=== PATIENT | male | born 1960 | race Caucasian/White ===

== ENCOUNTER 2016-07-25 20:56 | Observation (INO) | payer OTHER ==
[~2016-07-25] VITALS: Ht 177.8 cm; Wt 93.6 kg
[~2016-07-25 20:56] MED LIST: ASP81TEC PO; ATEN50TA PO; CLON0.1T PO; HYDR-34 PO; HYDR-3583 PO; HYDR1TAB PO; IBP600T1 PO; KETO-22 PO; MTP25TSR PO; ONDAN4ODT PO; PRV20T PO; TMSL.4C PO
[2016-07-25] MEDS ORDERED: RX-NITROGLYCERIN 0.4 MG TAB BTL 25'S SL PRN (21:00)
[2016-07-25] MEDS ORDERED: ASPIRIN 81 MG CHEW (CHILDREN'S ASA) PO ONE (21:00)
[2016-07-25 21:20] LABS: BASOPHILS % (AUTO) 0 % (0-10); EOSINOPHILS # (AUTO) 0.2 10^3/uL (0.0-0.3); EOSINOPHILS % (AUTO) 2 % (0-10); LYMPHOCYTES # (AUTO) 1.7 X 10^3 (1.0-4.0); LYMPHOCYTES % (AUTO) 20 % (12-44); MEAN CORPUSCULAR HEMOGLOBIN 32 PG (25-34); MEAN CORPUSCULAR HGB CONC 35 G/DL (32-36); MEAN CORPUSCULAR VOLUME 92 FL (80-99); MEAN PLATELET VOLUME 9.5 FL (7.4-10.4); MONOCYTES # (AUTO) 0.9 X 10^3 (0.0-1.0); MONOCYTES % (AUTO) 11 % (0-12); NEUTROPHILS # (AUTO) 5.7 X 10^3 (1.8-7.8); NEUTROPHILS % (AUTO) 67 % (42-75); PLATELET COUNT 223 10^3/uL (130-400); RED BLOOD COUNT 4.81 10^6/uL (4.35-5.85); RED CELL DISTRIBUTION WIDTH 13.7 % (10.0-14.5); WHITE BLOOD COUNT 8.5 10^3/uL (4.3-11.0)
[2016-07-25 21:28] LABS: INR 1.1 (0.8-1.4); PROTHROMBIN TIME PATIENT 13.4 SEC (12.2-14.7)
--- NOTE | 2016-07-25 21:39 | Diagnostic Imaging Report ---
INDICATION: Hypertension, chest pain Portable chest 9:19 PM Heart size and pulmonary vascularity are normal. Lungs are clear. There are no effusions or pneumothoraces. IMPRESSION: Negative chest Dictated by: Dictated on workstation # [id number]
[2016-07-25 21:40] LABS: ALANINE AMINOTRANSFERASE 22 U/L (0-55); ALBUMIN 3.8 G/DL (3.2-4.5); AMYLASE 43 U/L (25-125); ANION GAP 9 MMOL/L (5-14); ASPARTATE AMINO TRANSFERASE 22 U/L (5-34); BILIRUBIN,TOTAL 0.6 MG/DL (0.1-1.0); BLOOD UREA NITROGEN 11 MG/DL (7-18); BUN/CREATININE RATIO 11; CALCIUM 8.5 MG/DL (8.5-10.1); CARBON DIOXIDE 22 MMOL/L (21-32); CHLORIDE 111 MMOL/L (98-107); CREATINE KINASE 126 U/L (30-200); CREATININE SERUM 1.03 MG/DL (0.60-1.30); GFR ESTIMATED > 60; GLUCOSE 103 MG/DL (70-105); LIPASE 27 U/L (8-78); POTASSIUM 3.6 MMOL/L (3.6-5.0); SODIUM 142 MMOL/L (135-145); TOTAL PROTEIN 6.6 G/DL (6.4-8.2)
[2016-07-25 21:47] LABS: TROPONIN I < 0.30 NG/ML (<0.30)
--- NOTE | 2016-07-25 22:08 | ED Chest Pain ---
General Chief Complaint: Chest Pain Stated Complaint: CHEST TIGHTNESS, RISING BLOOD PRESSURE Nursing Triage Note: Pt presents to ED with c/o chest pain and HTN. Nursing Sepsis Screen: No Definite Risk Source: patient History of Present Illness Time seen by provider: 21:00 Initial Comments PT ARRIVES VIA POV FROM HOME C/O MID CHEST PAIN/TIGHTNESS FOR THE LAST 2 HOURS STATES BP HAS BEEN ELEVATED THIS EVENING WELL--160'S/100'S--STATES HIS BP "SPIKES" FOR NO REASON EVERY FEW MONTHS TOOK AN EXTRA ATENOLOL 30-45 MINUTES PRIOR TO ARRIVAL + SHORTNESS OF BREATH NO SWEATS + NAUSEA, NO VOMITING. ONGOING PROBLEM, BUT NOT NOW NO SWELLING IN LEGS/FEET OR PAIN IN [place] HAS HAD SIMILAR--HAD A CARDIAC CATH IN 2013--NO INTERVENTION. HAS NOT FOLLOWED UP WITH CARDIOLOGY SINCE THEN PCP:CARLOS Allergies and Home Medications Allergies Coded Allergies: NKANo Known Allergies (Unverified Allergy, Mild, 06/15/09) Home Medications Aspirin 81 Mg Tabec, 81 MG PO DAILY, #30 Prescribed by: KB ORO on 08/26/13 1224 Atenolol 50 Mg Tablet, 50 MG PO DAILY, (Reported) Clonidine HCl 0.1 Mg Tablet, 0.1 MG PO BID PRN for BLOOD PRESSURE, #10 Ref 0 Prescribed by: MARISSA CHENG on 03/22/169 Pravastatin Sodium 20 Mg Tablet, 20 MG PO DAILY, #30 Prescribed by: KB ORO on 08/26/13 1224 Review of Systems Constitutional: No chills, No diaphoresis, No dizziness, No fever, other ( FATIGUES EASY/LOW EXERCISE TOLERANCE) Respiratory: See HPI, Denies Cough, Shortness of Air Cardiovascular: See HPI, Chest Pain, Denies Edema, Denies Lightheadedness, Denies Palpitations, Denies Syncope Gastrointestinal: See HPI, Denies Abdominal Pain, Nausea, Denies Poor Appetite , Denies Poor Fluid Intake, Denies Vomiting Genitourinary: No Symptoms Reported Musculoskeletal: no symptoms reported Skin: no symptoms reported Psychiatric/Neurological: No Symptoms Reported Endocrine: No Symptoms Reported Hematologic/Lymphatic: No Symptoms Reported Past Sgxskca-Yzqcgr-Hpacqf Hx Patient Social History Alcohol Use: Occasionally Uses Recreational Drug Use: No Smoking Status: Current Everyday Smoker (1 PPD) Type Used: Cigarettes 2nd Hand Smoke Exposure: No Recent Foreign Travel: No Contact w/Someone Who Travel: No Recent Infectious Disease Expo: No Recent Hopitalizations: No Surgeries HX Surgeries: Yes (CARDIAC CATH 2013--NO INTERVENTION) Surgeries: Cardiac, Gallbladder, Vasectomy Respiratory Hx Respiratory Disorders: No Cardiovascular Hx Cardiac Disorders: Yes (HX OF MITRAL VALVE PROLAPSE) Cardiac Disorders: Hypertension Neurological Hx Neurological Disorders: No Reproductive System Hx Reproductive Disorders: No Genitourinary Hx Genitourinary Disorders: Yes Genitourinary Disorders: Benign Prostatic Hyperpl Gastrointestinal Hx Gastrointestinal Disorders: Yes Gastrointestinal Disorders: Gastroesophageal Reflux (POSSIBLE), Gall Bladder Disease, Irritable Bowel (POSSIBLE) Musculoskeletal Hx Musculoskeletal Disorders: Yes (CHRONIC FOOT PAIN) Musculoskeletal Disorders: Degenerate Disk Disease, Chronic Back Pain Endocrine Hx Endocrine Disorders: No HEENT HX ENT Disorders: No Cancer Hx Cancer: No Psychosocial Hx Psychiatric Problems: No Integumentary HX Skin/Integumentary Disorder: No Blood Transfusions Hx Blood Disorders: No Family Medical History Family Medial History: Family history: Hypertension Hearing loss G8 BROTHER, Onset:Unknown (HEARING AIDE X1) No Family History of: Abdominal aortic aneurysm Abdelrahman's disease Alcoholism Aphasia Cancer Cancer of colon Cataract Chest pain Congenital heart disease Congestive heart failure Cystic fibrosis Dementia Dysphagia Family history: Allergy Family history: Alzheimer's disease Family history: Arthritis Family history: Asthma Family history: Breast disease Family history: Cardiovascular disease Family history: Coronary thrombosis Family history: Diabetes mellitus Family history: Gastrointestinal disease Family history: Glaucoma Family history: Osteoporosis Family history: Thyroid disorder Headache Heart disease Hereditary disease History of - anemia History of - disorder History of - respiratory disease History of drug abuse Human immunodeficiency virus (HIV) seropositivity Hypercholesterolemia Infertile Kidney disease Malignant neoplasm of lung Myocardial infarction Parkinson's disease Prostate cancer Psychotic disorder Seizure disorder Stroke Tuberculosis Visual impairment Physical Exam Vital Signs Vital Sign - Last 12Hours 07/25/16 20:57 Temp 98.3 Pulse 67 Resp 18 B/P (MAP) 173/102 Pulse Ox 98 O2 Delivery Room Air Capillary Refill : Less Than 3 Seconds General Appearance: No Apparent Distress, WD/WN, Other (REEKS OF CIGARETTES) HEENT: PERRL/EOMI Neck: Full Range of Motion, Normal Inspection, Non Tender, Supple, No Carotid Bruit, No JVD Respiratory: Chest Non Tender, Normal Breath Sounds, No Accessory Muscle Use, No Respiratory Distress Cardiovascular: Regular Rate, Rhythm, No Edema, No JVD, No Murmur, Normal Peripheral Pulses Gastrointestinal: Normal Bowel Sounds, No Organomegaly, No Pulsatile Mass, Soft , Tenderness (MILD EPIGASTRIC TENDERNESS) Extremity: Normal Capillary Refill, Normal Inspection, Normal Range of Motion, Non Tender, No Calf Tenderness, No Pedal Edema Neurologic/Psychiatric: Alert, Oriented x3, No Motor/Sensory Deficits, Normal Mood/Affect, nursing scheduler II-XII Norm as Tested Skin: Normal Color, Warm/Dry, Tattoos/Piercings (MULTIPLE TATTOOS/VULGAR; MULTIPLE PIERCINGS) Progress/Results/Core Measures Results/Orders Lab Results Laboratory Tests Test 07/25/16 21:05 07/25/16 21:14 Range/Units Prothrombin Time 13.4 12.2-14.7 SEC INR Comment 1.1 0.8-1.4 Activated Partial Thromboplast Time 31 24-35 SEC Sodium Level 142 135-145 MMOL/L Potassium Level 3.6 3.6-5.0 MMOL/L Chloride Level 111 H 98-107 MMOL/L Carbon Dioxide Level 22 21-32 MMOL/L Anion Gap 9 5-14 MMOL/L Blood Urea Nitrogen 11 7-18 MG/DL Creatinine 1.03 0.60-1.30 MG/DL Estimat Glomerular Filtration Rate > 60 BUN/Creatinine Ratio 11 Glucose Level 103 70-105 MG/DL Calcium Level 8.5 8.5-10.1 MG/DL Total Bilirubin 0.6 0.1-1.0 MG/DL Aspartate Amino Transf (AST/SGOT) 22 5-34 U/L Alanine Aminotransferase (ALT/SGPT) 22 0-55 U/L Alkaline Phosphatase 58 40-136 U/L Total Creatine Kinase 126 30-200 U/L Creatine Kinase MB 0.8 <6.6 NG/ML Troponin I < 0.30 <0.30 NG/ML B-Type Natriuretic Peptide 46.2 <100.0 PG/ML Total Protein 6.6 6.4-8.2 G/DL Albumin 3.8 3.2-4.5 G/DL Amylase Level 43 25-125 U/L Lipase 27 8-78 U/L White Blood Count 8.5 4.3-11.0 10^3/uL Red Blood Count 4.81 4.35-5.85 10^6/uL Hemoglobin 15.4 13.3-17.7 G/DL Hematocrit 44 40-54 % Mean Corpuscular Volume 92 80-99 FL Mean Corpuscular Hemoglobin 32 25-34 PG Mean Corpuscular Hemoglobin Concent 35 32-36 G/DL Red Cell Distribution Width 13.7 10.0-14.5 % Platelet Count 223 130-400 10^3/uL Mean Platelet Volume 9.5 7.4-10.4 FL Neutrophils (%) (Auto) 67 42-75 % Lymphocytes (%) (Auto) 20 12-44 % Monocytes (%) (Auto) 11 0-12 % Eosinophils (%) (Auto) 2 0-10 % Basophils (%) (Auto) 0 0-10 % Neutrophils # (Auto) 5.7 1.8-7.8 X 10^3 Lymphocytes # (Auto) 1.7 1.0-4.0 X 10^3 Monocytes # (Auto) 0.9 0.0-1.0 X 10^3 Eosinophils # (Auto) 0.2 0.0-0.3 10^3/uL Basophils # (Auto) 0.0 0.0-0.1 10^3/uL My Orders Orders - KATIA SALDANA K DO Amylase (07/25/16 20:59) Cbc With Automated Diff (07/25/16 20:59) Comprehensive Metabolic Panel (07/25/16 20:59) Creatine Kinase (07/25/16 20:59) Creatine Kinase Mb (07/25/16 20:59) Lipase (07/25/16 20:59) Partial Thromboplastin Time (07/25/16 20:59) Protime With Inr (07/25/16 20:59) Troponin I (07/25/16 20:59) Chest 1 View, Ap/Pa Only (07/25/16 20:59) O2 (07/25/16 20:59) Ekg Tracing (07/25/16 20:59) Aspirin Chewable Tablet (Baby Aspirin Ch (07/25/16 21:00) Rx-Nitroglycerin Sl Tabs (Rx-Nitrostat S (07/25/16 21:00) BNP (07/25/16 20:59) Monitor-Rhythm Ecg Trace Only (07/25/16 20:59) Medications Given in ED Current Medications Medications Dose Ordered Sig/[place] Route Start Time Stop Time Status Last Admin Dose Admin Aspirin 324 mg ONCE ONCE PO 07/25/16 21:00 07/25/16 21:01 DC 07/25/16 21:12 324 MG Nitroglycerin 0.4 mg UD PRN SL 07/25/16 21:00 07/25/16 21:12 0.4 MG Vital Signs/I&O Vital Sign - Last 12Hours 07/25/16 07/25/16 07/25/16 20:57 20:57 21:05 Temp 98.3 Pulse 67 Resp 18 B/P (MAP) 173/102 Pulse Ox 98 97 O2 Delivery Room Air Room Air Room Air Blood Pressure Mean: 125 Progress Note : Progress Note PAIN-FREE AND BP DOWN TO 130'S/80'S WITH NTG X 1 UNEVENTFUL ER STAY ECG Initial ECG Impression Time: 21:01 Initial ECG Rate: 69 Initial ECG Rhythm: Normal Sinus Initial ECG Comparisson: Unchanged Diagnostic Imaging Comments CXR--NO ACUTE PROCESS, PER RADIOLOGIST REPORT @ 2145 Departure Communication Progress Notes 2156--SPOKE WITH DR. FLYNN, ACCEPTS PT FOR ADMIT 2158--SPOKE WITH DR. PANDEY FOR CARDIOLOGY CONSULT. ORDERS NOTED Impression Impression: Primary Impression: Chest pain Additional Impressions: HYPERTENSION Tobacco dependence Disposition: ADMITTED INPATIENT Condition: Improved Decision to Admit Reason: Admit from ER (General) Decision to Admit/Date: Jul 25, 2016 Time/Decision to Admit Time: 21:00 Departure-Patient Inst. Referrals: [facility] (PCP/Family) Primary Care Physician KATIA SALDANA DO Jul 25, 2016 22:08
[2016-07-25] MEDS ORDERED: ENOXAPARIN 100 MG/1 ML (LOVENOX) SYR SC ONE (22:15)
[2016-07-25] MEDS ORDERED: HYDR-3730 PO (22:31)
[2016-07-25] MEDS ORDERED: TAMS0.4C98 PO (22:31)
[2016-07-25] MEDS ORDERED: OMEP20TA33 PO (22:31)
[2016-07-25 22:59] VITALS: BP 155/98
[2016-07-25] MEDS ORDERED: PANTOPRAZOLE 40 MG/10 ML (PROTONIX) VIAL IV SCH (23:30)
[2016-07-26] MEDS ORDERED: PANTOPRAZOLE 40 MG/10 ML (PROTONIX) VIAL IV SCH (00:41)
[2016-07-26] MEDS ORDERED: morphine INJ 4 MG/ML 1 ML (VIAL/SYRINGE) IV PRN (00:45)
[2016-07-26] MEDS ORDERED: NITROGLYCERIN SUBLINGUAL 0.4 MG TAB (NITROSTAT) SL PRN (00:45)
[2016-07-26 03:23] LABS: BASOPHILS % (AUTO) 0 % (0-10); EOSINOPHILS # (AUTO) 0.2 10^3/uL (0.0-0.3); EOSINOPHILS % (AUTO) 3 % (0-10); LYMPHOCYTES # (AUTO) 1.9 X 10^3 (1.0-4.0); LYMPHOCYTES % (AUTO) 25 % (12-44); MEAN CORPUSCULAR HEMOGLOBIN 32 PG (25-34); MEAN CORPUSCULAR HGB CONC 35 G/DL (32-36); MEAN CORPUSCULAR VOLUME 92 FL (80-99); MEAN PLATELET VOLUME 9.8 FL (7.4-10.4); MONOCYTES # (AUTO) 0.9 X 10^3 (0.0-1.0); MONOCYTES % (AUTO) 12 % (0-12); NEUTROPHILS # (AUTO) 4.5 X 10^3 (1.8-7.8); NEUTROPHILS % (AUTO) 60 % (42-75); PLATELET COUNT 211 10^3/uL (130-400); RED CELL DISTRIBUTION WIDTH 13.6 % (10.0-14.5); WHITE BLOOD COUNT 7.6 10^3/uL (4.3-11.0)
[2016-07-26 03:52] LABS: ALANINE AMINOTRANSFERASE 19 U/L (0-55); ALBUMIN 3.4 G/DL (3.2-4.5); ANION GAP 9 MMOL/L (5-14); ASPARTATE AMINO TRANSFERASE 17 U/L (5-34); BILIRUBIN,TOTAL 0.4 MG/DL (0.1-1.0); BLOOD UREA NITROGEN 14 MG/DL (7-18); BUN/CREATININE RATIO 16; CALCIUM 8.1 MG/DL (8.5-10.1); CARBON DIOXIDE 20 MMOL/L (21-32); CHLORIDE 111 MMOL/L (98-107); CHOLESTEROL 156 MG/DL (< 200); CREATININE SERUM 0.86 MG/DL (0.60-1.30); DIRECT LDL 104 MG/DL (1-129); GFR ESTIMATED > 60; GLUCOSE 87 MG/DL (70-105); POTASSIUM 3.4 MMOL/L (3.6-5.0); SODIUM 140 MMOL/L (135-145); TRIGLYCERIDES 275 MG/DL (<150); VLDL CHOLESTEROL 55 MG/DL (5-40)
[2016-07-26 03:59] LABS: MYOGLOBIN SERUM 29.2 NG/ML (10.0-92.0)
[2016-07-26] MEDS ORDERED: ASPIRIN E.C. 325 MG (ECOTRIN) TABLET PO SCH (09:00)
[2016-07-26] MEDS ORDERED: NICOTINE 21 MG (NICODERM) PATCH TD SCH (09:00)
[2016-07-26] MEDS ORDERED: ENOXAPARIN 100 MG/1 ML (LOVENOX) SYR SC SCH (10:00)
--- NOTE | 2016-07-26 11:23 | Consultation-Cardiology ---
HPI-Cardiology Cardiology Consultation Date of Consultation 07/26/16 Date of Admission Indication: chest pain HPI 55 years old gentleman with history of hypertension, mild coronary artery disease per cardiac catheterization in 2013. Was in his usual state of health until yesterday when he started having chest pain, described it as pain in the retrosternal area, dull in nature, not radiating, had barbecue prior to that. Noted that his blood pressure was elevated, took additional dose of atenolol, reported that by the time he arrived to the emergency room he was feeling somewhat better. No further episodes of chest pain or shortness of breath, requesting to go home. I discussed with him the management plan recommended stress test, patient expressed that due to his back pain and leg pain, prefer to have Apical Stress Test, Agreed on Doing That Next Week, Requested Follow-Up with His Professor Of [employer], Patient Reported That He Did Not Follow-Up with Any Professor Of [employer], Had a Cardiac Catheterization Done by Dr. Douglass in 2013, Requested to Transfer His Service to My Practice. Home Medications & Allergies Allergies: Coded Allergies: KYMANo Known Allergies (Unverified Allergy, Mild, 06/15/09) Home Medication List Reviewed: Yes LNT-Bfuecw-Nsitls Hx Patient Social History Marital Status: Alcohol Use: Occasionally Uses Recreational Drug Use: No Smoking Status: Current Everyday Smoker Type Used: Cigarettes 2nd Hand Smoke Exposure: No Recent Foreign Travel: No Recent Infectious Disease Expo: No Recent Hopitalizations: No Physical Abuse Screen: No Sexual Abuse: No Past Medical History past medical history as discussed below Family Medical History Family History: G8 BROTHER Hearing loss, Onset:Unknown (HEARING AIDE X1) Relation not specified for: Family history: Hypertension Constitutional: no symptoms reported, see HPI EENTM: no symptoms reported, see HPI Respiratory: no symptoms reported, see HPI Cardiovascular: see HPI, chest pain, No edema, No Hx of Intervention, No palpitations, No syncope, No vascular heart diseas, No other Gastrointestinal: no symptoms reported, see HPI Genitourinary: no symptoms reported, see HPI Musculoskeletal: see HPI, back pain, No gout, joint pain, No joint swelling, No muscle pain, No muscle stiffness, No muscle cramps, No muscle twitching, No muscle weakness, No neck pain, other (foot pain) Skin: no symptoms reported, see HPI Psychiatric/Neurological: No Symptoms Reported, See HPI Reviewed Test Results Reviewed Test Results Lab Laboratory Tests Test 07/25/16 21:05 07/25/16 21:14 07/26/16 03:10 Range/Units Prothrombin Time 13.4 12.2-14.7 SEC INR Comment 1.1 0.8-1.4 Activated Partial Thromboplast Time 31 24-35 SEC Sodium Level 142 140 135-145 MMOL/L Potassium Level 3.6 3.4 L 3.6-5.0 MMOL/L Chloride Level 111 H 111 H 98-107 MMOL/L Carbon Dioxide Level 22 20 L 21-32 MMOL/L Anion Gap 9 9 5-14 MMOL/L Blood Urea Nitrogen 11 14 7-18 MG/DL Creatinine 1.03 0.86 0.60-1.30 MG/DL Estimat Glomerular Filtration Rate > 60 > 60 BUN/Creatinine Ratio 11 16 Glucose Level 103 87 70-105 MG/DL Calcium Level 8.5 8.1 L 8.5-10.1 MG/DL Total Bilirubin 0.6 0.4 0.1-1.0 MG/DL Aspartate Amino Transf (AST/SGOT) 22 17 5-34 U/L Alanine Aminotransferase (ALT/SGPT) 22 19 0-55 U/L Alkaline Phosphatase 58 55 40-136 U/L Total Creatine Kinase 126 30-200 U/L Creatine Kinase MB 0.8 <6.6 NG/ML Troponin I < 0.30 < 0.30 <0.30 NG/ML B-Type Natriuretic Peptide 46.2 <100.0 PG/ML Total Protein 6.6 6.0 L 6.4-8.2 G/DL Albumin 3.8 3.4 3.2-4.5 G/DL Amylase Level 43 25-125 U/L Lipase 27 8-78 U/L White Blood Count 8.5 7.6 4.3-11.0 10^3/uL Red Blood Count 4.81 4.60 4.35-5.85 10^6/uL Hemoglobin 15.4 14.9 13.3-17.7 G/DL Hematocrit 44 43 40-54 % Mean Corpuscular Volume 92 92 80-99 FL Mean Corpuscular Hemoglobin 32 32 25-34 PG Mean Corpuscular Hemoglobin Concent 35 35 32-36 G/DL Red Cell Distribution Width 13.7 13.6 10.0-14.5 % Platelet Count 223 211 130-400 10^3/uL Mean Platelet Volume 9.5 9.8 7.4-10.4 FL Neutrophils (%) (Auto) 67 60 42-75 % Lymphocytes (%) (Auto) 20 25 12-44 % Monocytes (%) (Auto) 11 12 0-12 % Eosinophils (%) (Auto) 2 3 0-10 % Basophils (%) (Auto) 0 0 0-10 % Neutrophils # (Auto) 5.7 4.5 1.8-7.8 X 10^3 Lymphocytes # (Auto) 1.7 1.9 1.0-4.0 X 10^3 Monocytes # (Auto) 0.9 0.9 0.0-1.0 X 10^3 Eosinophils # (Auto) 0.2 0.2 0.0-0.3 10^3/uL Basophils # (Auto) 0.0 0.0 0.0-0.1 10^3/uL Myoglobin 29.2 10.0-92.0 NG/ML Triglycerides Level 275 H <150 MG/DL Cholesterol Level 156 < 200 MG/DL LDL Cholesterol Direct 104 1-129 MG/DL VLDL Cholesterol 55 H 5-40 MG/DL HDL Cholesterol 21 L 40-60 MG/DL Physical Exam Vital Signs Vital Sign - Last 12Hours 07/25/16 20:57 Temp 98.3 Pulse 67 Resp 18 B/P (MAP) 173/102 Pulse Ox 98 O2 Delivery Room Air Capillary Refill : Less Than 3 SecondsLess Than 3 Seconds General Appearance: No Apparent Distress, WD/WN Eyes: Bilateral Eye EOMI, Bilateral Eye Normal Inspection, Bilateral Eye PERRL HEENT: PERRL/EOMI, TMs Normal, Normal ENT Inspection, Pharynx Normal Neck: Full Range of Motion, Normal Inspection, Non Tender, Supple, Carotid Bruit Respiratory: Chest Non Tender, Lungs Clear, Normal Breath Sounds, No Accessory Muscle Use, No Respiratory Distress Cardiovascular: Regular Rate, Rhythm, No Edema, No Gallop, No JVD, No Murmur, Normal Peripheral Pulses Gastrointestinal: Normal Bowel Sounds, No Organomegaly, No Pulsatile Mass, Non Tender, Soft Back: Normal Inspection, No CVA Tenderness, No Vertebral Tenderness Extremity: Normal Capillary Refill, Normal Inspection, Normal Range of Motion, Non Tender, No Calf Tenderness, No Pedal Edema Neurologic/Psychiatric: Alert, Oriented x3, No Motor/Sensory Deficits, Normal Mood/Affect Skin: Normal Color, Warm/Dry Lymphatic: No Adenopathy A/P-Cardiology Admission Diagnosis chest pain nonspecific etiology Coronary artery disease PVCs Hypertension Assessment/Plan chest pain nonspecific etiology, atypical in presentation, we discussed the management plan, recommended continuing with PPI, changing atenolol to Toprol and monitoring his blood pressure Coronary artery disease, mild nonobstructive disease per cardiac catheterization 2013 Occasional PVCs noted on telemetry, starting back on beta blockers. Monitor as an outpatient. Hypertension, better controlled, restart beta blockers with using Toprol instead of atenolol and monitor as an outpatient Tobaccoism, educated on smoking cessation Gastroesophageal reflux disease, maintained on Nexium. Back pain, foot pain, unable to walk on the treadmill, requesting to have a stress test as a chemical. History of cholecystectomy Clinical Quality Measures AMI/AHF: ASA po Prior to arrival: No DVT/VTE Risk/Contraindication: Risk Factor Score Per Nursin RFS Level Per Nursing on Admit: 2=Moderate SADA PANDEY MD Jul 26, 2016 11:23
[2016-07-26] MEDS ORDERED: METO-272 PO (11:27)
[2016-07-26] MEDS ORDERED: meTOproloL SUCCINATE 50 MG (TOPROL XL) TAB PO NR (11:30)
[2016-07-26 11:52] VITALS: BP 155/98
[2016-07-26] MEDS ORDERED: ALFUZOSIN HCL 10 MG TAB (UROXATRAL) PO SCH (18:00)
[2016-07-27] MEDS ORDERED: PANTOPRAZOLE 40 MG (PROTONIX) TAB PO SCH (07:00)
[2016-07-27] MEDS ORDERED: OMEPRAZOLE MAGNESIUM 40 MG PO SCH (09:00)
[2016-07-27] MEDS ORDERED: TAMSULOSIN 0.4 MG (FLOMAX) CAP PO SCH (09:00)
--- OUTSIDE RECORDS SUMMARY | 2016-08-31 04:22 | XMS REPORT | Continuity of Care Document ---
Author Author [facility] Organization [facility] Address Unknown Phone Unavailable Allergies Active Description Code Type Severity Reaction Onset Reported/Identified Relationship to Patient Clinical Status Yes NKANo Known Allergies NKA Miscellaneous Allergy Mild N/A 06/15/2009 Medications Problems Date Dx Coded Attending Type Code Diagnosis Diagnosed By 08/29/2010 Ot 922.1 08/29/2010 Ot 959.11 08/29/2010 Ot E000.8 08/29/2010 Ot E849.8 08/29/2010 Ot E888.1 08/31/2010 Ot 786.50 08/31/2010 Ot 786.52 01/24/2011 Ot 574.20 CHOLELITHIASIS NOS 01/24/2011 Ot 789.01 ABDOMINAL PAIN, RIGHT UPPER QUADRANT 01/30/2011 Ot 574.10 CHOLELITH W CHOLECYS NEC 06/11/2011 Ot 401.9 HYPERTENSION NOS 02/22/2013 KATIA SALDANA DO K Ot 401.9 HYPERTENSION NOS 02/22/2013 KATIA SALDANA DO Ot 784.0 HEADACHE 02/23/2013 HÉCTOR FLORES SENIOR COMMUNICATIONS SPECIALIST Ot 592.1 CALCULUS OF URETER 02/23/2013 HÉCTOR FLORES SENIOR COMMUNICATIONS SPECIALIST Ot 608.9 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 08/26/2013 YONY LAM FACC, JUDITH FACP CCDS Ot 276.8 HYPOPOTASSEMIA 08/26/2013 YONY LAM FACC, JUDITH FACP CCDS Ot 305.1 TOBACCO USE DISORDER 08/26/2013 YONY LAM FACC, JUDITH FACP CCDS Ot 401.9 HYPERTENSION NOS 08/26/2013 YONY LAM FACC, JUDITH FACP CCDS Ot 414.01 CORONARY ATHEROSCLEROSIS OF [place] CORON 08/26/2013 YONY LAM FACC, JUDITH FACP CCDS Ot 786.59 CHEST PAIN NEC 08/26/2013 YONY LAM FACC, JUDITH FACP CCDS Ot V45.89 POSTSURGICAL STATES NEC 08/26/2013 JUDITH BHAKTA MD, FACC FACP CCDS Ot V58.69 [facility],CURRENT USE 06/01/2014 YUSUFLUNA LI DO Ot 721.3 06/01/2014 Ot 574.20 06/01/2014 Ot V72.83 06/01/2014 Ot V74.8 06/01/2014 YUSUFLUNA HAJI DO Ot 592.1 06/01/2014 YUSUF , LUNA Mathews Ot 719.45 06/01/2014 YUSUF LUNA MCKEON Ot 724.2 06/01/2014 YUSUF LUNA MCKEON Ot 721.3 06/13/2014 YUSUF LUNA MCKEON Ot 721.3 12/15/2014 Ot 574.20 12/15/2014 Ot V72.83 12/15/2014 Ot V74.8 12/15/2014 YUSUF LUNA MCKEON Ot 592.1 12/15/2014 YUSUF LUNA MCKEON Ot 719.45 12/15/2014 YUSUF LUNA MCKEON Ot 724.2 12/15/2014 YUSUF LUNA Mathews Ot 721.3 12/15/2014 HÉCTOR FLORES SENIOR COMMUNICATIONS SPECIALIST Ot 603.9 HYDROCELE NOS 12/15/2014 HÉCTOR FLORES SENIOR COMMUNICATIONS SPECIALIST Ot 608.9 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 12/15/2014 Ot 574.20 12/15/2014 Ot V72.83 12/15/2014 Ot V74.8 12/15/2014 YUSUF LUNA MCKEON Ot 592.1 12/15/2014 PARAMJIT LUNA Mathews Ot 719.45 12/15/2014 PARAMJIT MCKEON LUNA Mathews Ot 724.2 12/15/2014 YUSUFJEN MCKEON LUNA Mathews Ot 721.3 08/16/2015 CORA GONZALES FLIGHT SURVEYOR Ot R10.2 PELVIC AND PERINEAL PAIN 08/30/2015 CORA GONZALES FLIGHT SURVEYOR Ot R10.2 PELVIC AND PERINEAL PAIN 09/27/2015 MARI LAM, EDWIGE Gallegos Ot R10.31 RIGHT LOWER QUADRANT PAIN 09/27/2015 MARI LAM, EDWIGE Gallegos Ot Z53.21 PROC/TRTMT NOT CRD OUT D/T PT LV BEF SEE 10/01/2015 MARI LAM, EDWIGE Gallegos Ot R10.31 RIGHT LOWER QUADRANT PAIN 10/01/2015 MARI LAM, EDWIGE Gallegos Ot Z53.21 PROC/TRTMT NOT CRD OUT D/T PT LV BEF SEE 03/22/2016 Ot 574.20 CHOLELITHIASIS NOS 03/22/2016 Ot V72.83 EXAM PRE-OPERATIVE NEC 03/22/2016 Ot V74.8 SCREEN-BACTERIAL DIS NEC 03/22/2016 LUNA YUSUF DO Ot 592.1 CALCULUS OF URETER 03/22/2016 LUNA YUSUF DO Ot 719.45 JOINT PAIN-PELVIS 03/22/2016 LUNA YUSUF DO Ot 724.2 LUMBAGO 03/22/2016 LUNA YUSUF DO Ot 721.3 LUMBOSACRAL SPONDYLOSIS 03/22/2016 LON SMITH MD (DDU) Ot V68.01 DISABILITY EXAMINATION 03/22/2016 LON SMITH MD (DDU) Ot V82.89 SCREEN FOR OTH SPECIF CONDITIONS 03/22/2016 CORA GONZALES FLIGHT SURVEYOR Ot R10.2 PELVIC AND PERINEAL PAIN 03/22/2016 MARISSA CHENG MD Ot F17.210 NICOTINE DEPENDENCE, CIGARETTES, UNCOMPL 03/22/2016 MARISSA CHENG MD Ot G89.29 OTHER CHRONIC PAIN 03/22/2016 MARISSA CHENG MD Ot M54.5 LOW BACK PAIN 03/22/2016 MARISSA CHENG MD Ot R07.9 CHEST PAIN, UNSPECIFIED 03/22/2016 MARISSA CHENG MD Ot 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 03/22/2016 MARISSA CHENG MD Ot Z79.899 OTHER FPC (CURRENT) DRUG THERAPY 03/22/2016 Ot 574.20 CHOLELITHIASIS NOS 03/22/2016 Ot V72.83 EXAM PRE-OPERATIVE NEC 03/22/2016 Ot V74.8 SCREEN-BACTERIAL DIS NEC 03/22/2016 LUNA YUSUF DO Ot 592.1 CALCULUS OF URETER 03/22/2016 LUNA YUSUF DO Ot 719.45 JOINT PAIN-PELVIS 03/22/2016 LUNA YUSUF DO Ot 724.2 LUMBAGO 03/22/2016 PARAMJIT MCKEON LUNA Reid Ot 721.3 LUMBOSACRAL SPONDYLOSIS 03/22/2016 LON SMITH MD ([facility]) Ot V68.01 DISABILITY EXAMINATION 03/22/2016 LON SMITH MD ([facility]) Ot V82.89 SCREEN FOR OTH SPECIF CONDITIONS 03/22/2016 CORA GONZALES FLIGHT SURVEYOR Ot R10.2 PELVIC AND PERINEAL PAIN 03/25/2016 MARISSA CHENG MD Ot F17.210 NICOTINE DEPENDENCE, CIGARETTES, UNCOMPL 03/25/2016 MARISSA CHENG MD Ot G89.29 OTHER CHRONIC PAIN 03/25/2016 MARISSA CHENG MD Ot M54.5 LOW BACK PAIN 03/25/2016 MARISSA CHENG MD Ot R07.9 CHEST PAIN, UNSPECIFIED 03/25/2016 MARISSA CHENG MD Ot 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 03/25/2016 MARISSA CHENG MD, Ot Z79.899 OTHER SOFTWARE DEVELOPER CONSULTANT (CURRENT) DRUG THERAPY 07/26/2016 JULIANNA FLYNN MD Ot F17.210 NICOTINE DEPENDENCE, CIGARETTES, UNCOMPL 07/26/2016 JULIANNA FLYNN MD Ot I10 ESSENTIAL (PRIMARY) HYPERTENSION 07/26/2016 JULIANNA FLYNN MD Ot I25.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[place] CORONARY 07/26/2016 JULIANNA FLYNN MD Ot I49.3 VENTRICULAR PREMATURE DEPOLARIZATION 07/26/2016 JULIANNA FLYNN MD Ot K21.9 GASTRO-ESOPHAGEAL REFLUX DISEASE WITHOUT 07/26/2016 JULIANNA FLYNN MD Ot M54.9 DORSALGIA, UNSPECIFIED 07/26/2016 JULIANNA FLYNN MD Ot M79.673 PAIN IN UNSPECIFIED FOOT 07/26/2016 JULIANNA FLYNN MD Ot N40.0 BENIGN PROSTATIC HYPERPLASIA WITHOUT LOW 07/26/2016 JULIANNA FLYNN MD Ot R07.89 OTHER CHEST PAIN 07/26/2016 JULIANNA FLYNN MD Ot F17.210 NICOTINE DEPENDENCE, CIGARETTES, UNCOMPL 07/26/2016 JULIANNA FLYNN MD Ot I10 ESSENTIAL (PRIMARY) HYPERTENSION 07/26/2016 JULIANNA FLYNN MD Ot I25.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[place] CORONARY 07/26/2016 JULIANNA FLYNN MD Ot I49.3 VENTRICULAR PREMATURE DEPOLARIZATION 07/26/2016 JULIANNA FLYNN MD Ot K21.9 GASTRO-ESOPHAGEAL REFLUX DISEASE WITHOUT 07/26/2016 JULIANNA FLYNN MD Ot M54.9 DORSALGIA, UNSPECIFIED 07/26/2016 JULIANNA FLYNN MD Ot M79.673 PAIN IN UNSPECIFIED FOOT 07/26/2016 JULIANNA FLYNN MD Ot N40.0 BENIGN PROSTATIC HYPERPLASIA WITHOUT LOW 07/26/2016 JULIANNA FLYNN MD Ot R07.89 OTHER CHEST PAIN 07/28/2016 LUNA YUSUF DO Ot 592.1 CALCULUS OF URETER 07/28/2016 LUNA YUSUF DO Ot 719.45 JOINT PAIN-PELVIS 07/28/2016 LUNA YUSUF DO Ot 724.2 LUMBAGO 07/28/2016 LUNA YUSUF DO Ot 721.3 LUMBOSACRAL SPONDYLOSIS 07/28/2016 LON SMITH MD (U) Ot V68.01 DISABILITY EXAMINATION 07/28/2016 LON SMITH MD (U) Ot V82.89 SCREEN FOR OTH SPECIF CONDITIONS 07/28/2016 CORA GONZALES FLIGHT SURVEYOR Ot R10.2 PELVIC AND PERINEAL PAIN 08/01/2016 SADA PANDEY MD Ot I10 ESSENTIAL (PRIMARY) HYPERTENSION 08/01/2016 SADA PANDEY MD, Ot I49.3 VENTRICULAR PREMATURE DEPOLARIZATION 08/01/2016 SADA PANDEY MD Ot R07.9 CHEST PAIN, UNSPECIFIED 08/01/2016 SADA PANDEY MD Ot Z72.0 TOBACCO USE 08/14/2016 SADA PANDEY MD Ot I10 ESSENTIAL (PRIMARY) HYPERTENSION 08/14/2016 SADA PANDEY MD Ot I49.3 VENTRICULAR PREMATURE DEPOLARIZATION 08/14/2016 SADA PANDEY MD Ot R07.9 CHEST PAIN, UNSPECIFIED 08/14/2016 SADA PANDEY MD Ot Z72.0 TOBACCO USE Procedures Results Test Result Range Complete blood count (CBC) with automated white blood cell (WBC) differential - 03/22/16 18:47 Blood leukocytes automated count (number/volume) 9.6 10*3/ uL 4.3-11.0 Blood erythrocytes automated count (number/volume) 5.06 10*6 /uL 4.35-5.85 Venous blood hemoglobin measurement (mass/volume) 16.5 g/dL 13.3-17.7 Blood hematocrit (volume fraction) 47 % 40-54 Automated erythrocyte mean corpuscular volume 93 [foz_us] 80-99 Automated erythrocyte mean corpuscular hemoglobin (mass per erythrocyte) 33 pg 25-34 Automated erythrocyte mean corpuscular hemoglobin concentration measurement ( mass/volume) 35 g/dL 32-36 Automated erythrocyte distribution width ratio 13.0 % 10.0-14.5 Automated blood platelet count (count/volume) 175 10*3/uL 130-400 Automated blood platelet mean volume measurement 10.3 [foz_ us] 7.4-10.4 Automated blood neutrophils/100 leukocytes 55 % 42-75 Automated blood lymphocytes/100 leukocytes 27 % 12-44 Blood monocytes/100 leukocytes 13 % 0-12 Automated blood eosinophils/100 leukocytes 6 % 0-10 Automated blood basophils/100 leukocytes 0 % 0-10 Blood neutrophils automated count (number/volume) 5.2 10*3 1.8-7.8 Blood lymphocytes automated count (number/volume) 2.5 10*3 1.0-4.0 Blood monocytes automated count (number/volume) 1.2 10*3 0.0-1.0 Automated eosinophil count 0.6 10*3/uL 0.0-0.3 Automated blood basophil count (count/volume) 0.0 10*3/uL 0.0-0.1 PT panel in platelet poor plasma by coagulation assay - 03/22/16 18:47 Prothrombin time (PT) in platelet poor plasma by coagulation assay 12.7 s 12.2-14.7 INR in platelet poor plasma or blood by coagulation assay 1.0 0.8-1.4 Activated partial thromboplastin time (aPTT) in platelet poor plasma bycoagulation assay - 03/22/16 18:47 Activated partial thromboplastin time (aPTT) in platelet poor plasma bycoagulation assay 31 s 24-35 Fibrin D-dimer FEU measurement in platelet poor plasma (mass/volume) - 18:47 Fibrin D-dimer FEU measurement in platelet poor plasma (mass/volume) < ug/mL 0.00-0.49 Comprehensive metabolic panel - 03/22/16 18:47 Serum or plasma sodium measurement (moles/volume) 141 mmol/ L 135-145 Serum or plasma potassium measurement (moles/volume) 3.9 mmol/L 3.6-5.0 Serum or plasma chloride measurement (moles/volume) 110 mmol /L 98-107 Carbon dioxide 23 mmol/L 21-32 Serum or plasma anion gap determination (moles/volume) 8 mmol/L 5-14 Serum or plasma urea nitrogen measurement (mass/volume) 14 mg/dL 7-18 Serum or plasma creatinine measurement (mass/volume) 1.04 mg /dL 0.60-1.30 Serum or plasma urea nitrogen/creatinine mass ratio 13 NRG Serum or plasma creatinine measurement with calculation of estimated glomerular filtration rate > NRG Serum or plasma glucose measurement (mass/volume) 93 mg/dL 70-105 Serum or plasma calcium measurement (mass/volume) 9.0 mg/dL 8.5-10.1 Serum or plasma total bilirubin measurement (mass/volume) 0.3 mg/dL 0.1-1.0 Serum or plasma alkaline phosphatase measurement (enzymatic activity/volume) 65 U/L 40-136 Serum or plasma aspartate aminotransferase measurement (enzymatic activity/ volume) 23 U/L 5-34 Serum or plasma alanine aminotransferase measurement (enzymatic activity/volume ) 33 U/L 0-55 Serum or plasma protein measurement (mass/volume) 6.9 g/dL 6.4-8.2 Serum or plasma albumin measurement (mass/volume) 3.9 g/dL 3.2-4.5 Magnesium - 03/22/16 18:47 Magnesium 2.3 mg/dL 1.8-2.4 Serum or plasma troponin i.cardiac measurement (mass/volume) - 03/22/16 18:47 Serum or plasma troponin i.cardiac measurement (mass/volume) < ng/mL <0.30 Myoglobin, serum - 03/22/16 18:47 Myoglobin, serum 29.3 ng/mL 10.0-92.0 Serum or plasma troponin i.cardiac measurement (mass/volume) - 03/22/16 20:28 Serum or plasma troponin i.cardiac measurement (mass/volume) < ng/mL <0.30 PT panel in platelet poor plasma by coagulation assay - 07/25/16 21:05 Prothrombin time (PT) in platelet poor plasma by coagulation assay 13.4 s 12.2-14.7 INR in platelet poor plasma or blood by coagulation assay 1.1 0.8-1.4 Activated partial thromboplastin time (aPTT) in platelet poor plasma bycoagulation assay - 07/25/16 21:05 Activated partial thromboplastin time (aPTT) in platelet poor plasma bycoagulation assay 31 s 24-35 Comprehensive metabolic panel - 07/25/16 21:05 Serum or plasma sodium measurement (moles/volume) 142 mmol/ L 135-145 Serum or plasma potassium measurement (moles/volume) 3.6 mmol/L 3.6-5.0 Serum or plasma chloride measurement (moles/volume) 111 mmol /L 98-107 Carbon dioxide 22 mmol/L 21-32 Serum or plasma anion gap determination (moles/volume) 9 mmol/L 5-14 Serum or plasma urea nitrogen measurement (mass/volume) 11 mg/dL 7-18 Serum or plasma creatinine measurement (mass/volume) 1.03 mg /dL 0.60-1.30 Serum or plasma urea nitrogen/creatinine mass ratio 11 NRG Serum or plasma creatinine measurement with calculation of estimated glomerular filtration rate > NRG Serum or plasma glucose measurement (mass/volume) 103 mg/dL 70-105 Serum or plasma calcium measurement (mass/volume) 8.5 mg/dL 8.5-10.1 Serum or plasma total bilirubin measurement (mass/volume) 0.6 mg/dL 0.1-1.0 Serum or plasma alkaline phosphatase measurement (enzymatic activity/volume) 58 U/L 40-136 Serum or plasma aspartate aminotransferase measurement (enzymatic activity/ volume) 22 U/L 5-34 Serum or plasma alanine aminotransferase measurement (enzymatic activity/volume ) 22 U/L 0-55 Serum or plasma protein measurement (mass/volume) 6.6 g/dL 6.4-8.2 Serum or plasma albumin measurement (mass/volume) 3.8 g/dL 3.2-4.5 Serum or plasma creatine kinase measurement (enzymatic activity/volume) - 07/25 21:05 Serum or plasma creatine kinase measurement (enzymatic activity/volume) 126 U/L 30-200 Serum or plasma creatine kinase MB measurement (enzymatic activity/volume) - 21:05 Serum or plasma creatine kinase MB measurement (enzymatic activity/volume) 0.8 ng/mL <6.6 Serum or plasma troponin i.cardiac measurement (mass/volume) - 07/25/16 21:05 Serum or plasma troponin i.cardiac measurement (mass/volume) < ng/mL <0.30 Serum or plasma amylase measurement (enzymatic activity/volume) - 07/25/16 21: 05 Serum or plasma amylase measurement (enzymatic activity/volume) 43 U/L 25-125 Lipase - 07/25/16 21:05 Lipase 27 U/L 8-78 Serum or plasma lithium measurement (moles/volume) - 07/25/16 21:05 BNP level 46.2 pg/mL <100.0 Complete blood count (CBC) with automated white blood cell (WBC) differential - 07/25/16 21:14 Blood leukocytes automated count (number/volume) 8.5 10*3/ uL 4.3-11.0 Blood erythrocytes automated count (number/volume) 4.81 10*6 /uL 4.35-5.85 Venous blood hemoglobin measurement (mass/volume) 15.4 g/dL 13.3-17.7 Blood hematocrit (volume fraction) 44 % 40-54 Automated erythrocyte mean corpuscular volume 92 [foz_us] 80-99 Automated erythrocyte mean corpuscular hemoglobin (mass per erythrocyte) 32 pg 25-34 Automated erythrocyte mean corpuscular hemoglobin concentration measurement ( mass/volume) 35 g/dL 32-36 Automated erythrocyte distribution width ratio 13.7 % 10.0-14.5 Automated blood platelet count (count/volume) 223 10*3/uL 130-400 Automated blood platelet mean volume measurement 9.5 [foz_us ] 7.4-10.4 Automated blood neutrophils/100 leukocytes 67 % 42-75 Automated blood lymphocytes/100 leukocytes 20 % 12-44 Blood monocytes/100 leukocytes 11 % 0-12 Automated blood eosinophils/100 leukocytes 2 % 0-10 Automated blood basophils/100 leukocytes 0 % 0-10 Blood neutrophils automated count (number/volume) 5.7 10*3 1.8-7.8 Blood lymphocytes automated count (number/volume) 1.7 10*3 1.0-4.0 Blood monocytes automated count (number/volume) 0.9 10*3 0.0-1.0 Automated eosinophil count 0.2 10*3/uL 0.0-0.3 Automated blood basophil count (count/volume) 0.0 10*3/uL 0.0-0.1 Complete blood count (CBC) with automated white blood cell (WBC) differential - 07/26/16 03:10 Blood leukocytes automated count (number/volume) 7.6 10*3/ uL 4.3-11.0 Blood erythrocytes automated count (number/volume) 4.60 10*6 /uL 4.35-5.85 Venous blood hemoglobin measurement (mass/volume) 14.9 g/dL 13.3-17.7 Blood hematocrit (volume fraction) 43 % 40-54 Automated erythrocyte mean corpuscular volume 92 [foz_us] 80-99 Automated erythrocyte mean corpuscular hemoglobin (mass per erythrocyte) 32 pg 25-34 Automated erythrocyte mean corpuscular hemoglobin concentration measurement ( mass/volume) 35 g/dL 32-36 Automated erythrocyte distribution width ratio 13.6 % 10.0-14.5 Automated blood platelet count (count/volume) 211 10*3/uL 130-400 Automated blood platelet mean volume measurement 9.8 [foz_us ] 7.4-10.4 Automated blood neutrophils/100 leukocytes 60 % 42-75 Automated blood lymphocytes/100 leukocytes 25 % 12-44 Blood monocytes/100 leukocytes 12 % 0-12 Automated blood eosinophils/100 leukocytes 3 % 0-10 Automated blood basophils/100 leukocytes 0 % 0-10 Blood neutrophils automated count (number/volume) 4.5 10*3 1.8-7.8 Blood lymphocytes automated count (number/volume) 1.9 10*3 1.0-4.0 Blood monocytes automated count (number/volume) 0.9 10*3 0.0-1.0 Automated eosinophil count 0.2 10*3/uL 0.0-0.3 Automated blood basophil count (count/volume) 0.0 10*3/uL 0.0-0.1 Comprehensive metabolic panel - 07/26/16 03:10 Serum or plasma sodium measurement (moles/volume) 140 mmol/ L 135-145 Serum or plasma potassium measurement (moles/volume) 3.4 mmol/L 3.6-5.0 Serum or plasma chloride measurement (moles/volume) 111 mmol /L 98-107 Carbon dioxide 20 mmol/L 21-32 Serum or plasma anion gap determination (moles/volume) 9 mmol/L 5-14 Serum or plasma urea nitrogen measurement (mass/volume) 14 mg/dL 7-18 Serum or plasma creatinine measurement (mass/volume) 0.86 mg /dL 0.60-1.30 Serum or plasma urea nitrogen/creatinine mass ratio 16 NRG Serum or plasma creatinine measurement with calculation of estimated glomerular filtration rate > NRG Serum or plasma glucose measurement (mass/volume) 87 mg/dL 70-105 Serum or plasma calcium measurement (mass/volume) 8.1 mg/dL 8.5-10.1 Serum or plasma total bilirubin measurement (mass/volume) 0.4 mg/dL 0.1-1.0 Serum or plasma alkaline phosphatase measurement (enzymatic activity/volume) 55 U/L 40-136 Serum or plasma aspartate aminotransferase measurement (enzymatic activity/ volume) 17 U/L 5-34 Serum or plasma alanine aminotransferase measurement (enzymatic activity/volume ) 19 U/L 0-55 Serum or plasma protein measurement (mass/volume) 6.0 g/dL 6.4-8.2 Serum or plasma albumin measurement (mass/volume) 3.4 g/dL 3.2-4.5 Myoglobin, serum - 07/26/16 03:10 Myoglobin, serum 29.2 ng/mL 10.0-92.0 Serum or plasma troponin i.cardiac measurement (mass/volume) - 07/26/16 03:10 Serum or plasma troponin i.cardiac measurement (mass/volume) < ng/mL <0.30 Lipid 1996 panel - 07/26/16 03:10 Serum or plasma triglyceride measurement (mass/volume) 275 mg/dL <150 Serum or plasma cholesterol measurement (mass/volume) 156 mg /dL < 200 Serum or plasma cholesterol in HDL measurement (mass/volume) 21 mg/dL 40-60 Cholesterol in LDL [mass/volume] in serum or plasma by direct assay 104 mg/dL 1-129 Serum or plasma cholesterol in VLDL measurement (mass/volume) 55 mg/dL 5-40 Complete urinalysis with reflex to culture - 08/13/16 07:11 Urine color determination YELLOW NRG Urine clarity determination CLEAR NRG Urine pH measurement by test strip 5 5- 9 Specific gravity of urine by test strip 1.025 1.016-1.022 Urine protein assay by test strip, semi-quantitative NEGATIVE NEGATIVE Urine glucose detection by automated test strip NEGATIVE NEGATIVE Erythrocytes detection in urine sediment by light microscopy 4+ NEGATIVE Urine ketones detection by automated test strip NEGATIVE NEGATIVE Urine nitrite detection by test strip NEGATIVE NEGATIVE Urine total bilirubin detection by test strip NEGATIVE NEGATIVE Urine urobilinogen measurement by automated test strip (mass/volume) NORMAL NORMAL Urine leukocyte esterase detection by dipstick 1+ NEGATIVE Automated urine sediment erythrocyte count by microscopy (number/high power field) [HPF] NRG Automated urine sediment leukocyte count by microscopy (number/high power field ) RARE NRG Bacteria detection in urine sediment by light microscopy NEGATIVE NRG Squamous epithelial cells detection in urine sediment by light microscopy 0-2 NRG Crystals detection in urine sediment by light microscopy NONE NRG Casts detection in urine sediment by light microscopy NONE NRG Mucus detection in urine sediment by light microscopy LARGE NRG Complete urinalysis with reflex to culture NO NRG Automated blood complete blood count (hemogram) panel - 08/13/16 07:18 Blood leukocytes automated count (number/volume) 7.9 10*3/ uL 4.3-11.0 Blood erythrocytes automated count (number/volume) 5.44 10*6 /uL 4.35-5.85 Venous blood hemoglobin measurement (mass/volume) 17.3 g/dL 13.3-17.7 Blood hematocrit (volume fraction) 50 % 40-54 Automated erythrocyte mean corpuscular volume 92 [foz_us] 80-99 Automated erythrocyte mean corpuscular hemoglobin (mass per erythrocyte) 32 pg 25-34 Automated erythrocyte mean corpuscular hemoglobin concentration measurement ( mass/volume) 35 g/dL 32-36 Automated erythrocyte distribution width ratio 14.0 % 10.0-14.5 Automated blood platelet count (count/volume) 209 10*3/uL 130-400 Automated blood platelet mean volume measurement 9.7 [foz_us ] 7.4-10.4 PT panel in platelet poor plasma by coagulation assay - 08/13/16 07:18 Prothrombin time (PT) in platelet poor plasma by coagulation assay 12.8 s 12.2-14.7 INR in platelet poor plasma or blood by coagulation assay 1.0 0.8-1.4 Activated partial thromboplastin time (aPTT) in platelet poor plasma bycoagulation assay - 08/13/16 07:18 Activated partial thromboplastin time (aPTT) in platelet poor plasma bycoagulation assay 33 s 24-35 Comprehensive metabolic panel - 08/13/16 07:18 Serum or plasma sodium measurement (moles/volume) 140 mmol/ L 135-145 Serum or plasma potassium measurement (moles/volume) 3.8 mmol/L 3.6-5.0 Serum or plasma chloride measurement (moles/volume) 109 mmol /L 98-107 Carbon dioxide 20 mmol/L 21-32 Serum or plasma anion gap determination (moles/volume) 11 mmol/L 5-14 Serum or plasma urea nitrogen measurement (mass/volume) 13 mg/dL 7-18 Serum or plasma creatinine measurement (mass/volume) 0.94 mg /dL 0.60-1.30 Serum or plasma urea nitrogen/creatinine mass ratio 14 NRG Serum or plasma creatinine measurement with calculation of estimated glomerular filtration rate > NRG Serum or plasma glucose measurement (mass/volume) 99 mg/dL 70-105 Serum or plasma calcium measurement (mass/volume) 9.2 mg/dL 8.5-10.1 Serum or plasma total bilirubin measurement (mass/volume) 0.7 mg/dL 0.1-1.0 Serum or plasma alkaline phosphatase measurement (enzymatic activity/volume) 63 U/L 40-136 Serum or plasma aspartate aminotransferase measurement (enzymatic activity/ volume) 19 U/L 5-34 Serum or plasma alanine aminotransferase measurement (enzymatic activity/volume ) 20 U/L 0-55 Serum or plasma protein measurement (mass/volume) 7.2 g/dL 6.4-8.2 Serum or plasma albumin measurement (mass/volume) 4.2 g/dL 3.2-4.5 Methicillin resistant Staphylococcus aureus (MRSA) screening culture - 07:18 Methicillin resistant Staphylococcus aureus (MRSA) screening culture NEG NRG Encounters ACCT No. Visit Date/Time Discharge Status Pt. Type Provider Facility Loc./Unit Complaint [id number] 08/13/2016 06:40:00 2016 12:55:00 DIS Outpatient DANNIE LAM, SADA Mathews [facility] CATH ABN STRESS TEST,CP [id number] 07/25/2016 22:31:00 2016 12:01:00 DIS Outpatient RINA LAM, JULIANNA Wang [facility] ICU CP,HTN [id number] 03/22/2016 18:45:00 2015 21:32:00 DIS Emergency PROSPER LAM, MARISSA Kelly [facility] ER CP/ELEV BP [id number] 09/27/2015 08:58:00 2015 09:15:00 DIS Emergency MARI LAM, EDWIGE Gallegos [facility] ER RIGHT FLANK/BACK PAIN [id number] 12/15/2014 12:06:00 2014 23:59:59 CLS Outpatient LUIS LAM, LON Martinez (DDU) [facility] RAD DDU [id number] 12/15/2014 12:59:00 2014 15:04:00 DIS Emergency HÉCTOR FLORES APRN [facility] ER TESTICLE PAIN [id number] 03/03/2014 10:01:00 2013 23:59:59 CLS Outpatient LUNA YUSUF DO [facility] RAD DJD OF L-5-S-1, RADICULOPATHY [id number] 08/26/2013 03:35:00 2013 13:15:00 DIS Outpatient YONY LAM FACC, JUDITH ALAMO CCDS [facility] CATH CHEST PAIN [id number] 08/24/2013 14:57:00 2013 23:59:59 CLS Outpatient LUNA YUSUF DO [facility] RAD LOW BACK PAIN, R HIP PAIN [id number] 02/24/2013 15:11:00 2012 23:59:59 CLS Outpatient LUNA YUSUF DO [facility] RAD L URETEROLITHIASIS [id number] 02/23/2013 18:55:00 2012 20:54:00 DIS Emergency HÉCTOR FLORES APRN [facility] ER SCROTUM PAINFUL [id number] 02/22/2013 00:17:00 2012 01:23:00 DIS Emergency KATIA SALDANA DO [facility] ER HG BLOOD PRESSURE,BURNS [id number] 07/30/2016 08:12:00 ACT Outpatient DANNIE MD, SADA Mathews [facility] CARD CHEST PAIN SYNDROME,HTN,PVC [id number] 04/16/2015 12:12:00 ACT Outpatient CORA GONZALES [facility] RAD PELVIC PAIN [id number] 06/11/2011 21:10:00 Document Registration [id number] 01/30/2011 05:42:00 Document Registration [id number] 01/28/2011 10:17:00 Document Registration [id number] 01/24/2011 07:24:00 Document Registration [id number] 08/31/2010 00:10:00 Document Registration [id number] 08/29/2010 09:56:00 Document Registration
--- OUTSIDE RECORDS SUMMARY | 2016-08-31 04:24 | XMS REPORT | Continuity of Care Document ---
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] LUNA Mathews Ot 721.3 12/15/2014 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 Ot 603.9 HYDROCELE NOS 12/15/2014 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 Ot 608.9 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 12/15/2014 Ot 574.20 12/15/2014 Ot V72.83 12/15/2014 Ot V74.8 12/15/2014 YUSUF LUNA MCKEON Ot 592.1 12/15/2014 PARAMJIT LUNA Mathews Ot 719.45 12/15/2014 PARAMJIT MCKEON LUNA Mathews Ot 724.2 12/15/2014 YUSUFJEN MCKEON LUNA Mathews Ot 721.3 08/16/2015 CORA GONZALES TAX MANAGER PUBLIC Ot R10.2 PELVIC AND PERINEAL PAIN 08/30/2015 CORA GONZALES TAX MANAGER PUBLIC Ot R10.2 PELVIC AND PERINEAL PAIN 09/27/2015 [...] FOR OTH SPECIF CONDITIONS 03/22/2016 CORA GONZALES TAX MANAGER PUBLIC Ot R10.2 PELVIC AND PERINEAL PAIN 03/22/2016 MARISSA CHENG MD Ot F17.210 NICOTINE DEPENDENCE, CIGARETTES, UNCOMPL 03/22/2016 MARISSA CHENG MD Ot G89.29 OTHER CHRONIC PAIN 03/22/2016 MARISSA CHENG MD Ot M54.5 LOW BACK PAIN 03/22/2016 MARISSA CHENG MD Ot R07.9 CHEST PAIN, UNSPECIFIED 03/22/2016 MARISSA CHENG MD Ot Z79.82 BUSINESS INFORMATION ANALYST (CURRENT) USE OF ASPIRIN 03/22/2016 MARISSA CHENG MD Ot Z79.899 OTHER GROUP HOME (CURRENT) DRUG THERAPY 03/22/2016 Ot 574.20 CHOLELITHIASIS NOS 03/22/2016 Ot V72.83 EXAM PRE-OPERATIVE NEC 03/22/2016 Ot V74.8 SCREEN-BACTERIAL DIS NEC 03/22/2016 LUNA YUSUF DO Ot 592.1 CALCULUS OF URETER 03/22/2016 LUNA YUSUF DO Ot 719.45 JOINT PAIN-PELVIS 03/22/2016 LUNA YUSUF DO Ot 724.2 LUMBAGO 03/22/2016 PARAMJIT MCKEON LUNA Reid Ot 721.3 LUMBOSACRAL SPONDYLOSIS 03/22/2016 LON SMITH MD ([facility]) Ot V68.01 DISABILITY EXAMINATION 03/22/2016 LON SMITH MD ([facility]) Ot V82.89 SCREEN FOR OTH SPECIF CONDITIONS 03/22/2016 CORA GONZALES TAX MANAGER PUBLIC Ot R10.2 PELVIC AND PERINEAL PAIN 03/25/2016 MARISSA CHENG MD Ot F17.210 NICOTINE DEPENDENCE, CIGARETTES, UNCOMPL 03/25/2016 MARISSA CHENG MD Ot G89.29 OTHER CHRONIC PAIN 03/25/2016 MARISSA CHENG MD Ot M54.5 LOW BACK PAIN 03/25/2016 MARISSA CHENG MD Ot R07.9 CHEST PAIN, UNSPECIFIED 03/25/2016 MARISSA CHENG MD Ot Z79.82 BUSINESS INFORMATION ANALYST (CURRENT) USE OF ASPIRIN 03/25/2016 MARISSA CHEGN MD, Ot Z79.899 OTHER BUSINESS INFORMATION ANALYST (CURRENT) DRUG THERAPY 07/26/2016 JULIANNA FLYNN MD Ot F17.210 NICOTINE DEPENDENCE, CIGARETTES, UNCOMPL 07/26/2016 JULIANNA FLYNN MD Ot I10 ESSENTIAL (PRIMARY) HYPERTENSION 07/26/2016 JULIANNA FLYNN MD Ot I25.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[place] CORONARY 07/26/2016 JULIANNA FLYNN MD Ot I49.3 [...] MD Ot I25.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[place] CORONARY 07/26/2016 JULIANNA FLYNN MD Ot I49.3 [...] FOR OTH SPECIF CONDITIONS 07/28/2016 CORA GONZALES TAX MANAGER PUBLIC Ot R10.2 PELVIC AND PERINEAL PAIN 08/01/2016 [...] Status Pt. Type Provider Facility Loc./Unit Complaint [id number] 08/13/2016 06:40:00 2016 12:55:00 DIS Outpatient DANNIE LAM, SADA Mathews [facility] CATH ABN STRESS TEST,CP [id number] 07/25/2016 22:31:00 2016 12:01:00 DIS Outpatient RINA LAM, JULIANNA Wang [facility] ICU CP,HTN [id number] 03/22/2016 18:45:00 2015 21:32:00 DIS Emergency PROSPER LAM, MARISSA Kelly [facility] ER CP/ELEV BP [id number] 09/27/2015 08:58:00 2015 09:15:00 DIS Emergency MARI LAM, EDWIGE Gallegos [facility] ER RIGHT FLANK/BACK PAIN [id number] 12/15/2014 12:06:00 2014 23:59:59 CLS Outpatient LUIS LAM, LON Martinez (DDU) [facility] RAD DDU [id number] 12/15/2014 12:59:00 2014 15:04:00 DIS Emergency HÉCTOR FLORES APRN [facility] ER TESTICLE PAIN [id number] 03/03/2014 10:01:00 2013 23:59:59 CLS Outpatient LUNA YUSUF DO [facility] RAD DJD OF L-5-S-1, RADICULOPATHY [id number] 08/26/2013 03:35:00 2013 13:15:00 DIS Outpatient YONY LAM FACC, JUDITH ALAMO CCDS [facility] CATH CHEST PAIN [id number] 08/24/2013 14:57:00 2013 23:59:59 CLS Outpatient LUNA YUSUF DO [facility] RAD LOW BACK PAIN, R HIP PAIN [id number] 02/24/2013 15:11:00 2012 23:59:59 CLS Outpatient LUNA YUSUF DO [facility] RAD L URETEROLITHIASIS [id number] 02/23/2013 18:55:00 2012 20:54:00 DIS Emergency HÉCTOR FLORES APRN [facility] ER SCROTUM PAINFUL [id number] 02/22/2013 00:17:00 2012 01:23:00 DIS Emergency KATIA SALDANA DO [facility] ER HG BLOOD PRESSURE,BURNS [id number] 07/30/2016 08:12:00 ACT Outpatient DANNIE MD, SADA Mathews [facility] CARD CHEST PAIN SYNDROME,HTN,PVC [id number] 04/16/2015 12:12:00 ACT Outpatient CORA GONZALES [facility] RAD PELVIC PAIN [id number] 06/11/2011 21:10:00 Document Registration [id number] 01/30/2011 05:42:00 Document Registration [id number] 01/28/2011 10:17:00 Document Registration [id number] 01/24/2011 07:24:00 Document Registration [id number] 08/31/2010 00:10:00 Document Registration [id number] 08/29/2010 09:56:00 Document Registration
== END 2016-07-26 11:27 | disposition home or self-care (01) ==
LOC: EDUNIT# 20:56 → ER 20:58 → ICU 22:31 → UNDOADMOB 22:31 → ICU 22:45 → UNDODISOB 07-26 12:01
PROVIDERS: ADMIT Family Medicine; ATTEND Family Medicine
DX: R07.89 Other chest pain (principal); I10 Essential (primary) hypertension; F17.210 Nicotine dependence, cigarettes, uncomplicated; N40.0 Benign prostatic hyperplasia without lower urinary tract symptoms; K21.9 Gastro-esophageal reflux disease without esophagitis; I49.3 Ventricular premature depolarization; I25.10 Atherosclerotic heart disease of native coronary artery without angina pectoris; M54.9 Dorsalgia, unspecified; M79.673 Pain in unspecified foot
CPT/HCPCS: 36415; 71010; 80053; 80061; 82150; 82550; 82553; 83690; 83874; 83880; 84484; 85025; 85610; 85730; 93005; 93041; 96372; G0378

== ENCOUNTER → 2016-07-30 | Outpatient (CLI) | payer OTHER ==
[~2016-07-30] VITALS: Ht 177.8 cm; Wt 93.0 kg
[~2016-07-30] MED LIST changes: +CATHETER FLUSH 10 ML SYR IV PRN; +HYDR-3730 PO; +METO-272 PO; +NF-ROP5T PO; +OMEP20TA33 PO; +REGADENOSON 0.4 MG/5 ML SYR (LEXISCAN) IV ONE; +TAMS0.4C98 PO
--- NOTE | 2016-07-31 09:07 | STRESS TEST ---
PROCEDURE PHYSICIAN: SADA PANDEY DATE OF PROCEDURE: 07/30/2016 LEXISCAN MYOVIEW STRESS TEST REPORT: REFERRING PHYSICIAN: Dr. Pari Arriaga, [facility]. INDICATION FOR THE PROCEDURE: Chest pain. BASELINE HEART RATE: 69 BASELINE BLOOD PRESSURE: 138/88 BASELINE EKG: Sinus rhythm with no ischemic changes. IN SUMMARY: The patient was injected with 10.33 mCi of technetium 99 Myoview and the resting images were obtained. Then the patient received 0.4 mg of Lexiscan followed by 32.6 mCi of technetium 99 Myoview. Throughout the test, there were no EKG changes. The resting and stress images were reviewed and compared in the short axis, horizontal long axis, and vertical long axis views. Review of the images showed diaphragmatic attenuation affecting the quality of the images. There is decreased uptake involving the mid to apical inferior wall and inferolateral wall that has improved after applying the attenuation correction protocol. Overall, the stress score is 8, SDS is 3, TID value 1.04. On the gated images, the left ventricle appeared to be normal size with normal contractility. Calculated ejection fraction 68%. IN CONCLUSION: 1. The patient tolerated Lexiscan well. 2. Diaphragmatic attenuation affecting the quality of the images with questionable ischemia at the inferoapical segment and mid to apical anterolateral wall. 3. Normal left ventricular size with normal contractility. Calculated ejection fraction 68%. Job ID: [id number] Dictated Date: 07/30/2016 17:22:37 Histopathologist Date: 07/31/2016 09:03:30 / ruth
== END ==
LOC: CARD 08:12
PROVIDERS: ATTEND Internal Medicine Cardiovascular Disease
DX: R07.9 Chest pain, unspecified (principal); I10 Essential (primary) hypertension; I49.3 Ventricular premature depolarization; Z72.0 Tobacco use
CPT/HCPCS: 78452; 93017

== ENCOUNTER 2016-08-13 06:40 | Day surgery (SDC) | payer OTHER ==
[~2016-08-13] VITALS: Ht 177.8 cm; Wt 99.8 kg
[2016-08-13] VITALS (13 sets, daily range): BP systolic 129–154; BP diastolic 89–105
[~2016-08-13 06:40] MED LIST changes: -CATHETER FLUSH 10 ML SYR IV PRN; -NF-ROP5T PO; -REGADENOSON 0.4 MG/5 ML SYR (LEXISCAN) IV ONE
[2016-08-13] MEDS ORDERED: NS IV 1000 ML 1,000 ML ONE (07:01)
[2016-08-13] MEDS ORDERED: HEParin (CATH LAB) 2,000 ML IV ONE (07:01)
[2016-08-13] MEDS ORDERED: LIDOCAINE 1% INJ 20 ML (XYLOCAINE) VIAL ONE (07:01)
[2016-08-13 07:27] LABS: BILIRUBIN,URINE NEGATIVE (NEGATIVE); KETONES,URINE NEGATIVE (NEGATIVE); LEUKOCYTE ESTERASE ,URINE 1+ (NEGATIVE); NITRITE,URINE NEGATIVE (NEGATIVE); PH,URINE 5 (5-9); PROTEIN,URINE NEGATIVE (NEGATIVE); UROBILINOGEN,URINE NORMAL (NORMAL)
[2016-08-13] MEDS ORDERED: NF-ROP5T PO (07:28)
[2016-08-13] MEDS ORDERED: METO-272 PO (07:28)
[2016-08-13 07:30] LABS: MEAN PLATELET VOLUME 9.7 FL (7.4-10.4); RED BLOOD COUNT 5.44 10^6/uL (4.35-5.85); WHITE BLOOD COUNT 7.9 10^3/uL (4.3-11.0)
[2016-08-13] MEDS ORDERED: fentaNYL INJECTION 100 MCG/2 ML AMP ONE (07:30)
[2016-08-13] MEDS ORDERED: MIDAZOLAM 5 MG/5 ML (VERSED) VIAL ONE (07:30)
[2016-08-13] MEDS ORDERED: NS IV 1000 ML 1,000 ML IV SCH ×2 (07:30→08:26)
[2016-08-13 07:38] LABS: PROTHROMBIN TIME PATIENT 12.8 SEC (12.2-14.7)
[2016-08-13 07:39] LABS: SQUAMOUS EPITHELIAL CELL,UR 0-2 /HPF; WBC,URINE RARE /HPF
[2016-08-13 07:48] LABS: ALANINE AMINOTRANSFERASE 20 U/L (0-55); ALBUMIN 4.2 G/DL (3.2-4.5); ANION GAP 11 MMOL/L (5-14); ASPARTATE AMINO TRANSFERASE 19 U/L (5-34); BILIRUBIN,TOTAL 0.7 MG/DL (0.1-1.0); BLOOD UREA NITROGEN 13 MG/DL (7-18); BUN/CREATININE RATIO 14; CALCIUM 9.2 MG/DL (8.5-10.1); CARBON DIOXIDE 20 MMOL/L (21-32); CHLORIDE 109 MMOL/L (98-107); CREATININE SERUM 0.94 MG/DL (0.60-1.30); GFR ESTIMATED > 60; GLUCOSE 99 MG/DL (70-105); POTASSIUM 3.8 MMOL/L (3.6-5.0); SODIUM 140 MMOL/L (135-145); TOTAL PROTEIN 7.2 G/DL (6.4-8.2)
--- NOTE | 2016-08-13 08:12 | Diagnostic Imaging Report ---
Portable upright radiograph of the chest. INDICATION: Chest pain. FINDINGS: There is minimal left basilar atelectasis. The heart size is enlarged. No effusion or pneumothorax. The mediastinum and juan m appear unremarkable. IMPRESSION: Cardiomegaly. Minimal left basilar atelectasis. Dictated by: Dictated on workstation # [id number]
--- NOTE | 2016-08-13 08:26 | Cardiac Procedure Note-CS/ASA ---
Pre-Procedure Note Pre-Op Procedure Note H&P Reviewed The H&P was reviewed, patient examined and no changes noted. Date H&P Reviewed: Aug 13, 2016 Time H&P Reviewed: : Conscious Sedation Pre-Proced Time Reviewed: ASA Class: 3 Airway Mallampati Classification: (bois forte appropriate class) I. II. III, IV Lungs Heart ASA score ASA 1: a normal healthy patient ASA 2: a patient with a mild systemic disease (mid diabetes, controlled hypertension, obesity x ASA 3: a patient with a severe systemic disease that limits activity (angina , COPD, prior Myocardial infarction) ASA 4: a patient with an incapacitating disease that is a constant threat to life (CHF, renal failure) ASA 5: a moribund patient not expected to survive 24 hrs. (ruptured aneurysm) ASA 6: a declared brain patient whose organs are being harvested. For emergent operations, add the letter E after the classification Grade 3 Sedation Plan: Analgesia, Amnesia, Plan communicated to team members, Discussed options with patient/fam, Discussed risks with patient/fam Note The patient is an appropriate candidate to undergo the planned procedure, sedation, and anesthesia. The patient immediately re-assessed prior to indication. SADA PANDEY MD Aug 13, 2016 08:26
--- NOTE | 2016-08-13 08:28 | Discharge Inst-Post CATH ---
Discharge Inst-CATH Post Cardiac Cath D/C Inst Follow Up/Plan Appointment with Dr Torres's office in 2-4 weeks CARDIAC CATH DISCHARGE INSTRUCTIONS *Hold Metformin for 48 hours post heart cath. ACTIVITY * Go Home directly and rest. * Limit activity of the leg (or wrist if it was used) for 7 days including aerobics, swimming, jogging, bicycling, etc. * Restrict stair-climbing for 7 days if possible, if not, climb up with your non -cath leg, then bring together on the same step. * Avoid lifting, pushing, pulling or excessive movement of the affected extremity for 7 days. * Customary sexual activity may be resumed after 2 days-use caution not to use a position that strains or causes pain to the affected extremity. * No driving for 24 hours. * NO SMOKING. * Avoid straining for bowel movements for 7 days. * Gentle walking on level ground is allowed. * Returning to work will depend on the type of procedure and the results. Your doctor will discuss this with you. CALL YOUR DOCTOR FOR ANY OF THE FOLLOWING: *If bleeding from the puncture site occurs- Apply gentle pressure to site with clean cloth and call your doctor or EMS. * If a knot or lump forms under the skin, increases in size, or causes pain. * If bruising appears to be worsening or moving further down your leg instead of disappearing. * Temperature above 101 F. CARE OF YOUR GROIN INCISION; * Bruising or purple discoloration of the skin near the puncture site is common. * You may shower only, no bathtub bathing for 5 days. Be careful to avoid slipping as your leg may feel stiff. * If a closure device was used on your femoral artery, please see the attached guide regarding care of the device and your leg. * REMOVE the dressing from your groin the next day after your procedure in the shower. CARE OF YOUR WRIST INCISION; * Bruising or purple discoloration of the skin near the puncture site is common. * You may shower. * DO NOT submerge wrist. * Remove dressing in 24 hours. SADA TORRES MD Aug 13, 2016 08:28
[2016-08-13] MEDS ORDERED: PATIENT MAY USE OWN MEDS, ALL PO SCH (08:30)
--- NOTE | 2016-08-14 13:15 | CARDIAC CATHETERIZATION ---
DATE OF SERVICE: 08/13/2016 REFERRING PHYSICIAN: [facility], Pari Allan DO BRIEF HISTORY: The patient is a 56-year-old gentleman with a history of hypertension, hyperlipidemia, has been having recurrent chest pain and an abnormal stress test, scheduled for left heart catheterization. PROCEDURE NOTE: After explaining the procedure to the patient, all the pros and cons were explained, all questions were answered, the patient signed the consent and then he was placed on the cardiac catheterization laboratory. Right groin was prepped in a sterile fashion, local anesthesia applied to the right groin. A 6-Armenian sheath was placed in the right femoral artery. Combination of right and left Dom catheter were used to access the right and left coronary system. Multiple views were obtained. Dom right was prolapsed into the left ventricular cavity. Pressure was measured. Pull back LV to aorta was done. At the end of the procedure, sheath was removed, Mynx device deployed, hemostasis achieved. TOTAL CONTRAST USED: 28 mL. TOTAL RADIATION TIME: 57 mGy. FINDINGS: Hemodynamics: LV pressure 130/11, end diastolic pressure 11, aortic pressure 126/77, mean of 99, no significant gradient across the aortic valve. ANATOMY: 1. The left main coronary artery is bifurcating into the left anterior descending and left circumflex artery with no obstructive disease. 2. Left anterior descending artery is moderate in size with mild disease distally, no significant obstructive disease. 3. Left circumflex artery is a dominant artery with no significant obstructive disease. 4. Right coronary artery is a small nondominant artery with no significant obstructive disease. 5. No left ventriculogram was done. Known to have normal LV function, normal left ventricular end diastolic pressure. IN CONCLUSION: 1. Mild coronary artery disease, nonobstructive disease. 2. Normal left ventricular end diastolic pressure. DISCUSSION AND RECOMMENDATION: The patient's abnormal stress test is probably due to extracardiac attenuation. No significant obstructive disease is suggestive of ischemia was noted on the cardiac catheterization. FINAL DIAGNOSES: 1. Chest pain with nonspecific etiology. 2. Coronary artery disease. 3. Hypertension. 4. Hyperlipidemia. Job ID: [id number] DocumentID: [id number] Dictated Date: 08/13/2016 08:30:20 Music Minister Date: 08/13/2016 15:50:19 Dictated By: SADA PANDEY MD
== END 2016-08-13 12:55 | disposition home or self-care (01) ==
LOC: CATH 06:40 → SURG 08:39 → CATH 12:55
PROVIDERS: ATTEND Internal Medicine Cardiovascular Disease
DX: R07.89 Other chest pain (principal); I25.10 Atherosclerotic heart disease of native coronary artery without angina pectoris; R94.39 Abnormal result of other cardiovascular function study; E78.5 Hyperlipidemia, unspecified; I10 Essential (primary) hypertension; K21.9 Gastro-esophageal reflux disease without esophagitis; Z79.899 Other long term (current) drug therapy; Z72.0 Tobacco use
CPT/HCPCS: 36415; 71010; 80053; 81000; 85027; 85610; 85730; 87081; 93458

== ENCOUNTER → 2016-09-01 | Outpatient (CLI) | payer MEDICARE, OTHER ==
[~2016-09-01] MED LIST changes: +NF-ROP5T PO
--- NOTE | 2016-09-01 11:45 | Diagnostic Imaging Report ---
INDICATION: Bilateral testicular pain. COMPARISON: 12/15/2014 and 02/23/2013. DISCUSSION: Sonographic evaluation of the scrotum was performed. Images were assessed for grayscale appearance, color and spectral Doppler blood flow. The testicles appear normal and symmetric in echotexture and size bilaterally with normal color Doppler blood flow. The right testicle measures 4.7 x 2.4 x 3.3 cm. The left testicle measures 4.7 x 2.3 x 3.0 cm. The left epididymis remains mildly hypoechoic, possibly due to an old infection. Given long-term stability, this is considered a benign finding. The right epididymis is unremarkable. No hydrocele or varicocele. The scrotal wall is unremarkable. IMPRESSION: 1. Unremarkable scrotal ultrasound. No acute abnormality identified. Dictated by: Dictated on workstation # [id number]
== END ==
LOC: RAD 10:50
PROVIDERS: ATTEND Urology
DX: N50.811 Right testicular pain (principal); N50.812 Left testicular pain
CPT/HCPCS: 76870

== ENCOUNTER → 2016-09-16 | Outpatient (CLI) | payer MEDICARE, OTHER ==
--- NOTE | 2016-09-16 14:57 | Diagnostic Imaging Report ---
PROCEDURE: CT abdomen and pelvis without contrast. TECHNIQUE: Multiple contiguous axial images were obtained through the abdomen and pelvis without the use of intravenous contrast. INDICATION: Hematuria. History of kidney stones. COMPARISON: 04/16/2015 FINDINGS: Included views of the lung bases are partially obscured secondary to motion artifact, but otherwise unremarkable. CT abdomen: Kidneys have an unremarkable noncontrast CT appearance. No renal mass-type lesions are identified. No renal calculi seen on either side. Additionally, there is no hydroureteronephrosis or other evidence of obstruction. Gallbladder is surgically absent. The liver, spleen, pancreas, and adrenal glands have an unremarkable noncontrast CT appearance as well. Small bowel loops are nondistended. Normal appendix is identified. There is no loculated fluid collection, free fluid, nor free air within the abdomen. No abnormal mesenteric or retroperitoneal adenopathy is seen. Bony structures show no acute abnormalities. CT pelvis: Urinary bladder is unopacified. No calculi are seen within the urinary bladder. There is no loculated fluid collection, free fluid, nor free air within the pelvis. No abnormal lymph nodes are seen. Bony structures show no acute abnormalities. IMPRESSION: 1. Unremarkable noncontrast CT exam of the bilateral kidneys and renal collecting systems. 2. No acute abnormalities are seen within the abdomen or pelvis. Dictated by: Dictated on workstation # [id number]
== END ==
LOC: RAD 13:47
PROVIDERS: ATTEND Urology
DX: R31.9 Hematuria, unspecified (principal)
CPT/HCPCS: 74176

== ENCOUNTER 2016-09-22 17:48 | Emergency (ER) | payer MEDICARE, OTHER ==
[~2016-09-22] VITALS: Ht 177.8 cm; Wt 98.9 kg
[2016-09-22 18:25] VITALS: BP 173/98
== END 2016-09-22 19:00 | disposition left against medical advice (07) ==
LOC: EDUNIT# 17:48 → ER 17:49
DX: I10 Essential (primary) hypertension (principal); Z53.21 Procedure and treatment not carried out due to patient leaving prior to being seen by health care provider
CPT/HCPCS: 99283

== ENCOUNTER 2017-01-23 05:24 | Outpatient (CLI) | payer MEDICARE, OTHER ==
[~2017-01-23] VITALS: Ht 177.8 cm; Wt 98.9 kg
[2017-01-23] MEDS ORDERED: LOSA50TA36 PO (11:31)
[2017-01-23] MEDS ORDERED: HYDR-3816 PO (11:31)
[2017-01-23] MEDS ORDERED: DEXL30CA2 PO (11:31)
== END 2017-01-23 11:38 ==
LOC: PREOP 05:24
PROVIDERS: ATTEND Surgery
DX: Z01.818 Encounter for other preprocedural examination (principal); K92.1 Melena

== ENCOUNTER 2017-01-27 07:03 | Day surgery (SDC) | payer MEDICARE, OTHER ==
[~2017-01-27] VITALS: Ht 177.8 cm; Wt 98.9 kg
[~2017-01-27 07:03] MED LIST changes: +DEXL30CA2 PO; +HYDR-3816 PO; +LOSA50TA36 PO
[2017-01-27] MEDS ORDERED: LACTATED RINGERS 1,000 ML IV STA (07:14)
[2017-01-27] MEDS ORDERED: PROPOFOL INJECTION 50 ML IV ONE (07:22)
[2017-01-27] MEDS ORDERED: MIDAZOLAM 2 MG/2 ML (VERSED) VIAL ONE ×2 (07:22→08:14)
[2017-01-27 07:27] VITALS: BP 138/100
[2017-01-27] MEDS ORDERED: LACTATED RINGERS 1,000 ML IV SCH (08:00)
--- NOTE | 2017-01-27 08:24 | Progress Note-Pre Operative ---
Pre-Operative Progress Note H&P Reviewed The H&P was reviewed, patient examined and no changes noted. Time Seen by Provider: 08:10 Date H&P Reviewed: Jan 27, 2017 Time H&P Reviewed: 08:11 Pre-Operative Diagnosis: rectal bleed MARCY ERNST DO Jan 27, 2017 08:24
--- NOTE | 2017-01-27 08:58 | Progress Note-Post Operative ---
Post-Operative Progess Note Surgeon (s)/Weed Cooking Operator (s) Surgeon MARCY ERNST DO Weed Cooking Operator: none Pre-Operative Diagnosis rectal bleed Post-Operative Diagnosis Rectal bleed TI polyp internal hemorrhoids anal fissure Procedure & Operative Findings Date of Procedure 01/27/17 Procedure Performed/Findings colonoscopy with cold bx Anesthesia Type IV sedation by ARCHITECTURE ANALYST Estimated Blood Loss Estimated blood loss (mL): scant Specimens/Packing Specimens Removed TI polyp MARCY ERNST DO Jan 27, 2017 08:58
--- NOTE | 2017-01-27 08:59 | Endoscopy Discharge Instruct ---
Endo Procedure/Findings Findings 1.: Polyp ( in terminal ileum) 2.: Internal Hemorrhoids 3.: Other Findings (anal fissure) Discharge Instructions - Activity: You might feel a little sleepy until tomorrow. This is due to the medicine you received to relax you. Until tomorrow, you should: NOT drive a car, operate machinery or power tools. NOT drink any alcoholic beverages. NOT make any important decisions or sign importortant papers. Do not return to work until tomorrow, unless otherwise instructed. Resume previous activities tomorrow. Diet: Start by taking liquids. If you tolerate liquids, advance to solid food. make appointment for one week. Notify Physician - If you experience excessive bleeding, unusual abdominal pain, fever, or chest pain, contact your doctor immediately. [phone] Follow-Up: - I have received and understand the above instructions and will call my doctor if I have any further questions. Patient Signature Date Nurse Signature Other (Relationship) MARCY ERNST DO Jan 27, 2017 08:59
[2017-01-27 09:05] VITALS: BP 154/92
[2017-01-27 09:35] VITALS: BP 119/78
--- NOTE | 2017-01-27 09:46 | OPERATIVE REPORT ---
DATE OF SERVICE: 01/27/2017 PREOPERATIVE DIAGNOSIS: 1. Rectal bleed. 2. Anal pain. POSTOPERATIVE DIAGNOSES: 1. Rectal bleed. 2. Terminal ileal polyp. 3. Internal hemorrhoids. 4. Anal fissure. PROCEDURE: Colonoscopy with cold biopsy. SURGEON: Dr. Dasilva. TEACHER DRAMATICS: None. ANESTHESIA: IV sedation by LABORER CONSTRUCTION OR LEAK GANG. SPECIMEN: Biopsy of terminal ileal polyp. BLOOD LOSS: Scant. FLUIDS: Per anesthesia. POSTOPERATIVE CONDITION: Stable. INDICATION FOR PROCEDURE: The patient is a 56-year-old male who has never had a colonoscopy, needed one for screening and to find out why he had a little bit of rectal bleeding and anal pain. FINDINGS: The patient had a small polyp in the terminal ileum. Pictures were taken. He also had some internal hemorrhoids and what looked like an anal fissure, but did not look like a chronic anal fissure. PROCEDURE NOTE: After informed consent was obtained, the patient was brought to the endoscopy suite, placed in the bed in the left lateral decubitus position. He was administered IV sedation by the LABORER CONSTRUCTION OR LEAK GANG who then monitored his vital signs the entire time. I inserted the scope pushed all the way to about 140 cm, able to get to the cecum. Took a picture of the appendiceal orifice, then able to get into the terminal ileum. In the terminal ileum saw a couple of polyps and I elected to do a biopsy of this and got a good specimen and then slowly withdrew the scope insufflating to look circumferentially at the turner, looking at the cecum, then up the ascending colon to the hepatic flexure and then down the transverse colon to the splenic flexure then into the descending colon and then down into the sigmoid and finally into the rectal vault. Retroflexed in the rectal vault, saw some internal hemorrhoids mainly grade I. I did not see any other pathology, no other polyps seen. No diverticula. I then removed the scope, then everted the anus saw a small anal fissure, but did not look chronic. I took a picture of this and then the patient was recovered in the endoscopy suite. He tolerated this procedure well. Job ID: [id number] DocumentID: [id number] Dictated Date: 01/27/2017 09:02:29 Grades 1 Thru 6 Home Teacher Date: 01/27/2017 09:45:43 Dictated By: MARCY DASILVA DO
[2017-01-27 10:00] VITALS: BP 119/78
== END 2017-01-27 10:00 | disposition home or self-care (01) ==
LOC: ENDO 07:03
PROVIDERS: ATTEND Surgery
DX: K63.5 Polyp of colon (principal); K64.8 Other hemorrhoids; K60.2 Anal fissure, unspecified; F17.200 Nicotine dependence, unspecified, uncomplicated; I10 Essential (primary) hypertension; I25.10 Atherosclerotic heart disease of native coronary artery without angina pectoris; I34.1 Nonrheumatic mitral (valve) prolapse; E66.9 Obesity, unspecified; Z68.31 Body mass index [BMI] 31.0-31.9, adult

== ENCOUNTER 2017-02-11 05:29 | Outpatient (CLI) | payer MEDICARE, OTHER ==
[~2017-02-11] VITALS: Ht 177.8 cm; Wt 98.9 kg
== END 2017-02-11 11:11 ==
LOC: PREOP 05:29
PROVIDERS: ATTEND Surgery
DX: Z01.818 Encounter for other preprocedural examination (principal); K60.2 Anal fissure, unspecified

== ENCOUNTER 2017-02-16 07:13 | Day surgery (SDC) | payer MEDICARE, OTHER ==
[~2017-02-16] VITALS: Ht 177.8 cm; Wt 98.9 kg
--- OUTSIDE RECORDS SUMMARY | 2017-02-16 07:17 | XMS REPORT ---
Author Author CORA GONZALES Organization [facility] Address [address] [place] [address] Care Team Providers Care Manufacturing Executive Name Role Phone CORA GONZALES Unavailable PROBLEMS Type Condition ICD9-CM Code [id number] Code Onset Dates Condition Status SNOMED Code Problem Restless legs syndrome G25.81 Active 623628366 Problem Varicocele I86.1 Active 14035207 Problem Depressive disorder, not elsewhere classified F32.9 Active 56657748 Problem Primary insomnia F51.01 Active 4274898 Problem Peptic ulcer disease K27.9 Active 44522419 Problem Chronic tension-type headache, intractable G44.221 Active 738667125 Problem Gastroesophageal reflux disease without esophagitis K21.9 Active 294029019 Problem Diarrhea, unspecified type R19.7 Active 17087066 Problem Other chronic pain G89.29 Active 81578742 Problem BPH (benign prostatic hyperplasia) N40.0 Active 563274656 Problem Mitral valve prolapse I34.1 Active 267851028 Problem 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 Active 179668433 Problem Cavus deformity of right foot M21.6X1 Active 656264252 Problem Neuropathy G62.9 Active 846863708 Problem Cavus deformity M21.6X9 Active 485200892 Problem HTN (hypertension) I10 Active 87808607 Problem Pelvic pain R10.2 Active 49066124 ALLERGIES Unknown Allergies SOCIAL HISTORY No smoking Hx information available PLAN OF CARE VITAL SIGNS MEDICATIONS Medication Instructions Dosage Frequency Start Date End Date Duration Status Hydrocodone-Acetaminophen 7.5-325 MG Orally 3 times a day 1 tablet as needed 8h Apr, Active RESULTS No Results PROCEDURES No Known procedures IMMUNIZATIONS No Known Immunizations
--- OUTSIDE RECORDS SUMMARY | 2017-02-16 07:18 | XMS REPORT ---
Author Author JANET CORA Organization [facility] Address [address] [place] [address] Care Team Providers Care Reporting Consultant Name Role Phone CORA GONZALES Unavailable PROBLEMS Type Condition ICD9-CM Code OQZ46-TF Code Onset Dates Condition Status SNOMED Code Problem Restless legs syndrome G25.81 Active 500776347 Problem Varicocele I86.1 Active 22350272 Problem Depressive disorder, not elsewhere classified F32.9 Active 43594068 Problem Primary insomnia F51.01 Active 3406145 Problem Peptic ulcer disease K27.9 Active 58037492 Problem Chronic tension-type headache, intractable G44.221 Active 918696572 Problem Gastroesophageal reflux disease without esophagitis K21.9 Active 352651041 Problem Diarrhea, unspecified type R19.7 Active 46172728 Problem Other chronic pain G89.29 Active 47029671 Problem BPH (benign prostatic hyperplasia) N40.0 Active 036185908 Problem Mitral valve prolapse I34.1 Active 041576181 Problem 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 Active 153965353 Problem Cavus deformity of right foot M21.6X1 Active 846844513 Problem Neuropathy G62.9 Active 083552937 Problem Cavus deformity M21.6X9 Active 557972070 Problem HTN (hypertension) I10 Active 67664580 Problem Pelvic pain R10.2 Active 68544032 ALLERGIES No Information SOCIAL HISTORY Never Assessed PLAN OF CARE VITAL SIGNS MEDICATIONS Medication Instructions Dosage Frequency Start Date End Date Duration Status Hydrocodone-Acetaminophen 7.5-325 MG Orally 3 times a day 1 tablet as needed 8h Jun, Jul, 28 days Active RESULTS No Results PROCEDURES No Known procedures IMMUNIZATIONS No Known Immunizations MEDICAL (GENERAL) HISTORY Type Description Date Medical History hypertension Medical History RLS Medical History Cavus Foot Medical History DDD; dx Feb [address] Waldron Medical History 08/13/16 heart cath- everything was clear Surgical History cholecystectomy 2011 Surgical History vasectomy Surgical History heart cath x 2 2013 and 2017 Surgical History cystostopy 09/18/2016 Hospitalization History possible [place] and heart cath 2016 Hospitalization History ER visit for chest pain 2016 Hospitalization History heart problems July 2016
--- OUTSIDE RECORDS SUMMARY | 2017-02-16 07:21 | XMS REPORT ---
Author Author CORA GONZALES Organization [facility] Address [address] [place] [address] Care Team Providers Care Seed Laboratory Assistant Name Role Phone CORA GONZALES Unavailable PROBLEMS Type Condition ICD9-CM Code CVH64-BC Code Onset Dates Condition Status SNOMED Code Problem Restless legs syndrome G25.81 Active 920745448 Problem Varicocele I86.1 Active 38387067 Problem Depressive disorder, not elsewhere classified F32.9 Active 42675071 Problem Primary insomnia F51.01 Active 5057155 Problem Peptic ulcer disease K27.9 Active 85865717 Problem Chronic tension-type headache, intractable G44.221 Active 257672753 Problem Gastroesophageal reflux disease without esophagitis K21.9 Active 768348350 Problem Diarrhea, unspecified type R19.7 Active 81376400 Problem Other chronic pain G89.29 Active 67291847 Problem BPH (benign prostatic hyperplasia) N40.0 Active 120737969 Problem Mitral valve prolapse I34.1 Active 554080577 Problem 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 Active 096184692 Problem Cavus deformity of right foot M21.6X1 Active 672850131 Problem Neuropathy G62.9 Active 643467360 Problem Cavus deformity M21.6X9 Active 857736455 Problem HTN (hypertension) I10 Active 90117538 Problem Pelvic pain R10.2 Active 34577769 ALLERGIES Unknown Allergies SOCIAL HISTORY No smoking Hx information available PLAN OF CARE VITAL SIGNS MEDICATIONS Medication Instructions Dosage Frequency Start Date End Date Duration Status Atenolol 50 mg Orally 2 times a day 1 tablet 12h 05 Apr, 2015 30 days Active RESULTS No Results PROCEDURES No Known procedures IMMUNIZATIONS No Known Immunizations
--- OUTSIDE RECORDS SUMMARY | 2017-02-16 07:25 | XMS REPORT ---
Author Author CORA GONZALES [facility] Address [address] [place] [address] Care Team Providers Care Terminal Manager Name Role Phone LUDY GONZALESNETTE Unavailable PROBLEMS Type Condition ICD9-CM Code TQE49-GY Code Onset Dates Condition Status SNOMED Code Problem Restless legs syndrome G25.81 Active 214923332 Problem Varicocele I86.1 Active 18561787 Problem Depressive disorder, not elsewhere classified F32.9 Active 99278731 Problem Primary insomnia F51.01 Active 7258298 Problem Peptic ulcer disease K27.9 Active 38032315 Problem Chronic tension-type headache, intractable G44.221 Active 745769518 Problem Gastroesophageal reflux disease without esophagitis K21.9 Active 469246958 Problem Diarrhea, unspecified type R19.7 Active 52877920 Problem Other chronic pain G89.29 Active 29105309 Problem BPH (benign prostatic hyperplasia) N40.0 Active 975162413 Problem Mitral valve prolapse I34.1 Active 298161011 Problem 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 Active 773125024 Problem Cavus deformity of right foot M21.6X1 Active 649831506 Problem Neuropathy G62.9 Active 971535636 Problem Cavus deformity M21.6X9 Active 445469606 Problem HTN (hypertension) I10 Active 95609047 Problem Pelvic pain R10.2 Active 75279058 ALLERGIES No Known Allergies SOCIAL HISTORY Never Assessed PLAN OF CARE Activity Details Follow Up 3 Months Reason:3 month VITAL SIGNS Height 69 in 2016-05-29 Weight 218 lbs 2016-05-29 Temperature 97.9 degrees Fahrenheit 2016-05-29 Heart Rate 64 bpm 2016-05-29 Respiratory Rate 18 2016-05-29 BMI 32.19 kg/m2 2016-05-29 Blood pressure systolic 120 mmHg 2016-05-29 Blood pressure diastolic 84 mmHg 2016-05-29 MEDICATIONS Medication Instructions Dosage Frequency Start Date End Date Duration Status Atenolol 50 MG Orally 2 times a day 1 tablet 12h Apr, 90 days Active Dexilant 60 mg Orally Once a day 1 capsule 24h May, 90 days Active Tamsulosin HCl 0.4 MG Orally Once a day 1 capsule 24h 90 days Active Nexium 40 MG Orally Once a day 1 capsule 24h Apr, 30 days Active Requip 1 MG Orally Once a day 1 tablet 1 to 3 hours before bedtime 24h Oct, 90 days Active Hydrocodone-Acetaminophen 7.5-325 MG Orally 3 times a day 1 tablet as needed 8h May, Active RESULTS Name Result Date Reference Range A1C (IN HOUSE) 2016-05-29 A1C IN HOUSE 5.1 4.3 - 5.6 % Previous A1c N/A Lot [id number] Exp date 02/2018 [employer] 2016-05-29 PROCEDURES Procedure Date Ordered Result Body Site GLYCATED HEMOGLOBIN TEST May 29, 2016 No Charge May 29, 2016 IMMUNIZATIONS No Known Immunizations MEDICAL (GENERAL) HISTORY Type Description Date Medical History hypertension Medical History RLS Medical History Cavus Foot Medical History DDD; dx Feb [address] Waldron Medical History 08/13/16 heart cath- everything was clear Surgical History cholecystectomy 2011 Surgical History vasectomy Surgical History heart cath x 2 2013 and 2016 Surgical History cystostopy 09/18/2016 Hospitalization History possible [place] and heart cath 2016 Hospitalization History ER visit for chest pain 2016 Hospitalization History heart problems July 2016
[2017-02-16 07:30] VITALS: BP 137/94
[2017-02-16] MEDS ORDERED: MIDAZOLAM 2 MG/2 ML (VERSED) VIAL IV ONE (07:30)
[2017-02-16] MEDS ORDERED: LACTATED RINGERS 1,000 ML IV PRN (07:30)
[2017-02-16] MEDS ORDERED: ceFAZolin 2 GM/NS 50 ML IV ONE (08:00)
[2017-02-16] MEDS ORDERED: LIDOCAINE/EPI 1%-1:200,000 (XYLOCAINE) 10 ML VIAL ONE (08:13)
[2017-02-16] MEDS ORDERED: LIDOCAINE PF 2% 5 ML (XYLOCAINE) VIAL ONE (08:46)
[2017-02-16] MEDS ORDERED: DEXAMETHASONE 10 MG/ML (DECADRON) 1 ML VIAL ONE (08:46)
[2017-02-16] MEDS ORDERED: ONDANSETRON 4 MG/2 ML (SDV) Z0FRAN ONE (08:46)
[2017-02-16] MEDS ORDERED: SEVOFLURANE (ULTANE) 15 ML INHAL SOLN ONE (08:46)
[2017-02-16] MEDS ORDERED: proPOfol 200 MG/20 ML (DIPRIVAN) VIAL IV ONE (08:46)
[2017-02-16] MEDS ORDERED: fentaNYL INJECTION 100 MCG/2 ML AMP ONE (08:46)
[2017-02-16] MEDS ORDERED: MIDAZOLAM 2 MG/2 ML (VERSED) VIAL ONE (08:46)
--- NOTE | 2017-02-16 09:06 | Progress Note-Pre Operative ---
Pre-Operative Progress Note H&P Reviewed The H&P was reviewed, patient examined and no changes noted. Previous H&P stated pt wanted to try medications prior to surgery, but that has changed and he requested the surgery be done. He did not want to pay for the medications; especially if they are not as good as surgical intervention. Date Seen by Provider: Feb 16, 2017 Time Seen by Provider: 08:58 Date H&P Reviewed: Feb 16, 2017 Time H&P Reviewed: 09:04 Pre-Operative Diagnosis: Anal Fissure MARCY ERNST DO Feb 16, 2017 09:06
--- NOTE | 2017-02-16 09:35 | Progress Note-Post Operative ---
Post-Operative Progess Note Surgeon (s)/Shaper Operator (s) Surgeon MARCY ERNST DO Shaper Operator: none Pre-Operative Diagnosis Anal Fissure Post-Operative Diagnosis Anal Fissure Tight anal Sphincter Procedure & Operative Findings Date of Procedure 02/16/17 Procedure Performed/Findings PLIS Anesthesia Type LMA Estimated Blood Loss Estimated blood loss (mL): scant Specimens/Packing Specimens Removed none AMRCY ERNST DO Feb 16, 2017 09:35
--- NOTE | 2017-02-16 09:38 | Discharge Inst-Surgical ---
Discharge Inst-Surgical Depart Medication/Instructions New, Converted or Re-Newed RX: Other (no prescription needed, take OTC pain meds) Patient Instructions Follow up Appt: Make appointment for 1 week. [phone] -Instructions: No strenuous activity. May shower in 24 hours, ok to do sitz bath or soaking. No Smoking Skin/Wound Care: Expect a little bit of bleeding, can use pad to protect clothes. Symptoms to Report: Appetite Changes, Extremity Discoloration, Numbness/Tingling, Swelling Increased , Bleeding Excessive, Eyesight Changes, Pain Increased, Urine Color Change, Constipation(Persistent), Fever over 101 degree F, Pain/Pressure in chest, Urinating Difficulty, Cough Up/Vomit Blood, Heart Beat -Irreg/Pounding, Pain/ Pressure in jaw, Vaginal Bleeding Increase, Cramps in feet or legs, Lightheadedness, Pain/Pressure in shoulder, Diarrhea(Persistent), Memory Changes Suddenly, Questions/Concerns, Weight gain consecutive days, Dizziness/ Fainting, Nausea/Vomiting, Shortness of Breath, Weight gain over 2 pounds If questions or concerns contact your physician Or seek help at emergency department. Activity Driving Instructions: No Driving for 24 Hours Diet Discharge Diet: No Restrictions Diet After 24 Hours: Clear Liquid if Nauseous If Any Problems/Questions/Issu: Contact Your Physician, Go to Emergency Room Skin/Wound Care Infection Signs and Symptoms: Increased Redness, Foul Odor of Wound, Increased Drainage, Skin Itchy or Has a Rash, Increased Swelling, Temperature Above 101 F MARCY ERNST DO Feb 16, 2017 09:38
[2017-02-16 10:15] VITALS: BP 133/97
[2017-02-16 10:45] VITALS: BP 136/93
[2017-02-16 11:10] VITALS: BP 136/93
--- NOTE | 2017-02-16 22:05 | OPERATIVE REPORT ---
DATE OF SERVICE: PREOPERATIVE DIAGNOSIS: Anal fissure. POSTOPERATIVE DIAGNOSES: 1. Anal fissure: 2. Tight anal sphincter. PROCEDURE: Partial lateral internal sphincterotomy. SURGEON: Francisco Dasilva D.O. COMPUTER ARTIST: None. ANESTHESIA: LMA with local lidocaine. BLOOD LOSS: Scant. FLUIDS: Per anesthesia. SPECIMEN: No specimen. POSTOPERATIVE CONDITION: Stable. INDICATION FOR PROCEDURE: The patient is a 56-year-old male who had pain in the rectal area, also complained of some itching, we had a discussion prior to the surgery about pruritus ani and this is usually due to excessive wiping or soap use. He does have fissures scissors and did not want to try the creams because they only work 50% at a time, wanted to try the surgery. FINDINGS: The patient had a tight anal sphincter, some external hemorrhoidal skin, did a partial lateral sphincterotomy. PROCEDURE NOTE: After informed consent was obtained, the patient was brought to the operating room, placed on table in the lithotomy position. He was sterilely prepped and draped in normal fashion. Local lidocaine was used to infiltrate the skin on the anal canal at about the 5 o'clock position, then used little more of the lidocaine to do ischial tuberosity blocks on both sides or about 2 mL of local on each side. I then made an incision with #15 blade, small less than centimeter incision was made and then using a hemostat able to dissect down and palpate and then get under the internal sphincter muscle. Then using the Bovie cautery, cut and coagulated half of the muscle fibers and then dropped the rest of the internal sphincter muscle back in. Area was then cleaned and dried and dressing placed and patient then transferred to recovery room in stable condition. Sponge and needle count correct at the end of the case. Job ID: [id number] DocumentID: [id number] Dictated Date: 02/16/2017 13:31:41 Wire Frame Dipper Date: 02/16/2017 22:04:36 Dictated By: FRANCISCO DASILVA DO
== END 2017-02-16 11:10 | disposition home or self-care (01) ==
LOC: SDC 07:13
PROVIDERS: ATTEND Surgery
DX: K60.2 Anal fissure, unspecified (principal); K62.89 Other specified diseases of anus and rectum; Z11.2 Encounter for screening for other bacterial diseases; I10 Essential (primary) hypertension; I25.10 Atherosclerotic heart disease of native coronary artery without angina pectoris; E78.1 Pure hyperglyceridemia; F17.200 Nicotine dependence, unspecified, uncomplicated; Z79.899 Other long term (current) drug therapy
CPT/HCPCS: 87081

== ENCOUNTER 2018-01-27 14:49 | Emergency (ER) | payer MEDICARE, OTHER ==
[~2018-01-27] VITALS: Ht 177.8 cm; Wt 97.5 kg
[~2018-01-27 14:49] MED LIST changes: -HYDR-3816 PO; +LIDOCAINE 1% INJ 20 ML 20 ML VIAL ONE; -LOSA50TA36 PO; +LOSA50TA7 PO; -METO-272 PO; +METO-370 PO
[2018-01-27] MEDS ORDERED: fentaNYL INJECTION 100 MCG/2 ML AMP ONE (14:51)
--- OUTSIDE RECORDS SUMMARY | 2018-01-27 14:55 | XMS REPORT ---
Author Author LUNA CORRAL Organization [facility] Address [address] [place] [address] Care Team Providers Care Tile Trimmer Name Role Phone LUNA CORRAL Unavailable PROBLEMS Type Condition ICD9-CM Code WSC91-CQ Code Onset Dates Condition Status SNOMED Code Problem Varicocele I86.1 Active 39225399 Problem Chronic tension-type headache, intractable G44.221 Active 040753885 Problem Gastroesophageal reflux disease without esophagitis K21.9 Active 102569244 Problem Chronic major depressive disorder, recurrent episode F33.9 Active 50645054 Problem Irritable bowel syndrome with constipation K58.1 Active 623568102 Problem Peptic ulcer disease K27.9 Active 71290863 Problem Other chronic pain G89.29 Active 40568036 Problem Primary insomnia F51.01 Active 9212714 Problem Diarrhea, unspecified type R19.7 Active 04140892 Problem Neuropathy G62.9 Active 843754491 Problem HTN (hypertension) I10 Active 48810007 Problem BPH (benign prostatic hyperplasia) N40.0 Active 313208661 Problem Mitral valve prolapse I34.1 Active 648835126 Problem Cavus deformity M21.6X9 Active 001107449 Problem Pelvic pain R10.2 Active 51757872 Problem 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 Active 723027809 Problem Restless legs syndrome G25.81 Active 270521450 Problem Cavus deformity of right foot M21.6X1 Active 072681371 Problem Depressive disorder, not elsewhere classified F32.9 Active 20690956 ALLERGIES No Information ENCOUNTERS Encounter Location Date Diagnosis [facility] [id number], [place] [address] Jan, Other chronic pain G89.29 [facility] [id number], [place] [address] Dec, Chronic major depressive disorder, recurrent episode F33.9 and Neuropathy G62.9 [facility] [id number] [place] [address] 24748- 7028 Nov, Other chronic pain G89.29 [facility] [id number] [place] [address] 96327- 8536 Nov, Medicare welcome exam Z00.00 [facility] [id number] [place] [address] 76490- 9093 Nov, Other chronic pain G89.29 [facility] [id number] [place] [address] 44726- 2504 Oct, Other chronic pain G89.29 [facility] [id number] [place] [address] 11903- 9550 Sep, Other chronic pain G89.29 [facility] [id number] [place] [address] 29327- 8673 August, [place] [address] August, HTN (hypertension) I10 ; BPH (benign prostatic hyperplasia) N40.0 and Gastroesophageal reflux disease without esophagitis K21.9 [facility] [id number] [place] [address] 26683- 7448 August, Other chronic pain G89.29 [place] [id number] [place] [address] 39737- 5347 Jul, Medicare welcome exam Z00.00 ; Depressive disorder, not elsewhere classified F32.9 ; Neuropathy G62.9 ; HTN (hypertension) I10 ; BPH ( benign prostatic hyperplasia) N40.0 ; Mitral valve prolapse I34.1 ; Gastroesophageal reflux disease without esophagitis K21.9 and Primary insomnia F51.01 [facility] [facility] [id number] [place] [address] 29720- 9710 Jul, Other chronic pain G89.29 [facility] [id number] [place] [address] 83083- 3491 Jun, Other chronic pain G89.29 ; HTN (hypertension) I10 ; Neuropathy G62.9 and Irritable bowel syndrome with constipation K58.1 [facility] [address] [address] Jun, [facility] [address] [address]- [address] May, Neuropathy G62.9 [facility] [address] 40[address]- 3138 May, Anal pain K62.89 [facility] [address] [address]- 2006 Apr, [facility] [address] [address]- [address] Apr, Neuropathy G62.9 [place] [address] 9[address]- 7609 Mar, Neuropathy G62.9 [facility] [address] 16[address]- 0204 Mar, HTN (hypertension) I10 ; Neuropathy G62.9 and Anal itch L29.0 [facility] [address] [address]- [address]387 Feb, Restless legs syndrome G25.81 [place] [address] 31807- 3276 Feb, Neuropathy G62.9 [facility] [address] 82[address]- 6[address] Jan, Neuropathy G62.9 [facility] [address] 15663- 4783 28 Dec, 2016 Grade I hemorrhoids K64.0 and Rectal bleeding K62.5 [facility] [address] 16591- 0589 Dec, Neuropathy G62.9 [place] [id number] [place] [address] 20916- 7028 Nov, Neuropathy G62.9 [facility] [id number] [place] [address] 09282- 8643 Nov, Neuropathy G62.9 [facility] [id number] [place] [address] 94092- 2363 Nov, HTN (hypertension) I10 ; Neuropathy G62.9 ; Cavus deformity M21.6X9 ; Mitral valve prolapse I34.1 ; Restless legs syndrome G25.81 ; Gastroesophageal reflux disease without esophagitis K21.9 ; Primary insomnia F51.01 ; BPH (benign prostatic hyperplasia) N40.0 and Actinic keratosis L57.0 [facility] [id number] [place] [address] 36058- 2578 Oct, Other chronic pain G89.29 [facility] [id number] [place] [address] 83367- 5649 Oct, HTN (hypertension) I10 ; Neuropathy G62.9 ; BPH (benign prostatic hyperplasia) N40.0 ; Cavus deformity of right foot M21.6X1 ; Mitral valve prolapse I34.1 ; Gastroesophageal reflux disease without esophagitis K21.9 ; Other chronic pain G89.29 ; Primary insomnia F51.01 and Restless legs syndrome G25.81 [place] [address] [place] [address] 87839- 2873 Sep, Neuropathy G62.9 [facility] [id number] [place] [address] 70349- 7057 Sep, HTN (hypertension) I10 ; BPH (benign prostatic hyperplasia) N40.0 ; Neuropathy G62.9 ; Mitral valve prolapse I34.1 ; Restless legs syndrome G25.81 and Gastroesophageal reflux disease without esophagitis K21.9 [place] [id number] [place] [address] 20625- 4762 Sep, Cavus deformity of right foot M21.6X1 [place] [address] [place] [address] 80569- 0512 August, Orthostatic hypotension I95.1 [place] [address] 03476- 8858 August, HTN (hypertension) I10 ; BPH (benign prostatic hyperplasia) N40.0 ; Hydrocele in adult N43.3 ; Peptic ulcer disease K27.9 ; Restless legs syndrome G25.81 and Cavus deformity of right foot M21.6X1 [facility] [id number] [place] [address] 56800- 2359 Jul, Peptic ulcer disease K27.9 ; Diarrhea, unspecified type R19.7 ; BPH (benign prostatic hyperplasia) N40.0 ; HTN (hypertension) I10 ; Neuropathy G62.9 ; Mitral valve prolapse I34.1 ; Gastroesophageal reflux disease without esophagitis K21.9 and Restless legs syndrome G25.81 [place] [address] 94593- 7345 Jul, [place] [address] 94993- 1893 Jul, Cavus deformity M21.6X9 [place] [address] 81947- 0590 Jun, Cavus deformity M21.6X9 [facility] [id number] [place] [address] 31446- 5421 May, Family history of diabetes mellitus Z83.3 ; BPH (benign prostatic hyperplasia) N40.0 ; Cavus deformity M21.6X9 ; Restless legs syndrome G25.81 ; Gastroesophageal reflux disease without esophagitis K21.9 ; HTN ( hypertension) I10 ; Neuropathy G62.9 and Other chronic pain G89.29 [facility] [id number] [place] [address] 84845- 3044 Apr, Mitral valve prolapse I34.1 [place] [address] 97818- 8243 Apr, [facility] [id number] [place] [address] 64329- 6122 Mar, Other chest pain R07.89 [facility] [id number] [place] [address] 46297- 8468 Mar, [facility] [id number] [place] [address] 89864- 6601 Feb, [place] [id number] [place] [address] 66899- 1436 Jan, [place] [id number] [place] [address] 38942- 6312 Dec, [place] [id number] [place] [address] 72131- 2396 07 Dec, 2015 BPH (benign prostatic hyperplasia) N40.0 and Wellness examination Z00.00 [place] [id number] [place] [address] 61473- 2376 Nov, BPH (benign prostatic hyperplasia) N40.0 ; Neuropathy G62.9 ; Cavus deformity M21.6X9 ; 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 ; Mitral valve prolapse I34.1 ; Restless legs syndrome G25.81 ; Depressive disorder, not elsewhere classified F32.9 ; Gastroesophageal reflux disease without esophagitis K21.9 and Wellness examination Z00.00 [place] [id number] [place] [address] 08466- 3012 Nov, [place] [id number] [place] [address] 39396- 3308 Oct, [place] [id number] [place] [address] 69921- 5163 Oct, Other chronic pain G89.29 [facility] [id number] [place] [address] 80035- 9678 Sep, Pelvic pain R10.2 [place] [id number] [place] [address] 23316- 1522 August, Other chronic pain G89.29 [facility] [id number] [place] [address] 28816- 5938 August, BPH (benign prostatic hyperplasia) N40.0 ; HTN (hypertension ) I10 ; Neuropathy G62.9 ; Gastroesophageal reflux disease without esophagitis K21.9 ; Restless legs syndrome G25.81 and Chronic tension-type headache, intractable G44.221 [place] [address] 06237- 2573 Jul, Pelvic pain R10.2 [place] [address] 96903- 9846 Jun, [place] [address] 24690- 9035 May, [place] [address] 02218- 1885 May, Conjunctival hemorrhage of right eye H11.31 [place] [id number] [place] [address] 10799- 9724 May, [place] [address] 89374- 3570 May, BPH (benign prostatic hyperplasia) N40.0 ; Cavus deformity M21.6X9 ; HTN (hypertension) I10 ; Mitral valve prolapse I34.1 ; Pelvic pain R10.2 ; Restless legs syndrome G25.81 ; Varicocele I86.1 and GERD ( gastroesophageal reflux disease) K21.9 [place] [id number] [place] [address] 81456- 7408 Apr, [address] [address]- 1613 Apr, Varicocele I86.1 [place] [address] 07307- 2238 Apr, Depressive disorder, not elsewhere classified F32.9 [place] [id number] [place] [address] 45151- 1122 Apr, HTN (hypertension) I10 ; BPH (benign prostatic hyperplasia) N40.0 ; Restless legs syndrome G25.81 ; Neuropathy G62.9 ; Pelvic pain R10.2 and GERD (gastroesophageal reflux disease) K21.9 [facility] [id number] [place] [address] 69604- 8455 Mar, [facility] [address] 31771- 2692 Mar, [facility] [address] 72851- 2859 Mar, [facility] [address] 87256- 1306 Mar, HTN (hypertension) I10 ; Restless legs syndrome G25.81 ; BPH (benign prostatic hyperplasia) N40.0 ; Neuropathy G62.9 ; Cavus deformity of right foot M21.6X1 ; 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 ; Mitral valve prolapse I34.1 and Pelvic pain R10.2 [place] [address] 29181- 7057 Mar, [facility] [id number] [place] [address] 89293- 3951 Mar, [facility] [id number] [place] [address] 41925- 3061 Mar, [facility] [id number] [place] [address] 81072- 6109 Feb, [facility] [address] 45604- 5821 Feb, [facility] [id number] [place] [address] 18648- 9374 Feb, [facility] [id number] [place] [address] 50857- 1392 Jan, BPH (benign prostatic hyperplasia) N40.0 ; HTN (hypertension ) I10 ; Neuropathy G62.9 ; Cavus deformity of right foot M21.6X1 ; 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 and Mitral valve prolapse I34.1 [facility] [id number] [place] [address] 58685- 2768 Jan, BPH (benign prostatic hyperplasia) N40.0 ; Cavus deformity of left foot 736.73 ; Cavus deformity of right foot 736.73 ; Essential hypertension 401.9 ; Restless leg syndrome 333.94 and Chronic pain 338.29 [place] [id number] [place] [address] 90857- 2198 Jan, [place] [address] 55520- 6674 Jan, [place] [address] 38134- 9804 Dec, Essential hypertension 401.9 ; Mitral valve prolapse 424.0 ; Restless leg syndrome 333.94 and Chronic pain 338.29 [place] [id number] [place] [address] 03197- 9713 Dec, [place] [id number] [place] [address] 70278- 0383 Dec, Essential hypertension 401.9 ; Restless leg syndrome 333.94 ; Cavus deformity of left foot 736.73 ; Cavus deformity of right foot 736.73 ; Mitral valve prolapse 424.0 ; Chronic hydrocele 603.9 ; BPH (benign prostatic hyperplasia) 600.00 and Routine medical exam V70.0 [place] [id number] [place] [address] 90843- 5195 Nov, [place] [address] 52534- 9933 Oct, Essential hypertension 401.9 ; Restless leg syndrome 333.94 ; Cavus deformity of left foot 736.73 ; Cavus deformity of right foot 736.73 and Mitral valve prolapse 424.0 IMMUNIZATIONS No Known Immunizations SOCIAL HISTORY Never Assessed REASON FOR VISIT Controlled Med Refill PLAN OF CARE VITAL SIGNS MEDICATIONS Medication Instructions Dosage Frequency Start Date End Date Duration Status Hydrocodone-Acetaminophen 7.5-325 MG Orally 3 times a day 1 tablet as needed 8h Jan, 28 days Active RESULTS No Results PROCEDURES No Known procedures INSTRUCTIONS MEDICATIONS ADMINISTERED No Known Medications MEDICAL (GENERAL) HISTORY Type Description Date Medical History hypertension Medical History RLS Medical History Cavus Foot Medical History DDD; dx Feb [address] Waldron Medical History 08/13/16 heart cath- everything was clear Surgical History cholecystectomy 2011 Surgical History vasectomy Surgical History heart cath x 2 2013 and 2016 Surgical History cystostopy 09/18/2016 Surgical History colonoscopy 01/2017 Surgical History Fissuer repair 01/2017 Surgical History Infra Red Internal Coagulation for hemrrhoids 07/2017 Hospitalization History possible [place] and heart cath 2016 Hospitalization History ER visit for chest pain 2016 Hospitalization History heart problems July 2016
--- OUTSIDE RECORDS SUMMARY | 2018-01-27 14:55 | XMS REPORT ---
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 Name Role Phone LUNA CORRAL Unavailable PROBLEMS Type Condition ICD9-CM Code [id number] Code Onset Dates Condition Status SNOMED Code Problem Varicocele I86.1 Active 20533472 Problem Chronic tension-type headache, intractable G44.221 Active 974233695 Problem Gastroesophageal reflux disease without esophagitis K21.9 Active 339929387 Problem Chronic major depressive disorder, recurrent episode F33.9 Active 86627845 Problem Irritable bowel syndrome with constipation K58.1 Active 555539763 Problem Peptic ulcer disease K27.9 Active 46014397 Problem Other chronic pain G89.29 Active 56483656 Problem Primary insomnia F51.01 Active 9349257 Problem Diarrhea, unspecified type R19.7 Active 25892253 Problem Neuropathy G62.9 Active 312128695 Problem HTN (hypertension) I10 Active 62744769 Problem BPH (benign prostatic hyperplasia) N40.0 Active 392296868 Problem Mitral valve prolapse I34.1 Active 210928157 Problem Cavus deformity M21.6X9 Active 292544969 Problem Pelvic pain R10.2 Active 30209284 Problem 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 Active 025948946 Problem Restless legs syndrome G25.81 Active 766782142 Problem Cavus deformity of right foot M21.6X1 Active 745070880 Problem Depressive disorder, not elsewhere classified F32.9 Active 09035086 ALLERGIES No Information ENCOUNTERS Encounter Location Date Diagnosis [facility] [address] [facility] [id number] [address] Dec, Chronic major depressive disorder, recurrent episode F33.9 and Neuropathy G62.9 [facility] [address] [facility] [id number] [address] Nov, Other chronic pain G89.29 [facility] [address] [address] 27 Nov, 2017 Medicare welcome exam Z00.00 [facility] [id number] [place] [address]8705- 2649 Nov, Other chronic pain G89.29 [facility] [id number] [place] [address] 08276- 6269 Oct, Other chronic pain G89.29 [facility] [id number] [place] [address] 88960- 8274 Sep, Other chronic pain G89.29 [facility] [id number] [place] [address] 66331- 1082 August, [facility] [id number] [place] [address] 04839- 6356 August, HTN (hypertension) I10 ; BPH (benign prostatic hyperplasia) N40.0 and Gastroesophageal reflux disease without esophagitis K21.9 [facility] [id number] [place] [address] 73004- 7190 August, Other chronic pain G89.29 [facility] [id number] [place] [address] 53107- 4666 Jul, Medicare welcome exam Z00.00 ; Depressive disorder, not elsewhere classified F32.9 ; Neuropathy G62.9 ; HTN (hypertension) I10 ; BPH ( benign prostatic hyperplasia) N40.0 ; Mitral valve prolapse I34.1 ; Gastroesophageal reflux disease without esophagitis K21.9 and Primary insomnia F51.01 [facility] [address] [address] Jul, Other chronic pain G89.29 [facility] [address] [place] [address] 26944- 9947 Jun, Other chronic pain G89.29 ; HTN (hypertension) I10 ; Neuropathy G62.9 and Irritable bowel syndrome with constipation K58.1 [facility] [id number] [place] [address] 91719- 6705 Jun, [facility] [address] [address]- [address]66 May, Neuropathy G62.9 [facility] [id number] [place] [address] 49746- 0897 08 May, 2017 Anal pain K62.89 [facility] [address] 8[address]44- 2822 Apr, [facility] [address] 30797- 1387 Apr, Neuropathy G62.9 [facility] [address] 67656- 0778 Mar, Neuropathy G62.9 [facility] [address] 06895- 3930 Mar, HTN (hypertension) I10 ; Neuropathy G62.9 and Anal itch L29.0 [facility] [id number] [place] [address] 65883- 0464 Feb, Restless legs syndrome G25.81 [facility] [id number] [place] [address] 79312- 3511 Feb, Neuropathy G62.9 [facility] [id number] [place] [address] 26457- 3315 Jan, Neuropathy G62.9 [facility] [id number] [place] [address] 41808- 7563 28 Dec, 2016 Grade I hemorrhoids K64.0 and Rectal bleeding K62.5 [facility] [id number] [place] [address] 58211- 9607 Dec, Neuropathy G62.9 [facility] [id number] [place] [address] 83490- 7322 Nov, Neuropathy G62.9 [facility] [address] [address] Nov, Neuropathy G62.9 [facility] [id number] [place] [address] 39877- 7765 Nov, HTN (hypertension) I10 ; Neuropathy G62.9 ; Cavus deformity M21.6X9 ; Mitral valve prolapse I34.1 ; Restless legs syndrome G25.81 ; Gastroesophageal reflux disease without esophagitis K21.9 ; Primary insomnia F51.01 ; BPH (benign prostatic hyperplasia) N40.0 and Actinic keratosis L57.0 [facility] [id number] [place] [address] 20326- 1157 Oct, Other chronic pain G89.29 [facility] [id number] [place] [address] 62185- 5136 Oct, HTN (hypertension) I10 ; Neuropathy G62.9 ; BPH (benign prostatic hyperplasia) N40.0 ; Cavus deformity of right foot M21.6X1 ; Mitral valve prolapse I34.1 ; Gastroesophageal reflux disease without esophagitis K21.9 ; Other chronic pain G89.29 ; Primary insomnia F51.01 and Restless legs syndrome G25.81 [facility] [id number] [place] [address] 46189- 3231 Sep, Neuropathy G62.9 [facility] [address] [address] Sep, HTN (hypertension) I10 ; BPH (benign prostatic hyperplasia) N40.0 ; Neuropathy G62.9 ; Mitral valve prolapse I34.1 ; Restless legs syndrome G25.81 and Gastroesophageal reflux disease without esophagitis K21.9 [facility] [id number] [place] [address] 17830- 3442 Sep, Cavus deformity of right foot M21.6X1 [facility] [id number] [place] [address] 78038- 3567 August, Orthostatic hypotension I95.1 [facility] [address] [place] [id number] [place] [address] 45716- 7835 August, HTN (hypertension) I10 ; BPH (benign prostatic hyperplasia) N40.0 ; Hydrocele in adult N43.3 ; Peptic ulcer disease K27.9 ; Restless legs syndrome G25.81 and Cavus deformity of right foot M21.6X1 [facility] [id number] [place] [address] 92687- 3594 Jul, Peptic ulcer disease K27.9 ; Diarrhea, unspecified type R19.7 ; BPH (benign prostatic hyperplasia) N40.0 ; HTN (hypertension) I10 ; Neuropathy G62.9 ; Mitral valve prolapse I34.1 ; Gastroesophageal reflux disease without esophagitis K21.9 and Restless legs syndrome G25.81 [facility] [address] 82285- 7334 Jul, [address] 53680- 0076 Jul, Cavus deformity M21.6X9 [facility] [address] 52089- 6711 Jun, Cavus deformity M21.6X9 [facility] [address] 60817- 2175 May, Family history of diabetes mellitus Z83.3 ; BPH (benign prostatic hyperplasia) N40.0 ; Cavus deformity M21.6X9 ; Restless legs syndrome G25.81 ; Gastroesophageal reflux disease without esophagitis K21.9 ; HTN ( hypertension) I10 ; Neuropathy G62.9 and Other chronic pain G89.29 [facility] [address] 38240- 8709 Apr, Mitral valve prolapse I34.1 [facility] [address] 93818- 0568 Apr, [facility] [address] 64699- 7893 Mar, Other chest pain R07.89 [facility] [address] [address] 07 Mar, 2016 [facility] [id number] [place] [address] 63087- 0076 Feb, [facility] [id number] [place] [address] 16484- 1461 Jan, [facility] [id number] [place] [address] 53637- 6939 07 Dec, 2015 [facility] [id number] [place] [address] 61820- 4867 07 Dec, 2015 BPH (benign prostatic hyperplasia) N40.0 and Wellness examination Z00.00 [facility] [id number] [place] [address] 79872- 5277 10 Nov, 2015 BPH (benign prostatic hyperplasia) N40.0 ; Neuropathy G62.9 ; Cavus deformity M21.6X9 ; 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 ; Mitral valve prolapse I34.1 ; Restless legs syndrome G25.81 ; Depressive disorder, not elsewhere classified F32.9 ; Gastroesophageal reflux disease without esophagitis K21.9 and Wellness examination Z00.00 [facility] [address] [address] 4035 Nov, [facility] [id number] [place] [address] 65353- 3314 Oct, [facility] [id number] [place] [address] 14675- 4376 Oct, Other chronic pain G89.29 [facility] [id number] [place] [address] 10727- 5566 Sep, Pelvic pain R10.2 [facility] [address] [place] [address] 13220- 0821 August, Other chronic pain G89.29 [facility] [id number] [place] [address] 29253- 9671 August, BPH (benign prostatic hyperplasia) N40.0 ; HTN (hypertension ) I10 ; Neuropathy G62.9 ; Gastroesophageal reflux disease without esophagitis K21.9 ; Restless legs syndrome G25.81 and Chronic tension-type headache, intractable G44.221 [facility] [place] [id number] [place] [address] 89648- 0720 Jul, Pelvic pain R10.2 [facility] [address] 33223- 6563 Jun, [facility] [address] 75493- 6383 May, [address] 87857- 5540 May, Conjunctival hemorrhage of right eye H11.[address] 95133- 5438 May, [facility] [address] 07780- 2316 May, BPH (benign prostatic hyperplasia) N40.0 ; Cavus deformity M21.6X9 ; HTN (hypertension) I10 ; Mitral valve prolapse I34.1 ; Pelvic pain R10.2 ; Restless legs syndrome G25.81 ; Varicocele I86.1 and GERD ( gastroesophageal reflux disease) K21.9 [facility] [id number] [place] [address] 20565- 5988 Apr, [facility] [place] [id number] [place] [address] 29755- 4508 Apr, Varicocele I86.[address] 67740- 6315 Apr, Depressive disorder, not elsewhere classified F32.9 [place] [id number] [place] [address] 14223- 6339 Apr, HTN (hypertension) I10 ; BPH (benign prostatic hyperplasia) N40.0 ; Restless legs syndrome G25.81 ; Neuropathy G62.9 ; Pelvic pain R10.2 and GERD (gastroesophageal reflux disease) K21.9 [facility] [id number] [place] [address] 85119- 5251 Mar, [place] [address] 92659- 4628 Mar, [place] [address] 21233- 8328 Mar, [facility] [id number] [place] [address] 62986- 8640 Mar, HTN (hypertension) I10 ; Restless legs syndrome G25.81 ; BPH (benign prostatic hyperplasia) N40.0 ; Neuropathy G62.9 ; Cavus deformity of right foot M21.6X1 ; 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 ; Mitral valve prolapse I34.1 and Pelvic pain R10.2 [facility] [id number] [place] [address] 30912- 9659 Mar, [place] [address] 02445- 6185 Mar, [facility] [place] [id number] [place] [address] 90152- 0450 Mar, [facility] [place] [id number] [place] [address] 17070- 8810 Feb, [facility] [id number] [place] [address] 40037- 1351 Feb, [facility] [place] [id number] [place] [address] 94595- 3144 Feb, [facility] [place] [id number] [place] [address] 93866- 2707 Jan, BPH (benign prostatic hyperplasia) N40.0 ; HTN (hypertension ) I10 ; Neuropathy G62.9 ; Cavus deformity of right foot M21.6X1 ; 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 and Mitral valve prolapse I34.1 [facility] [id number] [place] [address] 93244- 5005 Jan, BPH (benign prostatic hyperplasia) N40.0 ; Cavus deformity of left foot 736.73 ; Cavus deformity of right foot 736.73 ; Essential hypertension 401.9 ; Restless leg syndrome 333.94 and Chronic pain 338.29 [place] [address] 23858- 2385 Jan, [place] [address] 54974- 4133 Jan, [facility] [address] 28406- 9262 Dec, Essential hypertension 401.9 ; Mitral valve prolapse 424.0 ; Restless leg syndrome 333.94 and Chronic pain 338.29 [facility] [address] 66067- 7732 Dec, [facility] [address] 98210- 2632 Dec, Essential hypertension 401.9 ; Restless leg syndrome 333.94 ; Cavus deformity of left foot 736.73 ; Cavus deformity of right foot 736.73 ; Mitral valve prolapse 424.0 ; Chronic hydrocele 603.9 ; BPH (benign prostatic hyperplasia) 600.00 and Routine medical exam V70.0 [facility] [place] [id number] [place] [address] 19579- 9610 Nov, [facility] [address] 61018- 8759 Oct, Essential hypertension 401.9 ; Restless leg syndrome 333.94 ; Cavus deformity of left foot 736.73 ; Cavus deformity of right foot 736.73 and Mitral valve prolapse 424.0 IMMUNIZATIONS No Known Immunizations SOCIAL HISTORY Never Assessed REASON FOR VISIT Controlled Med Refill 12/21/17 PLAN OF CARE VITAL SIGNS MEDICATIONS Medication Instructions Dosage Frequency Start Date End Date Duration Status Hydrocodone-Acetaminophen 7.5-325 MG Orally 3 times a day 1 tablet as needed 8h Dec, 28 days Active RESULTS No Results PROCEDURES [...] Coagulation for hemrrhoids 07/2017 Hospitalization History possible [place] and heart cath 2015 Hospitalization History ER visit for chest pain 2016 Hospitalization History heart problems July 2016
--- OUTSIDE RECORDS SUMMARY | 2018-01-27 14:56 | XMS REPORT ---
Author Author LUNA CORRAL Organization [facility] Address [address] [place] [address] Care Team Providers Care Environmental Health Officer Name Role Phone LUNA CORRAL Unavailable PROBLEMS Type Condition ICD9-CM Code EOL35-OZ Code Onset Dates Condition Status SNOMED Code Problem Depressive disorder, not elsewhere classified F32.9 Active 99308344 Problem Gastroesophageal reflux disease without esophagitis K21.9 Active 787554477 Problem Varicocele I86.1 Active 98115092 Problem Irritable bowel syndrome with constipation K58.1 Active 492392351 Problem Primary insomnia F51.01 Active 9604808 Problem Other chronic pain G89.29 Active 44929686 Problem Chronic tension-type headache, intractable G44.221 Active 480426054 Problem Diarrhea, unspecified type R19.7 Active 09994590 Problem Peptic ulcer disease K27.9 Active 35500410 Problem Mitral valve prolapse I34.1 Active 093158650 Problem Neuropathy G62.9 Active 752146203 Problem BPH (benign prostatic hyperplasia) N40.0 Active 374581641 Problem Cavus deformity of right foot M21.6X1 Active 363089840 Problem Cavus deformity M21.6X9 Active 156658884 Problem HTN (hypertension) I10 Active 97780905 Problem Pelvic pain R10.2 Active 91856986 Problem 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 Active 535326668 Problem Restless legs syndrome G25.81 Active 418126093 ALLERGIES No Information ENCOUNTERS Encounter Location Date Diagnosis [facility] [address] [facility] [id number] [address] Dec, [facility] [address] [address] Nov, Other chronic pain G89.29 [facility] [address] [facility] [id number], [place] [address] Nov, Medicare welcome exam Z00.00 [facility] [address], [place] [address] Nov, Other chronic pain G89.29 [facility] [id number] [place] [address] 55090- 4539 Oct, Other chronic pain G89.29 [facility] [address] [place] [address] 75534- 0030 Sep, Other chronic pain G89.29 [facility] [address] [place] [address] 31169- 1109 August, [facility] [address] [place] [id number] [place] [address] 29423- 1028 August, HTN (hypertension) I10 ; BPH (benign prostatic hyperplasia) N40.0 and Gastroesophageal reflux disease without esophagitis K21.9 [facility] [address] [place] [address] 64694- 5405 August, Other chronic pain G89.29 [facility] [id number] [place] [address] 90081- 8024 Jul, Medicare welcome exam Z00.00 ; Depressive disorder, not elsewhere classified F32.9 ; Neuropathy G62.9 ; HTN (hypertension) I10 ; BPH ( benign prostatic hyperplasia) N40.0 ; Mitral valve prolapse I34.1 ; Gastroesophageal reflux disease without esophagitis K21.9 and Primary insomnia F51.01 [facility] [address], [place] [address] Jul, Other chronic pain G89.29 [facility] [address] [address] Jun, Other chronic pain G89.29 ; HTN (hypertension) I10 ; Neuropathy G62.9 and Irritable bowel syndrome with constipation K58.1 [facility] [address] [address] Jun, [facility] [address] [place] [id number] [place] [address] 54384- 1239 11 May, 2017 Neuropathy G62.9 [facility] [address] [address]- [address] 08 May, 2017 Anal pain K62.89 [facility] [id number] [place] [address] 75548- 7114 Apr, [facility] [address] [address]- 7049 Apr, Neuropathy G62.9 [facility] [address] [address]- [address]32 Mar, Neuropathy G62.9 [facility] [address] [address]- 4730 Mar, HTN (hypertension) I10 ; Neuropathy G62.9 and Anal itch L29.0 [facility] [id number] [place] [address] 08382- 9572 Feb, Restless legs syndrome G25.81 [facility] [id number] [place] [address] 04085- 6136 Feb, Neuropathy G62.9 [facility] [id number] [place] [address] 67700- 6158 Jan, Neuropathy G62.9 [facility] [id number] [place] [address] 74655- 2363 Dec, Grade I hemorrhoids K64.0 and Rectal bleeding K62.5 [facility] [id number] [place] [address] 96150- 9310 Dec, Neuropathy G62.9 [facility] [address] 26464- 7225 Nov, Neuropathy G62.9 [facility] [id number] [place] [address] 16339- 9234 Nov, Neuropathy G62.9 [facility] [address], [place] [address] Nov, HTN (hypertension) I10 ; Neuropathy G62.9 ; Cavus deformity M21.6X9 ; Mitral valve prolapse I34.1 ; Restless legs syndrome G25.81 ; Gastroesophageal reflux disease without esophagitis K21.9 ; Primary insomnia F51.01 ; BPH (benign prostatic hyperplasia) N40.0 and Actinic keratosis L57.0 [facility] [address] [id number] [place] [address] 86522- 3222 Oct, Other chronic pain G89.29 [facility] [address] [place] [id number] [place] [address] 89250- 0490 Oct, HTN (hypertension) I10 ; Neuropathy G62.9 ; BPH (benign prostatic hyperplasia) N40.0 ; Cavus deformity of right foot M21.6X1 ; Mitral valve prolapse I34.1 ; Gastroesophageal reflux disease without esophagitis K21.9 ; Other chronic pain G89.29 ; Primary insomnia F51.01 and Restless legs syndrome G25.81 [facility] [address] [place] [id number] [place] [address] 97181- 8679 Sep, Neuropathy G62.9 [facility] [address] [id number] [place] [address] 21935- 4639 Sep, HTN (hypertension) I10 ; BPH (benign prostatic hyperplasia) N40.0 ; Neuropathy G62.9 ; Mitral valve prolapse I34.1 ; Restless legs syndrome G25.81 and Gastroesophageal reflux disease without esophagitis K21.9 [facility] [address] [place] [address] 53681- 8264 Sep, Cavus deformity of right foot M21.6X1 [facility] [address] [id number] [place] [address] 56331- 1011 August, Orthostatic hypotension I95.1 [facility] [address] [id number] [place] [address] 90481- 0228 August, HTN (hypertension) I10 ; BPH (benign prostatic hyperplasia) N40.0 ; Hydrocele in adult N43.3 ; Peptic ulcer disease K27.9 ; Restless legs syndrome G25.81 and Cavus deformity of right foot M21.6X1 [facility] [address] [address]- [address] Jul, Peptic ulcer disease K27.9 ; Diarrhea, unspecified type R19.7 ; BPH (benign prostatic hyperplasia) N40.0 ; HTN (hypertension) I10 ; Neuropathy G62.9 ; Mitral valve prolapse I34.1 ; Gastroesophageal reflux disease without esophagitis K21.9 and Restless legs syndrome G25.81 [facility] [address] 80382- 0474 Jul, [facility] [address] 89078- 6001 Jul, Cavus deformity M21.6X9 [address] 85180- 9278 Jun, Cavus deformity M21.6X9 [facility] [address] 74495- 6628 May, Family history of diabetes mellitus Z83.3 ; BPH (benign prostatic hyperplasia) N40.0 ; Cavus deformity M21.6X9 ; Restless legs syndrome G25.81 ; Gastroesophageal reflux disease without esophagitis K21.9 ; HTN ( hypertension) I10 ; Neuropathy G62.9 and Other chronic pain G89.29 [facility] [address] 71410- 6072 Apr, Mitral valve prolapse I34.[address] 96024- 1073 Apr, [address] 12410- 7295 Mar, Other chest pain R07.[address] 72545- 0580 Mar, [facility] [address] [address] 379[address] Feb, [facility] [id number] [place] [address] 196961- 7661 Jan, [facility] [id number] [place] [address] 66888- 6847 07 Dec, 2015 [facility] [id number] [place] [address] 14547- 4780 07 Dec, 2015 BPH (benign prostatic hyperplasia) N40.0 and Wellness examination Z00.00 [facility] [address] [id number] [place] [address] 34766- 3879 10 Nov, 2015 BPH (benign prostatic hyperplasia) N40.0 ; Neuropathy G62.9 ; Cavus deformity M21.6X9 ; 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 ; Mitral valve prolapse I34.1 ; Restless legs syndrome G25.81 ; Depressive disorder, not elsewhere classified F32.9 ; Gastroesophageal reflux disease without esophagitis K21.9 and Wellness examination Z00.00 [facility] [address] [place] [address] 54969- 2191 Nov, [facility] [address] [id number] [place] [address] 06184- 8729 Oct, [facility] [address] [place] [address] 43128- 5630 Oct, Other chronic pain G89.29 [facility] [address] [place] [address] 50845- 8471 Sep, Pelvic pain R10.2 [facility] [address] [id number] [place] [address] 54932- 8947 August, Other chronic pain G89.29 [facility] [address] [place] [address] 63721- 0247 August, BPH (benign prostatic hyperplasia) N40.0 ; HTN (hypertension ) I10 ; Neuropathy G62.9 ; Gastroesophageal reflux disease without esophagitis K21.9 ; Restless legs syndrome G25.81 and Chronic tension-type headache, intractable G44.221 [facility] [address] 76099- 7653 Jul, Pelvic pain R10.2 [facility] [address] 81614- 3095 Jun, [facility] [address] 69529- 1295 May, [facility] [place] [address] 06266- 3027 May, Conjunctival hemorrhage of right eye H11.31 [facility] [address] 23784- 4275 May, [facility] [address] 90880- 3068 May, BPH (benign prostatic hyperplasia) N40.0 ; Cavus deformity M21.6X9 ; HTN (hypertension) I10 ; Mitral valve prolapse I34.1 ; Pelvic pain R10.2 ; Restless legs syndrome G25.81 ; Varicocele I86.1 and GERD ( gastroesophageal reflux disease) K21.9 [facility] [address] 19288- 5291 Apr, [facility] [address] 03407- 5887 Apr, Varicocele I86.1 [facility] [address] 31933- 0189 Apr, Depressive disorder, not elsewhere classified F32.9 [facility] [address] 38095- 8351 Apr, HTN (hypertension) I10 ; BPH (benign prostatic hyperplasia) N40.0 ; Restless legs syndrome G25.81 ; Neuropathy G62.9 ; Pelvic pain R10.2 and GERD (gastroesophageal reflux disease) K21.9 [facility] [id number] [place] [address] 64230- 7270 Mar, [facility] [id number] [place] [address] 50913- 0479 Mar, [facility] [id number] [place] [address] 91495- 9838 Mar, [facility] [address] 72215- 4490 Mar, HTN (hypertension) I10 ; Restless legs syndrome G25.81 ; BPH (benign prostatic hyperplasia) N40.0 ; Neuropathy G62.9 ; Cavus deformity of right foot M21.6X1 ; 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 ; Mitral valve prolapse I34.1 and Pelvic pain R10.2 [facility] [id number] [place] [address] 09787- 7537 Mar, [facility] [id number] [place] [address] 43181- 0229 Mar, [facility] [address] 09702- 6121 Mar, [facility] [address] [id number] [place] [address] 49629- 9245 Feb, [facility] [id number] [place] [address] 63798- 1950 Feb, [facility] [address] [id number] [place] [address] 21918- 0789 Feb, [facility] [id number] [place] [address] 32736- 5808 Jan, BPH (benign prostatic hyperplasia) N40.0 ; HTN (hypertension ) I10 ; Neuropathy G62.9 ; Cavus deformity of right foot M21.6X1 ; 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 and Mitral valve prolapse I34.1 [facility] [id number] [place] [address] 23065- 1227 Jan, BPH (benign prostatic hyperplasia) N40.0 ; Cavus deformity of left foot 736.73 ; Cavus deformity of right foot 736.73 ; Essential hypertension 401.9 ; Restless leg syndrome 333.94 and Chronic pain 338.29 [facility] [place] [address] [place] [address] 45797- 6069 Jan, [facility] [address] 26394- 4785 Jan, [facility] [place] [address] [id number] [place] [address] 23114- 8008 Dec, Essential hypertension 401.9 ; Mitral valve prolapse 424.0 ; Restless leg syndrome 333.94 and Chronic pain 338.29 [facility] [id number] [place] [address] 14985- 9224 Dec, [facility] [place] [id number] [place] [address] 28292- 7421 Dec, Essential hypertension 401.9 ; Restless leg syndrome 333.94 ; Cavus deformity of left foot 736.73 ; Cavus deformity of right foot 736.73 ; Mitral valve prolapse 424.0 ; Chronic hydrocele 603.9 ; BPH (benign prostatic hyperplasia) 600.00 and Routine medical exam V70.0 [facility] [address] [address] [id number] [place] [address] 14228- 8409 Nov, [facility] [place] [address] [id number] [place] [address] 44423- 8270 Oct, Essential hypertension 401.9 ; Restless leg syndrome 333.94 ; Cavus deformity of left foot 736.73 ; Cavus deformity of right foot 736.73 and Mitral valve prolapse 424.0 IMMUNIZATIONS No Known Immunizations SOCIAL HISTORY Never Assessed REASON FOR VISIT controlled med refill PLAN OF CARE VITAL SIGNS MEDICATIONS Medication Instructions Dosage Frequency Start Date End Date Duration Status Hydrocodone-Acetaminophen 7.5-325 MG Orally 3 times a day 1 tablet as needed 8h Oct, 28 days Active RESULTS No Results PROCEDURES [...] Coagulation for hemrrhoids 07/2017 Hospitalization History possible [place] and heart cath 2016 Hospitalization History ER visit for chest pain 2016 Hospitalization History heart problems July 2016
--- OUTSIDE RECORDS SUMMARY | 2018-01-27 14:56 | XMS REPORT ---
Author Author LUNA CORRAL Organization [facility] Address [address] [place] [address] Care Team Providers Care Performance Instructor Name Role Phone LUNA CORRAL Unavailable PROBLEMS Type Condition ICD9-CM Code [id number] Code Onset Dates Condition Status SNOMED Code Problem Depressive disorder, not elsewhere classified F32.9 Active 63299334 Problem Gastroesophageal reflux disease without esophagitis K21.9 Active 107363498 Problem Varicocele I86.1 Active 16489169 Problem Irritable bowel syndrome with constipation K58.1 Active 904478345 Problem Primary insomnia F51.01 Active 6423236 Problem Other chronic pain G89.29 Active 70522958 Problem Chronic tension-type headache, intractable G44.221 Active 544322379 Problem Diarrhea, unspecified type R19.7 Active 23878134 Problem Peptic ulcer disease K27.9 Active 15436853 Problem Mitral valve prolapse I34.1 Active 296572791 Problem Neuropathy G62.9 Active 269985043 Problem BPH (benign prostatic hyperplasia) N40.0 Active 522263987 Problem Cavus deformity of right foot M21.6X1 Active 300905423 Problem Cavus deformity M21.6X9 Active 577344344 Problem HTN (hypertension) I10 Active 20466920 Problem Pelvic pain R10.2 Active 72969165 Problem 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 Active 091365068 Problem Restless legs syndrome G25.81 Active 021244074 ALLERGIES No Information ENCOUNTERS Encounter Location Date Diagnosis [facility] [address] [facility] [id number] [address] Dec, [facility] [address] [address] Nov, Other chronic pain G89.29 [facility] [address] [facility] [id number] [address] Nov, Medicare welcome exam Z00.00 [facility] [address] [address] Nov, Other chronic pain G89.29 [facility] [id number] [place] [address]- 1420 Oct, Other chronic pain G89.29 [facility] [id number] [place] [address] Sep, Other chronic pain G89.29 [facility] [id number] [place] [address]75- 14[address] August, [facility] [id number] [place] [address] 09041- 2062 August, HTN (hypertension) I10 ; BPH (benign prostatic hyperplasia) N40.0 and Gastroesophageal reflux disease without esophagitis K21.9 [facility] [id number] [place] [address]- 9680 August, Other chronic pain G89.29 [facility] [id number] [place] [address] 22563- 2710 Jul, Medicare welcome exam Z00.00 ; Depressive disorder, not elsewhere classified F32.9 ; Neuropathy G62.9 ; HTN (hypertension) I10 ; BPH ( benign prostatic hyperplasia) N40.0 ; Mitral valve prolapse I34.1 ; Gastroesophageal reflux disease without esophagitis K21.9 and Primary insomnia F51.01 [facility] [address] [address] Jul, Other chronic pain G89.29 [facility] [address] [address] Jun, Other chronic pain G89.29 ; HTN (hypertension) I10 ; Neuropathy G62.9 and Irritable bowel syndrome with constipation K58.1 [facility] [address] [address] Jun, [facility] [id number] [place] [address] 99985- 9476 11 May, 2017 Neuropathy G62.9 [facility] [address] [address] 08 May, 2017 Anal pain K62.89 [facility] [id number] [place] [address] 10535- 5556 Apr, [facility] [address] [address] Apr, Neuropathy G62.9 [facility] [address] [address]- [address] Mar, Neuropathy G62.9 [facility] [address] [address]- [address] Mar, HTN (hypertension) I10 ; Neuropathy G62.9 and Anal itch L29.0 [facility] [id number] [place] [address] 26615- 8801 Feb, Restless legs syndrome G25.81 [facility] [id number] [place] [address] 61507- 7936 Feb, Neuropathy G62.9 [facility] [id number] [place] [address] 97187- 2901 Jan, Neuropathy G62.9 [facility] [id number] [place] [address] 38569- 8511 Dec, Grade I hemorrhoids K64.0 and Rectal bleeding K62.5 [facility] [id number] [place] [address] 12623- 2066 Dec, Neuropathy G62.9 [facility] [address] [address]- [address] Nov, Neuropathy G62.9 [facility] [id number] [place] [address] 37[address]- 1919 Nov, Neuropathy G62.9 [facility] [address] [address] Nov, HTN (hypertension) I10 ; Neuropathy G62.9 ; Cavus deformity M21.6X9 ; Mitral valve prolapse I34.1 ; Restless legs syndrome G25.81 ; Gastroesophageal reflux disease without esophagitis K21.9 ; Primary insomnia F51.01 ; BPH (benign prostatic hyperplasia) N40.0 and Actinic keratosis L57.0 [facility] [id number] [place] [address] 71081- 3282 Oct, Other chronic pain G89.29 [facility] [id number] [place] [address] 03725- 1739 Oct, HTN (hypertension) I10 ; Neuropathy G62.9 ; BPH (benign prostatic hyperplasia) N40.0 ; Cavus deformity of right foot M21.6X1 ; Mitral valve prolapse I34.1 ; Gastroesophageal reflux disease without esophagitis K21.9 ; Other chronic pain G89.29 ; Primary insomnia F51.01 and Restless legs syndrome G25.81 [facility] [id number] [place] [address] 12382- 2427 Sep, Neuropathy G62.9 [facility] [id number] [place] [address] 84740- 6460 Sep, HTN (hypertension) I10 ; BPH (benign prostatic hyperplasia) N40.0 ; Neuropathy G62.9 ; Mitral valve prolapse I34.1 ; Restless legs syndrome G25.81 and Gastroesophageal reflux disease without esophagitis K21.9 [facility] [address] [place] [address] 32378- 4802 Sep, Cavus deformity of right foot M21.6X1 [facility] [id number] [place] [address] 65948- 4168 August, Orthostatic hypotension I95.1 [facility] [id number] [place] [address] 73951- 2469 August, HTN (hypertension) I10 ; BPH (benign prostatic hyperplasia) N40.0 ; Hydrocele in adult N43.3 ; Peptic ulcer disease K27.9 ; Restless legs syndrome G25.81 and Cavus deformity of right foot M21.6X1 [facility] [address] [address]- [address] Jul, Peptic ulcer disease K27.9 ; Diarrhea, unspecified type R19.7 ; BPH (benign prostatic hyperplasia) N40.0 ; HTN (hypertension) I10 ; Neuropathy G62.9 ; Mitral valve prolapse I34.1 ; Gastroesophageal reflux disease without esophagitis K21.9 and Restless legs syndrome G25.81 [facility] [address] [address]- 2946 Jul, [facility] [address] 618[address]- 7742 Jul, Cavus deformity M21.6X9 [address] [address]- 9581 Jun, Cavus deformity M21.6X9 [facility] [address] [address]- 85[address] May, Family history of diabetes mellitus Z83.3 ; BPH (benign prostatic hyperplasia) N40.0 ; Cavus deformity M21.6X9 ; Restless legs syndrome G25.81 ; Gastroesophageal reflux disease without esophagitis K21.9 ; HTN ( hypertension) I10 ; Neuropathy G62.9 and Other chronic pain G89.29 [facility] [address] [address]- 5871 Apr, Mitral valve prolapse I34.[address] [address]- 9787 Apr, [address] 3[address]- 2291 Mar, Other chest pain R07.[address] 9[address]- 7601 Mar, [facility] [address] [address] 8[address] Feb, [facility] [id number] [place] [address] 596740- 0737 Jan, [facility] [id number] [place] [address] 35617- 1139 07 Dec, 2015 [facility] [id number] [place] [address] 96780- 1462 07 Dec, 2015 BPH (benign prostatic hyperplasia) N40.0 and Wellness examination Z00.00 [facility] [id number] [place] [address] 75374- 9681 10 Nov, 2015 BPH (benign prostatic hyperplasia) N40.0 ; Neuropathy G62.9 ; Cavus deformity M21.6X9 ; 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 ; Mitral valve prolapse I34.1 ; Restless legs syndrome G25.81 ; Depressive disorder, not elsewhere classified F32.9 ; Gastroesophageal reflux disease without esophagitis K21.9 and Wellness examination Z00.00 [facility] [id number] [place] [address] 51057- 7063 Nov, [facility] [id number] [place] [address] 05219- 9930 Oct, [facility] [id number] [place] [address] 12615- 8853 Oct, Other chronic pain G89.29 [facility] [id number] [place] [address] 06534- 0556 Sep, Pelvic pain R10.2 [facility] [id number] [place] [address] 55878- 4710 August, Other chronic pain G89.29 [facility] [id number] [place] [address] 43840- 8267 August, BPH (benign prostatic hyperplasia) N40.0 ; HTN (hypertension ) I10 ; Neuropathy G62.9 ; Gastroesophageal reflux disease without esophagitis K21.9 ; Restless legs syndrome G25.81 and Chronic tension-type headache, intractable G44.221 [facility] [address] 201[address]- 0582 Jul, Pelvic pain R10.2 [facility] [address] 01993- 3496 Jun, [facility] [address] 60835- 1721 May, [facility] [address] 30434- 2135 May, Conjunctival hemorrhage of right eye H11.31 [facility] [address] 11306- 1862 May, [facility] [address] 6[address]98- 3585 May, BPH (benign prostatic hyperplasia) N40.0 ; Cavus deformity M21.6X9 ; HTN (hypertension) I10 ; Mitral valve prolapse I34.1 ; Pelvic pain R10.2 ; Restless legs syndrome G25.81 ; Varicocele I86.1 and GERD ( gastroesophageal reflux disease) K21.9 [facility] [address] 21530- 8443 Apr, [facility] [address] 59676- 9455 Apr, Varicocele I86.1 [facility] [address] 86829- 5093 Apr, Depressive disorder, not elsewhere classified F32.9 [facility] [address] 06330- 3268 Apr, HTN (hypertension) I10 ; BPH (benign prostatic hyperplasia) N40.0 ; Restless legs syndrome G25.81 ; Neuropathy G62.9 ; Pelvic pain R10.2 and GERD (gastroesophageal reflux disease) K21.9 [facility] [id number] [place] [address] 23104- 3810 Mar, [facility] [id number] [place] [address] 18950- 0467 Mar, [facility] [id number] [place] [address] 98448- 5717 Mar, [facility] [address] 7[address]75- 8315 Mar, HTN (hypertension) I10 ; Restless legs syndrome G25.81 ; BPH (benign prostatic hyperplasia) N40.0 ; Neuropathy G62.9 ; Cavus deformity of right foot M21.6X1 ; 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 ; Mitral valve prolapse I34.1 and Pelvic pain R10.2 [facility] [id number] [place] [address] 58682- 4339 Mar, [facility] [id number] [place] [address] 66937- 4912 Mar, [facility] [address] 32296- 6878 Mar, [facility] [id number] [place] [address] 28856- 2378 Feb, [facility] [id number] [place] [address] 16805- 2371 Feb, [facility] [id number] [place] [address] 57315- 7971 Feb, [facility] [id number] [place] [address] 88901- 6261 Jan, BPH (benign prostatic hyperplasia) N40.0 ; HTN (hypertension ) I10 ; Neuropathy G62.9 ; Cavus deformity of right foot M21.6X1 ; 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 and Mitral valve prolapse I34.1 [facility] [id number] [place] [address] 75130- 7788 Jan, BPH (benign prostatic hyperplasia) N40.0 ; Cavus deformity of left foot 736.73 ; Cavus deformity of right foot 736.73 ; Essential hypertension 401.9 ; Restless leg syndrome 333.94 and Chronic pain 338.29 [facility] [address] [place] [address] 46661- 0768 Jan, [facility] [address] 16136- 8658 Jan, [facility] [id number] [place] [address] 43195- 4108 Dec, Essential hypertension 401.9 ; Mitral valve prolapse 424.0 ; Restless leg syndrome 333.94 and Chronic pain 338.29 [facility] [id number] [place] [address] 67076- 5606 Dec, [facility] [id number] [place] [address] 97572- 6223 Dec, Essential hypertension 401.9 ; Restless leg syndrome 333.94 ; Cavus deformity of left foot 736.73 ; Cavus deformity of right foot 736.73 ; Mitral valve prolapse 424.0 ; Chronic hydrocele 603.9 ; BPH (benign prostatic hyperplasia) 600.00 and Routine medical exam V70.0 [facility] [id number] [place] [address] 98042- 6830 Nov, [facility] [id number] [place] [address] 56508- 4691 Oct, Essential hypertension 401.9 ; Restless leg [...] a day 1 tablet as needed 8h Nov, 28 days Active RESULTS No Results PROCEDURES [...] Coagulation for hemrrhoids 07/2017 Hospitalization History possible [place] and heart cath 2016 Hospitalization History ER visit for chest pain 2016 Hospitalization History heart problems July 2016
--- OUTSIDE RECORDS SUMMARY | 2018-01-27 14:56 | XMS REPORT ---
Author Author LUNA CORRAL Organization [facility] [place] Address [address] [place] [address] Care Team Providers Care Juice Weigher Name Role Phone LUNA CORRAL Unavailable PROBLEMS Type Condition ICD9-CM Code HQS68-FF Code Onset Dates Condition Status SNOMED Code Problem Varicocele I86.1 Active 16496966 Problem Chronic tension-type headache, intractable G44.221 Active 327349792 Problem Gastroesophageal reflux disease without esophagitis K21.9 Active 062556862 Problem Chronic major depressive disorder, recurrent episode F33.9 Active 09519164 Problem Irritable bowel syndrome with constipation K58.1 Active 864689873 Problem Peptic ulcer disease K27.9 Active 50593412 Problem Other chronic pain G89.29 Active 59561193 Problem Primary insomnia F51.01 Active 1951553 Problem Diarrhea, unspecified type R19.7 Active 83199516 Problem Neuropathy G62.9 Active 667538128 Problem HTN (hypertension) I10 Active 25903722 Problem BPH (benign prostatic hyperplasia) N40.0 Active 385002894 Problem Mitral valve prolapse I34.1 Active 443958754 Problem Cavus deformity M21.6X9 Active 212890309 Problem Pelvic pain R10.2 Active 88945968 Problem 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 Active 893118997 Problem Restless legs syndrome G25.81 Active 557883878 Problem Cavus deformity of right foot M21.6X1 Active 310453879 Problem Depressive disorder, not elsewhere classified F32.9 Active 41800256 ALLERGIES No Information ENCOUNTERS Encounter Location Date Diagnosis [facility] [place] [address] [facility] [id number] [address] Dec, Chronic major depressive disorder, recurrent episode F33.9 and Neuropathy G62.9 [facility] [place] [address] [facility] [id number] [address] Nov, Other chronic pain G89.29 [facility] [place] [address] [address] 27 Nov, 2017 Medicare welcome exam Z00.00 [facility] [place] [id number] [place] [address] 73827- 2216 Nov, Other chronic pain G89.29 [facility] [place] [id number] [place] [address] 55592- 9494 Oct, Other chronic pain G89.29 [facility] [place] [id number] [place] [address] 27385- 1030 Sep, Other chronic pain G89.29 [place] [id number] [place] [address] 22266- 7909 August, [place] [id number] [place] [address] 36248- 6811 August, HTN (hypertension) I10 ; BPH (benign prostatic hyperplasia) N40.0 and Gastroesophageal reflux disease without esophagitis K21.9 [place] [id number] [place] [address] 62157- 6868 August, Other chronic pain G89.29 [place] [id number] [place] [address] 42375- 8654 Jul, Medicare welcome exam Z00.00 ; Depressive disorder, not elsewhere classified F32.9 ; Neuropathy G62.9 ; HTN (hypertension) I10 ; BPH ( benign prostatic hyperplasia) N40.0 ; Mitral valve prolapse I34.1 ; Gastroesophageal reflux disease without esophagitis K21.9 and Primary insomnia F51.01 [facility] [place] [address] [address] Jul, Other chronic pain G89.29 [facility] [place] [address] [place] [address] 54255- 3578 Jun, Other chronic pain G89.29 ; HTN (hypertension) I10 ; Neuropathy G62.9 and Irritable bowel syndrome with constipation K58.1 [place] [id number] [place] [address] 98500- 9042 Jun, [facility] [place] [address] [address]- 8[address] May, Neuropathy G62.9 [facility] [place] [id number] [place] [address] 08734- 0421 08 May, 2017 Anal pain K62.89 [facility] [place] [address] [address]- [address]7 Apr, [facility] [place] [address] [address]- 5089 Apr, Neuropathy G62.9 [facility] [place] [address] 6[address]33- 7849 Mar, Neuropathy G62.9 [facility] [place] [address] 78789- 9177 Mar, HTN (hypertension) I10 ; Neuropathy G62.9 and Anal itch L29.0 [facility] [place] [id number] [place] [address] 28004- 9436 Feb, Restless legs syndrome G25.81 [facility] [place] [id number] [place] [address] 20708- 9071 Feb, Neuropathy G62.9 [facility] [place] [id number] [place] [address] 87474- 4137 Jan, Neuropathy G62.9 [facility] [place] [id number] [place] [address] 96079- 3927 28 Dec, 2016 Grade I hemorrhoids K64.0 and Rectal bleeding K62.5 [facility] [place] [id number] [place] [address] 60302- 2698 Dec, Neuropathy G62.9 [facility] [place] [id number] [place] [address] 92178- 0146 Nov, Neuropathy G62.9 [facility] [place] [address] [address] Nov, Neuropathy G62.9 [place] [id number] [place] [address] 98993- 7652 Nov, HTN (hypertension) I10 ; Neuropathy G62.9 ; Cavus deformity M21.6X9 ; Mitral valve prolapse I34.1 ; Restless legs syndrome G25.81 ; Gastroesophageal reflux disease without esophagitis K21.9 ; Primary insomnia F51.01 ; BPH (benign prostatic hyperplasia) N40.0 and Actinic keratosis L57.0 [place] [id number] [place] [address] 62713- 5224 Oct, Other chronic pain G89.29 [place] [id number] [place] [address] 83163- 7490 Oct, HTN (hypertension) I10 ; Neuropathy G62.9 ; BPH (benign prostatic hyperplasia) N40.0 ; Cavus deformity of right foot M21.6X1 ; Mitral valve prolapse I34.1 ; Gastroesophageal reflux disease without esophagitis K21.9 ; Other chronic pain G89.29 ; Primary insomnia F51.01 and Restless legs syndrome G25.81 [place] [id number] [place] [address] 45649- 0167 Sep, Neuropathy G62.9 [place] [address] [address] 5004 Sep, HTN (hypertension) I10 ; BPH (benign prostatic hyperplasia) N40.0 ; Neuropathy G62.9 ; Mitral valve prolapse I34.1 ; Restless legs syndrome G25.81 and Gastroesophageal reflux disease without esophagitis K21.9 [place] [id number] [place] [address] 89679- 9369 Sep, Cavus deformity of right foot M21.6X1 [place] [id number] [place] [address] 18526- 1736 August, Orthostatic hypotension I95.1 [place] [address] [place] [id number] [place] [address] 85223- 6557 August, HTN (hypertension) I10 ; BPH (benign prostatic hyperplasia) N40.0 ; Hydrocele in adult N43.3 ; Peptic ulcer disease K27.9 ; Restless legs syndrome G25.81 and Cavus deformity of right foot M21.6X1 [place] [id number] [place] [address] 29436- 5374 Jul, Peptic ulcer disease K27.9 ; Diarrhea, unspecified type R19.7 ; BPH (benign prostatic hyperplasia) N40.0 ; HTN (hypertension) I10 ; Neuropathy G62.9 ; Mitral valve prolapse I34.1 ; Gastroesophageal reflux disease without esophagitis K21.9 and Restless legs syndrome G25.81 [place] [address] 01692- 6344 Jul, [address] 25709- 8777 Jul, Cavus deformity M21.6X9 [place] [address] 03242- 8546 Jun, Cavus deformity M21.6X9 [place] [address] 19850- 0160 May, Family history of diabetes mellitus Z83.3 ; BPH (benign prostatic hyperplasia) N40.0 ; Cavus deformity M21.6X9 ; Restless legs syndrome G25.81 ; Gastroesophageal reflux disease without esophagitis K21.9 ; HTN ( hypertension) I10 ; Neuropathy G62.9 and Other chronic pain G89.29 [place] [address] 19963- 1421 Apr, Mitral valve prolapse I34.1 [place] [address] 84222- 4729 Apr, [place] [address] 89772- 6029 Mar, Other chest pain R07.89 [facility] [place] [address] [address] 07 Mar, 2016 [facility] [place] [id number] [place] [address] 06998- 8513 Feb, [facility] [place] [id number] [place] [address] 52230- 2517 Jan, [facility] [place] [id number] [place] [address] 51922- 5157 07 Dec, 2015 [facility] [place] [id number] [place] [address] 71283- 1780 07 Dec, 2015 BPH (benign prostatic hyperplasia) N40.0 and Wellness examination Z00.00 [place] [id number] [place] [address] 45027- 0522 10 Nov, 2015 BPH (benign prostatic hyperplasia) N40.0 ; Neuropathy G62.9 ; Cavus deformity M21.6X9 ; 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 ; Mitral valve prolapse I34.1 ; Restless legs syndrome G25.81 ; Depressive disorder, not elsewhere classified F32.9 ; Gastroesophageal reflux disease without esophagitis K21.9 and Wellness examination Z00.00 [facility] [place] [address] [address]- 3426 Nov, [facility] [place] [id number] [place] [address] 06340- 3082 Oct, [facility] [place] [id number] [place] [address] 50329- 0739 Oct, Other chronic pain G89.29 [facility] [place] [id number] [place] [address] 68698- 3736 Sep, Pelvic pain R10.2 [facility] [place] [id number] [place] [address] 72206- 8547 August, Other chronic pain G89.29 [facility] [place] [id number] [place] [address] 75318- 4691 August, BPH (benign prostatic hyperplasia) N40.0 ; HTN (hypertension ) I10 ; Neuropathy G62.9 ; Gastroesophageal reflux disease without esophagitis K21.9 ; Restless legs syndrome G25.81 and Chronic tension-type headache, intractable G44.221 [place] [id number] [place] [address] 95334- 8811 Jul, Pelvic pain R10.2 [place] [address] 84422- 7671 Jun, [place] [address] 38146- 2264 May, [address] 29157- 6710 May, Conjunctival hemorrhage of right eye H11.[address] 03692- 9895 May, [place] [address] 03380- 7570 May, BPH (benign prostatic hyperplasia) N40.0 ; Cavus deformity M21.6X9 ; HTN (hypertension) I10 ; Mitral valve prolapse I34.1 ; Pelvic pain R10.2 ; Restless legs syndrome G25.81 ; Varicocele I86.1 and GERD ( gastroesophageal reflux disease) K21.9 [place] [id number] [place] [address] 44513- 7348 Apr, [place] [id number] [place] [address] 87366- 8431 Apr, Varicocele I86.[address] 62984- 4194 Apr, Depressive disorder, not elsewhere classified F32.9 [place] [id number] [place] [address] 23984- 5239 Apr, HTN (hypertension) I10 ; BPH (benign prostatic hyperplasia) N40.0 ; Restless legs syndrome G25.81 ; Neuropathy G62.9 ; Pelvic pain R10.2 and GERD (gastroesophageal reflux disease) K21.9 [facility] [place] [id number] [place] [address] 95668- 7050 Mar, [place] [address] 27821- 4956 Mar, [place] [address] 39675- 3133 Mar, [place] [id number] [place] [address] 84693- 9741 Mar, HTN (hypertension) I10 ; Restless legs syndrome G25.81 ; BPH (benign prostatic hyperplasia) N40.0 ; Neuropathy G62.9 ; Cavus deformity of right foot M21.6X1 ; 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 ; Mitral valve prolapse I34.1 and Pelvic pain R10.2 [place] [id number] [place] [address] 24598- 5516 Mar, [place] [address] 42585- 6098 Mar, [place] [id number] [place] [address] 97141- 5682 Mar, [place] [id number] [place] [address] 19853- 4470 Feb, [facility] [place] [id number] [place] [address] 91424- 7372 Feb, [place] [id number] [place] [address] 87606- 2846 Feb, [place] [id number] [place] [address] 43921- 7256 Jan, BPH (benign prostatic hyperplasia) N40.0 ; HTN (hypertension ) I10 ; Neuropathy G62.9 ; Cavus deformity of right foot M21.6X1 ; 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 and Mitral valve prolapse I34.1 [place] [id number] [place] [address] 48286- 9676 Jan, BPH (benign prostatic hyperplasia) N40.0 ; Cavus deformity of left foot 736.73 ; Cavus deformity of right foot 736.73 ; Essential hypertension 401.9 ; Restless leg syndrome 333.94 and Chronic pain 338.29 [place] [address] 09898- 5187 Jan, [place] [address] 41386- 8591 Jan, [place] [address] 58307- 6861 Dec, Essential hypertension 401.9 ; Mitral valve prolapse 424.0 ; Restless leg syndrome 333.94 and Chronic pain 338.29 [place] [address] 61002- 9713 Dec, [place] [address] 90796- 5086 Dec, Essential hypertension 401.9 ; Restless leg syndrome 333.94 ; Cavus deformity of left foot 736.73 ; Cavus deformity of right foot 736.73 ; Mitral valve prolapse 424.0 ; Chronic hydrocele 603.9 ; BPH (benign prostatic hyperplasia) 600.00 and Routine medical exam V70.0 [place] [id number] [place] [address] 31742- 0159 Nov, [place] [address] 85847- 0039 Oct, Essential hypertension 401.9 ; Restless leg syndrome 333.94 ; Cavus deformity of left foot 736.73 ; Cavus deformity of right foot 736.73 and Mitral valve prolapse 424.0 IMMUNIZATIONS No Known Immunizations SOCIAL HISTORY Never Assessed REASON FOR VISIT medication refill PLAN OF CARE VITAL SIGNS MEDICATIONS Medication Instructions Dosage Frequency Start Date End Date Duration Status Requip 2 MG Orally Once a day 1 tablet 1 to 3 hours before bedtime 24h Oct, Active Dexilant 60 MG TAKE ONE CAPSULE BY MOUTH ONCE DAILY 90 days Active RESULTS No Results PROCEDURES No [...] Coagulation for hemrrhoids 07/2017 Hospitalization History possible PA and heart cath 2015 Hospitalization History ER visit for chest pain 2016 Hospitalization History heart problems July 2016
--- OUTSIDE RECORDS SUMMARY | 2018-01-27 14:57 | XMS REPORT ---
Author Author LUNA CORRAL Organization [facility] Address [address] [place] [address] Care Team Providers Care Engineering Illustrator Name Role Phone LUNA CORRAL Unavailable PROBLEMS Type Condition ICD9-CM Code ARX68-CT Code Onset Dates Condition Status SNOMED Code Problem Depressive disorder, not elsewhere classified F32.9 Active 97625763 Problem Gastroesophageal reflux disease without esophagitis K21.9 Active 337249749 Problem Varicocele I86.1 Active 40537630 Problem Irritable bowel syndrome with constipation K58.1 Active 120040503 Problem Primary insomnia F51.01 Active 8793578 Problem Other chronic pain G89.29 Active 75448037 Problem Chronic tension-type headache, intractable G44.221 Active 101714078 Problem Diarrhea, unspecified type R19.7 Active 90135129 Problem Peptic ulcer disease K27.9 Active 17506015 Problem Mitral valve prolapse I34.1 Active 246632289 Problem Neuropathy G62.9 Active 878653555 Problem BPH (benign prostatic hyperplasia) N40.0 Active 259631985 Problem Cavus deformity of right foot M21.6X1 Active 571946068 Problem Cavus deformity M21.6X9 Active 081929419 Problem HTN (hypertension) I10 Active 00030989 Problem Pelvic pain R10.2 Active 21258226 Problem 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 Active 445843433 Problem Restless legs syndrome G25.81 Active 034680873 ALLERGIES No Information ENCOUNTERS Encounter Location Date Diagnosis [facility] [id number], [place] [address] Nov, Other chronic pain G89.29 [facility] [id number], [place] [address] Oct, Other chronic pain G89.29 [facility] [id number], [place] [address] Sep, Other chronic pain G89.29 [place] [id number] [place] [address] 13467- 2681 August, [place] [id number] [place] [address] 02800- 0652 August, HTN (hypertension) I10 ; BPH (benign prostatic hyperplasia) N40.0 and Gastroesophageal reflux disease without esophagitis K21.9 [place] [id number] [place] [address] 34287- 6758 August, Other chronic pain G89.29 [place] [id number] [place] [address] 80962- 0594 Jul, Medicare welcome exam Z00.00 ; Depressive disorder, not elsewhere classified F32.9 ; Neuropathy G62.9 ; HTN (hypertension) I10 ; BPH ( benign prostatic hyperplasia) N40.0 ; Mitral valve prolapse I34.1 ; Gastroesophageal reflux disease without esophagitis K21.9 and Primary insomnia F51.01 [place] [id number] [place] [address] 97820- 2231 Jul, Other chronic pain G89.29 [place] [id number] [place] [address] 56407- 2624 Jun, Other chronic pain G89.29 ; HTN (hypertension) I10 ; Neuropathy G62.9 and Irritable bowel syndrome with constipation K58.1 [place] [id number] [place] [address] 18140- 7879 Jun, [place] [id number] [place] [address] 00270- 2477 May, Neuropathy G62.9 [place] [id number] [place] [address] 77283- 1856 May, Anal pain K62.89 [place] [id number] [place] [address] 53100- 2385 Apr, [place] [address] [address]- 1051 Apr, Neuropathy G62.9 [place] [address] 75512- 8707 Mar, Neuropathy G62.9 [place] [address] 25314- 1393 Mar, HTN (hypertension) I10 ; Neuropathy G62.9 and Anal itch L29.0 [place] [address] 16653- 5084 Feb, Restless legs syndrome G25.81 [place] [address] 62725- 5343 Feb, Neuropathy G62.9 [place] [address] 32608- 3461 Jan, Neuropathy G62.9 [place] [address] 19616- 8480 Dec, Grade I hemorrhoids K64.0 and Rectal bleeding K62.5 [place] [address] 32352- 2686 Dec, Neuropathy G62.9 [place] [address] 94212- 5814 Nov, Neuropathy G62.9 [place] [address] 43432- 5210 Nov, Neuropathy G62.9 [place] [address] 67453- 9392 Nov, HTN (hypertension) I10 ; Neuropathy G62.9 ; Cavus deformity M21.6X9 ; Mitral valve prolapse I34.1 ; Restless legs syndrome G25.81 ; Gastroesophageal reflux disease without esophagitis K21.9 ; Primary insomnia F51.01 ; BPH (benign prostatic hyperplasia) N40.0 and Actinic keratosis L57.0 [place] [id number] [place] [address] 06324- 9562 Oct, Other chronic pain G89.29 [place] [address] 30793- 8964 Oct, HTN (hypertension) I10 ; Neuropathy G62.9 ; BPH (benign prostatic hyperplasia) N40.0 ; Cavus deformity of right foot M21.6X1 ; Mitral valve prolapse I34.1 ; Gastroesophageal reflux disease without esophagitis K21.9 ; Other chronic pain G89.29 ; Primary insomnia F51.01 and Restless legs syndrome G25.81 [place] [id number] [place] [address] 54944- 8604 Sep, Neuropathy G62.9 [place] [id number] [place] [address] 39827- 1986 Sep, HTN (hypertension) I10 ; BPH (benign prostatic hyperplasia) N40.0 ; Neuropathy G62.9 ; Mitral valve prolapse I34.1 ; Restless legs syndrome G25.81 and Gastroesophageal reflux disease without esophagitis K21.9 [place] [id number] [place] [address] 48972- 6618 Sep, Cavus deformity of right foot M21.6X1 [place] [id number] [place] [address] 65170- 5166 August, Orthostatic hypotension I95.1 [place] [address] 70408- 3848 August, HTN (hypertension) I10 ; BPH (benign prostatic hyperplasia) N40.0 ; Hydrocele in adult N43.3 ; Peptic ulcer disease K27.9 ; Restless legs syndrome G25.81 and Cavus deformity of right foot M21.6X1 [place] [id number] [place] [address] 38377- 3885 Jul, Peptic ulcer disease K27.9 ; Diarrhea, unspecified type R19.7 ; BPH (benign prostatic hyperplasia) N40.0 ; HTN (hypertension) I10 ; Neuropathy G62.9 ; Mitral valve prolapse I34.1 ; Gastroesophageal reflux disease without esophagitis K21.9 and Restless legs syndrome G25.81 [place] [address] 05848- [address]92 Jul, [facility] [id number] [place] [address] 60916- 2116 Jul, Cavus deformity M21.6X9 [place] [address] 52746- 9867 Jun, Cavus deformity M21.6X9 [place] [address] 18422- 1308 May, Family history of diabetes mellitus Z83.3 ; BPH (benign prostatic hyperplasia) N40.0 ; Cavus deformity M21.6X9 ; Restless legs syndrome G25.81 ; Gastroesophageal reflux disease without esophagitis K21.9 ; HTN ( hypertension) I10 ; Neuropathy G62.9 and Other chronic pain G89.29 [place] [id number] [place] [address] 17915- 1728 Apr, Mitral valve prolapse I34.1 [place] [id number] [place] [address] 19893- 5878 Apr, [place] [id number] [place] [address] 41577- 0460 Mar, Other chest pain R07.89 [place] [id number] [place] [address] 06406- 0172 Mar, [place] [id number] [place] [address] 51149- 3149 Feb, [place] [id number] [place] [address] 94184- 0117 Jan, [facility] [id number] [place] [address] 74794- 0790 Dec, [place] [id number] [place] [address] 75423- 5009 07 Dec, 2015 BPH (benign prostatic hyperplasia) N40.0 and Wellness examination Z00.00 [place] [id number] [place] [address] 54430- 3830 10 Nov, 2015 BPH (benign prostatic hyperplasia) N40.0 ; Neuropathy G62.9 ; Cavus deformity M21.6X9 ; 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 ; Mitral valve prolapse I34.1 ; Restless legs syndrome G25.81 ; Depressive disorder, not elsewhere classified F32.9 ; Gastroesophageal reflux disease without esophagitis K21.9 and Wellness examination Z00.00 [place] [id number] [place] [address] 59896- 6449 03 Nov, 2015 [place] [id number] [place] [address] 31984- 3897 Oct, [place] [address] 68331- 9846 Oct, Other chronic pain G89.29 [place] [id number] [place] [address] 72270- 7758 10 Sep, 2015 Pelvic pain R10.2 [place] [id number] [place] [address] 91759- 9214 August, Other chronic pain G89.29 [place] [id number] [place] [address] 41094- 2781 05 Aug, 2015 BPH (benign prostatic hyperplasia) N40.0 ; HTN (hypertension ) I10 ; Neuropathy G62.9 ; Gastroesophageal reflux disease without esophagitis K21.9 ; Restless legs syndrome G25.81 and Chronic tension-type headache, intractable G44.221 [place] [id number] [place] [address] 10565- 7115 Jul, Pelvic pain R10.2 [place] [id number] [place] [address] 29203- 5199 Jun, [place] [id number] [place] [address] 74181- 2305 May, [facility] [address] 04595- 6901 May, Conjunctival hemorrhage of right eye H11.31 [place] [id number] [place] [address] 74568- 0101 May, [facility] [id number] [place] [address] 92695- 2660 May, BPH (benign prostatic hyperplasia) N40.0 ; Cavus deformity M21.6X9 ; HTN (hypertension) I10 ; Mitral valve prolapse I34.1 ; Pelvic pain R10.2 ; Restless legs syndrome G25.81 ; Varicocele I86.1 and GERD ( gastroesophageal reflux disease) K21.9 [place] [id number] [place] [address] 14046- 1964 Apr, [place] [id number] [place] [address] 66773- 7936 Apr, Varicocele I86.1 [place] [id number] [place] [address] 95953- 4100 Apr, Depressive disorder, not elsewhere classified F32.9 [place] [id number] [place] [address] 15221- 2651 Apr, HTN (hypertension) I10 ; BPH (benign prostatic hyperplasia) N40.0 ; Restless legs syndrome G25.81 ; Neuropathy G62.9 ; Pelvic pain R10.2 and GERD (gastroesophageal reflux disease) K21.9 [place] [id number] [place] [address] 92702- 7245 Mar, [place] [id number] [place] [address] 44191- 7180 Mar, [facility] [id number] [place] [address] 11925- 2880 Mar, [place] [id number] [place] [address] 82251- 2696 Mar, HTN (hypertension) I10 ; Restless legs syndrome G25.81 ; BPH (benign prostatic hyperplasia) N40.0 ; Neuropathy G62.9 ; Cavus deformity of right foot M21.6X1 ; 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 ; Mitral valve prolapse I34.1 and Pelvic pain R10.2 [place] [id number] [place] [address] 50713- 7314 Mar, [facility] [id number] [place] [address] 45894- 0499 Mar, [place] [id number] [place] [address] 52117- 0488 Mar, [place] [id number] [place] [address] 13581- 2245 Feb, [place] [id number] [place] [address] 27484- 1385 Feb, [place] [id number] [place] [address] 98691- 2803 Feb, [place] [id number] [place] [address] 11747- 6999 Jan, BPH (benign prostatic hyperplasia) N40.0 ; HTN (hypertension ) I10 ; Neuropathy G62.9 ; Cavus deformity of right foot M21.6X1 ; 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 and Mitral valve prolapse I34.1 [place] [id number] [place] [address] 20214- 4840 Jan, BPH (benign prostatic hyperplasia) N40.0 ; Cavus deformity of left foot 736.73 ; Cavus deformity of right foot 736.73 ; Essential hypertension 401.9 ; Restless leg syndrome 333.94 and Chronic pain 338.29 [facility] [id number] [place] [address] 66020- 9336 Jan, [facility] [id number] [address]- 1036 Jan, [place] [id number] [place] [address] 98700- 1579 Dec, Essential hypertension 401.9 ; Mitral valve prolapse 424.0 ; Restless leg syndrome 333.94 and Chronic pain 338.29 [place] [id number] [place] [address] 54130- 6116 Dec, [place] [id number] [place] [address] 73712855- 8637 Dec, Essential hypertension 401.9 ; Restless leg syndrome 333.94 ; Cavus deformity of left foot 736.73 ; Cavus deformity of right foot 736.73 ; Mitral valve prolapse 424.0 ; Chronic hydrocele 603.9 ; BPH (benign prostatic hyperplasia) 600.00 and Routine medical exam V70.0 [address] [id number] [place] [address] 83663- 5196 Nov, [place] [id number] [place] [address] [phone]- 6059 Oct, Essential hypertension 401.9 ; Restless leg syndrome 333.94 ; Cavus deformity of left foot 736.73 ; Cavus deformity of right foot 736.73 and Mitral valve prolapse 424.0 IMMUNIZATIONS No Known Immunizations SOCIAL HISTORY Never Assessed REASON FOR VISIT Lab (walk-in) PLAN OF CARE Activity Details Future/Pending Procedure ROUTINE VENIPUNCTURE VITAL SIGNS MEDICATIONS Unknown Medications RESULTS No Results PROCEDURES Procedure Date Ordered Result Body Site LAB NOT BILLED BY [facility] September 15, 2017 VENIPUNCT, ROUTINE* September 15, 2017 INSTRUCTIONS MEDICATIONS ADMINISTERED No Known Medications MEDICAL [...] Coagulation for hemrrhoids 07/2017 Hospitalization History possible [place] and heart cath 2016 Hospitalization History ER visit for chest pain 2016 Hospitalization History heart problems July 2016
--- OUTSIDE RECORDS SUMMARY | 2018-01-27 14:57 | XMS REPORT ---
Author Author LUNA CORRAL Organization [facility] Address [address] [place] [address] Care Team Providers Care Sheet Sewer Name Role Phone LUNA CORRAL Unavailable PROBLEMS Type Condition ICD9-CM Code GVD84-ZC Code Onset Dates Condition Status SNOMED Code Problem Depressive disorder, not elsewhere classified F32.9 Active 69883364 Problem Gastroesophageal reflux disease without esophagitis K21.9 Active 513863416 Problem Varicocele I86.1 Active 04150412 Problem Irritable bowel syndrome with constipation K58.1 Active 955126935 Problem Primary insomnia F51.01 Active 3455244 Problem Other chronic pain G89.29 Active 14379956 Problem Chronic tension-type headache, intractable G44.221 Active 134382207 Problem Diarrhea, unspecified type R19.7 Active 09508061 Problem Peptic ulcer disease K27.9 Active 23569950 Problem Mitral valve prolapse I34.1 Active 297955434 Problem Neuropathy G62.9 Active 368452918 Problem BPH (benign prostatic hyperplasia) N40.0 Active 703313367 Problem Cavus deformity of right foot M21.6X1 Active 391406245 Problem Cavus deformity M21.6X9 Active 963874435 Problem HTN (hypertension) I10 Active 54418441 Problem Pelvic pain R10.2 Active 58825676 Problem 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 Active 325167794 Problem Restless legs syndrome G25.81 Active 617326262 ALLERGIES No Information ENCOUNTERS Encounter Location Date Diagnosis [facility] [address] [facility] [id number] [address] Nov, Other chronic pain G89.29 [facility] [id number] [address] Oct, Other chronic pain G89.29 [facility] [address] [id number] [address] Sep, Other chronic pain G89.29 [place] [id number] [place] [address] 52799- 9400 August, [place] [id number] [place] [address] 21402- 7199 August, HTN (hypertension) I10 ; BPH (benign prostatic hyperplasia) N40.0 and Gastroesophageal reflux disease without esophagitis K21.9 [place] [id number] [place] [address] 35845- 1929 August, Other chronic pain G89.29 [facility] [id number] [place] [address] 56169- 4618 Jul, Medicare welcome exam Z00.00 ; Depressive disorder, not elsewhere classified F32.9 ; Neuropathy G62.9 ; HTN (hypertension) I10 ; BPH ( benign prostatic hyperplasia) N40.0 ; Mitral valve prolapse I34.1 ; Gastroesophageal reflux disease without esophagitis K21.9 and Primary insomnia F51.01 [facility] [id number] [place] [address] 61105- 3863 Jul, Other chronic pain G89.29 [facility] [id number] [place] [address] 40543- 1946 Jun, Other chronic pain G89.29 ; HTN (hypertension) I10 ; Neuropathy G62.9 and Irritable bowel syndrome with constipation K58.1 [place] [id number] [place] [address] 56210- 5174 Jun, [place] [id number] [place] [address] 19845- 4996 May, Neuropathy G62.9 [facility] [id number] [place] [address] 76881- 9554 May, Anal pain K62.89 [facility] [id number] [place] [address] 09328- 1022 Apr, [place] [address] [address]32- 4411 Apr, Neuropathy G62.9 [place] [address] 19421- 0520 Mar, Neuropathy G62.9 [facility] [address] 17450- 8974 Mar, HTN (hypertension) I10 ; Neuropathy G62.9 and Anal itch L29.0 [facility] [address] 49907- 7509 Feb, Restless legs syndrome G25.81 [facility] [address] 76911- 8409 Feb, Neuropathy G62.9 [facility] [address] 97770- 6071 Jan, Neuropathy G62.9 [place] [address] 70898- 8621 Dec, Grade I hemorrhoids K64.0 and Rectal bleeding K62.5 [place] [address] 23499- 8810 Dec, Neuropathy G62.9 [facility] [address] 84972- 9188 Nov, Neuropathy G62.9 [facility] [address] 05563- 9675 Nov, Neuropathy G62.9 [facility] [address] 26481- 7350 Nov, HTN (hypertension) I10 ; Neuropathy G62.9 ; Cavus deformity M21.6X9 ; Mitral valve prolapse I34.1 ; Restless legs syndrome G25.81 ; Gastroesophageal reflux disease without esophagitis K21.9 ; Primary insomnia F51.01 ; BPH (benign prostatic hyperplasia) N40.0 and Actinic keratosis L57.0 [place] [id number] [place] [address] 82244- 8457 Oct, Other chronic pain G89.29 [facility] [address] 68183- 7153 Oct, HTN (hypertension) I10 ; Neuropathy G62.9 ; BPH (benign prostatic hyperplasia) N40.0 ; Cavus deformity of right foot M21.6X1 ; Mitral valve prolapse I34.1 ; Gastroesophageal reflux disease without esophagitis K21.9 ; Other chronic pain G89.29 ; Primary insomnia F51.01 and Restless legs syndrome G25.81 [facility] [id number] [place] [address] 92004- 2395 Sep, Neuropathy G62.9 [facility] [id number] [place] [address] 99416- 2518 Sep, HTN (hypertension) I10 ; BPH (benign prostatic hyperplasia) N40.0 ; Neuropathy G62.9 ; Mitral valve prolapse I34.1 ; Restless legs syndrome G25.81 and Gastroesophageal reflux disease without esophagitis K21.9 [facility] [id number] [place] [address] 02679- 0176 Sep, Cavus deformity of right foot M21.6X1 [facility] [id number] [place] [address] 53917- 9537 August, Orthostatic hypotension I95.1 [facility] [address] 15020- 0323 August, HTN (hypertension) I10 ; BPH (benign prostatic hyperplasia) N40.0 ; Hydrocele in adult N43.3 ; Peptic ulcer disease K27.9 ; Restless legs syndrome G25.81 and Cavus deformity of right foot M21.6X1 [facility] [place] [id number] [place] [address] 82750- 2027 Jul, Peptic ulcer disease K27.9 ; Diarrhea, unspecified type R19.7 ; BPH (benign prostatic hyperplasia) N40.0 ; HTN (hypertension) I10 ; Neuropathy G62.9 ; Mitral valve prolapse I34.1 ; Gastroesophageal reflux disease without esophagitis K21.9 and Restless legs syndrome G25.81 [facility] [address] 55115- 3617 Jul, [facility] [id number] [place] [address] 87220- 7350 Jul, Cavus deformity M21.6X9 [place] [address] 72849- 7626 Jun, Cavus deformity M21.6X9 [facility] [address] 21248- 4171 May, Family history of diabetes mellitus Z83.3 ; BPH (benign prostatic hyperplasia) N40.0 ; Cavus deformity M21.6X9 ; Restless legs syndrome G25.81 ; Gastroesophageal reflux disease without esophagitis K21.9 ; HTN ( hypertension) I10 ; Neuropathy G62.9 and Other chronic pain G89.29 [facility] [id number] [place] [address] 25748- 1541 Apr, Mitral valve prolapse I34.1 [facility] [id number] [place] [address] 26450- 5130 Apr, [place] [id number] [place] [address] 67718- 6429 Mar, Other chest pain R07.89 [facility] [id number] [place] [address] 89897- 6991 Mar, [facility] [id number] [place] [address] 87378- 7345 Feb, [place] [id number] [place] [address] 60226- 0831 Jan, [facility] [id number] [place] [address] 47331- 9975 Dec, [place] [id number] [place] [address] 85813- 9944 07 Dec, 2015 BPH (benign prostatic hyperplasia) N40.0 and Wellness examination Z00.00 [place] [id number] [place] [address] 85899- 6620 10 Nov, 2015 BPH (benign prostatic hyperplasia) N40.0 ; Neuropathy G62.9 ; Cavus deformity M21.6X9 ; 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 ; Mitral valve prolapse I34.1 ; Restless legs syndrome G25.81 ; Depressive disorder, not elsewhere classified F32.9 ; Gastroesophageal reflux disease without esophagitis K21.9 and Wellness examination Z00.00 [facility] [id number] [place] [address] 30414- 1975 03 Nov, 2015 [place] [id number] [place] [address] 18714- 1279 Oct, [place] [address] 41592- 7410 Oct, Other chronic pain G89.29 [facility] [id number] [place] [address] 83023- 3501 10 Sep, 2015 Pelvic pain R10.2 [facility] [place] [id number] [place] [address] 59327- 1328 August, Other chronic pain G89.29 [place] [id number] [place] [address] 92917- 9512 05 Aug, 2015 BPH (benign prostatic hyperplasia) N40.0 ; HTN (hypertension ) I10 ; Neuropathy G62.9 ; Gastroesophageal reflux disease without esophagitis K21.9 ; Restless legs syndrome G25.81 and Chronic tension-type headache, intractable G44.221 [facility] [id number] [place] [address] 43117- 3518 Jul, Pelvic pain R10.2 [facility] [id number] [place] [address] 37346- 0738 Jun, [place] [id number] [place] [address] 34966- 4482 May, [facility] [address] 39404- 7529 May, Conjunctival hemorrhage of right eye H11.31 [place] [id number] [place] [address] 12975- 2429 May, [facility] [id number] [place] [address] 84953- 5468 May, BPH (benign prostatic hyperplasia) N40.0 ; Cavus deformity M21.6X9 ; HTN (hypertension) I10 ; Mitral valve prolapse I34.1 ; Pelvic pain R10.2 ; Restless legs syndrome G25.81 ; Varicocele I86.1 and GERD ( gastroesophageal reflux disease) K21.9 [facility] [id number] [place] [address] 85678- 0468 Apr, [place] [id number] [place] [address] 05817- 6622 Apr, Varicocele I86.1 [facility] [id number] [place] [address] 18873- 2791 Apr, Depressive disorder, not elsewhere classified F32.9 [facility] [id number] [place] [address] 40047- 2565 Apr, HTN (hypertension) I10 ; BPH (benign prostatic hyperplasia) N40.0 ; Restless legs syndrome G25.81 ; Neuropathy G62.9 ; Pelvic pain R10.2 and GERD (gastroesophageal reflux disease) K21.9 [place] [id number] [place] [address] 51521- 7622 Mar, [place] [id number] [place] [address] 15615- 4466 Mar, [facility] [id number] [place] [address] 96181- 8244 Mar, [place] [id number] [place] [address] 94390- 2706 Mar, HTN (hypertension) I10 ; Restless legs syndrome G25.81 ; BPH (benign prostatic hyperplasia) N40.0 ; Neuropathy G62.9 ; Cavus deformity of right foot M21.6X1 ; 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 ; Mitral valve prolapse I34.1 and Pelvic pain R10.2 [place] [id number] [place] [address] 46686- 4279 Mar, [facility] [id number] [place] [address] 78809- 9857 Mar, [place] [id number] [place] [address] 89577- 2665 Mar, [place] [id number] [place] [address] 65444- 3698 Feb, [place] [id number] [place] [address] 65230- 5325 Feb, [place] [id number] [place] [address] 35117- 7884 Feb, [place] [id number] [place] [address] 90453- 0643 Jan, BPH (benign prostatic hyperplasia) N40.0 ; HTN (hypertension ) I10 ; Neuropathy G62.9 ; Cavus deformity of right foot M21.6X1 ; 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 and Mitral valve prolapse I34.1 [facility] [id number] [place] [address] 93526- 3771 Jan, BPH (benign prostatic hyperplasia) N40.0 ; Cavus deformity of left foot 736.73 ; Cavus deformity of right foot 736.73 ; Essential hypertension 401.9 ; Restless leg syndrome 333.94 and Chronic pain 338.29 [facility] [id number] [place] [address] 37657- 6388 Jan, [facility] [address] [id number] [address]- 2546 Jan, [place] [id number] [place] [address] 28102- 2476 Dec, Essential hypertension 401.9 ; Mitral valve prolapse 424.0 ; Restless leg syndrome 333.94 and Chronic pain 338.29 [place] [id number] [place] [address] 74305 2546 Dec, [place] [id number] [place] [address] 84746- 254 Dec, Essential hypertension 401.9 ; Restless leg syndrome 333.94 ; Cavus deformity of left foot 736.73 ; Cavus deformity of right foot 736.73 ; Mitral valve prolapse 424.0 ; Chronic hydrocele 603.9 ; BPH (benign prostatic hyperplasia) 600.00 and Routine medical exam V70.0 [facility] [id number] [place] [address] 16014- 6032 Nov, [place] [id number] [place] [address] 42629- 9215 Oct, Essential hypertension 401.9 ; Restless leg syndrome 333.94 ; Cavus deformity of left foot 736.73 ; Cavus deformity of right foot 736.73 and Mitral valve prolapse 424.0 IMMUNIZATIONS No Known Immunizations SOCIAL HISTORY Never Assessed REASON FOR VISIT medication PLAN OF CARE VITAL SIGNS MEDICATIONS Medication Instructions Dosage Frequency Start Date End Date Duration Status Atorvastatin Calcium 20 mg Orally Once a day 1 tablet 24h August, 30 day(s) Active RESULTS No Results PROCEDURES No Known [...] Coagulation for hemrrhoids 07/2017 Hospitalization History possible [place] and heart cath 2015 Hospitalization History ER visit for chest pain 2016 Hospitalization History heart problems July 2016
--- OUTSIDE RECORDS SUMMARY | 2018-01-27 14:57 | XMS REPORT ---
Author Author LUNA CORRAL Organization [facility] Address [address] [place] [address] Care Team Providers Care Data Typist Name Role Phone LUNA CORRAL Unavailable PROBLEMS Type Condition ICD9-CM Code FRF83-AQ Code Onset Dates Condition Status SNOMED Code Problem Depressive disorder, not elsewhere classified F32.9 Active 61680686 Problem Gastroesophageal reflux disease without esophagitis K21.9 Active 792783931 Problem Varicocele I86.1 Active 17905933 Problem Irritable bowel syndrome with constipation K58.1 Active 385497801 Problem Primary insomnia F51.01 Active 1588650 Problem Other chronic pain G89.29 Active 12601877 Problem Chronic tension-type headache, intractable G44.221 Active 156658296 Problem Diarrhea, unspecified type R19.7 Active 54540131 Problem Peptic ulcer disease K27.9 Active 00854804 Problem Mitral valve prolapse I34.1 Active 554031542 Problem Neuropathy G62.9 Active 472581412 Problem BPH (benign prostatic hyperplasia) N40.0 Active 849391370 Problem Cavus deformity of right foot M21.6X1 Active 401029792 Problem Cavus deformity M21.6X9 Active 122607297 Problem HTN (hypertension) I10 Active 02367893 Problem Pelvic pain R10.2 Active 76971987 Problem 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 Active 647544206 Problem Restless legs syndrome G25.81 Active 194237115 ALLERGIES No Information ENCOUNTERS Encounter Location Date Diagnosis [facility] [id number] [address] Nov, Other chronic pain G89.29 [facility] [id number] [address] Oct, Other chronic pain G89.29 [facility] [id number] [address] Sep, Other chronic pain G89.29 [facility] [id number] [place] [address] 79662- 2756 August, [facility] [id number] [place] [address] 62090- 7874 August, HTN (hypertension) I10 ; BPH (benign prostatic hyperplasia) N40.0 and Gastroesophageal reflux disease without esophagitis K21.9 [facility] [id number] [place] [address] 48923- 7202 August, Other chronic pain G89.29 [facility] [id number] [place] [address] 09796- 8314 Jul, Medicare welcome exam Z00.00 ; Depressive disorder, not elsewhere classified F32.9 ; Neuropathy G62.9 ; HTN (hypertension) I10 ; BPH ( benign prostatic hyperplasia) N40.0 ; Mitral valve prolapse I34.1 ; Gastroesophageal reflux disease without esophagitis K21.9 and Primary insomnia F51.01 [facility] [id number] [place] [address] 32304- 4039 Jul, Other chronic pain G89.29 [facility] [id number] [place] [address] 86654- 9518 Jun, Other chronic pain G89.29 ; HTN (hypertension) I10 ; Neuropathy G62.9 and Irritable bowel syndrome with constipation K58.1 [facility] [place] [id number] [place] [address] 65654- 8225 Jun, [facility] [place] [id number] [place] [address] 88631- 4345 May, Neuropathy G62.9 [facility] [id number] [place] [address] 61991- 5134 May, Anal pain K62.89 [facility] [id number] [place] [address] 40955- 6804 Apr, [facility] [address] [address]39- 6033 Apr, Neuropathy G62.9 [facility] [address] 21919- 1619 Mar, Neuropathy G62.9 [facility] [address] 97036- 2804 Mar, HTN (hypertension) I10 ; Neuropathy G62.9 and Anal itch L29.0 [facility] [address] 76581- 9337 Feb, Restless legs syndrome G25.81 [facility] [address] 39948- 0421 Feb, Neuropathy G62.9 [facility] [address] 67531- 9563 Jan, Neuropathy G62.9 [facility] [address] 01063- 1580 Dec, Grade I hemorrhoids K64.0 and Rectal bleeding K62.5 [facility] [address] 08229- 8044 Dec, Neuropathy G62.9 [facility] [address] 38614- 7240 Nov, Neuropathy G62.9 [facility] [place] [address] 95517- 3975 Nov, Neuropathy G62.9 [facility] [address] 00764- 2534 Nov, HTN (hypertension) I10 ; Neuropathy G62.9 ; Cavus deformity M21.6X9 ; Mitral valve prolapse I34.1 ; Restless legs syndrome G25.81 ; Gastroesophageal reflux disease without esophagitis K21.9 ; Primary insomnia F51.01 ; BPH (benign prostatic hyperplasia) N40.0 and Actinic keratosis L57.0 [facility] [id number] [place] [address] 69032- 1964 Oct, Other chronic pain G89.29 [facility] [address] 69705- 5739 Oct, HTN (hypertension) I10 ; Neuropathy G62.9 ; BPH (benign prostatic hyperplasia) N40.0 ; Cavus deformity of right foot M21.6X1 ; Mitral valve prolapse I34.1 ; Gastroesophageal reflux disease without esophagitis K21.9 ; Other chronic pain G89.29 ; Primary insomnia F51.01 and Restless legs syndrome G25.81 [facility] [place] [id number] [place] [address] 94438- 4457 Sep, Neuropathy G62.9 [facility] [id number] [place] [address] 90428- 3041 Sep, HTN (hypertension) I10 ; BPH (benign prostatic hyperplasia) N40.0 ; Neuropathy G62.9 ; Mitral valve prolapse I34.1 ; Restless legs syndrome G25.81 and Gastroesophageal reflux disease without esophagitis K21.9 [facility] [place] [id number] [place] [address] 68969- 0884 Sep, Cavus deformity of right foot M21.6X1 [facility] [id number] [place] [address] 36800- 3669 August, Orthostatic hypotension I95.1 [facility] [address] 61185- 4256 August, HTN (hypertension) I10 ; BPH (benign prostatic hyperplasia) N40.0 ; Hydrocele in adult N43.3 ; Peptic ulcer disease K27.9 ; Restless legs syndrome G25.81 and Cavus deformity of right foot M21.6X1 [facility] [place] [id number] [place] [address] 07348- 4856 Jul, Peptic ulcer disease K27.9 ; Diarrhea, unspecified type R19.7 ; BPH (benign prostatic hyperplasia) N40.0 ; HTN (hypertension) I10 ; Neuropathy G62.9 ; Mitral valve prolapse I34.1 ; Gastroesophageal reflux disease without esophagitis K21.9 and Restless legs syndrome G25.81 [facility] [address] 08716- [address]38 Jul, [facility] [id number] [place] [address] 74995- 6761 Jul, Cavus deformity M21.6X9 [facility] [address] 49880- 2347 Jun, Cavus deformity M21.6X9 [facility] [address] 75198- 0673 May, Family history of diabetes mellitus Z83.3 ; BPH (benign prostatic hyperplasia) N40.0 ; Cavus deformity M21.6X9 ; Restless legs syndrome G25.81 ; Gastroesophageal reflux disease without esophagitis K21.9 ; HTN ( hypertension) I10 ; Neuropathy G62.9 and Other chronic pain G89.29 [facility] [place] [id number] [place] [address] 16623- 8433 Apr, Mitral valve prolapse I34.1 [facility] [id number] [place] [address] 70067- 1682 Apr, [facility] [place] [id number] [place] [address] 27168- 6087 Mar, Other chest pain R07.89 [facility] [id number] [place] [address] 29449- 0346 Mar, [facility] [place] [id number] [place] [address] 87962- 8705 Feb, [facility] [place] [id number] [place] [address] 13191- 7109 Jan, [facility] [id number] [place] [address] 29694- 8919 Dec, [place] [id number] [place] [address] 29268- 6106 07 Dec, 2015 BPH (benign prostatic hyperplasia) N40.0 and Wellness examination Z00.00 [facility] [place] [id number] [place] [address] 84819- 8153 10 Nov, 2015 BPH (benign prostatic hyperplasia) N40.0 ; Neuropathy G62.9 ; Cavus deformity M21.6X9 ; 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 ; Mitral valve prolapse I34.1 ; Restless legs syndrome G25.81 ; Depressive disorder, not elsewhere classified F32.9 ; Gastroesophageal reflux disease without esophagitis K21.9 and Wellness examination Z00.00 [facility] [id number] [place] [address] 09886- 4807 03 Nov, 2015 [facility] [place] [id number] [place] [address] 66760- 7871 Oct, [facility] [address] 39670- 4519 Oct, Other chronic pain G89.29 [facility] [id number] [place] [address] 79644- 5123 10 Sep, 2015 Pelvic pain R10.2 [facility] [id number] [place] [address] 16293- 4211 August, Other chronic pain G89.29 [facility] [id number] [place] [address] 42107- 6875 05 Aug, 2015 BPH (benign prostatic hyperplasia) N40.0 ; HTN (hypertension ) I10 ; Neuropathy G62.9 ; Gastroesophageal reflux disease without esophagitis K21.9 ; Restless legs syndrome G25.81 and Chronic tension-type headache, intractable G44.221 [facility] [place] [id number] [place] [address] 10362- 3021 Jul, Pelvic pain R10.2 [facility] [place] [id number] [place] [address] 15118- 5127 Jun, [facility] [id number] [place] [address] 05715- 3054 May, [facility] [address] 59132- 8282 May, Conjunctival hemorrhage of right eye H11.31 [facility] [id number] [place] [address] 85281- 7821 May, [facility] [id number] [place] [address] 79286- 4529 May, BPH (benign prostatic hyperplasia) N40.0 ; Cavus deformity M21.6X9 ; HTN (hypertension) I10 ; Mitral valve prolapse I34.1 ; Pelvic pain R10.2 ; Restless legs syndrome G25.81 ; Varicocele I86.1 and GERD ( gastroesophageal reflux disease) K21.9 [facility] [id number] [place] [address] 00505- 2633 Apr, [facility] [id number] [place] [address] 94068- 7633 Apr, Varicocele I86.1 [facility] [place] [id number] [place] [address] 68794- 5926 Apr, Depressive disorder, not elsewhere classified F32.9 [facility] [id number] [place] [address] 10567- 9914 Apr, HTN (hypertension) I10 ; BPH (benign prostatic hyperplasia) N40.0 ; Restless legs syndrome G25.81 ; Neuropathy G62.9 ; Pelvic pain R10.2 and GERD (gastroesophageal reflux disease) K21.9 [facility] [id number] [place] [address] 79420- 0586 Mar, [facility] [id number] [place] [address] 33709- 7093 Mar, [facility] [id number] [place] [address] 74182- 4865 Mar, [facility] [id number] [place] [address] 90856- 2113 Mar, HTN (hypertension) I10 ; Restless legs syndrome G25.81 ; BPH (benign prostatic hyperplasia) N40.0 ; Neuropathy G62.9 ; Cavus deformity of right foot M21.6X1 ; 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 ; Mitral valve prolapse I34.1 and Pelvic pain R10.2 [facility] [place] [id number] [place] [address] 55964- 6745 Mar, [facility] [id number] [place] [address] 32107- 2894 Mar, [facility] [place] [id number] [place] [address] 42093- 1831 Mar, [facility] [place] [id number] [place] [address] 38967- 7091 Feb, [facility] [place] [id number] [place] [address] 68326- 6960 Feb, [facility] [place] [id number] [place] [address] 65168- 9675 Feb, [facility] [place] [id number] [place] [address] 38633- 7867 Jan, BPH (benign prostatic hyperplasia) N40.0 ; HTN (hypertension ) I10 ; Neuropathy G62.9 ; Cavus deformity of right foot M21.6X1 ; 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 and Mitral valve prolapse I34.1 [facility] [place] [id number] [place] [address] 73939- 6731 Jan, Cavus deformity of left foot 736.73 ; Cavus deformity of right foot 736.73 ; BPH (benign prostatic hyperplasia) N40.0 ; Essential hypertension 401.9 ; Restless leg syndrome 333.94 and Chronic pain 338.29 [facility] [id number] [place] [address] 44338- 5606 Jan, [facility] [id number] [address]- 1484 Jan, [facility] [id number] [place] [address] 37730- 0060 Dec, Essential hypertension 401.9 ; Mitral valve prolapse 424.0 ; Restless leg syndrome 333.94 and Chronic pain 338.29 [address] [id number] [place] [address] [id number]- 5740 Dec, [facility] [place] [id number] [place] [address] [id number]- 6590 Dec, Essential hypertension 401.9 ; Restless leg syndrome 333.94 ; Cavus deformity of left foot 736.73 ; Cavus deformity of right foot 736.73 ; Mitral valve prolapse 424.0 ; Chronic hydrocele 603.9 ; BPH (benign prostatic hyperplasia) 600.00 and Routine medical exam V70.0 [address] [id number] [place] [address] 72612- 8952 Nov, [facility] [place] [id number] [place] [address] 62397- 4416 Oct, Essential hypertension 401.9 ; Restless leg [...] a day 1 tablet as needed 8h Sep, 28 days Active RESULTS No Results PROCEDURES [...] Coagulation for hemrrhoids 07/2017 Hospitalization History possible [place] and heart cath 2016 Hospitalization History ER visit for chest pain 2016 Hospitalization History heart problems July 2016
--- OUTSIDE RECORDS SUMMARY | 2018-01-27 14:58 | XMS REPORT ---
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 Name Role Phone LUNA CORRAL Unavailable PROBLEMS Type Condition ICD9-CM Code HRF61-TL Code Onset Dates Condition Status SNOMED Code Problem Depressive disorder, not elsewhere classified F32.9 Active 75164298 Problem Gastroesophageal reflux disease without esophagitis K21.9 Active 142999316 Problem Varicocele I86.1 Active 52718821 Problem Irritable bowel syndrome with constipation K58.1 Active 683096242 Problem Primary insomnia F51.01 Active 1349747 Problem Other chronic pain G89.29 Active 65446998 Problem Chronic tension-type headache, intractable G44.221 Active 322139897 Problem Diarrhea, unspecified type R19.7 Active 72614779 Problem Peptic ulcer disease K27.9 Active 39701661 Problem Mitral valve prolapse I34.1 Active 551641470 Problem Neuropathy G62.9 Active 381462370 Problem BPH (benign prostatic hyperplasia) N40.0 Active 164261879 Problem Cavus deformity of right foot M21.6X1 Active 165735252 Problem Cavus deformity M21.6X9 Active 472191399 Problem HTN (hypertension) I10 Active 97299198 Problem Pelvic pain R10.2 Active 10309067 Problem 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 Active 456955301 Problem Restless legs syndrome G25.81 Active 462148491 ALLERGIES No Known Allergies ENCOUNTERS Encounter Location Date Diagnosis [facility] [id number] [address] Oct, Other chronic pain G89.29 [facility] [id number] [address] Sep, Other chronic pain G89.29 [facility] [id number] [address] August, [facility] [id number] [place] [address]20[address]- [address] August, HTN (hypertension) I10 ; BPH (benign prostatic hyperplasia) N40.0 and Gastroesophageal reflux disease without esophagitis K21.9 [facility] [id number] [place] [address] 35738- 3084 August, Other chronic pain G89.29 [facility] [id number] [place] [address] 63987- 9757 Jul, Medicare welcome exam Z00.00 ; Depressive disorder, not elsewhere classified F32.9 ; Neuropathy G62.9 ; HTN (hypertension) I10 ; BPH ( benign prostatic hyperplasia) N40.0 ; Mitral valve prolapse I34.1 ; Gastroesophageal reflux disease without esophagitis K21.9 and Primary insomnia F51.01 [facility] [facility] [id number] [place] [address] 77145- 2658 Jul, Other chronic pain G89.29 [facility] [id number] [place] [address] 78423- 3345 Jun, Other chronic pain G89.29 ; HTN (hypertension) I10 ; Neuropathy G62.9 and Irritable bowel syndrome with constipation K58.1 [facility] [facility] [id number] [place] [address] 73667- 7471 Jun, [facility] [facility] [id number] [place] [address] 83608- 9714 May, Neuropathy G62.9 [facility] [facility] [id number] [place] [address] 56747- 3536 May, Anal pain K62.89 [facility] [facility] [id number] [place] [address] 92752- 1300 Apr, [address] [facility] [id number] [place] [address] 49833- 0683 Apr, Neuropathy G62.9 [address] [address] [address]- [address] 18 Mar, 2017 Neuropathy G62.9 [address] [address] 77858- 7772 Mar, HTN (hypertension) I10 ; Neuropathy G62.9 and Anal itch L29.0 [address] [address] 50757- 6455 Feb, Restless legs syndrome G25.81 [address] [address] 17179- 7684 Feb, Neuropathy G62.9 [address] [address] 59231- 2954 Jan, Neuropathy G62.9 [address] [address] 45143- 4302 Dec, Grade I hemorrhoids K64.0 and Rectal bleeding K62.5 [address] 57595- 7638 Dec, Neuropathy G62.9 [address] [address] 38665- 8125 Nov, Neuropathy G62.9 [address] [address] 52898- 2815 Nov, Neuropathy G62.9 [address] [address] 14571- 1170 Nov, HTN (hypertension) I10 ; Neuropathy G62.9 ; Cavus deformity M21.6X9 ; Mitral valve prolapse I34.1 ; Restless legs syndrome G25.81 ; Gastroesophageal reflux disease without esophagitis K21.9 ; Primary insomnia F51.01 ; BPH (benign prostatic hyperplasia) N40.0 and Actinic keratosis L57.0 [address] [address] 23485- 5885 Oct, Other chronic pain G89.29 [facility] [facility] [id number] [place] [address] 76729- 6118 Oct, HTN (hypertension) I10 ; Neuropathy G62.9 ; BPH (benign prostatic hyperplasia) N40.0 ; Cavus deformity of right foot M21.6X1 ; Mitral valve prolapse I34.1 ; Gastroesophageal reflux disease without esophagitis K21.9 ; Other chronic pain G89.29 ; Primary insomnia F51.01 and Restless legs syndrome G25.81 [address] [id number] [place] [address] 21550- 9390 Sep, Neuropathy G62.[address] 04[address]- 9061 Sep, HTN (hypertension) I10 ; BPH (benign prostatic hyperplasia) N40.0 ; Neuropathy G62.9 ; Mitral valve prolapse I34.1 ; Restless legs syndrome G25.81 and Gastroesophageal reflux disease without esophagitis K21.9 [address] [address] 75692- 2790 Sep, Cavus deformity of right foot M21.6X1 [address] [address] 70732- 6102 August, Orthostatic hypotension I95.[address] 47121- 7602 August, HTN (hypertension) I10 ; BPH (benign prostatic hyperplasia) N40.0 ; Hydrocele in adult N43.3 ; Peptic ulcer disease K27.9 ; Restless legs syndrome G25.81 and Cavus deformity of right foot M21.6X1 [address] [id number] [place] [address] 71117- 6999 Jul, Peptic ulcer disease K27.9 ; Diarrhea, unspecified type R19.7 ; BPH (benign prostatic hyperplasia) N40.0 ; HTN (hypertension) I10 ; Neuropathy G62.9 ; Mitral valve prolapse I34.1 ; Gastroesophageal reflux disease without esophagitis K21.9 and Restless legs syndrome G25.81 [address] [id number] [place] [address] 68729- 1612 Jul, [facility] [address] 81129- [address]64 Jul, Cavus deformity M21.6X9 [facility] [id number] [place] [address] 25021- 2808 Jun, Cavus deformity M21.6X9 [facility] [address] 96994- 2136 May, Family history of diabetes mellitus Z83.3 ; BPH (benign prostatic hyperplasia) N40.0 ; Cavus deformity M21.6X9 ; Restless legs syndrome G25.81 ; Gastroesophageal reflux disease without esophagitis K21.9 ; HTN ( hypertension) I10 ; Neuropathy G62.9 and Other chronic pain G89.29 [address] [address] 53287- 6591 Apr, Mitral valve prolapse I34.1 [address] 35967- 4257 Apr, [address] [address] 52266- 2339 Mar, Other chest pain R07.89 [address] [facility] [id number] [place] [address] 18669- 8324 Mar, [address] [id number] [place] [address] 21491- 3302 Feb, [facility] [address] 61039- 3296 Jan, [facility] [address] 51684- 1208 Dec, [facility] [id number] [place] [address] 21215- 2768 Dec, BPH (benign prostatic hyperplasia) N40.0 and Wellness examination Z00.00 [facility] [id number] [place] [address] 56939- 9285 10 Nov, 2015 BPH (benign prostatic hyperplasia) N40.0 ; Neuropathy G62.9 ; Cavus deformity M21.6X9 ; 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 ; Mitral valve prolapse I34.1 ; Restless legs syndrome G25.81 ; Depressive disorder, not elsewhere classified F32.9 ; Gastroesophageal reflux disease without esophagitis K21.9 and Wellness examination Z00.00 [place] [id number] [place] [address] 25345- 5364 03 Nov, 2015 [address] [address] 89978- 8932 Oct, [place] [facility] [id number] [place] [address] 31366- 0934 Oct, Other chronic pain G89.29 [address] [address] 83862- 3015 10 Sep, 2015 Pelvic pain R10.2 [place] [id number] [place] [address] 36533- 6903 August, Other chronic pain G89.29 [facility] [facility] [id number] [place] [address] 13561- 2415 05 Aug, 2015 BPH (benign prostatic hyperplasia) N40.0 ; HTN (hypertension ) I10 ; Neuropathy G62.9 ; Gastroesophageal reflux disease without esophagitis K21.9 ; Restless legs syndrome G25.81 and Chronic tension-type headache, intractable G44.221 [address] [id number] [place] [address] 62001- 7490 Jul, Pelvic pain R10.2 [address] [address] 01260- 9250 Jun, [address] [id number] [place] [address] 66985- 4900 May, [address] [address] [place] [address]- 2[address] 12 May, 2015 Conjunctival hemorrhage of right eye H11.31 [place] [id number] [place] [address] 99575- 8975 May, [facility] [id number] [place] [address] 48819- 7380 May, BPH (benign prostatic hyperplasia) N40.0 ; Cavus deformity M21.6X9 ; HTN (hypertension) I10 ; Mitral valve prolapse I34.1 ; Pelvic pain R10.2 ; Restless legs syndrome G25.81 ; Varicocele I86.1 and GERD ( gastroesophageal reflux disease) K21.9 [address] [id number] [place] [address] 19013- 0375 Apr, [address] [address] 78469- 4782 Apr, Varicocele I86.1 [address] [id number] [place] [address] 89621- 5826 Apr, Depressive disorder, not elsewhere classified F32.9 [address] [id number] [place] [address] 10559- 1952 Apr, HTN (hypertension) I10 ; BPH (benign prostatic hyperplasia) N40.0 ; Restless legs syndrome G25.81 ; Neuropathy G62.9 ; Pelvic pain R10.2 and GERD (gastroesophageal reflux disease) K21.9 [address] [id number] [place] [address] 15157- 8022 Mar, [facility] [id number] [place] [address] 55165- 2724 Mar, [address] [id number] [place] [address] 05247- 8665 Mar, [address] [id number] [place] [address] 75380- 3053 Mar, HTN (hypertension) I10 ; Restless legs syndrome G25.81 ; BPH (benign prostatic hyperplasia) N40.0 ; Neuropathy G62.9 ; Cavus deformity of right foot M21.6X1 ; 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 ; Mitral valve prolapse I34.1 and Pelvic pain R10.2 [facility] [address] [address]- 4[address] Mar, [facility] [id number] [place] [address] 21400- 0581 Mar, [facility] [id number] [place] [address] 91481- 6201 Mar, [facility] [address] 99906- 3185 Feb, [facility] [id number] [place] [address] 30726- 4091 Feb, [facility] [id number] [place] [address] 28665- 5240 Feb, [facility] [id number] [place] [address] 09042- 5006 Jan, BPH (benign prostatic hyperplasia) N40.0 ; HTN (hypertension ) I10 ; Neuropathy G62.9 ; Cavus deformity of right foot M21.6X1 ; 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 and Mitral valve prolapse I34.1 [address] [id number] [place] [address] 61425- 8375 Jan, Cavus deformity of left foot 736.73 ; Cavus deformity of right foot 736.73 ; BPH (benign prostatic hyperplasia) N40.0 ; Essential hypertension 401.9 ; Restless leg syndrome 333.94 and Chronic pain 338.29 [address] [id number] [place] [address] 36346- 7317 Jan, [facility] [id number] [place] [address] 82162- 4276 Jan, [facility] [id number] [place] [address] [id number]- 7057 17 Dec, 2014 Essential hypertension 401.9 ; Mitral valve prolapse 424.0 ; Restless leg syndrome 333.94 and Chronic pain 338.29 [address] [facility] [id number] [address]- [address] 08 Dec, 2014 [address] [facility] [id number] [address]- 5484 02 Dec, 2014 Essential hypertension 401.9 ; Restless leg syndrome 333.94 ; Cavus deformity of left foot 736.73 ; Cavus deformity of right foot 736.73 ; Mitral valve prolapse 424.0 ; Chronic hydrocele 603.9 ; BPH (benign prostatic hyperplasia) 600.00 and Routine medical exam V70.0 [address] [facility] [id number] [address] Nov, [place] [id number] [address]- 3311 Oct, Essential hypertension 401.9 ; Restless leg syndrome 333.94 ; Cavus deformity of left foot 736.73 ; Cavus deformity of right foot 736.73 and Mitral valve prolapse 424.0 IMMUNIZATIONS No Known Immunizations SOCIAL HISTORY Never Assessed REASON FOR VISIT Medicare GISELA Day (JENNIFER) CBrumbackRFelipe PLAN OF CARE Activity Details Follow Up 1 Year Reason: VITAL SIGNS Height 69 in 2017-08-14 Weight 218.6 lbs 2017-08-14 Temperature 98.0 degrees Fahrenheit 2017-08-14 Heart Rate 88 bpm 2017-08-14 Respiratory Rate 20 2017-08-14 Oximetry 96 % 2017-08-14 BMI 32.28 kg/m2 2017-08-14 Blood pressure systolic 122 mmHg 2017-08-14 Blood pressure diastolic 84 mmHg 2017-08-14 MEDICATIONS Medication Instructions Dosage Frequency Start Date End Date Duration Status Tamsulosin HCl 0.4 mg Orally Once a day 1 capsule 24h 90 Active Colace 100 mg Orally 2 times a day 1 capsule as needed 12h 12 Jun, 2017 August, 30 day(s) Active Proctosol HC 2.5 % Rectal Twice a day 1 application to affected area 12h 11 Mar, 2017 Active Dexilant 60 MG TAKE ONE CAPSULE BY MOUTH ONCE DAILY 30 Active Hydrocodone-Acetaminophen 7.5-325 MG Orally 3 times a day 1 tablet as needed 8h Jul, 28 days Active Requip 2 MG Orally Once a day 1 tablet 1 to 3 hours before bedtime 24h Oct, Active Losartan Potassium 50 MG Orally Once a day 1 tablet 24h 90 days Active RESULTS No Results PROCEDURES Procedure Date Ordered Result Body Site [facility]ESS [facility]ITAL VISIT IPPE/AWV August 14, 2017 INIT PREV PE LTD DUR 1ST 12 MOS MCR August 14, 2017 PT TOBACCO SCREEN RCVD TLK August 14, 2017 FALL RISK ASSESSMENT DOCD August 14, 2017 CRITICAL ACCESS HOSPITAL VISIT ESTABLISHED PATIENT August 14, 2017 INSTRUCTIONS MEDICATIONS ADMINISTERED No Known Medications [...] Coagulation for hemrrhoids 07/2017 Hospitalization History possible [place] and heart cath 2016 Hospitalization History ER visit for chest pain 2016 Hospitalization History heart problems July 2016
--- OUTSIDE RECORDS SUMMARY | 2018-01-27 14:58 | XMS REPORT ---
Author Author LUNA CORRAL Organization [facility] Address [address] [place] [address] Care Team Providers Care Construction Project Administrator Name Role Phone LUNA CORRAL Unavailable PROBLEMS Type Condition ICD9-CM Code NNN65-PV Code Onset Dates Condition Status SNOMED Code Problem Depressive disorder, not elsewhere classified F32.9 Active 88814671 Problem Gastroesophageal reflux disease without esophagitis K21.9 Active 078277468 Problem Varicocele I86.1 Active 83338191 Problem Irritable bowel syndrome with constipation K58.1 Active 622179534 Problem Primary insomnia F51.01 Active 7624935 Problem Other chronic pain G89.29 Active 84980546 Problem Chronic tension-type headache, intractable G44.221 Active 676743618 Problem Diarrhea, unspecified type R19.7 Active 70539454 Problem Peptic ulcer disease K27.9 Active 56179643 Problem Mitral valve prolapse I34.1 Active 586667719 Problem Neuropathy G62.9 Active 566828867 Problem BPH (benign prostatic hyperplasia) N40.0 Active 356483273 Problem Cavus deformity of right foot M21.6X1 Active 298985051 Problem Cavus deformity M21.6X9 Active 697482384 Problem HTN (hypertension) I10 Active 80281608 Problem Pelvic pain R10.2 Active 72485452 Problem 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 Active 146101116 Problem Restless legs syndrome G25.81 Active 967941113 ALLERGIES No Information ENCOUNTERS Encounter Location Date Diagnosis [facility] [id number] [address] Oct, Other chronic pain G89.29 [facility] [id number] [address] Sep, Other chronic pain G89.29 [facility] [id number] [address] August, [facility] [id number] [place] [address]29- [address] August, HTN (hypertension) I10 ; BPH (benign prostatic hyperplasia) N40.0 and Gastroesophageal reflux disease without esophagitis K21.9 [facility] [id number] [place] [address] 71749- 6021 August, Other chronic pain G89.29 [facility] [id number] [place] [address] 10280- 6749 Jul, Medicare welcome exam Z00.00 ; Depressive disorder, not elsewhere classified F32.9 ; Neuropathy G62.9 ; HTN (hypertension) I10 ; BPH ( benign prostatic hyperplasia) N40.0 ; Mitral valve prolapse I34.1 ; Gastroesophageal reflux disease without esophagitis K21.9 and Primary insomnia F51.01 [facility] [facility] [id number] [place] [address] 17875- 2759 Jul, Other chronic pain G89.29 [facility] [id number] [place] [address] 66203- 2664 Jun, Other chronic pain G89.29 ; HTN (hypertension) I10 ; Neuropathy G62.9 and Irritable bowel syndrome with constipation K58.1 [facility] [id number] [place] [address] 38275- 0505 Jun, [facility] [id number] [place] [address] 18711- 3071 May, Neuropathy G62.9 [facility] [id number] [place] [address] 41010- 8824 May, Anal pain K62.89 [facility] [id number] [place] [address] 36997- 2163 Apr, [facility] [id number] [place] [address] 79695- 1608 Apr, Neuropathy G62.9 [place] [address] [address]- [address]199 18 Mar, 2017 Neuropathy G62.9 [place] [address] 38942- 3362 Mar, HTN (hypertension) I10 ; Neuropathy G62.9 and Anal itch L29.0 [address] [address] 54708- 0490 Feb, Restless legs syndrome G25.81 [place] [facility] [address] 52493- 7251 Feb, Neuropathy G62.9 [place] [address] 21080- 9433 Jan, Neuropathy G62.9 [place] [address] 55635- 6971 Dec, Grade I hemorrhoids K64.0 and Rectal bleeding K62.5 [place] [address] 85929- 5202 Dec, Neuropathy G62.9 [place] [address] 20968- 0238 Nov, Neuropathy G62.9 [place] [address] 47946- 6482 Nov, Neuropathy G62.9 [place] [address] 22758- 3661 Nov, HTN (hypertension) I10 ; Neuropathy G62.9 ; Cavus deformity M21.6X9 ; Mitral valve prolapse I34.1 ; Restless legs syndrome G25.81 ; Gastroesophageal reflux disease without esophagitis K21.9 ; Primary insomnia F51.01 ; BPH (benign prostatic hyperplasia) N40.0 and Actinic keratosis L57.0 [place] [address] 98117- 4170 Oct, Other chronic pain G89.29 [facility] [facility] [id number] [place] [address] 50624- 4013 Oct, HTN (hypertension) I10 ; Neuropathy G62.9 ; BPH (benign prostatic hyperplasia) N40.0 ; Cavus deformity of right foot M21.6X1 ; Mitral valve prolapse I34.1 ; Gastroesophageal reflux disease without esophagitis K21.9 ; Other chronic pain G89.29 ; Primary insomnia F51.01 and Restless legs syndrome G25.81 [place] [address] 86758- 0601 Sep, Neuropathy G62.[address] 27448- 0627 Sep, HTN (hypertension) I10 ; BPH (benign prostatic hyperplasia) N40.0 ; Neuropathy G62.9 ; Mitral valve prolapse I34.1 ; Restless legs syndrome G25.81 and Gastroesophageal reflux disease without esophagitis K21.9 [facility] [facility] [id number] [place] [address] 94261- 4148 Sep, Cavus deformity of right foot M21.6X1 [place] [facility] [address] 69857- 3466 August, Orthostatic hypotension I95.[address] 49984- 4277 August, HTN (hypertension) I10 ; BPH (benign prostatic hyperplasia) N40.0 ; Hydrocele in adult N43.3 ; Peptic ulcer disease K27.9 ; Restless legs syndrome G25.81 and Cavus deformity of right foot M21.6X1 [facility] [facility] [id number] [place] [address] 70519- 0000 Jul, Peptic ulcer disease K27.9 ; Diarrhea, unspecified type R19.7 ; BPH (benign prostatic hyperplasia) N40.0 ; HTN (hypertension) I10 ; Neuropathy G62.9 ; Mitral valve prolapse I34.1 ; Gastroesophageal reflux disease without esophagitis K21.9 and Restless legs syndrome G25.81 [place] [id number] [place] [address] 77106- 8658 Jul, [facility] [address] [address]13 Jul, Cavus deformity M21.6X9 [facility] [id number] [place] [address] 29254- 8578 Jun, Cavus deformity M21.6X9 [facility] [address] 70676- 4131 May, Family history of diabetes mellitus Z83.3 ; BPH (benign prostatic hyperplasia) N40.0 ; Cavus deformity M21.6X9 ; Restless legs syndrome G25.81 ; Gastroesophageal reflux disease without esophagitis K21.9 ; HTN ( hypertension) I10 ; Neuropathy G62.9 and Other chronic pain G89.29 [place] [address] 02028- 4537 Apr, Mitral valve prolapse I34.1 [place] [address] 21922- 4509 Apr, [facility] [address] 6[address]69- 9622 Mar, Other chest pain R07.89 [facility] [id number] [place] [address] 67009- 7399 Mar, [facility] [id number] [place] [address] 65080- 7475 Feb, [facility] [id number] [place] [address] 31312- 4434 Jan, [facility] [address] 23421- 5827 Dec, [facility] [id number] [place] [address] 10019- 8839 Dec, BPH (benign prostatic hyperplasia) N40.0 and Wellness examination Z00.00 [facility] [id number] [place] [address] 80261- 3795 10 Nov, 2015 BPH (benign prostatic hyperplasia) N40.0 ; Neuropathy G62.9 ; Cavus deformity M21.6X9 ; 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 ; Mitral valve prolapse I34.1 ; Restless legs syndrome G25.81 ; Depressive disorder, not elsewhere classified F32.9 ; Gastroesophageal reflux disease without esophagitis K21.9 and Wellness examination Z00.00 [facility] [id number] [place] [address] 02743- 2564 03 Nov, 2015 [place] [id number] [place] [address] 67937- 3833 Oct, [place] [id number] [place] [address] 46682- 0666 Oct, Other chronic pain G89.29 [place] [address] 97134- 5186 Sep, Pelvic pain R10.2 [place] [id number] [place] [address] 25949- 0254 August, Other chronic pain G89.29 [place] [id number] [place] [address] 97950- 6177 05 Aug, 2015 BPH (benign prostatic hyperplasia) N40.0 ; HTN (hypertension ) I10 ; Neuropathy G62.9 ; Gastroesophageal reflux disease without esophagitis K21.9 ; Restless legs syndrome G25.81 and Chronic tension-type headache, intractable G44.221 [place] [id number] [place] [address] 65164- 2559 Jul, Pelvic pain R10.2 [place] [id number] [place] [address] 37940- 0688 Jun, [facility] [id number] [place] [address] 40699- 5919 May, [place] [address] [place] [address]- [address]19 12 May, 2015 Conjunctival hemorrhage of right eye H11.31 [place] [id number] [place] [address] 00887- 3488 May, [facility] [id number] [place] [address] 64816- 8610 May, BPH (benign prostatic hyperplasia) N40.0 ; Cavus deformity M21.6X9 ; HTN (hypertension) I10 ; Mitral valve prolapse I34.1 ; Pelvic pain R10.2 ; Restless legs syndrome G25.81 ; Varicocele I86.1 and GERD ( gastroesophageal reflux disease) K21.9 [place] [id number] [place] [address] 88653- 2197 Apr, [place] [id number] [place] [address] 82256- 0029 Apr, Varicocele I86.1 [place] [id number] [place] [address] 07138- 2187 Apr, Depressive disorder, not elsewhere classified F32.9 [place] [id number] [place] [address] 56539- 8058 Apr, HTN (hypertension) I10 ; BPH (benign prostatic hyperplasia) N40.0 ; Restless legs syndrome G25.81 ; Neuropathy G62.9 ; Pelvic pain R10.2 and GERD (gastroesophageal reflux disease) K21.9 [place] [id number] [place] [address] 87362- 9163 Mar, [facility] [id number] [place] [address] 45293- 1336 Mar, [place] [id number] [place] [address] 66793- 5113 Mar, [facility] [id number] [place] [address] 66482- 7182 Mar, HTN (hypertension) I10 ; Restless legs syndrome G25.81 ; BPH (benign prostatic hyperplasia) N40.0 ; Neuropathy G62.9 ; Cavus deformity of right foot M21.6X1 ; 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 ; Mitral valve prolapse I34.1 and Pelvic pain R10.2 [facility] [id number] [place] [address] 50651- 4001 Mar, [facility] [id number] [place] [address] 22996- 7877 Mar, [facility] [id number] [place] [address] 44208- 8471 Mar, [facility] [address] 66644- 6377 Feb, [facility] [id number] [place] [address] 77468- 9834 Feb, [facility] [id number] [place] [address] 23784- 9734 Feb, [facility] [id number] [place] [address] 71749- 6792 Jan, BPH (benign prostatic hyperplasia) N40.0 ; HTN (hypertension ) I10 ; Neuropathy G62.9 ; Cavus deformity of right foot M21.6X1 ; 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 and Mitral valve prolapse I34.1 [place] [id number] [place] [address] 13574- 1481 Jan, BPH (benign prostatic hyperplasia) N40.0 ; Cavus deformity of left foot 736.73 ; Cavus deformity of right foot 736.73 ; Essential hypertension 401.9 ; Restless leg syndrome 333.94 and Chronic pain 338.29 [facility] [id number] [place] [address] 63909- 3748 Jan, [facility] [id number] [place] [address] 86751- 4849 Jan, [facility] [id number] [place] [address] 85001- 9526 17 Dec, 2014 Essential hypertension 401.9 ; Mitral valve prolapse 424.0 ; Restless leg syndrome 333.94 and Chronic pain 338.29 [place] [id number] [address]- 67[address] 08 Dec, 2014 [facility] [id number] 02 Dec, 2014 Essential hypertension 401.9 ; Restless leg syndrome 333.94 ; Cavus deformity of left foot 736.73 ; Cavus deformity of right foot 736.73 ; Mitral valve prolapse 424.0 ; Chronic hydrocele 603.9 ; BPH (benign prostatic hyperplasia) 600.00 and Routine medical exam V70.0 [facility] [facility] [id number] [address] Nov, [facility] [facility] [id number] [address]- 6494 Oct, Essential hypertension 401.9 ; Restless leg [...] as needed 8h Jul, 28 days Active RESULTS No Results [...]
--- OUTSIDE RECORDS SUMMARY | 2018-01-27 14:58 | XMS REPORT ---
Author Author LUNA CORRAL Organization [facility] Address [address] [place] [address] Care Team Providers Care Soldering Machine Setter Name Role Phone LUNA CORRAL Unavailable PROBLEMS Type Condition ICD9-CM Code [id number] Code Onset Dates Condition Status SNOMED Code Problem Depressive disorder, not elsewhere classified F32.9 Active 76801140 Problem Gastroesophageal reflux disease without esophagitis K21.9 Active 509924589 Problem Varicocele I86.1 Active 83786908 Problem Irritable bowel syndrome with constipation K58.1 Active 780892838 Problem Primary insomnia F51.01 Active 2057127 Problem Other chronic pain G89.29 Active 61128824 Problem Chronic tension-type headache, intractable G44.221 Active 919769459 Problem Diarrhea, unspecified type R19.7 Active 25596775 Problem Peptic ulcer disease K27.9 Active 22871976 Problem Mitral valve prolapse I34.1 Active 975912821 Problem Neuropathy G62.9 Active 168294178 Problem BPH (benign prostatic hyperplasia) N40.0 Active 442298566 Problem Cavus deformity of right foot M21.6X1 Active 915561385 Problem Cavus deformity M21.6X9 Active 427660047 Problem HTN (hypertension) I10 Active 92443229 Problem Pelvic pain R10.2 Active 58460785 Problem 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 Active 535042679 Problem Restless legs syndrome G25.81 Active 598259356 ALLERGIES No Information ENCOUNTERS Encounter Location Date Diagnosis [facility] [id number] [address] Nov, Other chronic pain G89.29 [facility] [id number] [address] Oct, Other chronic pain G89.29 [facility] [id number] [address] Sep, Other chronic pain G89.29 [address] [id number] [place] [address] 00960- 1789 August, [facility] [facility] [id number] [place] [address] 63451- 6834 August, HTN (hypertension) I10 ; BPH (benign prostatic hyperplasia) N40.0 and Gastroesophageal reflux disease without esophagitis K21.9 [facility] [facility] [id number] [place] [address] 92060- 1564 August, Other chronic pain G89.29 [facility] [facility] [id number] [place] [address] 58653- 8146 Jul, Medicare welcome exam Z00.00 ; Depressive disorder, not elsewhere classified F32.9 ; Neuropathy G62.9 ; HTN (hypertension) I10 ; BPH ( benign prostatic hyperplasia) N40.0 ; Mitral valve prolapse I34.1 ; Gastroesophageal reflux disease without esophagitis K21.9 and Primary insomnia F51.01 [address] [facility] [id number] [place] [address] 62430- 9901 Jul, Other chronic pain G89.29 [facility] [facility] [id number] [place] [address] 54163- 5380 Jun, Other chronic pain G89.29 ; HTN (hypertension) I10 ; Neuropathy G62.9 and Irritable bowel syndrome with constipation K58.1 [address] [place] [id number] [place] [address] 45277- 7893 Jun, [place] [id number] [place] [address] 20554- 8091 May, Neuropathy G62.9 [address] [facility] [id number] [place] [address] 08342- 8375 May, Anal pain K62.89 [facility] [facility] [id number] [place] [address] 21163- 2688 Apr, [address] [address] 57693- 6182 Apr, Neuropathy G62.9 [address] [address] 67393- 4132 Mar, Neuropathy G62.9 [place] [address] 91763- 5629 Mar, HTN (hypertension) I10 ; Neuropathy G62.9 and Anal itch L29.0 [address] 12294- 5697 Feb, Restless legs syndrome G25.81 [address] [address] 85261- 3701 Feb, Neuropathy G62.9 [address] 76663- 1824 Jan, Neuropathy G62.9 [address] [address] 69399- 9847 Dec, Grade I hemorrhoids K64.0 and Rectal bleeding K62.5 [address] 83752- 3203 Dec, Neuropathy G62.9 [address] [address] 93160- 3052 Nov, Neuropathy G62.9 [address] [address] 85067- 7987 Nov, Neuropathy G62.9 [place] [address] 96994- 8058 Nov, HTN (hypertension) I10 ; Neuropathy G62.9 ; Cavus deformity M21.6X9 ; Mitral valve prolapse I34.1 ; Restless legs syndrome G25.81 ; Gastroesophageal reflux disease without esophagitis K21.9 ; Primary insomnia F51.01 ; BPH (benign prostatic hyperplasia) N40.0 and Actinic keratosis L57.0 [address] [place] [id number] [place] [address] 35189- 4711 Oct, Other chronic pain G89.29 [address] [address] [address] 54050- 9007 Oct, HTN (hypertension) I10 ; Neuropathy G62.9 ; BPH (benign prostatic hyperplasia) N40.0 ; Cavus deformity of right foot M21.6X1 ; Mitral valve prolapse I34.1 ; Gastroesophageal reflux disease without esophagitis K21.9 ; Other chronic pain G89.29 ; Primary insomnia F51.01 and Restless legs syndrome G25.81 [address] [place] [id number] [place] [address] 17691- 3863 Sep, Neuropathy G62.9 [address] [place] [id number] [place] [address] 03325- 9309 Sep, HTN (hypertension) I10 ; BPH (benign prostatic hyperplasia) N40.0 ; Neuropathy G62.9 ; Mitral valve prolapse I34.1 ; Restless legs syndrome G25.81 and Gastroesophageal reflux disease without esophagitis K21.9 [address] [place] [id number] [place] [address] 86726- 6191 Sep, Cavus deformity of right foot M21.6X1 [facility] [facility] [id number] [place] [address] 26145- 7206 August, Orthostatic hypotension I95.1 [place] [address] 10028- 3224 August, HTN (hypertension) I10 ; BPH (benign prostatic hyperplasia) N40.0 ; Hydrocele in adult N43.3 ; Peptic ulcer disease K27.9 ; Restless legs syndrome G25.81 and Cavus deformity of right foot M21.6X1 [place] [id number] [place] [address] 44127- 1289 Jul, Peptic ulcer disease K27.9 ; Diarrhea, unspecified type R19.7 ; BPH (benign prostatic hyperplasia) N40.0 ; HTN (hypertension) I10 ; Neuropathy G62.9 ; Mitral valve prolapse I34.1 ; Gastroesophageal reflux disease without esophagitis K21.9 and Restless legs syndrome G25.81 [address] [address] 72174- 9268 Jul, [facility] [id number] [place] [address] 03321- 6586 Jul, Cavus deformity M21.6X9 [address] [address] 98362- 6326 Jun, Cavus deformity M21.6X9 [place] [address] 30403- 7134 May, Family history of diabetes mellitus Z83.3 ; BPH (benign prostatic hyperplasia) N40.0 ; Cavus deformity M21.6X9 ; Restless legs syndrome G25.81 ; Gastroesophageal reflux disease without esophagitis K21.9 ; HTN ( hypertension) I10 ; Neuropathy G62.9 and Other chronic pain G89.29 [place] [id number] [place] [address] 42708- 1131 Apr, Mitral valve prolapse I34.1 [place] [id number] [place] [address] 90466- 5629 Apr, [place] [id number] [place] [address] 57493- 9203 Mar, Other chest pain R07.89 [place] [id number] [place] [address] 07438- 8427 Mar, [place] [id number] [place] [address] 91835- 5214 Feb, [place] [id number] [place] [address] 83154- 3514 Jan, [facility] [id number] [place] [address] 13829- 2309 Dec, [place] [id number] [place] [address] 35223- 1329 07 Dec, 2015 BPH (benign prostatic hyperplasia) N40.0 and Wellness examination Z00.00 [place] [id number] [place] [address] 01701- 5828 10 Nov, 2015 BPH (benign prostatic hyperplasia) N40.0 ; Neuropathy G62.9 ; Cavus deformity M21.6X9 ; 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 ; Mitral valve prolapse I34.1 ; Restless legs syndrome G25.81 ; Depressive disorder, not elsewhere classified F32.9 ; Gastroesophageal reflux disease without esophagitis K21.9 and Wellness examination Z00.00 [place] [id number] [place] [address] 93392- 6665 03 Nov, 2015 [place] [id number] [place] [address] 72178- 3014 Oct, [address] [address] 07067- 5822 Oct, Other chronic pain G89.29 [address] [id number] [place] [address] 52674- 2555 10 Sep, 2015 Pelvic pain R10.2 [place] [id number] [place] [address] 13950- 3517 August, Other chronic pain G89.29 [address] [id number] [place] [address] 35047- 5988 05 Aug, 2015 BPH (benign prostatic hyperplasia) N40.0 ; HTN (hypertension ) I10 ; Neuropathy G62.9 ; Gastroesophageal reflux disease without esophagitis K21.9 ; Restless legs syndrome G25.81 and Chronic tension-type headache, intractable G44.221 [address] [place] [id number] [place] [address] 28055- 6693 Jul, Pelvic pain R10.2 [address] [place] [id number] [place] [address] 08064- 6564 Jun, [place] [id number] [place] [address] 63980- 1744 May, [facility] [address] 46364- 2375 May, Conjunctival hemorrhage of right eye H11.31 [address] [id number] [place] [address] 73898- 1865 May, [facility] [id number] [place] [address] 43602- 4360 May, BPH (benign prostatic hyperplasia) N40.0 ; Cavus deformity M21.6X9 ; HTN (hypertension) I10 ; Mitral valve prolapse I34.1 ; Pelvic pain R10.2 ; Restless legs syndrome G25.81 ; Varicocele I86.1 and GERD ( gastroesophageal reflux disease) K21.9 [address] [place] [id number] [place] [address] 38333- 0370 Apr, [place] [id number] [place] [address] 83556- 0484 Apr, Varicocele I86.1 [address] [place] [id number] [place] [address] 25368- 7564 Apr, Depressive disorder, not elsewhere classified F32.9 [place] [id number] [place] [address] 42301- 4284 Apr, HTN (hypertension) I10 ; BPH (benign prostatic hyperplasia) N40.0 ; Restless legs syndrome G25.81 ; Neuropathy G62.9 ; Pelvic pain R10.2 and GERD (gastroesophageal reflux disease) K21.9 [address] [place] [id number] [place] [address] 40620- 6852 Mar, [place] [id number] [place] [address] 26721- 3748 Mar, [facility] [id number] [place] [address] 48224- 1696 Mar, [place] [id number] [place] [address] 83459- 6075 Mar, HTN (hypertension) I10 ; Restless legs syndrome G25.81 ; BPH (benign prostatic hyperplasia) N40.0 ; Neuropathy G62.9 ; Cavus deformity of right foot M21.6X1 ; 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 ; Mitral valve prolapse I34.1 and Pelvic pain R10.2 [address] [place] [id number] [place] [address] 36205- 8352 Mar, [facility] [id number] [place] [address] 75207- 3716 Mar, [address] [id number] [place] [address] 01654- 9602 Mar, [place] [id number] [place] [address] 14056- 1240 Feb, [place] [id number] [place] [address] 28097- 3177 Feb, [address] [id number] [place] [address] 18825- 9660 Feb, [place] [id number] [place] [address] 78811- 5557 Jan, BPH (benign prostatic hyperplasia) N40.0 ; HTN (hypertension ) I10 ; Neuropathy G62.9 ; Cavus deformity of right foot M21.6X1 ; 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 and Mitral valve prolapse I34.1 [address] [place] [id number] [place] [address] 19696- 9884 Jan, BPH (benign prostatic hyperplasia) N40.0 ; Cavus deformity of left foot 736.73 ; Cavus deformity of right foot 736.73 ; Essential hypertension 401.9 ; Restless leg syndrome 333.94 and Chronic pain 338.29 [facility] [id number] [place] [address] 57341- 1778 Jan, [facility] [id number] [address]- 1268 Jan, [address] [place] [id number] [place] [address] 429730- 2906 Dec, Essential hypertension 401.9 ; Mitral valve prolapse 424.0 ; Restless leg syndrome 333.94 and Chronic pain 338.29 [id number] [place] [address] 45330- 9334 Dec, [place] [id number] [place] [address] [id number]- 3457 Dec, Essential hypertension 401.9 ; Restless leg syndrome 333.94 ; Cavus deformity of left foot 736.73 ; Cavus deformity of right foot 736.73 ; Mitral valve prolapse 424.0 ; Chronic hydrocele 603.9 ; BPH (benign prostatic hyperplasia) 600.00 and Routine medical exam V70.0 [id number] [place] [address] 22771- 9211 Nov, [place] [id number] [place] [address] 28138- 0334 Oct, Essential hypertension 401.9 ; Restless leg [...] a day 1 tablet as needed 8h August, 28 days Active RESULTS No Results PROCEDURES [...] Coagulation for hemrrhoids 07/2017 Hospitalization History possible [place] and heart cath 2016 Hospitalization History ER visit for chest pain 2016 Hospitalization History heart problems July 2016
--- OUTSIDE RECORDS SUMMARY | 2018-01-27 14:59 | XMS REPORT ---
Author Author LUNA CORRAL Organization [facility] Address [address] [place] [address] Care Team Providers Care Weed Controller Name Role Phone LUNA CORRAL Unavailable PROBLEMS Type Condition ICD9-CM Code [id number] Code Onset Dates Condition Status SNOMED Code Problem Depressive disorder, not elsewhere classified F32.9 Active 47062490 Problem Gastroesophageal reflux disease without esophagitis K21.9 Active 232746664 Problem Varicocele I86.1 Active 05445847 Problem Irritable bowel syndrome with constipation K58.1 Active 827201472 Problem Primary insomnia F51.01 Active 0491102 Problem Other chronic pain G89.29 Active 00208899 Problem Chronic tension-type headache, intractable G44.221 Active 058981434 Problem Diarrhea, unspecified type R19.7 Active 17351134 Problem Peptic ulcer disease K27.9 Active 56805480 Problem Mitral valve prolapse I34.1 Active 111526965 Problem Neuropathy G62.9 Active 418154730 Problem BPH (benign prostatic hyperplasia) N40.0 Active 603689548 Problem Cavus deformity of right foot M21.6X1 Active 542063294 Problem Cavus deformity M21.6X9 Active 437085341 Problem HTN (hypertension) I10 Active 85796083 Problem Pelvic pain R10.2 Active 41545528 Problem 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 Active 417596144 Problem Restless legs syndrome G25.81 Active 253124816 ALLERGIES No Information ENCOUNTERS Encounter Location Date Diagnosis [facility] [id number], [place] [address] Oct, Other chronic pain G89.29 [facility] [id number], [place] [address] Sep, Other chronic pain G89.29 [facility] [id number], [place] [address] August, [facility] [id number] [place] [address]75- [address] August, HTN (hypertension) I10 ; BPH (benign prostatic hyperplasia) N40.0 and Gastroesophageal reflux disease without esophagitis K21.9 [facility] [id number] [place] [address] 41822- 0178 August, Other chronic pain G89.29 [facility] [id number] [place] [address] 09831- 5846 Jul, Medicare welcome exam Z00.00 ; Depressive disorder, not elsewhere classified F32.9 ; Neuropathy G62.9 ; HTN (hypertension) I10 ; BPH ( benign prostatic hyperplasia) N40.0 ; Mitral valve prolapse I34.1 ; Gastroesophageal reflux disease without esophagitis K21.9 and Primary insomnia F51.01 [facility] [id number] [place] [address] 93771- 0374 Jul, Other chronic pain G89.29 [facility] [id number] [place] [address] 94807- 6294 Jun, Other chronic pain G89.29 ; HTN (hypertension) I10 ; Neuropathy G62.9 and Irritable bowel syndrome with constipation K58.1 [facility] [id number] [place] [address] 16703- 9736 Jun, [facility] [id number] [place] [address] 73764- 3922 May, Neuropathy G62.9 [facility] [id number] [place] [address] 12650- 1553 May, Anal pain K62.89 [facility] [id number] [place] [address] 27161- 6684 Apr, [facility] [id number] [place] [address] 87621- 3407 Apr, Neuropathy G62.9 [facility] [address] [address]- [address]167 18 Mar, 2017 Neuropathy G62.9 [facility] [address] 81013- 3396 Mar, HTN (hypertension) I10 ; Neuropathy G62.9 and Anal itch L29.0 [facility] [address] 9[address]85- 0303 Feb, Restless legs syndrome G25.81 [facility] [address] 19429- 0043 Feb, Neuropathy G62.9 [facility] [address] 40630- 6663 Jan, Neuropathy G62.9 [facility] [address] 64566- 0604 Dec, Grade I hemorrhoids K64.0 and Rectal bleeding K62.5 [facility] [address] 11933- 2728 Dec, Neuropathy G62.9 [address] [facility] [address] 36374- 3651 Nov, Neuropathy G62.9 [facility] [address] 45637- 7239 Nov, Neuropathy G62.9 [facility] [address] 36174- 6021 Nov, HTN (hypertension) I10 ; Neuropathy G62.9 ; Cavus deformity M21.6X9 ; Mitral valve prolapse I34.1 ; Restless legs syndrome G25.81 ; Gastroesophageal reflux disease without esophagitis K21.9 ; Primary insomnia F51.01 ; BPH (benign prostatic hyperplasia) N40.0 and Actinic keratosis L57.0 [facility] [address] 77306- 2417 Oct, Other chronic pain G89.29 [facility] [id number] [place] [address] 36152- 7844 Oct, HTN (hypertension) I10 ; Neuropathy G62.9 ; BPH (benign prostatic hyperplasia) N40.0 ; Cavus deformity of right foot M21.6X1 ; Mitral valve prolapse I34.1 ; Gastroesophageal reflux disease without esophagitis K21.9 ; Other chronic pain G89.29 ; Primary insomnia F51.01 and Restless legs syndrome G25.81 [address] [facility] [address] 44129- 9645 Sep, Neuropathy G62.[address] 90494- 3261 Sep, HTN (hypertension) I10 ; BPH (benign prostatic hyperplasia) N40.0 ; Neuropathy G62.9 ; Mitral valve prolapse I34.1 ; Restless legs syndrome G25.81 and Gastroesophageal reflux disease without esophagitis K21.9 [facility] [id number] [place] [address] 53765- 3655 Sep, Cavus deformity of right foot M21.6X1 [facility] [address] 87998- 5539 August, Orthostatic hypotension I95.[address] 02520- [address]52 August, HTN (hypertension) I10 ; BPH (benign prostatic hyperplasia) N40.0 ; Hydrocele in adult N43.3 ; Peptic ulcer disease K27.9 ; Restless legs syndrome G25.81 and Cavus deformity of right foot M21.6X1 [facility] [id number] [place] [address] 01260- 7495 Jul, Peptic ulcer disease K27.9 ; Diarrhea, unspecified type R19.7 ; BPH (benign prostatic hyperplasia) N40.0 ; HTN (hypertension) I10 ; Neuropathy G62.9 ; Mitral valve prolapse I34.1 ; Gastroesophageal reflux disease without esophagitis K21.9 and Restless legs syndrome G25.81 [facility] [id number] [place] [address] 95031- 3531 Jul, [facility] [address] 21[address]- 4[address] Jul, Cavus deformity M21.6X9 [facility] [id number] [place] [address] 46870- 1653 Jun, Cavus deformity M21.6X9 [facility] [address] 32809- 1203 May, Family history of diabetes mellitus Z83.3 ; BPH (benign prostatic hyperplasia) N40.0 ; Cavus deformity M21.6X9 ; Restless legs syndrome G25.81 ; Gastroesophageal reflux disease without esophagitis K21.9 ; HTN ( hypertension) I10 ; Neuropathy G62.9 and Other chronic pain G89.29 [address] [facility] [address] 79711- 2780 Apr, Mitral valve prolapse I34.1 [address] [facility] [address] 14269- 3914 Apr, [facility] [address] 88682- 6423 Mar, Other chest pain R07.89 [facility] [id number] [place] [address] 29967- 4610 Mar, [facility] [id number] [place] [address] 63475- 6045 Feb, [facility] [id number] [place] [address] 90460- 8536 Jan, [facility] [address] 24521- 7197 Dec, [facility] [id number] [place] [address] 37676- 4807 Dec, BPH (benign prostatic hyperplasia) N40.0 and Wellness examination Z00.00 [facility] [id number] [place] [address] 94306- 2493 10 Nov, 2015 BPH (benign prostatic hyperplasia) N40.0 ; Neuropathy G62.9 ; Cavus deformity M21.6X9 ; 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 ; Mitral valve prolapse I34.1 ; Restless legs syndrome G25.81 ; Depressive disorder, not elsewhere classified F32.9 ; Gastroesophageal reflux disease without esophagitis K21.9 and Wellness examination Z00.00 [facility] [id number] [place] [address] 41409- 0390 03 Nov, 2015 [facility] [id number] [place] [address] 15763- 1973 Oct, [facility] [id number] [place] [address] 19484- 8932 Oct, Other chronic pain G89.29 [address] [address] 17063- 8860 Sep, Pelvic pain R10.2 [facility] [id number] [place] [address] 74451- 7109 August, Other chronic pain G89.29 [facility] [id number] [place] [address] 99739- 0622 05 Aug, 2015 BPH (benign prostatic hyperplasia) N40.0 ; HTN (hypertension ) I10 ; Neuropathy G62.9 ; Gastroesophageal reflux disease without esophagitis K21.9 ; Restless legs syndrome G25.81 and Chronic tension-type headache, intractable G44.221 [facility] [id number] [place] [address] 94453- 5714 Jul, Pelvic pain R10.2 [facility] [id number] [place] [address] 51185- 6428 Jun, [facility] [id number] [place] [address] 99085- 6575 May, [facility] [address] [place] [address]- 1049 12 May, 2015 Conjunctival hemorrhage of right eye H11.31 [facility] [id number] [place] [address] 51501- 0690 May, [facility] [id number] [place] [address] 34693- 6395 May, BPH (benign prostatic hyperplasia) N40.0 ; Cavus deformity M21.6X9 ; HTN (hypertension) I10 ; Mitral valve prolapse I34.1 ; Pelvic pain R10.2 ; Restless legs syndrome G25.81 ; Varicocele I86.1 and GERD ( gastroesophageal reflux disease) K21.9 [facility] [id number] [place] [address] 13662- 4522 Apr, [facility] [id number] [place] [address] 52136- 6497 Apr, Varicocele I86.1 [facility] [id number] [place] [address] 22370- 7199 Apr, Depressive disorder, not elsewhere classified F32.9 [facility] [id number] [place] [address] 57243- 3276 Apr, HTN (hypertension) I10 ; BPH (benign prostatic hyperplasia) N40.0 ; Restless legs syndrome G25.81 ; Neuropathy G62.9 ; Pelvic pain R10.2 and GERD (gastroesophageal reflux disease) K21.9 [facility] [id number] [place] [address] 27168- 6463 Mar, [facility] [id number] [place] [address] 37708- 2811 Mar, [facility] [id number] [place] [address] 25390- 7266 Mar, [facility] [id number] [place] [address] 25730- 2984 Mar, HTN (hypertension) I10 ; Restless legs syndrome G25.81 ; BPH (benign prostatic hyperplasia) N40.0 ; Neuropathy G62.9 ; Cavus deformity of right foot M21.6X1 ; 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 ; Mitral valve prolapse I34.1 and Pelvic pain R10.2 [facility] [address] [place] [address] 90286- 4533 Mar, [facility] [id number] [place] [address] 57320- 7126 Mar, [facility] [id number] [place] [address] 77349- 8912 Mar, [facility] [address] 65639- 1350 Feb, [facility] [id number] [place] [address] 49741- 5759 Feb, [facility] [id number] [place] [address] 42069- 2288 Feb, [facility] [id number] [place] [address] 40898- 0228 Jan, BPH (benign prostatic hyperplasia) N40.0 ; HTN (hypertension ) I10 ; Neuropathy G62.9 ; Cavus deformity of right foot M21.6X1 ; 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 and Mitral valve prolapse I34.1 [address] [facility] [id number] [place] [address] 05173- 1505 Jan, BPH (benign prostatic hyperplasia) N40.0 ; Cavus deformity of left foot 736.73 ; Cavus deformity of right foot 736.73 ; Essential hypertension 401.9 ; Restless leg syndrome 333.94 and Chronic pain 338.29 [facility] [id number] [place] [address] 19786- 4224 Jan, [facility] [id number] [place] [address] 30346- 2505 Jan, [facility] [id number] [place] [address] 73287344- 7689 17 Dec, 2014 Essential hypertension 401.9 ; Mitral valve prolapse 424.0 ; Restless leg syndrome 333.94 and Chronic pain 338.29 [facility] [id number], [place] [address]- 97[address] 08 Dec, 2014 [facility] [id number], [place] [address]- 8607 Dec, Essential hypertension 401.9 ; Restless leg syndrome 333.94 ; Cavus deformity of left foot 736.73 ; Cavus deformity of right foot 736.73 ; Mitral valve prolapse 424.0 ; Chronic hydrocele 603.9 ; BPH (benign prostatic hyperplasia) 600.00 and Routine medical exam V70.0 [facility] [id number], [place] [address]- [address]99 Nov, [facility] [id number], [place] [address]- 3803 Oct, Essential hypertension 401.9 ; Restless leg syndrome 333.94 ; Cavus deformity of left foot 736.73 ; Cavus deformity of right foot 736.73 and Mitral valve prolapse 424.0 IMMUNIZATIONS No Known Immunizations SOCIAL HISTORY Never Assessed REASON FOR VISIT Controlled Med Refill PLAN OF CARE VITAL SIGNS MEDICATIONS Unknown Medications RESULTS No Results PROCEDURES No Known procedures [...] Coagulation for hemrrhoids 07/2017 Hospitalization History possible [place] and heart cath 2015 Hospitalization History ER visit for chest pain 2016 Hospitalization History heart problems July 2016
--- OUTSIDE RECORDS SUMMARY | 2018-01-27 14:59 | XMS REPORT ---
Author Author LUNA CORRAL Organization [facility] Address [address] [place] [address] Care Team Providers Care Stave Bolt Equalizer Name Role Phone LUNA CORRAL Unavailable PROBLEMS Type Condition ICD9-CM Code PMU27-EK Code Onset Dates Condition Status SNOMED Code Problem Depressive disorder, not elsewhere classified F32.9 Active 31340416 Problem Gastroesophageal reflux disease without esophagitis K21.9 Active 126211879 Problem Varicocele I86.1 Active 30883607 Problem Irritable bowel syndrome with constipation K58.1 Active 413969213 Problem Primary insomnia F51.01 Active 9950362 Problem Other chronic pain G89.29 Active 00163902 Problem Chronic tension-type headache, intractable G44.221 Active 915439273 Problem Diarrhea, unspecified type R19.7 Active 70273218 Problem Peptic ulcer disease K27.9 Active 52009683 Problem Mitral valve prolapse I34.1 Active 995887763 Problem Neuropathy G62.9 Active 921177680 Problem BPH (benign prostatic hyperplasia) N40.0 Active 759214809 Problem Cavus deformity of right foot M21.6X1 Active 023716397 Problem Cavus deformity M21.6X9 Active 691769826 Problem HTN (hypertension) I10 Active 67808951 Problem Pelvic pain R10.2 Active 34306463 Problem 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 Active 057082289 Problem Restless legs syndrome G25.81 Active 414548896 ALLERGIES No Known Allergies ENCOUNTERS Encounter Location Date Diagnosis [facility] [id number] [address] Oct, Other chronic pain G89.29 [facility] [id number] [address] Sep, Other chronic pain G89.29 [facility] [id number] [address] August, [facility] [id number] [place] [address] 45841- 9562 August, HTN (hypertension) I10 ; BPH (benign prostatic hyperplasia) N40.0 and Gastroesophageal reflux disease without esophagitis K21.9 [facility] [id number] [place] [address] 12134- 1051 August, Other chronic pain G89.29 [facility] [id number] [place] [address] 76239- 8588 Jul, Medicare welcome exam Z00.00 ; Depressive disorder, not elsewhere classified F32.9 ; Neuropathy G62.9 ; HTN (hypertension) I10 ; BPH ( benign prostatic hyperplasia) N40.0 ; Mitral valve prolapse I34.1 ; Gastroesophageal reflux disease without esophagitis K21.9 and Primary insomnia F51.01 [facility] [id number] [place] [address] 88911- 1347 Jul, Other chronic pain G89.29 [facility] [id number] [place] [address] 14519- 6943 Jun, Other chronic pain G89.29 ; HTN (hypertension) I10 ; Neuropathy G62.9 and Irritable bowel syndrome with constipation K58.1 [facility] [id number] [place] [address] 93384- 6263 Jun, [facility] [id number] [place] [address] 40185- 3842 May, Neuropathy G62.9 [facility] [id number] [place] [address] 46010- 1177 May, Anal pain K62.89 [facility] [id number] [place] [address] 42475- 7755 Apr, [facility] [id number] [place] [address] 96500- 6017 Apr, Neuropathy G62.9 [facility] [facility] [address] [address]- [address] 18 Mar, 2017 Neuropathy G62.9 [facility] [facility] [address] 60874- 6896 Mar, HTN (hypertension) I10 ; Neuropathy G62.9 and Anal itch L29.0 [place] [address] 6[address]61- 4708 Feb, Restless legs syndrome G25.81 [facility] [facility] [address] 40382- 2658 Feb, Neuropathy G62.9 [facility] [facility] [address] 48406- 4170 Jan, Neuropathy G62.9 [place] [address] 84485- 1206 Dec, Grade I hemorrhoids K64.0 and Rectal bleeding K62.5 [facility] [address] 30294- 2454 Dec, Neuropathy G62.9 [place] [address] 01078- 5600 Nov, Neuropathy G62.9 [facility] [address] 48677- 4358 Nov, Neuropathy G62.9 [place] [address] 48699- 9428 Nov, HTN (hypertension) I10 ; Neuropathy G62.9 ; Cavus deformity M21.6X9 ; Mitral valve prolapse I34.1 ; Restless legs syndrome G25.81 ; Gastroesophageal reflux disease without esophagitis K21.9 ; Primary insomnia F51.01 ; BPH (benign prostatic hyperplasia) N40.0 and Actinic keratosis L57.0 [address] [address] 01684- [address]38 Oct, Other chronic pain G89.29 [facility] [id number] [place] [address] 25187- 7345 Oct, HTN (hypertension) I10 ; Neuropathy G62.9 ; BPH (benign prostatic hyperplasia) N40.0 ; Cavus deformity of right foot M21.6X1 ; Mitral valve prolapse I34.1 ; Gastroesophageal reflux disease without esophagitis K21.9 ; Other chronic pain G89.29 ; Primary insomnia F51.01 and Restless legs syndrome G25.81 [facility] [id number] [place] [address] 57106- 9598 Sep, Neuropathy G62.[address] 91819- 9549 Sep, HTN (hypertension) I10 ; BPH (benign prostatic hyperplasia) N40.0 ; Neuropathy G62.9 ; Mitral valve prolapse I34.1 ; Restless legs syndrome G25.81 and Gastroesophageal reflux disease without esophagitis K21.9 [facility] [address] 97847- 0191 Sep, Cavus deformity of right foot M21.6X1 [facility] [facility] [address] 03396- 4173 August, Orthostatic hypotension I95.[address] 11825- 3173 August, HTN (hypertension) I10 ; BPH (benign prostatic hyperplasia) N40.0 ; Hydrocele in adult N43.3 ; Peptic ulcer disease K27.9 ; Restless legs syndrome G25.81 and Cavus deformity of right foot M21.6X1 [facility] [id number] [place] [address] 58596- 2050 Jul, Peptic ulcer disease K27.9 ; Diarrhea, unspecified type R19.7 ; BPH (benign prostatic hyperplasia) N40.0 ; HTN (hypertension) I10 ; Neuropathy G62.9 ; Mitral valve prolapse I34.1 ; Gastroesophageal reflux disease without esophagitis K21.9 and Restless legs syndrome G25.81 [facility] [id number] [place] [address] 16536- 5892 Jul, [facility] [address] 5[address]- 8442 Jul, Cavus deformity M21.6X9 [facility] [id number] [place] [address] 85834- 8959 Jun, Cavus deformity M21.6X9 [facility] [address] 94636- 0674 May, Family history of diabetes mellitus Z83.3 ; BPH (benign prostatic hyperplasia) N40.0 ; Cavus deformity M21.6X9 ; Restless legs syndrome G25.81 ; Gastroesophageal reflux disease without esophagitis K21.9 ; HTN ( hypertension) I10 ; Neuropathy G62.9 and Other chronic pain G89.29 [address] [place] [address] 81242- 9312 Apr, Mitral valve prolapse I34.1 [address] [address] 94674- 9384 Apr, [facility] [address] 70556- 8050 Mar, Other chest pain R07.89 [facility] [id number] [place] [address] 45907- 4611 Mar, [facility] [id number] [place] [address] 62373- 4531 Feb, [facility] [address] 99834- 6994 Jan, [facility] [address] 04290- 5513 Dec, [facility] [id number] [place] [address] 24237- 9261 Dec, BPH (benign prostatic hyperplasia) N40.0 and Wellness examination Z00.00 [facility] [id number] [place] [address] 55843- 0386 10 Nov, 2015 BPH (benign prostatic hyperplasia) N40.0 ; Neuropathy G62.9 ; Cavus deformity M21.6X9 ; 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 ; Mitral valve prolapse I34.1 ; Restless legs syndrome G25.81 ; Depressive disorder, not elsewhere classified F32.9 ; Gastroesophageal reflux disease without esophagitis K21.9 and Wellness examination Z00.00 [facility] [facility] [id number] [place] [address] 86556- 2536 03 Nov, 2015 [address] [place] 31729- 8950 Oct, [facility] [id number] [place] [address] 81671- 1918 Oct, Other chronic pain G89.29 [facility] [address] 64724- 3819 10 Sep, 2015 Pelvic pain R10.2 [facility] [id number] [place] [address] 43515- 8553 August, Other chronic pain G89.29 [facility] [id number] [place] [address] 17958- 8914 05 Aug, 2015 BPH (benign prostatic hyperplasia) N40.0 ; HTN (hypertension ) I10 ; Neuropathy G62.9 ; Gastroesophageal reflux disease without esophagitis K21.9 ; Restless legs syndrome G25.81 and Chronic tension-type headache, intractable G44.221 [facility] [id number] [place] [address] 44139- 0095 Jul, Pelvic pain R10.2 [address] [address] 64130- 1740 Jun, [facility] [id number] [place] [address] 98866- 5089 May, [facility] [place] [address] [place] [address]46 12 May, 2015 Conjunctival hemorrhage of right eye H11.31 [facility] [id number] [place] [address] 01995- 4066 May, [facility] [id number] [place] [address] 96087- 3820 May, BPH (benign prostatic hyperplasia) N40.0 ; Cavus deformity M21.6X9 ; HTN (hypertension) I10 ; Mitral valve prolapse I34.1 ; Pelvic pain R10.2 ; Restless legs syndrome G25.81 ; Varicocele I86.1 and GERD ( gastroesophageal reflux disease) K21.9 [facility] [id number] [place] [address] 77034- 0216 Apr, [facility] [address] 66497- 7397 Apr, Varicocele I86.1 [facility] [id number] [place] [address] 98359- 0563 Apr, Depressive disorder, not elsewhere classified F32.9 [facility] [id number] [place] [address] 02763- 4585 Apr, HTN (hypertension) I10 ; BPH (benign prostatic hyperplasia) N40.0 ; Restless legs syndrome G25.81 ; Neuropathy G62.9 ; Pelvic pain R10.2 and GERD (gastroesophageal reflux disease) K21.9 [facility] [id number] [place] [address] 75401- 9757 Mar, [facility] [id number] [place] [address] 03396- 5717 Mar, [facility] [id number] [place] [address] 21574- 1345 Mar, [facility] [id number] [place] [address] 57390- 8595 Mar, HTN (hypertension) I10 ; Restless legs syndrome G25.81 ; BPH (benign prostatic hyperplasia) N40.0 ; Neuropathy G62.9 ; Cavus deformity of right foot M21.6X1 ; 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 ; Mitral valve prolapse I34.1 and Pelvic pain R10.2 [facility] [address], [place] [address] Mar, [facility] [id number] [place] [address] 37106- 5287 Mar, [facility] [id number] [place] [address] 29593- 3007 Mar, [facility] [address] 57560- 4085 Feb, [facility] [id number] [place] [address] 30899- 3453 Feb, [facility] [id number] [place] [address] 45896- 4351 Feb, [facility] [id number] [place] [address] 29559- 2214 Jan, BPH (benign prostatic hyperplasia) N40.0 ; HTN (hypertension ) I10 ; Neuropathy G62.9 ; Cavus deformity of right foot M21.6X1 ; 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 and Mitral valve prolapse I34.1 [facility] [facility] [id number] [place] [address] 31553- 8294 Jan, BPH (benign prostatic hyperplasia) N40.0 ; Cavus deformity of left foot 736.73 ; Cavus deformity of right foot 736.73 ; Essential hypertension 401.9 ; Restless leg syndrome 333.94 and Chronic pain 338.29 [facility] [id number] [place] [address] 85056- 7651 Jan, [facility] [id number] [place] [address] 19597- 0300 Jan, [facility] [id number] [place] [address] 37486- 0814 17 Dec, 2014 Essential hypertension 401.9 ; Mitral valve prolapse 424.0 ; Restless leg syndrome 333.94 and Chronic pain 338.29 [facility] [id number] [address] 08 Dec, 2014 [place] [facility] [id number] [address] 02 Dec, 2014 Essential hypertension 401.9 ; Restless leg syndrome 333.94 ; Cavus deformity of left foot 736.73 ; Cavus deformity of right foot 736.73 ; Mitral valve prolapse 424.0 ; Chronic hydrocele 603.9 ; BPH (benign prostatic hyperplasia) 600.00 and Routine medical exam V70.0 [facility] [id number] [address]- [address] Nov, [facility] [id number] [place] [address] 00601- 9437 Oct, Essential hypertension 401.9 ; Restless leg syndrome 333.94 ; Cavus deformity of left foot 736.73 ; Cavus deformity of right foot 736.73 and Mitral valve prolapse 424.0 IMMUNIZATIONS No Known Immunizations SOCIAL HISTORY Never Assessed REASON FOR VISIT Pain management (chronic), Check up for new medications for crohns, Spot on right rib larger than a softball that is hurting for about 6-7 days but can't isolate where it is exactly but is bothersome. CBrumbackRN PLAN OF CARE VITAL SIGNS Height 69 in 2017-06-29 Weight 225.2 lbs 2017-06-29 Temperature 97.6 degrees Fahrenheit 2017-06-29 Heart Rate 76 bpm 2017-06-29 Respiratory Rate 20 2017-06-29 BMI 33.25 kg/m2 2017-06-29 Blood pressure systolic 126 mmHg 2017-06-29 Blood pressure diastolic 88 mmHg 2017-06-29 MEDICATIONS Medication Instructions Dosage Frequency Start Date End Date Duration Status Hydrocodone-Acetaminophen 7.5-325 MG Orally 3 times a day 1 tablet as needed 8h Jun, 28 days Active Colace 100 mg Orally 2 times a day 1 capsule as needed 12h 12 Jun, 2017 August, 30 day(s) Active Dexilant 60 MG TAKE ONE CAPSULE BY MOUTH ONCE DAILY 30 Active Tamsulosin HCl 0.4 mg Orally Once a day 1 capsule 24h 90 Active Requip 1 MG Orally Once a day 1 tablet 1 to 3 hours before bedtime 24h Oct, Active Proctosol HC 2.5 % Rectal Twice a day 1 application to affected area 12h 11 Mar, 2017 Active Losartan Potassium 50 MG Orally Once a day 1 tablet 24h 90 days Active Mesalamine 1.2 GM Orally Once a day 2 tablets 24h 08 May, 2017 Jul, Active RESULTS Name Result Date Reference Range AMERITOX 2017-06-29 PROCEDURES Procedure Date Ordered Result Body Site No Charge June 29, 2017 [facility], [facility] VISIT ESTABLISHED PATIENT June 29, 2017 INSTRUCTIONS MEDICATIONS ADMINISTERED No Known Medications [...]
--- OUTSIDE RECORDS SUMMARY | 2018-01-27 15:00 | XMS REPORT ---
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 Name Role Phone LUNA CORRAL Unavailable PROBLEMS Type Condition ICD9-CM Code LQY94-XT Code Onset Dates Condition Status SNOMED Code Problem Depressive disorder, not elsewhere classified F32.9 Active 61431890 Problem Gastroesophageal reflux disease without esophagitis K21.9 Active 376396741 Problem Varicocele I86.1 Active 70258649 Problem Irritable bowel syndrome with constipation K58.1 Active 111338684 Problem Primary insomnia F51.01 Active 2424385 Problem Other chronic pain G89.29 Active 92007677 Problem Chronic tension-type headache, intractable G44.221 Active 752850482 Problem Diarrhea, unspecified type R19.7 Active 05060692 Problem Peptic ulcer disease K27.9 Active 86448280 Problem Mitral valve prolapse I34.1 Active 504647741 Problem Neuropathy G62.9 Active 762811345 Problem BPH (benign prostatic hyperplasia) N40.0 Active 343139750 Problem Cavus deformity of right foot M21.6X1 Active 527277520 Problem Cavus deformity M21.6X9 Active 097931423 Problem HTN (hypertension) I10 Active 04865757 Problem Pelvic pain R10.2 Active 87269906 Problem 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 Active 676672849 Problem Restless legs syndrome G25.81 Active 652284565 ALLERGIES No Information ENCOUNTERS Encounter Location Date Diagnosis [facility] [id number] [address] Sep, Other chronic pain G89.29 [facility] [id number] [address] August, [facility] [id number], [place] [address] August, HTN (hypertension) I10 ; BPH (benign prostatic hyperplasia) N40.0 and Gastroesophageal reflux disease without esophagitis K21.9 [facility] [address] [address] August, Other chronic pain G89.29 [place] [id number] [place] [address] Jul, Medicare welcome exam Z00.00 ; Depressive disorder, not elsewhere classified F32.9 ; Neuropathy G62.9 ; HTN (hypertension) I10 ; BPH ( benign prostatic hyperplasia) N40.0 ; Mitral valve prolapse I34.1 ; Gastroesophageal reflux disease without esophagitis K21.9 and Primary insomnia F51.01 [address] [address] [address] [address] Jul, Other chronic pain G89.29 [place] [address] [address] Jun, Other chronic pain G89.29 ; HTN (hypertension) I10 ; Neuropathy G62.9 and Irritable bowel syndrome with constipation K58.1 [place] [address] [address] Jun, [place] [address] [address] May, Neuropathy G62.9 [place] [address] [address] May, Anal pain K62.89 [place] [address] [address] Apr, [place] [address] [address] Apr, Neuropathy G62.9 [place] [address] [address] Mar, Neuropathy G62.9 [place] [address] [place] [address] Mar, HTN (hypertension) I10 ; Neuropathy G62.9 and Anal itch L29.0 [place] [address] [address] Feb, Restless legs syndrome G25.81 [place] [address] [address] Feb, Neuropathy G62.9 [place] [address] [address] Jan, Neuropathy G62.9 [place] [address] [address] Dec, Grade I hemorrhoids K64.0 and Rectal bleeding K62.5 [place] [address] [address] Dec, Neuropathy G62.9 [place] [address] [address] Nov, Neuropathy G62.9 [place] [address] [address]- [address] Nov, Neuropathy G62.9 [place] [address] [address] Nov, HTN (hypertension) I10 ; Neuropathy G62.9 ; Cavus deformity M21.6X9 ; Mitral valve prolapse I34.1 ; Restless legs syndrome G25.81 ; Gastroesophageal reflux disease without esophagitis K21.9 ; Primary insomnia F51.01 ; BPH (benign prostatic hyperplasia) N40.0 and Actinic keratosis L57.0 [place] [address] [address] Oct, Other chronic pain G89.29 [place] [address] [address] Oct, HTN (hypertension) I10 ; Neuropathy G62.9 ; BPH (benign prostatic hyperplasia) N40.0 ; Cavus deformity of right foot M21.6X1 ; Mitral valve prolapse I34.1 ; Gastroesophageal reflux disease without esophagitis K21.9 ; Other chronic pain G89.29 ; Primary insomnia F51.01 and Restless legs syndrome G25.81 [place] [id number] [place] [address] Sep, Neuropathy G62.9 [place] [address] [address] Sep, HTN (hypertension) I10 ; BPH (benign prostatic hyperplasia) N40.0 ; Neuropathy G62.9 ; Mitral valve prolapse I34.1 ; Restless legs syndrome G25.81 and Gastroesophageal reflux disease without esophagitis K21.9 [place] [id number] [place] [address] Sep, Cavus deformity of right foot M21.6X1 [place] [address] [address] August, Orthostatic hypotension I95.1 [place] [address] [address] August, HTN (hypertension) I10 ; BPH (benign prostatic hyperplasia) N40.0 ; Hydrocele in adult N43.3 ; Peptic ulcer disease K27.9 ; Restless legs syndrome G25.81 and Cavus deformity of right foot M21.6X1 [place] [address] [address] Jul, Peptic ulcer disease K27.9 ; Diarrhea, unspecified type R19.7 ; BPH (benign prostatic hyperplasia) N40.0 ; HTN (hypertension) I10 ; Neuropathy G62.9 ; Mitral valve prolapse I34.1 ; Gastroesophageal reflux disease without esophagitis K21.9 and Restless legs syndrome G25.81 [place] [id number] [place] [address] Jul, [place] [address] [address] [place] [address] Jul, Cavus deformity M21.6X9 [facility] [address] [address] Jun, Cavus deformity M21.6X9 [facility] [address] [address] May, Family history of diabetes mellitus Z83.3 ; BPH (benign prostatic hyperplasia) N40.0 ; Cavus deformity M21.6X9 ; Restless legs syndrome G25.81 ; Gastroesophageal reflux disease without esophagitis K21.9 ; HTN ( hypertension) I10 ; Neuropathy G62.9 and Other chronic pain G89.29 [place] [address] [address]- [address] Apr, Mitral valve prolapse I34.1 [place] [address] [address] Apr, [facility] [address] [address] Mar, Other chest pain R07.89 [place] [address] [address] Mar, [place] [address] [address] Feb, [place] [address] [address] Jan, [place] [address] [address]- [address] Dec, [facility] [address] [address] Dec, BPH (benign prostatic hyperplasia) N40.0 and Wellness examination Z00.00 [facility] [address] [address] Nov, BPH (benign prostatic hyperplasia) N40.0 ; Neuropathy G62.9 ; Cavus deformity M21.6X9 ; 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 ; Mitral valve prolapse I34.1 ; Restless legs syndrome G25.81 ; Depressive disorder, not elsewhere classified F32.9 ; Gastroesophageal reflux disease without esophagitis K21.9 and Wellness examination Z00.00 [place] [id number] [place] [address] Nov, [place] [address] [address] Oct, [place] [address] [address]- [address] Oct, Other chronic pain G89.29 [place] [id number] [place] [address]- [address] Sep, Pelvic pain R10.2 [place] [address] [address] August, Other chronic pain G89.29 [place] [id number] [place] [address]- [address] August, BPH (benign prostatic hyperplasia) N40.0 ; HTN (hypertension ) I10 ; Neuropathy G62.9 ; Gastroesophageal reflux disease without esophagitis K21.9 ; Restless legs syndrome G25.81 and Chronic tension-type headache, intractable G44.221 [place] [id number] [place] [address]- [address] Jul, Pelvic pain R10.2 [place] [id number] [place] [address]- [address] Jun, [place] [id number] [place] [address]- [address]99 May, [place] [id number] [place] [address]- [address] May, Conjunctival hemorrhage of right eye H11.31 [address] [place] [address] May, [place] [id number] [place] [address]- [address] May, BPH (benign prostatic hyperplasia) N40.0 ; Cavus deformity M21.6X9 ; HTN (hypertension) I10 ; Mitral valve prolapse I34.1 ; Pelvic pain R10.2 ; Restless legs syndrome G25.81 ; Varicocele I86.1 and GERD ( gastroesophageal reflux disease) K21.9 [place] [id number] [place] [address]- [address] Apr, [place] [address] [address]- [address] Apr, Varicocele I86.1 [place] [id number] [place] [address]- [address] Apr, Depressive disorder, not elsewhere classified F32.9 [place] [id number] [place] [address]- 2309 Apr, HTN (hypertension) I10 ; BPH (benign prostatic hyperplasia) N40.0 ; Restless legs syndrome G25.81 ; Neuropathy G62.9 ; Pelvic pain R10.2 and GERD (gastroesophageal reflux disease) K21.9 [place] [id number] [place] [address]- [address]297 Mar, [place] [id number] [place] [address]- 9480 Mar, [place] [id number] [place] [address]- 9911 Mar, [place] [id number] [place] [address]07- 7[address] Mar, HTN (hypertension) I10 ; Restless legs syndrome G25.81 ; BPH (benign prostatic hyperplasia) N40.0 ; Neuropathy G62.9 ; Cavus deformity of right foot M21.6X1 ; 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 ; Mitral valve prolapse I34.1 and Pelvic pain R10.2 [facility] [address] [address] Mar, [facility] [address] [place] [address] 46[address]- 4821 Mar, [facility] [id number] [place] [address]15- 0947 Mar, [facility] [id number] [place] [address] 6[address]- [address]273 Feb, [facility] [id number] [place] [address] 99254- 4270 Feb, [facility] [id number] [place] [address] 7[address]99- 6693 Feb, [facility] [id number] [place] [address] 71883- 0181 Jan, BPH (benign prostatic hyperplasia) N40.0 ; HTN (hypertension ) I10 ; Neuropathy G62.9 ; Cavus deformity of right foot M21.6X1 ; 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 and Mitral valve prolapse I34.1 [facility] [address] [place] [address]- 7364 Jan, BPH (benign prostatic hyperplasia) N40.0 ; Cavus deformity of left foot 736.73 ; Cavus deformity of right foot 736.73 ; Essential hypertension 401.9 ; Restless leg syndrome 333.94 and Chronic pain 338.29 [facility] [address], [place] [address] Jan, [facility] [id number] [place] [address] 35309- 0883 Jan, [facility] [address] [place] [address] 7[address]- 3944 Dec, Essential hypertension 401.9 ; Mitral valve prolapse 424.0 ; Restless leg syndrome 333.94 and Chronic pain 338.29 [facility] [address] [facility] [id number] [address] Dec, [facility] [id number] [address] Dec, Essential hypertension 401.9 ; Restless leg syndrome 333.94 ; Cavus deformity of left foot 736.73 ; Cavus deformity of right foot 736.73 ; Mitral valve prolapse 424.0 ; Chronic hydrocele 603.9 ; BPH (benign prostatic hyperplasia) 600.00 and Routine medical exam V70.0 [facility] [address] [facility] [id number] [address] Nov, [facility] [address] [facility] [id number] [address] Oct, Essential hypertension 401.9 ; Restless leg syndrome 333.94 ; Cavus deformity of left foot 736.73 ; Cavus deformity of right foot 736.73 and Mitral valve prolapse 424.0 IMMUNIZATIONS No Known Immunizations SOCIAL HISTORY Never Assessed REASON FOR VISIT Controlled Med Refill 05/04/17 PLAN OF CARE VITAL SIGNS MEDICATIONS Medication Instructions Dosage Frequency Start Date End Date Duration Status Hydrocodone-Acetaminophen 7.5-325 MG Orally 3 times a day 1 tablet as needed 8h Apr, 28 days Active RESULTS No Results PROCEDURES [...] Coagulation for hemrrhoids 07/2017 Hospitalization History possible DC and heart cath 2016 Hospitalization History ER visit for chest pain 2016 Hospitalization History heart problems July 2016
--- OUTSIDE RECORDS SUMMARY | 2018-01-27 15:00 | XMS REPORT ---
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 Name Role Phone LUNA CORRAL Unavailable PROBLEMS Type Condition ICD9-CM Code WEF68-YC Code Onset Dates Condition Status SNOMED Code Problem Depressive disorder, not elsewhere classified F32.9 Active 38915923 Problem Gastroesophageal reflux disease without esophagitis K21.9 Active 802328785 Problem Varicocele I86.1 Active 32415564 Problem Irritable bowel syndrome with constipation K58.1 Active 929762970 Problem Primary insomnia F51.01 Active 7239981 Problem Other chronic pain G89.29 Active 31940920 Problem Chronic tension-type headache, intractable G44.221 Active 112937533 Problem Diarrhea, unspecified type R19.7 Active 89942523 Problem Peptic ulcer disease K27.9 Active 17484827 Problem Mitral valve prolapse I34.1 Active 645010931 Problem Neuropathy G62.9 Active 721528245 Problem BPH (benign prostatic hyperplasia) N40.0 Active 383008213 Problem Cavus deformity of right foot M21.6X1 Active 635071774 Problem Cavus deformity M21.6X9 Active 530496214 Problem HTN (hypertension) I10 Active 21459534 Problem Pelvic pain R10.2 Active 94343589 Problem 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 Active 132668728 Problem Restless legs syndrome G25.81 Active 703448297 ALLERGIES No Known Allergies ENCOUNTERS Encounter Location Date Diagnosis [facility] [id number], [place] [address] August, [facility] [address], [place] [address] August, HTN (hypertension) I10 ; BPH (benign prostatic hyperplasia) N40.0 and Gastroesophageal reflux disease without esophagitis K21.9 [facility] [id number] [place] [address] August, Other chronic pain G89.29 [place] [address] [address] Jul, Medicare welcome exam Z00.00 ; Depressive disorder, not elsewhere classified F32.9 ; Neuropathy G62.9 ; HTN (hypertension) I10 ; BPH ( benign prostatic hyperplasia) N40.0 ; Mitral valve prolapse I34.1 ; Gastroesophageal reflux disease without esophagitis K21.9 and Primary insomnia F51.01 [place] [id number] [place] [address] 98292- 6635 Jul, Other chronic pain G89.29 [place] [id number] [place] [address] 03744- 3798 Jun, Other chronic pain G89.29 ; HTN (hypertension) I10 ; Neuropathy G62.9 and Irritable bowel syndrome with constipation K58.1 [place] [address] [address] Jun, [place] [address] [address] May, Neuropathy G62.9 [place] [address] [address]- [address] 08 May, 2017 Anal pain K62.89 [place] [address] 6[address]78- 0971 Apr, [place] [address] [address]- [address]863 Apr, Neuropathy G62.9 [place] [address] 609[address]- 3951 Mar, Neuropathy G62.9 [place] [address] [address]80- 357[address] 11 Mar, 2017 HTN (hypertension) I10 ; Neuropathy G62.9 and Anal itch L29.0 [place] [id number] [place] [address] 47444- 1349 Feb, Restless legs syndrome G25.81 [place] [address] 43845- [address]42 Feb, Neuropathy G62.9 [place] [address] [address]- [address] Jan, Neuropathy G62.9 [place] [address] 70[address]- 6101 Dec, Grade I hemorrhoids K64.0 and Rectal bleeding K62.5 [place] [address] 39542- 7574 Dec, Neuropathy G62.9 [place] [address] 9[address]89- 5641 Nov, Neuropathy G62.9 [place] [address] 04371- 0216 Nov, Neuropathy G62.9 [place] [address] 70555- 1281 Nov, HTN (hypertension) I10 ; Neuropathy G62.9 ; Cavus deformity M21.6X9 ; Mitral valve prolapse I34.1 ; Restless legs syndrome G25.81 ; Gastroesophageal reflux disease without esophagitis K21.9 ; Primary insomnia F51.01 ; BPH (benign prostatic hyperplasia) N40.0 and Actinic keratosis L57.0 [place] [id number] [place] [address] 85165- 2961 Oct, Other chronic pain G89.29 [place] [address] 74279- 9061 Oct, HTN (hypertension) I10 ; Neuropathy G62.9 ; BPH (benign prostatic hyperplasia) N40.0 ; Cavus deformity of right foot M21.6X1 ; Mitral valve prolapse I34.1 ; Gastroesophageal reflux disease without esophagitis K21.9 ; Other chronic pain G89.29 ; Primary insomnia F51.01 and Restless legs syndrome G25.81 [place] [id number] [place] [address] 31916- 5563 Sep, Neuropathy G62.9 [place] [id number] [place] [address] 38371- 9175 Sep, HTN (hypertension) I10 ; BPH (benign prostatic hyperplasia) N40.0 ; Neuropathy G62.9 ; Mitral valve prolapse I34.1 ; Restless legs syndrome G25.81 and Gastroesophageal reflux disease without esophagitis K21.9 [place] [id number] [place] [address] 08386- 3253 Sep, Cavus deformity of right foot M21.6X1 [place] [id number] [place] [address] 70791- 9856 August, Orthostatic hypotension I95.1 [place] [id number] [place] [address] 74468- 3680 August, HTN (hypertension) I10 ; BPH (benign prostatic hyperplasia) N40.0 ; Hydrocele in adult N43.3 ; Peptic ulcer disease K27.9 ; Restless legs syndrome G25.81 and Cavus deformity of right foot M21.6X1 [place] [address] [place] [address] 78870- 4445 Jul, Peptic ulcer disease K27.9 ; Diarrhea, unspecified type R19.7 ; BPH (benign prostatic hyperplasia) N40.0 ; HTN (hypertension) I10 ; Neuropathy G62.9 ; Mitral valve prolapse I34.1 ; Gastroesophageal reflux disease without esophagitis K21.9 and Restless legs syndrome G25.81 [place] [id number] [place] [address] 07511- 4131 Jul, [place] [id number] [place] [address] 48446- 9239 Jul, Cavus deformity M21.6X9 [place] [id number] [place] [address] 96807- 8963 Jun, Cavus deformity M21.6X9 [place] [address] 85787- 59[address] 09 May, 2016 Family history of diabetes mellitus Z83.3 ; BPH (benign prostatic hyperplasia) N40.0 ; Cavus deformity M21.6X9 ; Restless legs syndrome G25.81 ; Gastroesophageal reflux disease without esophagitis K21.9 ; HTN ( hypertension) I10 ; Neuropathy G62.9 and Other chronic pain G89.29 [place] [address] 53362- 77[address] Apr, Mitral valve prolapse I34.1 [place] [address] 63382- 2267 Apr, [place] [address] 81056- 6614 Mar, Other chest pain R07.89 [place] [address] 12032- [address] Mar, [place] [address] 63420- 0268 Feb, [place] [address] 99355- 0248 Jan, [place] [address] 92968- 5478 Dec, [place] [address] 55668- 9867 07 Dec, 2015 BPH (benign prostatic hyperplasia) N40.0 and Wellness examination Z00.00 [place] [address] 73964- 0112 Nov, BPH (benign prostatic hyperplasia) N40.0 ; Neuropathy G62.9 ; Cavus deformity M21.6X9 ; 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 ; Mitral valve prolapse I34.1 ; Restless legs syndrome G25.81 ; Depressive disorder, not elsewhere classified F32.9 ; Gastroesophageal reflux disease without esophagitis K21.9 and Wellness examination Z00.00 [place] [id number] [place] [address] 05000- 4703 Nov, [place] [id number] [place] [address] 78569- 6511 Oct, [place] [address] 8[address]15- 9450 Oct, Other chronic pain G89.29 [place] [address] 27868- 3114 Sep, Pelvic pain R10.2 [place] [address] 45640- 0852 August, Other chronic pain G89.29 [place] [address] 15167- 1519 August, BPH (benign prostatic hyperplasia) N40.0 ; HTN (hypertension ) I10 ; Neuropathy G62.9 ; Gastroesophageal reflux disease without esophagitis K21.9 ; Restless legs syndrome G25.81 and Chronic tension-type headache, intractable G44.221 [place] [id number] [place] [address] 85047- 7011 Jul, Pelvic pain R10.2 [place] [id number] [place] [address] 68572- 4291 Jun, [place] [id number] [place] [address] 38271- 3172 May, [place] [address] 56498- 6455 May, Conjunctival hemorrhage of right eye H11.31 [place] [id number] [place] [address] 38378- 1259 May, [place] [address] [address]- 1996 May, BPH (benign prostatic hyperplasia) N40.0 ; Cavus deformity M21.6X9 ; HTN (hypertension) I10 ; Mitral valve prolapse I34.1 ; Pelvic pain R10.2 ; Restless legs syndrome G25.81 ; Varicocele I86.1 and GERD ( gastroesophageal reflux disease) K21.9 [place] [address] 64149- 1678 Apr, [place] [address] 86055- 1476 Apr, Varicocele I86.1 [place] [address] 82063- 2632 Apr, Depressive disorder, not elsewhere classified F32.9 [place] [id number] [place] [address] 47858- 1962 Apr, HTN (hypertension) I10 ; BPH (benign prostatic hyperplasia) N40.0 ; Restless legs syndrome G25.81 ; Neuropathy G62.9 ; Pelvic pain R10.2 and GERD (gastroesophageal reflux disease) K21.9 [place] [address] 13318- 0646 Mar, [place] [id number] [place] [address] 75984- 6228 Mar, [place] [address] 86591- 5178 Mar, [place] [id number] [place] [address] 08296- 3454 Mar, HTN (hypertension) I10 ; Restless legs syndrome G25.81 ; BPH (benign prostatic hyperplasia) N40.0 ; Neuropathy G62.9 ; Cavus deformity of right foot M21.6X1 ; 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 ; Mitral valve prolapse I34.1 and Pelvic pain R10.2 [place] [id number] [place] [address] 69789- 0066 Mar, [facility] [address], [place] [address] Mar, [facility] [address] [place] [address] 45108- 9126 Mar, [facility] [address] [place] [address] 35807- 4684 Feb, [facility] [id number] [place] [address] 24059- 7566 Feb, [facility] [address] [place] [address] 90405- 3755 Feb, [facility] [address] [place] [address] 555712- 4616 Jan, BPH (benign prostatic hyperplasia) N40.0 ; HTN (hypertension ) I10 ; Neuropathy G62.9 ; Cavus deformity of right foot M21.6X1 ; 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 and Mitral valve prolapse I34.1 [facility] [address] [place] [address] 26964- 7873 Jan, Cavus deformity of left foot 736.73 ; Cavus deformity of right foot 736.73 ; BPH (benign prostatic hyperplasia) N40.0 ; Essential hypertension 401.9 ; Restless leg syndrome 333.94 and Chronic pain 338.29 [facility] [address] [place] [address] 51562- 1380 Jan, [facility] [address] [place] [address] 97458- 3864 Jan, [facility] [id number] [place] [address] 17571- 2601 Dec, Essential hypertension 401.9 ; Mitral valve prolapse 424.0 ; Restless leg syndrome 333.94 and Chronic pain 338.29 [facility] [address] [place] [address] 51315- 6403 Dec, [facility] [address] [facility] [id number] [address] 2546 Dec, Essential hypertension 401.9 ; Restless leg syndrome 333.94 ; Cavus deformity of left foot 736.73 ; Cavus deformity of right foot 736.73 ; Mitral valve prolapse 424.0 ; Chronic hydrocele 603.9 ; BPH (benign prostatic hyperplasia) 600.00 and Routine medical exam V70.0 [facility] [address] [facility] [id number] [address] 6[address] Nov, [facility] [address] [facility] [id number], [place] [address]- [address] Oct, Essential hypertension 401.9 ; Restless leg syndrome 333.94 ; Cavus deformity of left foot 736.73 ; Cavus deformity of right foot 736.73 and Mitral valve prolapse 424.0 IMMUNIZATIONS No Known Immunizations SOCIAL HISTORY Never Assessed REASON FOR VISIT Transition of Care, needs refills-[facility] OLEARY PLAN OF CARE VITAL SIGNS Height 69 in 2017-03-30 Weight 223.4 lbs 2017-03-30 Temperature 97.9 degrees Fahrenheit 2017-03-30 Heart Rate 78 bpm 2017-03-30 Respiratory Rate 20 2017-03-30 BMI 32.99 kg/m2 2017-03-30 Blood pressure systolic 112 mmHg 2017-03-30 Blood pressure diastolic 76 mmHg 2017-03-30 MEDICATIONS Medication Instructions Dosage Frequency Start Date End Date Duration Status Losartan Potassium 50 MG Orally Once a day 1 tablet 24h Active Hydrocodone-Acetaminophen 7.5-325 MG Orally 3 times a day 1 tablet as needed 8h Feb, 28 days Active Proctosol HC 2.5 % Rectal Twice a day 1 application to affected area 12h Mar, Active Tamsulosin HCl 0.4 MG Orally Once a day 1 capsule 24h Active Requip 1 MG Orally Once a day 1 tablet 1 to 3 hours before bedtime 24h Oct, Active Dexilant 60 mg Orally Once a day 1 capsule 24h May, Active RESULTS No Results PROCEDURES Procedure Date Ordered Result Body Site [facility] VISIT ESTABLISHED PATIENT Mar 30, 2017 INSTRUCTIONS MEDICATIONS ADMINISTERED No Known Medications MEDICAL (GENERAL) HISTORY Type Description Date Medical History hypertension Medical History RLS Medical History Cavus Foot Medical History DDD; dx Feb [address] Waldron Medical History 4/26/17 heart cath- everything was clear Surgical History cholecystectomy 2012 Surgical History vasectomy Surgical History heart cath x 2 2013 and 2016 Surgical History cystostopy 09/18/2016 Surgical History colonoscopy 01/2017 Surgical History Fissuer repair 01/2017 Surgical History Infra Red Internal Coagulation for hemrrhoids 07/2017 Hospitalization History possible [place] and heart cath 2016 Hospitalization History ER visit for chest pain 2017 Hospitalization History heart problems July 2016
--- OUTSIDE RECORDS SUMMARY | 2018-01-27 15:01 | XMS REPORT ---
Author Author LUNA CORRAL Organization [facility] Address [address] [place] [address] Care Team Providers Care Technical Specialist Name Role Phone LUNA CORRAL Unavailable PROBLEMS Type Condition ICD9-CM Code OIR77-GC Code Onset Dates Condition Status SNOMED Code Problem Depressive disorder, not elsewhere classified F32.9 Active 71642440 Problem Gastroesophageal reflux disease without esophagitis K21.9 Active 515989456 Problem Varicocele I86.1 Active 31691159 Problem Irritable bowel syndrome with constipation K58.1 Active 950527422 Problem Primary insomnia F51.01 Active 4741587 Problem Other chronic pain G89.29 Active 82709797 Problem Chronic tension-type headache, intractable G44.221 Active 350705419 Problem Diarrhea, unspecified type R19.7 Active 08493648 Problem Peptic ulcer disease K27.9 Active 31783279 Problem Mitral valve prolapse I34.1 Active 376347122 Problem Neuropathy G62.9 Active 007170664 Problem BPH (benign prostatic hyperplasia) N40.0 Active 461989678 Problem Cavus deformity of right foot M21.6X1 Active 199706571 Problem Cavus deformity M21.6X9 Active 405275005 Problem HTN (hypertension) I10 Active 13317465 Problem Pelvic pain R10.2 Active 41424386 Problem 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 Active 409719471 Problem Restless legs syndrome G25.81 Active 572150554 ALLERGIES No Information ENCOUNTERS Encounter Location Date Diagnosis [facility] [id number] [address] Sep, Other chronic pain G89.29 [facility] [id number] [address] August, [facility] [id number] [address] August, HTN (hypertension) I10 ; BPH (benign prostatic hyperplasia) N40.0 and Gastroesophageal reflux disease without esophagitis K21.9 [facility] [address] [address] August, Other chronic pain G89.29 [address] [place] [id number] [place] [address] Jul, Medicare welcome exam Z00.00 ; Depressive disorder, not elsewhere classified F32.9 ; Neuropathy G62.9 ; HTN (hypertension) I10 ; BPH ( benign prostatic hyperplasia) N40.0 ; Mitral valve prolapse I34.1 ; Gastroesophageal reflux disease without esophagitis K21.9 and Primary insomnia F51.01 [place] [address] [address] Jul, Other chronic pain G89.29 [place] [address] [address] Jun, Other chronic pain G89.29 ; HTN (hypertension) I10 ; Neuropathy G62.9 and Irritable bowel syndrome with constipation K58.1 [place] [address] [address] Jun, [place] [address] [address] May, Neuropathy G62.9 [place] [address] [address] May, Anal pain K62.89 [place] [address] [address] Apr, [place] [address] [address] Apr, Neuropathy G62.9 [place] [address] [address] Mar, Neuropathy G62.9 [place] [address] [place] [address] Mar, HTN (hypertension) I10 ; Neuropathy G62.9 and Anal itch L29.0 [place] [address] [address] Feb, Restless legs syndrome G25.81 [place] [address] [address] Feb, Neuropathy G62.9 [place] [address] [address] Jan, Neuropathy G62.9 [place] [address] [address] Dec, Grade I hemorrhoids K64.0 and Rectal bleeding K62.5 [place] [address] [address] Dec, Neuropathy G62.9 [place] [address] [address] Nov, Neuropathy G62.9 [place] [address] [address] Nov, Neuropathy G62.9 [place] [address] [address] Nov, HTN (hypertension) I10 ; Neuropathy G62.9 ; Cavus deformity M21.6X9 ; Mitral valve prolapse I34.1 ; Restless legs syndrome G25.81 ; Gastroesophageal reflux disease without esophagitis K21.9 ; Primary insomnia F51.01 ; BPH (benign prostatic hyperplasia) N40.0 and Actinic keratosis L57.0 [place] [address] [address] Oct, Other chronic pain G89.29 [place] [address] [address] Oct, HTN (hypertension) I10 ; Neuropathy G62.9 ; BPH (benign prostatic hyperplasia) N40.0 ; Cavus deformity of right foot M21.6X1 ; Mitral valve prolapse I34.1 ; Gastroesophageal reflux disease without esophagitis K21.9 ; Other chronic pain G89.29 ; Primary insomnia F51.01 and Restless legs syndrome G25.81 [place] [id number] [place] [address]- [address] Sep, Neuropathy G62.9 [place] [address] [address] Sep, HTN (hypertension) I10 ; BPH (benign prostatic hyperplasia) N40.0 ; Neuropathy G62.9 ; Mitral valve prolapse I34.1 ; Restless legs syndrome G25.81 and Gastroesophageal reflux disease without esophagitis K21.9 [place] [id number] [place] [address]10- 7[address] Sep, Cavus deformity of right foot M21.6X1 [place] [address] [address] August, Orthostatic hypotension I95.1 [place] [address] [address] August, HTN (hypertension) I10 ; BPH (benign prostatic hyperplasia) N40.0 ; Hydrocele in adult N43.3 ; Peptic ulcer disease K27.9 ; Restless legs syndrome G25.81 and Cavus deformity of right foot M21.6X1 [place] [address] [address] Jul, Peptic ulcer disease K27.9 ; Diarrhea, unspecified type R19.7 ; BPH (benign prostatic hyperplasia) N40.0 ; HTN (hypertension) I10 ; Neuropathy G62.9 ; Mitral valve prolapse I34.1 ; Gastroesophageal reflux disease without esophagitis K21.9 and Restless legs syndrome G25.81 [place] [id number] [place] [address] Jul, [place] [address] [place] [address] Jul, Cavus deformity M21.6X9 [facility] [address] [address] Jun, Cavus deformity M21.6X9 [facility] [address] [address] May, Family history of diabetes mellitus Z83.3 ; BPH (benign prostatic hyperplasia) N40.0 ; Cavus deformity M21.6X9 ; Restless legs syndrome G25.81 ; Gastroesophageal reflux disease without esophagitis K21.9 ; HTN ( hypertension) I10 ; Neuropathy G62.9 and Other chronic pain G89.29 [place] [address] [address]- [address] Apr, Mitral valve prolapse I34.1 [place] [address] [address] Apr, [facility] [address] [address] Mar, Other chest pain R07.89 [place] [address] [address] Mar, [place] [address] [address] Feb, [place] [address] [address] Jan, [place] [address] [address] Dec, [facility] [address] [address] Dec, BPH (benign prostatic hyperplasia) N40.0 and Wellness examination Z00.00 [facility] [address] [address] Nov, BPH (benign prostatic hyperplasia) N40.0 ; Neuropathy G62.9 ; Cavus deformity M21.6X9 ; 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 ; Mitral valve prolapse I34.1 ; Restless legs syndrome G25.81 ; Depressive disorder, not elsewhere classified F32.9 ; Gastroesophageal reflux disease without esophagitis K21.9 and Wellness examination Z00.00 [place] [id number] [place] [address] Nov, [place] [address] [address] Oct, [place] [address] [address] Oct, Other chronic pain G89.29 [place] [id number] [place] [address]- 10[address] Sep, Pelvic pain R10.2 [place] [address] [address]- [address] August, Other chronic pain G89.29 [place] [id number] [place] [address]- [address] August, BPH (benign prostatic hyperplasia) N40.0 ; HTN (hypertension ) I10 ; Neuropathy G62.9 ; Gastroesophageal reflux disease without esophagitis K21.9 ; Restless legs syndrome G25.81 and Chronic tension-type headache, intractable G44.221 [place] [id number] [place] [address]- 0[address] Jul, Pelvic pain R10.2 [place] [id number] [place] [address]- 46[address] Jun, [place] [id number] [place] [address]- [address]6 May, [place] [id number] [place] [address]- [address] May, Conjunctival hemorrhage of right eye H11.31 [address] [place] [address] May, [place] [id number] [place] [address]- [address] May, BPH (benign prostatic hyperplasia) N40.0 ; Cavus deformity M21.6X9 ; HTN (hypertension) I10 ; Mitral valve prolapse I34.1 ; Pelvic pain R10.2 ; Restless legs syndrome G25.81 ; Varicocele I86.1 and GERD ( gastroesophageal reflux disease) K21.9 [place] [id number] [place] [address] 31284- 9733 Apr, [place] [address] [address]- [address] Apr, Varicocele I86.1 [place] [id number] [place] [address] 20350- 8319 Apr, Depressive disorder, not elsewhere classified F32.9 [place] [id number] [place] [address] 03692- 5659 Apr, HTN (hypertension) I10 ; BPH (benign prostatic hyperplasia) N40.0 ; Restless legs syndrome G25.81 ; Neuropathy G62.9 ; Pelvic pain R10.2 and GERD (gastroesophageal reflux disease) K21.9 [place] [id number] [place] [address]677- 1504 Mar, [place] [id number] [place] [address] 09140- 9406 Mar, [place] [id number] [place] [address] 97[address]- 2740 Mar, [place] [id number] [place] [address] 05854- 5829 Mar, HTN (hypertension) I10 ; Restless legs syndrome G25.81 ; BPH (benign prostatic hyperplasia) N40.0 ; Neuropathy G62.9 ; Cavus deformity of right foot M21.6X1 ; 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 ; Mitral valve prolapse I34.1 and Pelvic pain R10.2 [facility] [address] [address] Mar, [facility] [address] [place] [address] 30[address]- 3914 Mar, [facility] [id number] [place] [address] 31576- 5433 Mar, [facility] [id number] [place] [address] 52643- 4688 Feb, [facility] [id number] [place] [address] 85753- 0773 Feb, [facility] [id number] [place] [address] 624[address]- 5213 Feb, [facility] [id number] [place] [address] 61440- 3796 Jan, BPH (benign prostatic hyperplasia) N40.0 ; HTN (hypertension ) I10 ; Neuropathy G62.9 ; Cavus deformity of right foot M21.6X1 ; 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 and Mitral valve prolapse I34.1 [facility] [address] [place] [address] 55853- 4485 Jan, Cavus deformity of left foot 736.73 ; Cavus deformity of right foot 736.73 ; BPH (benign prostatic hyperplasia) N40.0 ; Essential hypertension 401.9 ; Restless leg syndrome 333.94 and Chronic pain 338.29 [facility] [address], [place] [address] Jan, [facility] [id number] [place] [address] 27308- 1629 Jan, [facility] [address] [place] [address] 11212- 2701 Dec, Essential hypertension 401.9 ; Mitral valve prolapse 424.0 ; Restless leg syndrome 333.94 and Chronic pain 338.29 [facility] [address] [facility] [id number] [address] Dec, [facility] [id number] [address] Dec, 2014 Essential hypertension 401.9 ; Restless leg syndrome 333.94 ; Cavus deformity of left foot 736.73 ; Cavus deformity of right foot 736.73 ; Mitral valve prolapse 424.0 ; Chronic hydrocele 603.9 ; BPH (benign prostatic hyperplasia) 600.00 and Routine medical exam V70.0 [facility] [address] [facility] [id number] [address] Nov, [facility] [address] [facility] [id number] [address] Oct, Essential hypertension 401.9 ; Restless leg syndrome 333.94 ; Cavus deformity of left foot 736.73 ; Cavus deformity of right foot 736.73 and Mitral valve prolapse 424.0 IMMUNIZATIONS No Known Immunizations SOCIAL HISTORY Never Assessed REASON FOR VISIT Controlled Med Refill 06/01/17 PLAN OF CARE VITAL SIGNS MEDICATIONS Medication Instructions Dosage Frequency Start Date End Date Duration Status Hydrocodone-Acetaminophen 7.5-325 MG Orally 3 times a day 1 tablet as needed 8h May, 28 days Active RESULTS No Results PROCEDURES [...] Coagulation for hemrrhoids 07/2017 Hospitalization History possible [place] and heart cath 2016 Hospitalization History ER visit for chest pain 2017 Hospitalization History heart problems July 2016
--- OUTSIDE RECORDS SUMMARY | 2018-01-27 15:01 | XMS REPORT ---
Author Author LUNA CORRAL Organization [facility] Address [address] [place] [address] Care Team Providers Care Dramatic Teacher Name Role Phone LUNA CORRAL Unavailable PROBLEMS Type Condition ICD9-CM Code TEG17-CP Code Onset Dates Condition Status SNOMED Code Problem Depressive disorder, not elsewhere classified F32.9 Active 23202698 Problem Gastroesophageal reflux disease without esophagitis K21.9 Active 141009974 Problem Varicocele I86.1 Active 45520382 Problem Irritable bowel syndrome with constipation K58.1 Active 401222175 Problem Primary insomnia F51.01 Active 6237592 Problem Other chronic pain G89.29 Active 25882319 Problem Chronic tension-type headache, intractable G44.221 Active 803626521 Problem Diarrhea, unspecified type R19.7 Active 69353440 Problem Peptic ulcer disease K27.9 Active 06752775 Problem Mitral valve prolapse I34.1 Active 928504359 Problem Neuropathy G62.9 Active 927298427 Problem BPH (benign prostatic hyperplasia) N40.0 Active 291412726 Problem Cavus deformity of right foot M21.6X1 Active 587417962 Problem Cavus deformity M21.6X9 Active 569836049 Problem HTN (hypertension) I10 Active 50619739 Problem Pelvic pain R10.2 Active 43653785 Problem 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 Active 755839951 Problem Restless legs syndrome G25.81 Active 823630640 ALLERGIES No Information ENCOUNTERS Encounter Location Date Diagnosis [facility] [id number], [place] [address] Sep, Other chronic pain G89.29 [facility] [id number], [place] [address] August, [facility] [id number], [place] [address] August, HTN (hypertension) I10 ; BPH (benign prostatic hyperplasia) N40.0 and Gastroesophageal reflux disease without esophagitis K21.9 [facility] [address] [address] August, Other chronic pain G89.29 [address] [address] [id number] [place] [address] Jul, Medicare welcome exam Z00.00 ; Depressive disorder, not elsewhere classified F32.9 ; Neuropathy G62.9 ; HTN (hypertension) I10 ; BPH ( benign prostatic hyperplasia) N40.0 ; Mitral valve prolapse I34.1 ; Gastroesophageal reflux disease without esophagitis K21.9 and Primary insomnia F51.01 [place] [address] [address] Jul, Other chronic pain G89.29 [place] [address] [address] Jun, Other chronic pain G89.29 ; HTN (hypertension) I10 ; Neuropathy G62.9 and Irritable bowel syndrome with constipation K58.1 [place] [address] [address] Jun, [place] [address] [address] May, Neuropathy G62.9 [place] [address] [address] May, Anal pain K62.89 [place] [address] [address] Apr, [place] [address] [address] Apr, Neuropathy G62.9 [place] [address] [address] Mar, Neuropathy G62.9 [place] [address] [place] [address] Mar, HTN (hypertension) I10 ; Neuropathy G62.9 and Anal itch L29.0 [place] [address] [address] Feb, Restless legs syndrome G25.81 [place] [address] [address] Feb, Neuropathy G62.9 [place] [address] [address] Jan, Neuropathy G62.9 [place] [address] [address] Dec, Grade I hemorrhoids K64.0 and Rectal bleeding K62.5 [place] [address] [address] Dec, Neuropathy G62.9 [place] [address] [address] Nov, Neuropathy G62.9 [place] [address] [address] Nov, Neuropathy G62.9 [place] [address] [address]- [address] Nov, HTN (hypertension) I10 ; Neuropathy G62.9 ; Cavus deformity M21.6X9 ; Mitral valve prolapse I34.1 ; Restless legs syndrome G25.81 ; Gastroesophageal reflux disease without esophagitis K21.9 ; Primary insomnia F51.01 ; BPH (benign prostatic hyperplasia) N40.0 and Actinic keratosis L57.0 [place] [address] [address] Oct, Other chronic pain G89.29 [place] [address] [address] Oct, HTN (hypertension) I10 ; Neuropathy G62.9 ; BPH (benign prostatic hyperplasia) N40.0 ; Cavus deformity of right foot M21.6X1 ; Mitral valve prolapse I34.1 ; Gastroesophageal reflux disease without esophagitis K21.9 ; Other chronic pain G89.29 ; Primary insomnia F51.01 and Restless legs syndrome G25.81 [place] [id number] [place] [address] Sep, Neuropathy G62.9 [place] [address] [address] Sep, HTN (hypertension) I10 ; BPH (benign prostatic hyperplasia) N40.0 ; Neuropathy G62.9 ; Mitral valve prolapse I34.1 ; Restless legs syndrome G25.81 and Gastroesophageal reflux disease without esophagitis K21.9 [place] [id number] [place] [address] Sep, Cavus deformity of right foot M21.6X1 [place] [address] [address] August, Orthostatic hypotension I95.1 [place] [address] [address] August, HTN (hypertension) I10 ; BPH (benign prostatic hyperplasia) N40.0 ; Hydrocele in adult N43.3 ; Peptic ulcer disease K27.9 ; Restless legs syndrome G25.81 and Cavus deformity of right foot M21.6X1 [place] [address] [address]- [address] Jul, Peptic ulcer disease K27.9 ; Diarrhea, unspecified type R19.7 ; BPH (benign prostatic hyperplasia) N40.0 ; HTN (hypertension) I10 ; Neuropathy G62.9 ; Mitral valve prolapse I34.1 ; Gastroesophageal reflux disease without esophagitis K21.9 and Restless legs syndrome G25.81 [place] [id number] [place] [address] Jul, [place] [address] [place] [address] Jul, Cavus deformity M21.6X9 [facility] [address] [address] Jun, Cavus deformity M21.6X9 [facility] [address] [address] May, Family history of diabetes mellitus Z83.3 ; BPH (benign prostatic hyperplasia) N40.0 ; Cavus deformity M21.6X9 ; Restless legs syndrome G25.81 ; Gastroesophageal reflux disease without esophagitis K21.9 ; HTN ( hypertension) I10 ; Neuropathy G62.9 and Other chronic pain G89.29 [place] [address] [address] Apr, Mitral valve prolapse I34.1 [place] [address] [address] Apr, [facility] [address] [address]- [address] Mar, Other chest pain R07.89 [place] [address] [address] Mar, [place] [address] [address] Feb, [place] [address] [address] Jan, [place] [address] [address] Dec, [facility] [address] [address]- [address] Dec, BPH (benign prostatic hyperplasia) N40.0 and Wellness examination Z00.00 [facility] [address] [address]- [address] Nov, BPH (benign prostatic hyperplasia) N40.0 ; Neuropathy G62.9 ; Cavus deformity M21.6X9 ; 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 ; Mitral valve prolapse I34.1 ; Restless legs syndrome G25.81 ; Depressive disorder, not elsewhere classified F32.9 ; Gastroesophageal reflux disease without esophagitis K21.9 and Wellness examination Z00.00 [place] [id number] [place] [address] Nov, [place] [address] [address] Oct, [place] [address] [address] Oct, Other chronic pain G89.29 [facility] [id number] [place] [address] Sep, Pelvic pain R10.2 [place] [address] [address]- [address] August, Other chronic pain G89.29 [facility] [id number] [place] [address]- [address] August, BPH (benign prostatic hyperplasia) N40.0 ; HTN (hypertension ) I10 ; Neuropathy G62.9 ; Gastroesophageal reflux disease without esophagitis K21.9 ; Restless legs syndrome G25.81 and Chronic tension-type headache, intractable G44.221 [place] [id number] [place] [address]- [address] Jul, Pelvic pain R10.2 [facility] [id number] [place] [address]- [address] Jun, [place] [id number] [place] [address]- [address] May, [place] [id number] [place] [address] 30[address]- [address] May, Conjunctival hemorrhage of right eye H11.31 [address] [place] [address] May, [place] [id number] [place] [address]- [address] May, BPH (benign prostatic hyperplasia) N40.0 ; Cavus deformity M21.6X9 ; HTN (hypertension) I10 ; Mitral valve prolapse I34.1 ; Pelvic pain R10.2 ; Restless legs syndrome G25.81 ; Varicocele I86.1 and GERD ( gastroesophageal reflux disease) K21.9 [facility] [id number] [place] [address]- [address] Apr, [place] [address] [address]- [address] Apr, Varicocele I86.1 [facility] [id number] [place] [address]- 8195 Apr, Depressive disorder, not elsewhere classified F32.9 [facility] [id number] [place] [address] 6[address]99- [address]183 Apr, HTN (hypertension) I10 ; BPH (benign prostatic hyperplasia) N40.0 ; Restless legs syndrome G25.81 ; Neuropathy G62.9 ; Pelvic pain R10.2 and GERD (gastroesophageal reflux disease) K21.9 [place] [id number] [place] [address] 8[address]46- [address] Mar, [place] [id number] [place] [address]67- [address]270 Mar, [place] [id number] [place] [address] 66076- [address] Mar, [place] [id number] [place] [address]24- 46[address] Mar, HTN (hypertension) I10 ; Restless legs syndrome G25.81 ; BPH (benign prostatic hyperplasia) N40.0 ; Neuropathy G62.9 ; Cavus deformity of right foot M21.6X1 ; 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 ; Mitral valve prolapse I34.1 and Pelvic pain R10.2 [facility] [address], [place] [address] Mar, [facility] [address] [place] [address]01- 2770 Mar, [facility] [id number] [place] [address] 99966- 3[address] Mar, [facility] [id number] [place] [address] 97447- 9078 Feb, [facility] [id number] [place] [address] 6[address]89- 4566 Feb, [facility] [id number] [place] [address]20- 5[address] Feb, [facility] [id number] [place] [address] 33848- 7022 Jan, BPH (benign prostatic hyperplasia) N40.0 ; HTN (hypertension ) I10 ; Neuropathy G62.9 ; Cavus deformity of right foot M21.6X1 ; 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 and Mitral valve prolapse I34.1 [facility] [address] [place] [address]92- 5572 Jan, BPH (benign prostatic hyperplasia) N40.0 ; Cavus deformity of left foot 736.73 ; Cavus deformity of right foot 736.73 ; Essential hypertension 401.9 ; Restless leg syndrome 333.94 and Chronic pain 338.29 [facility] [address], [place] [address]- [address] Jan, [facility] [id number] [place] [address] 92043- [address]004 Jan, [facility] [address] [place] [address] 64605- 2985 Dec, Essential hypertension 401.9 ; Mitral valve prolapse 424.0 ; Restless leg syndrome 333.94 and Chronic pain 338.29 [facility] [address] [facility] [id number] [address] 08 Dec, 2014 [facility] [id number] [address] 02 Dec, 2014 Essential hypertension 401.9 ; Restless leg syndrome 333.94 ; Cavus deformity of left foot 736.73 ; Cavus deformity of right foot 736.73 ; Mitral valve prolapse 424.0 ; Chronic hydrocele 603.9 ; BPH (benign prostatic hyperplasia) 600.00 and Routine medical exam V70.0 [facility] [address] [facility] [id number] [address] Nov, [place] [address] [facility] [id number] [address] Oct, Essential hypertension 401.9 ; Restless leg syndrome 333.94 ; Cavus deformity of left foot 736.73 ; Cavus deformity of right foot 736.73 and Mitral valve prolapse 424.0 IMMUNIZATIONS No Known Immunizations SOCIAL HISTORY Never Assessed REASON FOR VISIT Controlled Refill Request PLAN OF CARE VITAL SIGNS MEDICATIONS Medication Instructions Dosage Frequency Start Date End Date Duration Status Hydrocodone-Acetaminophen 7.5-325 MG Orally 3 times a day 1 tablet as needed 8h Mar, 28 days Active RESULTS No Results PROCEDURES [...] Coagulation for hemrrhoids 07/2017 Hospitalization History possible NE and heart cath 2016 Hospitalization History ER visit for chest pain 2017 Hospitalization History heart problems July 2016
--- OUTSIDE RECORDS SUMMARY | 2018-01-27 15:02 | XMS REPORT ---
Author Author JANET CORA Organization [facility] Address [address] [place] [address] Care Team Providers Care Parer Name Role Phone CORA GONZALES Unavailable PROBLEMS Type Condition ICD9-CM Code WDV45-PB Code Onset Dates Condition Status SNOMED Code Problem Restless legs syndrome G25.81 Active 813323488 Problem Varicocele I86.1 Active 19454620 Problem Depressive disorder, not elsewhere classified F32.9 Active 70484713 Problem Primary insomnia F51.01 Active 6932536 Problem Peptic ulcer disease K27.9 Active 94749412 Problem Chronic tension-type headache, intractable G44.221 Active 595708475 Problem Gastroesophageal reflux disease without esophagitis K21.9 Active 152685724 Problem Diarrhea, unspecified type R19.7 Active 56498920 Problem Other chronic pain G89.29 Active 44056087 Problem BPH (benign prostatic hyperplasia) N40.0 Active 125346288 Problem Mitral valve prolapse I34.1 Active 850882063 Problem 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 Active 510475691 Problem Cavus deformity of right foot M21.6X1 Active 018660875 Problem Neuropathy G62.9 Active 194122395 Problem Cavus deformity M21.6X9 Active 075719732 Problem HTN (hypertension) I10 Active 28075153 Problem Pelvic pain R10.2 Active 13746901 ALLERGIES No Information SOCIAL HISTORY Never Assessed [...] Surgical History cystostopy 09/18/2016 Hospitalization History possible NE and heart cath 2016 Hospitalization History ER visit for chest pain 2016 Hospitalization History heart problems July 2016
--- OUTSIDE RECORDS SUMMARY | 2018-01-27 15:02 | XMS REPORT ---
Author Author ASHA BEASLEY Organization [facility] [place] Address [address] [place] [address] Care Team Providers Care Rib Puller Name Role Phone ASHA BEASLEY Unavailable PROBLEMS Type Condition ICD9-CM Code [id number] Code Onset Dates Condition Status SNOMED Code Problem Depressive disorder, not elsewhere classified F32.9 Active 56692628 Problem Gastroesophageal reflux disease without esophagitis K21.9 Active 131859846 Problem Varicocele I86.1 Active 18561487 Problem Irritable bowel syndrome with constipation K58.1 Active 729440935 Problem Primary insomnia F51.01 Active 9136551 Problem Other chronic pain G89.29 Active 13758631 Problem Chronic tension-type headache, intractable G44.221 Active 802603824 Problem Diarrhea, unspecified type R19.7 Active 78574449 Problem Peptic ulcer disease K27.9 Active 42068363 Problem Mitral valve prolapse I34.1 Active 791103647 Problem Neuropathy G62.9 Active 514398626 Problem BPH (benign prostatic hyperplasia) N40.0 Active 832663517 Problem Cavus deformity of right foot M21.6X1 Active 727816431 Problem Cavus deformity M21.6X9 Active 007841841 Problem HTN (hypertension) I10 Active 66362700 Problem Pelvic pain R10.2 Active 72359855 Problem 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 Active 519916719 Problem Restless legs syndrome G25.81 Active 347171082 ALLERGIES No Known Allergies ENCOUNTERS Encounter Location Date Diagnosis [facility] [place] [address] [facility] [id number] [address] Jul, Medicare welcome exam Z00.00 ; Depressive disorder, not elsewhere classified F32.9 ; Neuropathy G62.9 ; HTN (hypertension) I10 ; BPH ( benign prostatic hyperplasia) N40.0 ; Mitral valve prolapse I34.1 ; Gastroesophageal reflux disease without esophagitis K21.9 and Primary insomnia F51.01 [facility] [place] [id number] [place] [address]- [address] 11 Jul, 2017 Other chronic pain G89.29 [facility] [place] [address] [address] 12 Jun, 2017 Other chronic pain G89.29 ; HTN (hypertension) I10 ; Neuropathy G62.9 and Irritable bowel syndrome with constipation K58.1 [facility] [place] [address] [address] 09 Jun, 2017 [facility] [place] [address] [address] May, Neuropathy G62.9 [facility] [place] [address] [address] 08 May, 2017 Anal pain K62.89 [facility] [place] [address] [address] Apr, [facility] [place] [address] [address] Apr, Neuropathy G62.9 [facility] [place] [address] [address] Mar, Neuropathy G62.9 [facility] [place] [address] [address] Mar, HTN (hypertension) I10 ; Neuropathy G62.9 and Anal itch L29.0 [facility] [place] [id number] [place] [address]- [address] Feb, Restless legs syndrome G25.81 [facility] [place] [address] [address] Feb, Neuropathy G62.9 [facility] [place] [address] [address] Jan, Neuropathy G62.9 [facility] [place] [address] [place] [address] Dec, Grade I hemorrhoids K64.0 and Rectal bleeding K62.5 [place] [address] [address] Dec, Neuropathy G62.9 [facility] [id number] [place] [address] 7[address]26- [address] Nov, Neuropathy G62.9 [facility] [id number] [place] [address] 9[address]- 7660 Nov, Neuropathy G62.9 [facility] [id number] [place] [address] 24534- 6055 Nov, HTN (hypertension) I10 ; Neuropathy G62.9 ; Cavus deformity M21.6X9 ; Mitral valve prolapse I34.1 ; Restless legs syndrome G25.81 ; Gastroesophageal reflux disease without esophagitis K21.9 ; Primary insomnia F51.01 ; BPH (benign prostatic hyperplasia) N40.0 and Actinic keratosis L57.0 [facility] [facility] [id number] [place] [address] 07105- 4367 Oct, Other chronic pain G89.29 [facility] [id number] [place] [address] 59138- 4667 Oct, HTN (hypertension) I10 ; Neuropathy G62.9 ; BPH (benign prostatic hyperplasia) N40.0 ; Cavus deformity of right foot M21.6X1 ; Mitral valve prolapse I34.1 ; Gastroesophageal reflux disease without esophagitis K21.9 ; Other chronic pain G89.29 ; Primary insomnia F51.01 and Restless legs syndrome G25.81 [facility] [facility] [id number] [place] [address] 7[address]10- [address]85 Sep, Neuropathy G62.9 [facility] [id number] [place] [address] 24771- 1271 Sep, HTN (hypertension) I10 ; BPH (benign prostatic hyperplasia) N40.0 ; Neuropathy G62.9 ; Mitral valve prolapse I34.1 ; Restless legs syndrome G25.81 and Gastroesophageal reflux disease without esophagitis K21.9 [facility] [id number] [place] [address] 9[address]27- 9575 Sep, Cavus deformity of right foot M21.6X1 [place] [address] [address] August, Orthostatic hypotension I95.1 [place] [address] [address]- [address] August, HTN (hypertension) I10 ; BPH (benign prostatic hyperplasia) N40.0 ; Hydrocele in adult N43.3 ; Peptic ulcer disease K27.9 ; Restless legs syndrome G25.81 and Cavus deformity of right foot M21.6X1 [place] [address] [address]- [address] Jul, Peptic ulcer disease K27.9 ; Diarrhea, unspecified type R19.7 ; BPH (benign prostatic hyperplasia) N40.0 ; HTN (hypertension) I10 ; Neuropathy G62.9 ; Mitral valve prolapse I34.1 ; Gastroesophageal reflux disease without esophagitis K21.9 and Restless legs syndrome G25.81 [facility] [facility] [id number] [place] [address] 5[address]- [address] Jul, [facility] [id number] [place] [address]26- 2476 Jul, Cavus deformity M21.6X9 [place] [address] [address]- [address] Jun, Cavus deformity M21.6X9 [place] [address] [address]- [address] May, Family history of diabetes mellitus Z83.3 ; BPH (benign prostatic hyperplasia) N40.0 ; Cavus deformity M21.6X9 ; Restless legs syndrome G25.81 ; Gastroesophageal reflux disease without esophagitis K21.9 ; HTN ( hypertension) I10 ; Neuropathy G62.9 and Other chronic pain G89.29 [facility] [place] [id number] [place] [address] 6[address]- 8206 Apr, Mitral valve prolapse I34.1 [facility] [place] [id number] [place] [address] 45212- 8063 Apr, [facility] [place] [id number] [place] [address] 21489- 3433 Mar, Other chest pain R07.89 [facility] [place] [id number] [place] [address] 79858- 8409 Mar, [place] [address] [address] Feb, [place] [id number] [place] [address] 23945- 7145 Jan, [place] [id number] [place] [address] 79835- 6510 Dec, [facility] [place] [id number] [place] [address] 38129- 58[address] 07 Dec, 2015 BPH (benign prostatic hyperplasia) N40.0 and Wellness examination Z00.00 [facility] [id number] [place] [address] 15416- 9833 Nov, BPH (benign prostatic hyperplasia) N40.0 ; Neuropathy G62.9 ; Cavus deformity M21.6X9 ; 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 ; Mitral valve prolapse I34.1 ; Restless legs syndrome G25.81 ; Depressive disorder, not elsewhere classified F32.9 ; Gastroesophageal reflux disease without esophagitis K21.9 and Wellness examination Z00.00 [place] [id number] [place] [address] 22265- 3524 Nov, [place] [id number] [place] [address] 90378- 9297 Oct, [place] [id number] [place] [address] 58101- 4238 Oct, Other chronic pain G89.29 [facility] [place] [id number] [place] [address] 09769- 9513 Sep, Pelvic pain R10.2 [facility] [place] [id number] [place] [address] 75551- 2666 August, Other chronic pain G89.29 [place] [id number] [place] [address] 24251- 1542 August, BPH (benign prostatic hyperplasia) N40.0 ; HTN (hypertension ) I10 ; Neuropathy G62.9 ; Gastroesophageal reflux disease without esophagitis K21.9 ; Restless legs syndrome G25.81 and Chronic tension-type headache, intractable G44.221 [place] [id number] [place] [address] 64876- 4183 Jul, Pelvic pain R10.2 [facility] [id number] [place] [address] 05540- 3548 Jun, [place] [id number] [place] [address] 93322- 3771 May, [place] [id number] [place] [address] 49229- 6378 May, Conjunctival hemorrhage of right eye H11.31 [place] [id number] [place] [address] 35827- 9112 May, [place] [id number] [place] [address] 87660- 1521 May, BPH (benign prostatic hyperplasia) N40.0 ; Cavus deformity M21.6X9 ; HTN (hypertension) I10 ; Mitral valve prolapse I34.1 ; Pelvic pain R10.2 ; Restless legs syndrome G25.81 ; Varicocele I86.1 and GERD ( gastroesophageal reflux disease) K21.9 [place] [address] [address] Apr, [place] [id number] [place] [address] 45786- 1246 Apr, Varicocele I86.1 [place] [address] [address]- 2151 Apr, Depressive disorder, not elsewhere classified F32.9 [place] [address] [address]- [address]37 Apr, HTN (hypertension) I10 ; BPH (benign prostatic hyperplasia) N40.0 ; Restless legs syndrome G25.81 ; Neuropathy G62.9 ; Pelvic pain R10.2 and GERD (gastroesophageal reflux disease) K21.9 [place] [address] [address]- [address] Mar, [place] [address] 0[address]32- 48[address] Mar, [place] [address] [address]16- 9[address] Mar, [place] [address] [address]36- 2[address] Mar, HTN (hypertension) I10 ; Restless legs syndrome G25.81 ; BPH (benign prostatic hyperplasia) N40.0 ; Neuropathy G62.9 ; Cavus deformity of right foot M21.6X1 ; 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 ; Mitral valve prolapse I34.1 and Pelvic pain R10.2 [place] [id number] [place] [address] 72143- 5705 Mar, [place] [id number] [place] [address] 98052- 3636 Mar, [place] [address] 41767- 9587 Mar, [place] [id number] [place] [address] 95545- 6772 Feb, [place] [address] 72680- 2075 Feb, [place] [id number] [place] [address] 11680- 1745 Feb, [place] [id number] [place] [address] 682724- 5341 Jan, BPH (benign prostatic hyperplasia) N40.0 ; HTN (hypertension ) I10 ; Neuropathy G62.9 ; Cavus deformity of right foot M21.6X1 ; 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 and Mitral valve prolapse I34.1 [place] [id number] [place] [address] 56920- 9340 Jan, BPH (benign prostatic hyperplasia) N40.0 ; Cavus deformity of left foot 736.73 ; Cavus deformity of right foot 736.73 ; Essential hypertension 401.9 ; Restless leg syndrome 333.94 and Chronic pain 338.29 [id number] [place] [address] 20960- 5370 Jan, [place] [id number] [place] [address] 17056- 7045 Jan, [place] [id number] [place] [address] 85534- 3510 Dec, Essential hypertension 401.9 ; Mitral valve prolapse 424.0 ; Restless leg syndrome 333.94 and Chronic pain 338.29 [address] [id number] [place] [address] 73959- 9265 Dec, [place] [id number] [place] [address] 92243- 6542 Dec, Essential hypertension 401.9 ; Restless leg syndrome 333.94 ; Cavus deformity of left foot 736.73 ; Cavus deformity of right foot 736.73 ; Mitral valve prolapse 424.0 ; Chronic hydrocele 603.9 ; BPH (benign prostatic hyperplasia) 600.00 and Routine medical exam V70.0 [place] [id number] [place] [address] 81700- 6582 Nov, [facility] [place] [address] [facility] [id number] [place] [address]- [address] Oct, Essential hypertension 401.9 ; Restless leg syndrome 333.94 ; Cavus deformity of left foot 736.73 ; Cavus deformity of right foot 736.73 and Mitral valve prolapse 424.0 IMMUNIZATIONS No Known Immunizations SOCIAL HISTORY Never Assessed REASON FOR VISIT blood in stool,This has been going on for 6 weeks now and the bleeding is with every bowl movment and sometimes with no movment- Beulah VÍCTOR OLEARY has never had a colonoscopy PLAN OF CARE Activity Details Follow Up prn Reason: VITAL SIGNS Height 69 in 2017-01-15 Weight 224.4 lbs 2017-01-15 Temperature 97.9 degrees Fahrenheit 2017-01-15 Heart Rate 88 bpm 2017-01-15 Respiratory Rate 18 2017-01-15 BMI 33.13 kg/m2 2017-01-15 Blood pressure systolic 126 mmHg 2017-01-15 Blood pressure diastolic 82 mmHg 2017-01-15 MEDICATIONS Medication Instructions Dosage Frequency Start Date End Date Duration Status Requip 1 MG Orally Once a day 1 tablet 1 to 3 hours before bedtime 24h Oct, Active Dexilant 60 mg Orally Once a day 1 capsule 24h May, Active Hydrocodone-Acetaminophen 7.5-325 MG Orally 3 times a day 1 tablet as needed 8h Dec, 28 days Active Anusol-HC 25 MG Rectal Twice a day 1 suppository 12h Dec, Jan, 05 days Active Amitriptyline HCl 10 MG Orally Once a day 1 tablet 24h Active Cozaar 50 MG Orally Once a day 1 tablet 24h Sep, Active Tamsulosin HCl 0.4 MG Orally Once a day 1 capsule 24h Active RESULTS No Results PROCEDURES Procedure Date Ordered Result Body Site [facility] VISIT ESTABLISHED PATIENT Jan 15, 2017 INSTRUCTIONS MEDICATIONS ADMINISTERED No Known [...] Hospitalization History possible [place] and heart cath 2016 Hospitalization History ER visit for chest pain 2016 Hospitalization History heart problems July 2016
--- OUTSIDE RECORDS SUMMARY | 2018-01-27 15:02 | XMS REPORT ---
Author Author ASHA BEASLEY [facility] Address [address] [place] [address] Care Team Providers Care Certified Nursing Assistant Name Role Phone ASHA BEASLEY Unavailable PROBLEMS Type Condition ICD9-CM Code [id number] Code Onset Dates Condition Status SNOMED Code Problem Restless legs syndrome G25.81 Active 163412818 Problem Varicocele I86.1 Active 03690144 Problem Depressive disorder, not elsewhere classified F32.9 Active 17261754 Problem Primary insomnia F51.01 Active 2904521 Problem Peptic ulcer disease K27.9 Active 74046465 Problem Chronic tension-type headache, intractable G44.221 Active 550411356 Problem Gastroesophageal reflux disease without esophagitis K21.9 Active 652489780 Problem Diarrhea, unspecified type R19.7 Active 87714907 Problem Other chronic pain G89.29 Active 25175652 Problem BPH (benign prostatic hyperplasia) N40.0 Active 057901427 Problem Mitral valve prolapse I34.1 Active 239227772 Problem 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 Active 530119047 Problem Cavus deformity of right foot M21.6X1 Active 546337072 Problem Neuropathy G62.9 Active 633264998 Problem Cavus deformity M21.6X9 Active 582109103 Problem HTN (hypertension) I10 Active 79320946 Problem Pelvic pain R10.2 Active 26797542 ALLERGIES No Known Allergies SOCIAL HISTORY Never Assessed PLAN OF CARE Activity Details Follow Up prn Reason: VITAL SIGNS Height 69 in 2016-08-22 Weight 216.5 lbs 2016-08-22 Temperature 97.5 degrees Fahrenheit 2016-08-22 Heart Rate 80 bpm 2016-08-22 Respiratory Rate 18 2016-08-22 BMI 31.97 kg/m2 2016-08-22 Blood pressure systolic 118 mmHg 2016-08-22 Blood pressure diastolic 80 mmHg 2016-08-22 MEDICATIONS Medication Instructions Dosage Frequency Start Date End Date Duration Status Lomotil 2.5-0.025 MG Orally 3 times a day 1 tablet as needed 8h Jul, Active Tamsulosin HCl 0.4 MG Orally Once a day 1 capsule 24h Active Metoprolol Tartrate 50 mg Orally Once a day 1 tablet with food 24h Jul, Active Requip 1 MG Orally Once a day 1 tablet 1 to 3 hours before bedtime 24h Oct, Active Hydrocodone-Acetaminophen 7.5-325 MG Orally 3 times a day 1 tablet as needed 8h August, 28 days Active Dexilant 60 mg Orally Once a day 1 capsule 24h May, Active RESULTS Name Result Date Reference Range CBC 2016-08-22 WBC 7.7 3.4-10.8 RBC 5.25 4.14-5.80 Hemoglobin 16.7 12.6-17.7 Hematocrit 48.4 37.5-51.0 MCV 92 79-97 MCH 31.8 26.6-33.0 MCHC 34.5 31.5-35.7 RDW 14.2 12.3-15.4 Platelets 244 150-379 Neutrophils 60 Lymphs 24 Monocytes 13 Eos 3 Basos 0 Neutrophils (Absolute) 4.6 1.4-7.0 Lymphs (Absolute) 1.9 0.7-3.1 Monocytes(Absolute) 1.0 0.1-0.9 Eos (Absolute) 0.2 0.0-0.4 Baso (Absolute) 0.0 0.0-0.2 Immature Granulocytes 0 Immature Grans (Abs) 0.0 0.0-0.1 BMP 2016-08-22 Glucose, Serum 96 65-99 BUN 15 6-24 Creatinine, Serum 1.03 0.76-1.27 eGFR If NonAfricn Am 80 >59 eGFR If Africn Am 93 >59 BUN/Creatinine Ratio 15 9-20 Sodium, Serum 140 134-144 Potassium, Serum 4.0 3.5-5.2 Chloride, Serum 103 96-106 Carbon Dioxide, Total 20 18-29 Calcium, Serum 9.2 8.7-10.2 PROCEDURES Procedure Date Ordered Result Body Site [facility] August 22, 2016 VENIPUNCT, ROUTINE* August 22, 2016 [facility] VISIT ESTABLISHED PATIENT August 22, 2016 IMMUNIZATIONS No Known Immunizations MEDICAL (GENERAL) [...]
--- OUTSIDE RECORDS SUMMARY | 2018-01-27 15:03 | XMS REPORT ---
Author Author ASHA BEASLEY Organization [facility] Address [address] [place] [address] Care Team Providers Care Auto Glass Installer Name Role Phone ASHA BEASLEY Unavailable PROBLEMS Type Condition ICD9-CM Code PES29-XX Code Onset Dates Condition Status SNOMED Code Problem Depressive disorder, not elsewhere classified F32.9 Active 17483666 Problem Gastroesophageal reflux disease without esophagitis K21.9 Active 818072818 Problem Varicocele I86.1 Active 55197964 Problem Irritable bowel syndrome with constipation K58.1 Active 259445455 Problem Primary insomnia F51.01 Active 5944638 Problem Other chronic pain G89.29 Active 85252114 Problem Chronic tension-type headache, intractable G44.221 Active 990711259 Problem Diarrhea, unspecified type R19.7 Active 97306008 Problem Peptic ulcer disease K27.9 Active 77891274 Problem Mitral valve prolapse I34.1 Active 345175631 Problem Neuropathy G62.9 Active 283997940 Problem BPH (benign prostatic hyperplasia) N40.0 Active 982188798 Problem Cavus deformity of right foot M21.6X1 Active 105340889 Problem Cavus deformity M21.6X9 Active 225698484 Problem HTN (hypertension) I10 Active 69079759 Problem Pelvic pain R10.2 Active 82238889 Problem 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 Active 999937201 Problem Restless legs syndrome G25.81 Active 849191745 ALLERGIES No Information ENCOUNTERS Encounter Location Date Diagnosis [facility] [id number] [address] Jul, Medicare welcome exam Z00.00 [facility] [id number] [address] Jul, Other chronic pain G89.29 [facility] [id number] [place] [address]21[address] Jun, Other chronic pain G89.29 ; HTN (hypertension) I10 ; Neuropathy G62.9 and Irritable bowel syndrome with constipation K58.1 [facility] [id number] [place] [address]56[address] 8973 Jun, [facility] [address] [address] May, Neuropathy G62.9 [facility] [address] [address] May, Anal pain K62.89 [place] [address] [address] Apr, [facility] [address] [address] Apr, Neuropathy G62.9 [facility] [address] [address] Mar, Neuropathy G62.9 [facility] [address] [address] Mar, HTN (hypertension) I10 ; Neuropathy G62.9 and Anal itch L29.0 [facility] [id number] [place] [address] 26718- 7639 Feb, Restless legs syndrome G25.81 [facility] [address] [address] Feb, Neuropathy G62.9 [facility] [id number] [place] [address] 53769- 1298 Jan, Neuropathy G62.9 [facility] [address] [address]- [address] 28 Dec, 2016 Grade I hemorrhoids K64.0 and Rectal bleeding K62.5 [place] [address] [address]- [address] Dec, Neuropathy G62.9 [place] [address] [address] Nov, Neuropathy G62.9 [place] [id number] [place] [address] 71927- 7936 Nov, Neuropathy G62.9 [place] [id number] [place] [address] 81536- 1832 Nov, HTN (hypertension) I10 ; Neuropathy G62.9 ; Cavus deformity M21.6X9 ; Mitral valve prolapse I34.1 ; Restless legs syndrome G25.81 ; Gastroesophageal reflux disease without esophagitis K21.9 ; Primary insomnia F51.01 ; BPH (benign prostatic hyperplasia) N40.0 and Actinic keratosis L57.0 [place] [id number] [place] [address] 9[address]23- 1239 Oct, Other chronic pain G89.29 [place] [address] [address] Oct, HTN (hypertension) I10 ; Neuropathy G62.9 ; BPH (benign prostatic hyperplasia) N40.0 ; Cavus deformity of right foot M21.6X1 ; Mitral valve prolapse I34.1 ; Gastroesophageal reflux disease without esophagitis K21.9 ; Other chronic pain G89.29 ; Primary insomnia F51.01 and Restless legs syndrome G25.81 [place] [id number] [place] [address] 34898- 8237 Sep, Neuropathy G62.9 [place] [id number] [place] [address] 62458- 3590 Sep, HTN (hypertension) I10 ; BPH (benign prostatic hyperplasia) N40.0 ; Neuropathy G62.9 ; Mitral valve prolapse I34.1 ; Restless legs syndrome G25.81 and Gastroesophageal reflux disease without esophagitis K21.9 [place] [id number] [place] [address] 22840- 3298 Sep, Cavus deformity of right foot M21.6X1 [place] [address] [address] August, Orthostatic hypotension I95.1 [place] [address] 13914- [address] August, HTN (hypertension) I10 ; BPH (benign prostatic hyperplasia) N40.0 ; Hydrocele in adult N43.3 ; Peptic ulcer disease K27.9 ; Restless legs syndrome G25.81 and Cavus deformity of right foot M21.6X1 [address] [address] 56797- [address] Jul, Peptic ulcer disease K27.9 ; Diarrhea, unspecified type R19.7 ; BPH (benign prostatic hyperplasia) N40.0 ; HTN (hypertension) I10 ; Neuropathy G62.9 ; Mitral valve prolapse I34.1 ; Gastroesophageal reflux disease without esophagitis K21.9 and Restless legs syndrome G25.81 [place] [address] [address]686- [address] Jul, [place] [address] 7[address]- [address] Jul, Cavus deformity M21.6X9 [place] [address] 17734- 6[address] Jun, Cavus deformity M21.6X9 [place] [address] 30712- 1006 May, Family history of diabetes mellitus Z83.3 ; BPH (benign prostatic hyperplasia) N40.0 ; Cavus deformity M21.6X9 ; Restless legs syndrome G25.81 ; Gastroesophageal reflux disease without esophagitis K21.9 ; HTN ( hypertension) I10 ; Neuropathy G62.9 and Other chronic pain G89.29 [place] [address] [address]- [address] Apr, Mitral valve prolapse I34.1 [place] [address] [place] [address] Apr, [facility] [id number] [place] [address] 53178[address] 8035 Mar, Other chest pain R07.89 [facility] [id number] [place] [address] 34513- 6041 Mar, [facility] [id number] [place] [address] 77967- 6964 Feb, [facility] [id number] [place] [address] 11992- 1807 Jan, [facility] [id number] [place] [address] 37149- 0321 Dec, [facility] [address] [place] [address] 89542- 0131 07 Dec, 2015 BPH (benign prostatic hyperplasia) N40.0 and Wellness examination Z00.00 [place] [address] [place] [address] 26158- 1037 Nov, BPH (benign prostatic hyperplasia) N40.0 ; Neuropathy G62.9 ; Cavus deformity M21.6X9 ; 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 ; Mitral valve prolapse I34.1 ; Restless legs syndrome G25.81 ; Depressive disorder, not elsewhere classified F32.9 ; Gastroesophageal reflux disease without esophagitis K21.9 and Wellness examination Z00.00 [facility] [address] [place] [address] 59740- 0123 Nov, [facility] [address] [place] [address] 88673- 2982 Oct, [facility] [id number] [place] [address] 45948- 3569 Oct, Other chronic pain G89.29 [place] [address] [place] [address] 76547- 6325 Sep, Pelvic pain R10.2 [place] [id number] [place] [address] 01558- 6866 August, Other chronic pain G89.29 [place] [address] 611[address]- [address] August, BPH (benign prostatic hyperplasia) N40.0 ; HTN (hypertension ) I10 ; Neuropathy G62.9 ; Gastroesophageal reflux disease without esophagitis K21.9 ; Restless legs syndrome G25.81 and Chronic tension-type headache, intractable G44.221 [address] [address] 56840- 1747 Jul, Pelvic pain R10.2 [place] [address] 35514- 2699 Jun, [place] [address] [address]- 1027 May, [address] [address] May, Conjunctival hemorrhage of right eye H11.31 [place] [address] 42674- 37[address] May, [place] [address] 86770- 8676 May, BPH (benign prostatic hyperplasia) N40.0 ; Cavus deformity M21.6X9 ; HTN (hypertension) I10 ; Mitral valve prolapse I34.1 ; Pelvic pain R10.2 ; Restless legs syndrome G25.81 ; Varicocele I86.1 and GERD ( gastroesophageal reflux disease) K21.9 [place] [id number] [place] [address] 47854- 0228 Apr, [address] [address]- 8[address] Apr, Varicocele I86.1 [place] [id number] [place] [address] 11953- 2173 Apr, Depressive disorder, not elsewhere classified F32.9 [facility] [id number] [place] [address] 09609- 6591 Apr, HTN (hypertension) I10 ; BPH (benign prostatic hyperplasia) N40.0 ; Restless legs syndrome G25.81 ; Neuropathy G62.9 ; Pelvic pain R10.2 and GERD (gastroesophageal reflux disease) K21.9 [facility] [address] 13292- 1823 Mar, [facility] [id number] [place] [address] 91434- 6744 Mar, [facility] [address] 96418- 4747 Mar, [facility] [id number] [place] [address] 62489- 5015 Mar, HTN (hypertension) I10 ; Restless legs syndrome G25.81 ; BPH (benign prostatic hyperplasia) N40.0 ; Neuropathy G62.9 ; Cavus deformity of right foot M21.6X1 ; 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 ; Mitral valve prolapse I34.1 and Pelvic pain R10.2 [facility] [id number] [place] [address] 19939- 9338 Mar, [facility] [id number] [place] [address] 63084- 4284 Mar, [facility] [id number] [place] [address] 24732- 3006 Mar, [facility] [id number] [place] [address] 20576- 0902 Feb, [facility] [id number] [place] [address] 77235- 3375 Feb, [facility] [id number] [place] [address] 65305- 2506 Feb, [facility] [address] [address]- [address] Jan, BPH (benign prostatic hyperplasia) N40.0 ; HTN (hypertension ) I10 ; Neuropathy G62.9 ; Cavus deformity of right foot M21.6X1 ; 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 and Mitral valve prolapse I34.1 [facility] [address] [place] [address] 15653- 9366 Jan, BPH (benign prostatic hyperplasia) N40.0 ; Cavus deformity of left foot 736.73 ; Cavus deformity of right foot 736.73 ; Essential hypertension 401.9 ; Restless leg syndrome 333.94 and Chronic pain 338.29 [address] [id number] [place] [address] 49862- 2284 Jan, [place] [id number] [place] [address] 17018- 0034 Jan, [facility] [id number] [place] [address] 54943- 8947 Dec, Essential hypertension 401.9 ; Mitral valve prolapse 424.0 ; Restless leg syndrome 333.94 and Chronic pain 338.29 [place] [id number] [place] [address] 64870- 5728 Dec, [place] [id number] [place] [address] 37007- 0307 Dec, Essential hypertension 401.9 ; Restless leg syndrome 333.94 ; Cavus deformity of left foot 736.73 ; Cavus deformity of right foot 736.73 ; Mitral valve prolapse 424.0 ; Chronic hydrocele 603.9 ; BPH (benign prostatic hyperplasia) 600.00 and Routine medical exam V70.0 [place] [id number] [place] [address] 62815- 5571 Nov, [place] [id number] [place] [address] 80121- 2294 Oct, Essential hypertension 401.9 ; Restless leg [...] colonoscopy 01/2017 Surgical History Fissuer repair 01/2017 Hospitalization History possible [place] and heart cath 2016 Hospitalization History ER visit for chest pain 2017 Hospitalization History heart problems July 2016
--- OUTSIDE RECORDS SUMMARY | 2018-01-27 15:03 | XMS REPORT ---
Author Author CORA Mckee Organization [facility] Address [address] [place] [address] Care Team Providers Care Systems Integrator Name Role Phone Rafi CORA Unavailable PROBLEMS Type Condition ICD9-CM Code BEJ09-UH Code Onset Dates Condition Status SNOMED Code Problem Depressive disorder, not elsewhere classified F32.9 Active 90668032 Problem Gastroesophageal reflux disease without esophagitis K21.9 Active 952202536 Problem Varicocele I86.1 Active 37118254 Problem Irritable bowel syndrome with constipation K58.1 Active 337718763 Problem Primary insomnia F51.01 Active 2341778 Problem Other chronic pain G89.29 Active 81929303 Problem Chronic tension-type headache, intractable G44.221 Active 291071247 Problem Diarrhea, unspecified type R19.7 Active 85583562 Problem Peptic ulcer disease K27.9 Active 65013816 Problem Mitral valve prolapse I34.1 Active 093050619 Problem Neuropathy G62.9 Active 736228545 Problem BPH (benign prostatic hyperplasia) N40.0 Active 950025568 Problem Cavus deformity of right foot M21.6X1 Active 010970413 Problem Cavus deformity M21.6X9 Active 625499184 Problem HTN (hypertension) I10 Active 36344428 Problem Pelvic pain R10.2 Active 10289958 Problem 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 Active 028836818 Problem Restless legs syndrome G25.81 Active [id number] ALLERGIES No Information ENCOUNTERS Encounter Location Date Diagnosis [facility] [address] [id number] [address] Jul, Medicare welcome exam Z00.00 [facility] [address] [facility] [id number] [address] Jun, Other chronic pain G89.29 ; HTN (hypertension) I10 ; Neuropathy G62.9 and Irritable bowel syndrome with constipation K58.1 [facility] [id number] [place] [address] Jun, [facility] [address] [address] 11 May, 2017 Neuropathy G62.9 [facility] [address] [address] 08 May, 2017 Anal pain K62.89 [facility] [address] [address] Apr, [facility] [address] [address] Apr, Neuropathy G62.9 [facility] [address] [address]- [address] Mar, Neuropathy G62.9 [facility] [address] [address]- [address] 11 Mar, 2017 HTN (hypertension) I10 ; Neuropathy G62.9 and Anal itch L29.0 [facility] [address] [address] Feb, Restless legs syndrome G25.81 [facility] [address] [address] Feb, Neuropathy G62.9 [facility] [address] [address] Jan, Neuropathy G62.9 [facility] [id number] [place] [address] 9[address]56- 7634 28 Dec, 2016 Grade I hemorrhoids K64.0 and Rectal bleeding K62.5 [facility] [id number] [place] [address] 72310- 0153 21 Dec, 2016 Neuropathy G62.9 [facility] [address] [address] Nov, Neuropathy G62.9 [address] [address] [place] [address] 59945- 7369 Nov, Neuropathy G62.9 [place] [id number] [place] [address] 53429- 9490 Nov, HTN (hypertension) I10 ; Neuropathy G62.9 ; Cavus deformity M21.6X9 ; Mitral valve prolapse I34.1 ; Restless legs syndrome G25.81 ; Gastroesophageal reflux disease without esophagitis K21.9 ; Primary insomnia F51.01 ; BPH (benign prostatic hyperplasia) N40.0 and Actinic keratosis L57.0 [place] [id number] [place] [address] 7[address]40- 7415 Oct, Other chronic pain G89.29 [place] [id number] [place] [address] 10509- 8457 Oct, HTN (hypertension) I10 ; Neuropathy G62.9 ; BPH (benign prostatic hyperplasia) N40.0 ; Cavus deformity of right foot M21.6X1 ; Mitral valve prolapse I34.1 ; Gastroesophageal reflux disease without esophagitis K21.9 ; Other chronic pain G89.29 ; Primary insomnia F51.01 and Restless legs syndrome G25.81 [facility] [id number] [place] [address] 09027- 0147 Sep, Neuropathy G62.9 [place] [id number] [place] [address] 84738- 9637 Sep, HTN (hypertension) I10 ; BPH (benign prostatic hyperplasia) N40.0 ; Neuropathy G62.9 ; Mitral valve prolapse I34.1 ; Restless legs syndrome G25.81 and Gastroesophageal reflux disease without esophagitis K21.9 [place] [id number] [place] [address] 40261- 5990 Sep, Cavus deformity of right foot M21.6X1 [place] [id number] [place] [address] 39007- 8545 August, Orthostatic hypotension I95.1 [place] [address] [address]47- [address] August, HTN (hypertension) I10 ; BPH (benign prostatic hyperplasia) N40.0 ; Hydrocele in adult N43.3 ; Peptic ulcer disease K27.9 ; Restless legs syndrome G25.81 and Cavus deformity of right foot M21.6X1 [place] [address] 3[address]- [address] Jul, Peptic ulcer disease K27.9 ; Diarrhea, unspecified type R19.7 ; BPH (benign prostatic hyperplasia) N40.0 ; HTN (hypertension) I10 ; Neuropathy G62.9 ; Mitral valve prolapse I34.1 ; Gastroesophageal reflux disease without esophagitis K21.9 and Restless legs syndrome G25.81 [place] [address] 41118- 8[address] Jul, [place] [address] 406[address]- [address] Jul, Cavus deformity M21.6X9 [place] [address] 8[address]90- 2[address] Jun, Cavus deformity M21.6X9 [place] [address] 71546- 53[address] May, Family history of diabetes mellitus Z83.3 ; BPH (benign prostatic hyperplasia) N40.0 ; Cavus deformity M21.6X9 ; Restless legs syndrome G25.81 ; Gastroesophageal reflux disease without esophagitis K21.9 ; HTN ( hypertension) I10 ; Neuropathy G62.9 and Other chronic pain G89.29 [place] [address] 6[address]- 8347 Apr, Mitral valve prolapse I34.1 [place] [address] 61510- 6[address] Apr, [place] [address] [place] [address] Mar, Other chest pain R07.89 [facility] [id number] [place] [address] 80983- 1650 Mar, [facility] [id number] [place] [address] 02344- 0347 Feb, [facility] [id number] [place] [address] 29737- 0312 Jan, [facility] [id number] [place] [address] 16562- 9340 Dec, [facility] [id number] [place] [address] 55088- 4113 07 Dec, 2015 BPH (benign prostatic hyperplasia) N40.0 and Wellness examination Z00.00 [facility] [id number] [place] [address] 84636- 6792 Nov, BPH (benign prostatic hyperplasia) N40.0 ; Neuropathy G62.9 ; Cavus deformity M21.6X9 ; 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 ; Mitral valve prolapse I34.1 ; Restless legs syndrome G25.81 ; Depressive disorder, not elsewhere classified F32.9 ; Gastroesophageal reflux disease without esophagitis K21.9 and Wellness examination Z00.00 [facility] [address] [place] [address] 77596- 5331 Nov, [facility] [id number] [place] [address] 37384- 2002 Oct, [facility] [address] [place] [address] 56797- 1785 Oct, Other chronic pain G89.29 [facility] [id number] [place] [address] 02732- 6020 Sep, Pelvic pain R10.2 [facility] [address] [place] [address] 33455- 4339 August, Other chronic pain G89.29 [place] [id number] [place] [address] 02069- 2288 August, BPH (benign prostatic hyperplasia) N40.0 ; HTN (hypertension ) I10 ; Neuropathy G62.9 ; Gastroesophageal reflux disease without esophagitis K21.9 ; Restless legs syndrome G25.81 and Chronic tension-type headache, intractable G44.221 [place] [address] 71266- 0036 Jul, Pelvic pain R10.2 [place] [address] 25338- 6372 Jun, [address] [address] May, [address] [address]- 8[address] May, Conjunctival hemorrhage of right eye H11.31 [place] [id number] [place] [address] 00356- 8537 May, [place] [id number] [place] [address] 13544- 8341 May, BPH (benign prostatic hyperplasia) N40.0 ; Cavus deformity M21.6X9 ; HTN (hypertension) I10 ; Mitral valve prolapse I34.1 ; Pelvic pain R10.2 ; Restless legs syndrome G25.81 ; Varicocele I86.1 and GERD ( gastroesophageal reflux disease) K21.9 [place] [id number] [place] [address] 75672- 5229 Apr, [address] [address]- 4541 Apr, Varicocele I86.1 [place] [id number] [place] [address] 44816- 7837 Apr, Depressive disorder, not elsewhere classified F32.9 [place] [address] 07960- 5486 Apr, HTN (hypertension) I10 ; BPH (benign prostatic hyperplasia) N40.0 ; Restless legs syndrome G25.81 ; Neuropathy G62.9 ; Pelvic pain R10.2 and GERD (gastroesophageal reflux disease) K21.9 [facility] [id number] [place] [address] 85249- 0525 Mar, [facility] [id number] [place] [address] 72127- 3202 Mar, [facility] [id number] [place] [address] 85500- 8663 Mar, [facility] [id number] [place] [address] 62703- 4964 Mar, HTN (hypertension) I10 ; Restless legs syndrome G25.81 ; BPH (benign prostatic hyperplasia) N40.0 ; Neuropathy G62.9 ; Cavus deformity of right foot M21.6X1 ; 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 ; Mitral valve prolapse I34.1 and Pelvic pain R10.2 [facility] [id number] [place] [address] 84549- 5204 Mar, [facility] [id number] [place] [address] 46933- 1896 Mar, [facility] [id number] [place] [address] 54526- 4583 Mar, [facility] [id number] [place] [address] 26583- 0742 Feb, [facility] [id number] [place] [address] 06134- 4625 Feb, [facility] [id number] [place] [address] 588591- 9440 Feb, [facility] [id number] [place] [address] 07521- 1306 Jan, BPH (benign prostatic hyperplasia) N40.0 ; HTN (hypertension ) I10 ; Neuropathy G62.9 ; Cavus deformity of right foot M21.6X1 ; 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 and Mitral valve prolapse I34.1 [place] [address] [place] [address] 04389- 5376 Jan, BPH (benign prostatic hyperplasia) N40.0 ; Cavus deformity of left foot 736.73 ; Cavus deformity of right foot 736.73 ; Essential hypertension 401.9 ; Restless leg syndrome 333.94 and Chronic pain 338.29 [place] [id number] [place] [address] 45580- 0952 Jan, [place] [id number] [place] [address] 17907- 6428 Jan, [place] [id number] [place] [address] 71912- 3368 Dec, Essential hypertension 401.9 ; Mitral valve prolapse 424.0 ; Restless leg syndrome 333.94 and Chronic pain 338.29 [place] [id number] [place] [address] 83283- 7998 Dec, [place] [id number] [place] [address] 08930- 5793 Dec, Essential hypertension 401.9 ; Restless leg syndrome 333.94 ; Cavus deformity of left foot 736.73 ; Cavus deformity of right foot 736.73 ; Mitral valve prolapse 424.0 ; Chronic hydrocele 603.9 ; BPH (benign prostatic hyperplasia) 600.00 and Routine medical exam V70.0 [place] [address] [place] [address] 44430- 6941 Nov, [place] [id number] [place] [address] 55828- 8988 Oct, Essential hypertension 401.9 ; Restless leg [...] History Fissuer repair 01/2017 Hospitalization History possible OR and heart cath 2015 Hospitalization History ER visit for chest pain 2016 Hospitalization History heart problems July 2016
--- OUTSIDE RECORDS SUMMARY | 2018-01-27 15:03 | XMS REPORT ---
Author Author LUNA CORRAL Organization [facility] Address [address] [place] [address] Care Team Providers Care Wood Ski Maker Name Role Phone LUNA CORRAL Unavailable PROBLEMS Type Condition ICD9-CM Code WYM03-XI Code Onset Dates Condition Status SNOMED Code Problem Depressive disorder, not elsewhere classified F32.9 Active 51023441 Problem Gastroesophageal reflux disease without esophagitis K21.9 Active 470137907 Problem Varicocele I86.1 Active 53537168 Problem Irritable bowel syndrome with constipation K58.1 Active 867990495 Problem Primary insomnia F51.01 Active 3064678 Problem Other chronic pain G89.29 Active 44835880 Problem Chronic tension-type headache, intractable G44.221 Active 505656596 Problem Diarrhea, unspecified type R19.7 Active 98210145 Problem Peptic ulcer disease K27.9 Active 77579956 Problem Mitral valve prolapse I34.1 Active 718626258 Problem Neuropathy G62.9 Active 656559333 Problem BPH (benign prostatic hyperplasia) N40.0 Active 920833314 Problem Cavus deformity of right foot M21.6X1 Active 215283577 Problem Cavus deformity M21.6X9 Active 277143320 Problem HTN (hypertension) I10 Active 10643591 Problem Pelvic pain R10.2 Active 26988912 Problem 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 Active 496852312 Problem Restless legs syndrome G25.81 Active [id number] ALLERGIES No Information ENCOUNTERS Encounter Location Date Diagnosis [facility] [id number], [place] [address] Sep, Other chronic pain G89.29 [facility] [id number] [address] August, [facility] [id number], [place] [address] August, HTN (hypertension) I10 ; BPH (benign prostatic hyperplasia) N40.0 and Gastroesophageal reflux disease without esophagitis K21.9 [facility] [address] [address] August, Other chronic pain G89.29 [id number] [place] [address] Jul, Medicare welcome exam Z00.00 ; Depressive disorder, not elsewhere classified F32.9 ; Neuropathy G62.9 ; HTN (hypertension) I10 ; BPH ( benign prostatic hyperplasia) N40.0 ; Mitral valve prolapse I34.1 ; Gastroesophageal reflux disease without esophagitis K21.9 and Primary insomnia F51.01 [address] [address] Jul, Other chronic pain G89.29 [address] [address] [address] Jun, Other chronic pain G89.29 ; HTN (hypertension) I10 ; Neuropathy G62.9 and Irritable bowel syndrome with constipation K58.1 [address] [address] [address] [address] Jun, [address] [address] [address] May, Neuropathy G62.9 [address] [address] [address] May, Anal pain K62.89 [place] [address] [address] Apr, [place] [address] [address] Apr, Neuropathy G62.9 [place] [address] [address] Mar, Neuropathy G62.9 [address] [place] [address] Mar, HTN (hypertension) I10 ; Neuropathy G62.9 and Anal itch L29.0 [place] [address] [address] Feb, Restless legs syndrome G25.81 [place] [address] [address] Feb, Neuropathy G62.9 [place] [address] [address] Jan, Neuropathy G62.9 [place] [address] [address] Dec, Grade I hemorrhoids K64.0 and Rectal bleeding K62.5 [place] [address] [address] Dec, Neuropathy G62.9 [place] [address] [address] Nov, Neuropathy G62.9 [address] [address] [address] Nov, Neuropathy G62.9 [place] [address] [address] Nov, HTN (hypertension) I10 ; Neuropathy G62.9 ; Cavus deformity M21.6X9 ; Mitral valve prolapse I34.1 ; Restless legs syndrome G25.81 ; Gastroesophageal reflux disease without esophagitis K21.9 ; Primary insomnia F51.01 ; BPH (benign prostatic hyperplasia) N40.0 and Actinic keratosis L57.0 [place] [address] [address] Oct, Other chronic pain G89.29 [address] [address] [address] Oct, HTN (hypertension) I10 ; Neuropathy G62.9 ; BPH (benign prostatic hyperplasia) N40.0 ; Cavus deformity of right foot M21.6X1 ; Mitral valve prolapse I34.1 ; Gastroesophageal reflux disease without esophagitis K21.9 ; Other chronic pain G89.29 ; Primary insomnia F51.01 and Restless legs syndrome G25.81 [place] [id number] [place] [address] Sep, Neuropathy G62.9 [place] [address] [address] Sep, HTN (hypertension) I10 ; BPH (benign prostatic hyperplasia) N40.0 ; Neuropathy G62.9 ; Mitral valve prolapse I34.1 ; Restless legs syndrome G25.81 and Gastroesophageal reflux disease without esophagitis K21.9 [address] [id number] [place] [address] Sep, Cavus deformity of right foot M21.6X1 [place] [address] [address] August, Orthostatic hypotension I95.1 [address] [address] [address] August, HTN (hypertension) I10 ; BPH (benign prostatic hyperplasia) N40.0 ; Hydrocele in adult N43.3 ; Peptic ulcer disease K27.9 ; Restless legs syndrome G25.81 and Cavus deformity of right foot M21.6X1 [place] [address] [address] Jul, Peptic ulcer disease K27.9 ; Diarrhea, unspecified type R19.7 ; BPH (benign prostatic hyperplasia) N40.0 ; HTN (hypertension) I10 ; Neuropathy G62.9 ; Mitral valve prolapse I34.1 ; Gastroesophageal reflux disease without esophagitis K21.9 and Restless legs syndrome G25.81 [address] [id number] [place] [address] Jul, [address] [place] [address] Jul, Cavus deformity M21.6X9 [facility] [address] [address] Jun, Cavus deformity M21.6X9 [facility] [address] [address] May, Family history of diabetes mellitus Z83.3 ; BPH (benign prostatic hyperplasia) N40.0 ; Cavus deformity M21.6X9 ; Restless legs syndrome G25.81 ; Gastroesophageal reflux disease without esophagitis K21.9 ; HTN ( hypertension) I10 ; Neuropathy G62.9 and Other chronic pain G89.29 [address] [address] [address] Apr, Mitral valve prolapse I34.1 [place] [address] [address] Apr, [facility] [address] [address] Mar, Other chest pain R07.89 [address] [address] [address] Mar, [place] [address] [address] Feb, [place] [address] [address] Jan, [address] [address] [address] Dec, [facility] [address] [address] Dec, BPH (benign prostatic hyperplasia) N40.0 and Wellness examination Z00.00 [facility] [address] [address] Nov, BPH (benign prostatic hyperplasia) N40.0 ; Neuropathy G62.9 ; Cavus deformity M21.6X9 ; 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 ; Mitral valve prolapse I34.1 ; Restless legs syndrome G25.81 ; Depressive disorder, not elsewhere classified F32.9 ; Gastroesophageal reflux disease without esophagitis K21.9 and Wellness examination Z00.00 [place] [id number] [place] [address] Nov, [place] [address] [address] Oct, [place] [address] [address] Oct, Other chronic pain G89.29 [address] [id number] [place] [address] Sep, Pelvic pain R10.2 [place] [address] [address] August, Other chronic pain G89.29 [address] [id number] [place] [address] August, BPH (benign prostatic hyperplasia) N40.0 ; HTN (hypertension ) I10 ; Neuropathy G62.9 ; Gastroesophageal reflux disease without esophagitis K21.9 ; Restless legs syndrome G25.81 and Chronic tension-type headache, intractable G44.221 [place] [id number] [place] [address]- [address] Jul, Pelvic pain R10.2 [place] [id number] [place] [address]- [address] Jun, [address] [id number] [place] [address]- [address] May, [address] [id number] [place] [address] May, Conjunctival hemorrhage of right eye H11.31 [address] [place] [address] May, [address] [place] [id number] [place] [address]- [address] May, BPH (benign prostatic hyperplasia) N40.0 ; Cavus deformity M21.6X9 ; HTN (hypertension) I10 ; Mitral valve prolapse I34.1 ; Pelvic pain R10.2 ; Restless legs syndrome G25.81 ; Varicocele I86.1 and GERD ( gastroesophageal reflux disease) K21.9 [place] [id number] [place] [address] 8[address]- [address] Apr, [address] [address] [address]- [address] Apr, Varicocele I86.1 [place] [id number] [place] [address]- [address] Apr, Depressive disorder, not elsewhere classified F32.9 [place] [id number] [place] [address] 6[address]- [address] Apr, HTN (hypertension) I10 ; BPH (benign prostatic hyperplasia) N40.0 ; Restless legs syndrome G25.81 ; Neuropathy G62.9 ; Pelvic pain R10.2 and GERD (gastroesophageal reflux disease) K21.9 [place] [id number] [place] [address]- [address] Mar, [address] [id number] [place] [address]- [address] Mar, [id number] [place] [address]- [address] Mar, [address] [id number] [place] [address]- 16[address] Mar, HTN (hypertension) I10 ; Restless legs syndrome G25.81 ; BPH (benign prostatic hyperplasia) N40.0 ; Neuropathy G62.9 ; Cavus deformity of right foot M21.6X1 ; 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 ; Mitral valve prolapse I34.1 and Pelvic pain R10.2 [facility] [address] [address] Mar, [facility] [id number] [place] [address]- [address] Mar, [facility] [id number] [place] [address] 0[address]- 6227 Mar, [facility] [id number] [place] [address] 57[address]- 8684 Feb, [facility] [id number] [place] [address] 65[address]- 3398 Feb, [facility] [id number] [place] [address] 89[address]- 1843 Feb, [facility] [id number] [place] [address]- [address] Jan, BPH (benign prostatic hyperplasia) N40.0 ; HTN (hypertension ) I10 ; Neuropathy G62.9 ; Cavus deformity of right foot M21.6X1 ; 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 and Mitral valve prolapse I34.1 [facility] [id number] [place] [address]- 25[address] Jan, BPH (benign prostatic hyperplasia) N40.0 ; Cavus deformity of left foot 736.73 ; Cavus deformity of right foot 736.73 ; Essential hypertension 401.9 ; Restless leg syndrome 333.94 and Chronic pain 338.29 [facility] [address], [place] [address] Jan, [facility] [id number] [place] [address] 716[address]- 4358 Jan, [facility] [id number] [place] [address] 79975- 5368 Dec, Essential hypertension 401.9 ; Mitral valve prolapse 424.0 ; Restless leg syndrome 333.94 and Chronic pain 338.29 [facility] [address] [facility] [id number] [address] Dec, [facility] [id number] [address] Dec, Essential hypertension 401.9 ; Restless leg syndrome 333.94 ; Cavus deformity of left foot 736.73 ; Cavus deformity of right foot 736.73 ; Mitral valve prolapse 424.0 ; Chronic hydrocele 603.9 ; BPH (benign prostatic hyperplasia) 600.00 and Routine medical exam V70.0 [facility] [address] [facility] [id number] [address] Nov, [address] [facility] [id number] [address] Oct, Essential hypertension 401.9 ; Restless leg syndrome 333.94 ; Cavus deformity of left foot 736.73 ; Cavus deformity of right foot 736.73 and Mitral valve prolapse 424.0 IMMUNIZATIONS No Known Immunizations SOCIAL HISTORY Never Assessed REASON FOR VISIT Refill request PLAN OF CARE VITAL SIGNS MEDICATIONS Medication [...] Coagulation for hemrrhoids 07/2017 Hospitalization History possible CO and heart cath 2015 Hospitalization History ER visit for chest pain 2016 Hospitalization History heart problems July 2016
--- OUTSIDE RECORDS SUMMARY | 2018-01-27 15:04 | XMS REPORT ---
Author Author CORA Mckee Organization [facility] Address [address] [place] [address] Care Team Providers Care Medical Officer Psychiatry Name Role Phone Rafi CORA Unavailable PROBLEMS Type Condition ICD9-CM Code XKD64-QL Code Onset Dates Condition Status SNOMED Code Problem Depressive disorder, not elsewhere classified F32.9 Active 25971563 Problem Gastroesophageal reflux disease without esophagitis K21.9 Active 590676548 Problem Varicocele I86.1 Active 76871271 Problem Irritable bowel syndrome with constipation K58.1 Active 633393226 Problem Primary insomnia F51.01 Active 9518481 Problem Other chronic pain G89.29 Active 06604524 Problem Chronic tension-type headache, intractable G44.221 Active 605601635 Problem Diarrhea, unspecified type R19.7 Active 54115844 Problem Peptic ulcer disease K27.9 Active 44516956 Problem Mitral valve prolapse I34.1 Active 118500264 Problem Neuropathy G62.9 Active 464254151 Problem BPH (benign prostatic hyperplasia) N40.0 Active 915581807 Problem Cavus deformity of right foot M21.6X1 Active 218009762 Problem Cavus deformity M21.6X9 Active 089977260 Problem HTN (hypertension) I10 Active 03692656 Problem Pelvic pain R10.2 Active 41200338 Problem 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 Active 525810428 Problem Restless legs syndrome G25.81 Active 222061771 ALLERGIES No Known Allergies ENCOUNTERS Encounter Location Date Diagnosis [facility] [id number], [place] [address] August, [facility] [id number], [place] [address] August, HTN (hypertension) I10 ; BPH (benign prostatic hyperplasia) N40.0 and Gastroesophageal reflux disease without esophagitis K21.9 [facility] [id number] [place] [address]- [address] August, Other chronic pain G89.29 [facility] [id number] [place] [address]25[address]- 2017 Jul, Medicare welcome exam Z00.00 ; Depressive disorder, not elsewhere classified F32.9 ; Neuropathy G62.9 ; HTN (hypertension) I10 ; BPH ( benign prostatic hyperplasia) N40.0 ; Mitral valve prolapse I34.1 ; Gastroesophageal reflux disease without esophagitis K21.9 and Primary insomnia F51.01 [facility] [id number] [place] [address] 21102- 4086 Jul, Other chronic pain G89.29 [address] [address] [address] [address] Jun, Other chronic pain G89.29 ; HTN (hypertension) I10 ; Neuropathy G62.9 and Irritable bowel syndrome with constipation K58.1 [facility] [facility] [id number] [place] [address] 57696- 3587 Jun, [place] [address] [address] May, Neuropathy G62.9 [facility] [facility] [id number] [place] [address] 91780- 6020 08 May, 2017 Anal pain K62.89 [facility] [id number] [place] [address] 11485- 5377 Apr, [facility] [facility] [id number] [place] [address] 25260- 0567 Apr, Neuropathy G62.9 [place] [address] 83092- 3957 Mar, Neuropathy G62.9 [facility] [id number] [place] [address] 91683- 9707 Mar, HTN (hypertension) I10 ; Neuropathy G62.9 and Anal itch L29.0 [place] [address] 35760- [address]22 Feb, Restless legs syndrome G25.81 [place] [address] 03599- 0924 Feb, Neuropathy G62.9 [place] [address] 19137- 7598 Jan, Neuropathy G62.9 [place] [address] 34620- 7527 Dec, Grade I hemorrhoids K64.0 and Rectal bleeding K62.5 [place] [address] 22904- 7743 Dec, Neuropathy G62.9 [place] [address] 93430- 1441 Nov, Neuropathy G62.9 [place] [address] 67575- 3990 Nov, Neuropathy G62.9 [place] [address] 47015- 3231 Nov, HTN (hypertension) I10 ; Neuropathy G62.9 ; Cavus deformity M21.6X9 ; Mitral valve prolapse I34.1 ; Restless legs syndrome G25.81 ; Gastroesophageal reflux disease without esophagitis K21.9 ; Primary insomnia F51.01 ; BPH (benign prostatic hyperplasia) N40.0 and Actinic keratosis L57.0 [facility] [id number] [place] [address] 07561- 4247 Oct, Other chronic pain G89.29 [place] [address] 20777- 5295 Oct, HTN (hypertension) I10 ; Neuropathy G62.9 ; BPH (benign prostatic hyperplasia) N40.0 ; Cavus deformity of right foot M21.6X1 ; Mitral valve prolapse I34.1 ; Gastroesophageal reflux disease without esophagitis K21.9 ; Other chronic pain G89.29 ; Primary insomnia F51.01 and Restless legs syndrome G25.81 [facility] [id number] [place] [address] 26716- 5543 Sep, Neuropathy G62.9 [place] [address] 61118- 9518 Sep, HTN (hypertension) I10 ; BPH (benign prostatic hyperplasia) N40.0 ; Neuropathy G62.9 ; Mitral valve prolapse I34.1 ; Restless legs syndrome G25.81 and Gastroesophageal reflux disease without esophagitis K21.9 [place] [place] [address] 87080- 4944 Sep, Cavus deformity of right foot M21.6X1 [place] [address] 94309- 9004 August, Orthostatic hypotension I95.1 [place] [address] 45462- 9216 August, HTN (hypertension) I10 ; BPH (benign prostatic hyperplasia) N40.0 ; Hydrocele in adult N43.3 ; Peptic ulcer disease K27.9 ; Restless legs syndrome G25.81 and Cavus deformity of right foot M21.6X1 [place] [id number] [place] [address] 73479- 6546 Jul, Peptic ulcer disease K27.9 ; Diarrhea, unspecified type R19.7 ; BPH (benign prostatic hyperplasia) N40.0 ; HTN (hypertension) I10 ; Neuropathy G62.9 ; Mitral valve prolapse I34.1 ; Gastroesophageal reflux disease without esophagitis K21.9 and Restless legs syndrome G25.81 [place] [id number] [place] [address] 52129- 1926 Jul, [place] [id number] [place] [address] 63061- 6862 Jul, Cavus deformity M21.6X9 [facility] [id number] [place] [address] 19981- 5809 Jun, Cavus deformity M21.6X9 [facility] [id number] [place] [address] 05548- 1520 09 May, 2016 Family history of diabetes mellitus Z83.3 ; BPH (benign prostatic hyperplasia) N40.0 ; Cavus deformity M21.6X9 ; Restless legs syndrome G25.81 ; Gastroesophageal reflux disease without esophagitis K21.9 ; HTN ( hypertension) I10 ; Neuropathy G62.9 and Other chronic pain G89.29 [address] [place] [address] 71912- 8313 Apr, Mitral valve prolapse I34.1 [place] [address] 97002- 0246 Apr, [place] [address] 74197- 5412 Mar, Other chest pain R07.89 [place] [address] 09665- 9832 Mar, [place] [address] 28301- 5939 Feb, [place] [id number] [place] [address] 54869- 4949 Jan, [place] [address] 82571- 6268 Dec, [place] [id number] [place] [address] 33461- 3831 Dec, BPH (benign prostatic hyperplasia) N40.0 and Wellness examination Z00.00 [facility] [id number] [place] [address] 76955- 9098 Nov, BPH (benign prostatic hyperplasia) N40.0 ; Neuropathy G62.9 ; Cavus deformity M21.6X9 ; 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 ; Mitral valve prolapse I34.1 ; Restless legs syndrome G25.81 ; Depressive disorder, not elsewhere classified F32.9 ; Gastroesophageal reflux disease without esophagitis K21.9 and Wellness examination Z00.00 [place] [id number] [place] [address] 12461- 0682 Nov, [place] [id number] [place] [address] 20814- 8555 Oct, [place] [address] 27848- 0063 Oct, Other chronic pain G89.29 [place] [address] 87517- 8238 Sep, Pelvic pain R10.2 [address] [place] [address] 42152- 6961 August, Other chronic pain G89.29 [place] [address] 53038- 2195 August, BPH (benign prostatic hyperplasia) N40.0 ; HTN (hypertension ) I10 ; Neuropathy G62.9 ; Gastroesophageal reflux disease without esophagitis K21.9 ; Restless legs syndrome G25.81 and Chronic tension-type headache, intractable G44.221 [facility] [id number] [place] [address] 58667- 3789 Jul, Pelvic pain R10.2 [facility] [id number] [place] [address] 12839- 3892 Jun, [place] [address] 04204- 3890 May, [address] [address]- [address] May, Conjunctival hemorrhage of right eye H11.31 [id number] [place] [address] 13583- 1189 May, [place] [id number] [place] [address] 49120- 3334 May, BPH (benign prostatic hyperplasia) N40.0 ; Cavus deformity M21.6X9 ; HTN (hypertension) I10 ; Mitral valve prolapse I34.1 ; Pelvic pain R10.2 ; Restless legs syndrome G25.81 ; Varicocele I86.1 and GERD ( gastroesophageal reflux disease) K21.9 [place] [id number] [place] [address] 27439- 5881 Apr, [place] [id number] [place] [address] 24628- 6947 Apr, Varicocele I86.1 [place] [id number] [place] [address] 87576- 8109 Apr, Depressive disorder, not elsewhere classified F32.9 [facility] [id number] [place] [address] 74646- 6700 Apr, HTN (hypertension) I10 ; BPH (benign prostatic hyperplasia) N40.0 ; Restless legs syndrome G25.81 ; Neuropathy G62.9 ; Pelvic pain R10.2 and GERD (gastroesophageal reflux disease) K21.9 [place] [id number] [place] [address] 71302- 2982 Mar, [place] [id number] [place] [address] 64150- 0328 Mar, [place] [id number] [place] [address] 27002- 5652 Mar, [place] [id number] [place] [address] 37818- 6572 Mar, HTN (hypertension) I10 ; Restless legs syndrome G25.81 ; BPH (benign prostatic hyperplasia) N40.0 ; Neuropathy G62.9 ; Cavus deformity of right foot M21.6X1 ; 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 ; Mitral valve prolapse I34.1 and Pelvic pain R10.2 [address] [place] [address], [place] [address] 2546 Mar, [facility] [id number] [place] [address] 46476- 3640 Mar, [facility] [id number] [place] [address] 04770 2546 Mar, [facility] [id number] [place] [address] 21877- 5509 Feb, [facility] [id number] [place] [address] 46889- 3588 Feb, [facility] [id number] [place] [address] 06990- 7022 Feb, [facility] [address] [place] [address] 88591- 4409 Jan, BPH (benign prostatic hyperplasia) N40.0 ; HTN (hypertension ) I10 ; Neuropathy G62.9 ; Cavus deformity of right foot M21.6X1 ; 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 and Mitral valve prolapse I34.1 [place] [id number] [place] [address] 27977- 2319 Jan, Cavus deformity of left foot 736.73 ; Cavus deformity of right foot 736.73 ; BPH (benign prostatic hyperplasia) N40.0 ; Essential hypertension 401.9 ; Restless leg syndrome 333.94 and Chronic pain 338.29 [facility] [address] [place] [address] 855722- 1636 Jan, [facility] [id number] [place] [address] 774359- 5363 Jan, [facility] [id number] [place] [address] 31536- 0617 17 Dec, 2014 Essential hypertension 401.9 ; Mitral valve prolapse 424.0 ; Restless leg syndrome 333.94 and Chronic pain 338.29 [facility] [id number] [place] [address] 08310- 9380 Dec, [facility] [address] [facility] [id number] [address] 2546 Dec, Essential hypertension 401.9 ; Restless leg syndrome 333.94 ; Cavus deformity of left foot 736.73 ; Cavus deformity of right foot 736.73 ; Mitral valve prolapse 424.0 ; Chronic hydrocele 603.9 ; BPH (benign prostatic hyperplasia) 600.00 and Routine medical exam V70.0 [facility] [address] [facility] [id number] [address] 2546 Nov, [facility] [address] [facility] [id number] [address] Oct, Essential hypertension 401.9 ; Restless leg syndrome 333.94 ; Cavus deformity of left foot 736.73 ; Cavus deformity of right foot 736.73 and Mitral valve prolapse 424.0 IMMUNIZATIONS No Known Immunizations SOCIAL HISTORY Never Assessed REASON FOR VISIT Cryo on the left forarm but PT was wanting you to look at a larger mole on his left side of his face- Blanca OLEARY wants cozar dropped to 50 mg and needs refills flomax PLAN OF CARE Activity Details Follow Up 3 Months Reason:bph, htn VITAL SIGNS Height 69 in 2016-12-09 Weight 218.6 lbs 2016-12-09 Temperature 97.8 degrees Fahrenheit 2016-12-09 Heart Rate 78 bpm 2016-12-09 Respiratory Rate 18 2016-12-09 BMI 32.28 kg/m2 2016-12-09 Blood pressure systolic 138 mmHg 2016-12-09 Blood pressure diastolic 92 mmHg 2016-12-09 MEDICATIONS Medication Instructions Dosage Frequency Start Date End Date Duration Status Dexilant 60 mg Orally Once a day 1 capsule 24h May, Active Amitriptyline HCl 10 MG Orally Once a day 1 tablet 24h Active Cozaar 50 MG Orally Once a day 1 tablet 24h Sep, Active Hydrocodone-Acetaminophen 7.5-325 MG Orally 3 times a day 1 tablet as needed 8h Oct, Active Requip 1 MG Orally Once a day 1 tablet 1 to 3 hours before bedtime 24h Oct, Active Tamsulosin HCl 0.4 MG Orally Once a day 1 capsule 24h Active Omeprazole 40 MG TAKE ONE CAPSULE BY MOUTH ONCE DAILY 30 Not- Taking RESULTS No Results PROCEDURES Procedure Date Ordered Result Body Site CRYOTHERAPY OF SKIN 2016-12-09 completed CRYOTHERAPY OF SKIN Dec 09, 2016 [facility] VISIT ESTABLISHED PATIENT Dec 09, 2016 INSTRUCTIONS MEDICATIONS ADMINISTERED No Known Medications MEDICAL [...] Coagulation for hemrrhoids 07/2017 Hospitalization History possible OR and heart cath 2015 Hospitalization History ER visit for chest pain 2016 Hospitalization History heart problems July 2016
--- OUTSIDE RECORDS SUMMARY | 2018-01-27 15:05 | XMS REPORT ---
Author Author ASHA BEASLEY Organization [facility] Address [address] [place] [address] Care Team Providers Care Lawn [employer] Tree Service Spray Supervisor Name Role Phone ASHA BEASLEY Unavailable PROBLEMS Type Condition ICD9-CM Code PYG64-PD Code Onset Dates Condition Status SNOMED Code Problem Depressive disorder, not elsewhere classified F32.9 Active 05197461 Problem Gastroesophageal reflux disease without esophagitis K21.9 Active 807669119 Problem Varicocele I86.1 Active 67523433 Problem Irritable bowel syndrome with constipation K58.1 Active 436064989 Problem Primary insomnia F51.01 Active 7752837 Problem Other chronic pain G89.29 Active 75597951 Problem Chronic tension-type headache, intractable G44.221 Active 839027593 Problem Diarrhea, unspecified type R19.7 Active 24946337 Problem Peptic ulcer disease K27.9 Active 19716103 Problem Mitral valve prolapse I34.1 Active 014184814 Problem Neuropathy G62.9 Active 217069673 Problem BPH (benign prostatic hyperplasia) N40.0 Active 955861178 Problem Cavus deformity of right foot M21.6X1 Active 348076226 Problem Cavus deformity M21.6X9 Active 908576244 Problem HTN (hypertension) I10 Active 05760553 Problem Pelvic pain R10.2 Active 38713886 Problem 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 Active 562427228 Problem Restless legs syndrome G25.81 Active 433398329 ALLERGIES No Information ENCOUNTERS Encounter Location Date Diagnosis [facility] [address] [facility] [id number] [address] Jul, Medicare welcome exam Z00.00 ; Depressive disorder, not elsewhere classified F32.9 ; Neuropathy G62.9 ; HTN (hypertension) I10 ; BPH ( benign prostatic hyperplasia) N40.0 ; Mitral valve prolapse I34.1 ; Gastroesophageal reflux disease without esophagitis K21.9 and Primary insomnia F51.01 [facility] [id number] [place] [address] 33948- 8372 Jul, Other chronic pain G89.29 [facility] [address] [address] Jun, Other chronic pain G89.29 ; HTN (hypertension) I10 ; Neuropathy G62.9 and Irritable bowel syndrome with constipation K58.1 [facility] [address] [address] Jun, [facility] [address] [address] May, Neuropathy G62.9 [facility] [address] [address] May, Anal pain K62.89 [place] [address] [address] Apr, [facility] [address] [address] Apr, Neuropathy G62.9 [place] [address] [address]- [address] Mar, Neuropathy G62.9 [place] [address] [address]42- [address]188 Mar, HTN (hypertension) I10 ; Neuropathy G62.9 and Anal itch L29.0 [facility] [id number] [place] [address] 02337- 3158 Feb, Restless legs syndrome G25.81 [facility] [address] [address]- [address] Feb, Neuropathy G62.9 [facility] [address] [address]- [address] Jan, Neuropathy G62.9 [facility] [address] [address]- [address]347 Dec, Grade I hemorrhoids K64.0 and Rectal bleeding K62.5 [facility] [id number] [place] [address] 18980- 3636 Dec, Neuropathy G62.9 [place] [id number] [place] [address] 28518- 9111 Nov, Neuropathy G62.9 [facility] [id number] [place] [address] 71732- 2668 Nov, Neuropathy G62.9 [facility] [id number] [place] [address] 79172- 0580 Nov, HTN (hypertension) I10 ; Neuropathy G62.9 ; Cavus deformity M21.6X9 ; Mitral valve prolapse I34.1 ; Restless legs syndrome G25.81 ; Gastroesophageal reflux disease without esophagitis K21.9 ; Primary insomnia F51.01 ; BPH (benign prostatic hyperplasia) N40.0 and Actinic keratosis L57.0 [place] [address] [place] [address] 73298- 4383 Oct, Other chronic pain G89.29 [facility] [id number] [place] [address] 63199- 6516 Oct, HTN (hypertension) I10 ; Neuropathy G62.9 ; BPH (benign prostatic hyperplasia) N40.0 ; Cavus deformity of right foot M21.6X1 ; Mitral valve prolapse I34.1 ; Gastroesophageal reflux disease without esophagitis K21.9 ; Other chronic pain G89.29 ; Primary insomnia F51.01 and Restless legs syndrome G25.81 [place] [address] [place] [address] 04252- 6977 Sep, Neuropathy G62.9 [place] [address] [place] [address] 18788- 0508 Sep, HTN (hypertension) I10 ; BPH (benign prostatic hyperplasia) N40.0 ; Neuropathy G62.9 ; Mitral valve prolapse I34.1 ; Restless legs syndrome G25.81 and Gastroesophageal reflux disease without esophagitis K21.9 [facility] [id number] [place] [address] 62772- 1050 Sep, Cavus deformity of right foot M21.6X1 [place] [address] 20[address]- [address] August, Orthostatic hypotension I95.1 [place] [address] 66455- [address]322 August, HTN (hypertension) I10 ; BPH (benign prostatic hyperplasia) N40.0 ; Hydrocele in adult N43.3 ; Peptic ulcer disease K27.9 ; Restless legs syndrome G25.81 and Cavus deformity of right foot M21.6X1 [place] [address] [address]- 30[address] Jul, Peptic ulcer disease K27.9 ; Diarrhea, unspecified type R19.7 ; BPH (benign prostatic hyperplasia) N40.0 ; HTN (hypertension) I10 ; Neuropathy G62.9 ; Mitral valve prolapse I34.1 ; Gastroesophageal reflux disease without esophagitis K21.9 and Restless legs syndrome G25.81 [facility] [id number] [place] [address] 81260- 3710 Jul, [facility] [id number] [place] [address] 99238- 1470 Jul, Cavus deformity M21.6X9 [place] [address] 24367- 7469 Jun, Cavus deformity M21.6X9 [place] [address] 04382- 7872 May, Family history of diabetes mellitus Z83.3 ; BPH (benign prostatic hyperplasia) N40.0 ; Cavus deformity M21.6X9 ; Restless legs syndrome G25.81 ; Gastroesophageal reflux disease without esophagitis K21.9 ; HTN ( hypertension) I10 ; Neuropathy G62.9 and Other chronic pain G89.29 [facility] [address] [place] [address] 85864- 9891 Apr, Mitral valve prolapse I34.1 [facility] [id number] [place] [address] 87703- 1609 Apr, [facility] [id number] [place] [address] 78185- 1127 Mar, Other chest pain R07.89 [facility] [id number] [place] [address] 88392- 7381 Mar, [place] [id number] [place] [address] 85485- 6443 Feb, [place] [id number] [place] [address] 43025- 4119 Jan, [place] [id number] [place] [address] 18910- 9665 Dec, [facility] [id number] [place] [address] 68208- 0419 Dec, BPH (benign prostatic hyperplasia) N40.0 and Wellness examination Z00.00 [place] [id number] [place] [address] 10722- 0856 Nov, BPH (benign prostatic hyperplasia) N40.0 ; Neuropathy G62.9 ; Cavus deformity M21.6X9 ; 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 ; Mitral valve prolapse I34.1 ; Restless legs syndrome G25.81 ; Depressive disorder, not elsewhere classified F32.9 ; Gastroesophageal reflux disease without esophagitis K21.9 and Wellness examination Z00.00 [place] [id number] [place] [address] 32664- 5253 Nov, [facility] [id number] [place] [address] 43763- 9933 Oct, [place] [id number] [place] [address] 01972- 7245 Oct, Other chronic pain G89.29 [facility] [id number] [place] [address] 35503- 6830 Sep, Pelvic pain R10.2 [facility] [id number] [place] [address] 29599- 4391 August, Other chronic pain G89.29 [facility] [id number] [place] [address] 06995- 8344 August, BPH (benign prostatic hyperplasia) N40.0 ; HTN (hypertension ) I10 ; Neuropathy G62.9 ; Gastroesophageal reflux disease without esophagitis K21.9 ; Restless legs syndrome G25.81 and Chronic tension-type headache, intractable G44.221 [place] [id number] [place] [address] 09620- 3797 Jul, Pelvic pain R10.2 [place] [id number] [place] [address] 51973- 5346 Jun, [facility] [id number] [place] [address] 82565- 3451 May, [place] [id number] [place] [address] 45416- 6803 May, Conjunctival hemorrhage of right eye H11.31 [place] [id number] [place] [address] 57808- 9795 May, [place] [id number] [place] [address] 12497- 0170 May, BPH (benign prostatic hyperplasia) N40.0 ; Cavus deformity M21.6X9 ; HTN (hypertension) I10 ; Mitral valve prolapse I34.1 ; Pelvic pain R10.2 ; Restless legs syndrome G25.81 ; Varicocele I86.1 and GERD ( gastroesophageal reflux disease) K21.9 [facility] [address] [address] Apr, [place] [address] [id number] [place] [address] 91302- 1250 Apr, Varicocele I86.1 [place] [address] 76353- 0936 Apr, Depressive disorder, not elsewhere classified F32.9 [facility] [id number] [place] [address] 33801- 8840 Apr, HTN (hypertension) I10 ; BPH (benign prostatic hyperplasia) N40.0 ; Restless legs syndrome G25.81 ; Neuropathy G62.9 ; Pelvic pain R10.2 and GERD (gastroesophageal reflux disease) K21.9 [place] [address] 37322- 1504 Mar, [place] [address] 93149- 8022 Mar, [place] [address] 78906- 0417 Mar, [place] [address] 33678- 7318 Mar, HTN (hypertension) I10 ; Restless legs syndrome G25.81 ; BPH (benign prostatic hyperplasia) N40.0 ; Neuropathy G62.9 ; Cavus deformity of right foot M21.6X1 ; 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 ; Mitral valve prolapse I34.1 and Pelvic pain R10.2 [place] [id number] [place] [address] 22770- 2076 Mar, [place] [id number] [place] [address] 53979- 1236 Mar, [place] [address] 74820- 2636 Mar, [place] [id number] [place] [address] 47233- 7911 Feb, [place] [address] 95880- 0486 Feb, [place] [id number] [place] [address] 02878- 9464 Feb, [place] [id number] [place] [address] 25687- 0206 Jan, BPH (benign prostatic hyperplasia) N40.0 ; HTN (hypertension ) I10 ; Neuropathy G62.9 ; Cavus deformity of right foot M21.6X1 ; 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 and Mitral valve prolapse I34.1 [place] [id number] [place] [address] 99985- 4413 Jan, Cavus deformity of left foot 736.73 ; Cavus deformity of right foot 736.73 ; BPH (benign prostatic hyperplasia) N40.0 ; Essential hypertension 401.9 ; Restless leg syndrome 333.94 and Chronic pain 338.[address] [address]- 1355 Jan, [place] [address] 65574- 9442 Jan, [address] 02415- 4073 Dec, Essential hypertension 401.9 ; Mitral valve prolapse 424.0 ; Restless leg syndrome 333.94 and Chronic pain 338.29 [place] [id number] [place] [address] 17066- 0428 Dec, [place] [id number] [place] [address] [phone]- 7446 Dec, Essential hypertension 401.9 ; Restless leg syndrome 333.94 ; Cavus deformity of left foot 736.73 ; Cavus deformity of right foot 736.73 ; Mitral valve prolapse 424.0 ; Chronic hydrocele 603.9 ; BPH (benign prostatic hyperplasia) 600.00 and Routine medical exam V70.0 [place] [id number] [place] [address] 829589- 3427 Nov, [facility] [address] [facility] [id number] [address] Oct, Essential hypertension 401.9 ; Restless leg syndrome 333.94 ; Cavus deformity of left foot 736.73 ; Cavus deformity of right foot 736.73 and Mitral valve prolapse 424.0 IMMUNIZATIONS No Known Immunizations SOCIAL HISTORY Never Assessed REASON FOR VISIT Hydrocodone- 01/08 PLAN OF CARE VITAL SIGNS MEDICATIONS Medication [...] Hospitalization History possible [place] and heart cath 2015 Hospitalization History ER visit for chest pain 2016 Hospitalization History heart problems July 2016
--- OUTSIDE RECORDS SUMMARY | 2018-01-27 15:05 | XMS REPORT ---
Author Author JANET CORA [facility] Address [address] [place] [address] Care Team Providers Care Milk Collector Name Role Phone LUDY GONZALESNETTE Unavailable PROBLEMS Type Condition ICD9-CM Code VLO26-MS Code Onset Dates Condition Status SNOMED Code Problem Restless legs syndrome G25.81 Active 812619988 Problem Varicocele I86.1 Active 66841157 Problem Depressive disorder, not elsewhere classified F32.9 Active 44721198 Problem Primary insomnia F51.01 Active 8965117 Problem Peptic ulcer disease K27.9 Active 23380266 Problem Chronic tension-type headache, intractable G44.221 Active 966490948 Problem Gastroesophageal reflux disease without esophagitis K21.9 Active 171547764 Problem Diarrhea, unspecified type R19.7 Active 57744460 Problem Other chronic pain G89.29 Active 85013163 Problem BPH (benign prostatic hyperplasia) N40.0 Active 903817828 Problem Mitral valve prolapse I34.1 Active 012846592 Problem 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 Active 207881385 Problem Cavus deformity of right foot M21.6X1 Active 458317977 Problem Neuropathy G62.9 Active 616453995 Problem Cavus deformity M21.6X9 Active 985761480 Problem HTN (hypertension) I10 Active 90973839 Problem Pelvic pain R10.2 Active 01215895 ALLERGIES No Known Allergies SOCIAL HISTORY Never Assessed PLAN OF CARE Activity Details Follow Up 4 Weeks Reason:htn VITAL SIGNS Height 69 in 2016-09-23 Weight 211.1 lbs 2016-09-23 Temperature 97.4 degrees Fahrenheit 2016-09-23 Heart Rate 60 bpm 2016-09-23 Respiratory Rate 20 2016-09-23 BMI 31.17 kg/m2 2016-09-23 Blood pressure systolic 128 mmHg 2016-09-23 Blood pressure diastolic 76 mmHg 2016-09-23 MEDICATIONS Medication Instructions Dosage Frequency Start Date End Date Duration Status Cozaar 100 MG Orally Once a day 1 tablet 24h Sep, 30 day(s) Active Requip 1 MG Orally Once a day 1 tablet 1 to 3 hours before bedtime 24h Oct, Active Dexilant 60 mg Orally Once a day 1 capsule 24h May, Active Tamsulosin HCl 0.4 MG Orally Once a day 1 capsule 24h Active Hydrocodone-Acetaminophen 7.5-325 MG Orally 3 times a day 1 tablet as needed 8h Sep, Active RESULTS No Results PROCEDURES Procedure Date Ordered Result Body Site [facility] VISIT ESTABLISHED PATIENT September 23, 2016 IMMUNIZATIONS No Known Immunizations MEDICAL (GENERAL) HISTORY Type Description Date Medical History hypertension Medical History RLS Medical History Cavus Foot Medical History DDD; dx Feb [address] Waldron Medical History 08/13/16 heart cath- everything was clear Surgical History cholecystectomy 2011 Surgical History vasectomy Surgical History heart cath x 2 2013 and 2016 Surgical History cystostopy 09/18/2016 Hospitalization History possible [place] and heart cath 2016 Hospitalization History ER visit for chest pain 2017 Hospitalization History heart problems July 2016
--- OUTSIDE RECORDS SUMMARY | 2018-01-27 15:06 | XMS REPORT ---
Author Author CORA Mckee Organization [facility] Address [address] [place] [address] Care Team Providers Care Personal Finance Instructor Name Role Phone CORA Mckee Unavailable PROBLEMS Type Condition ICD9-CM Code IJS66-QV Code Onset Dates Condition Status SNOMED Code Problem Depressive disorder, not elsewhere classified F32.9 Active 80469941 Problem Gastroesophageal reflux disease without esophagitis K21.9 Active 800660850 Problem Varicocele I86.1 Active 81754944 Problem Irritable bowel syndrome with constipation K58.1 Active 567974439 Problem Primary insomnia F51.01 Active 9511566 Problem Other chronic pain G89.29 Active 03672644 Problem Chronic tension-type headache, intractable G44.221 Active 360103214 Problem Diarrhea, unspecified type R19.7 Active 10283690 Problem Peptic ulcer disease K27.9 Active 85160384 Problem Mitral valve prolapse I34.1 Active 065134621 Problem Neuropathy G62.9 Active 112816104 Problem BPH (benign prostatic hyperplasia) N40.0 Active 139932741 Problem Cavus deformity of right foot M21.6X1 Active 989924881 Problem Cavus deformity M21.6X9 Active 723749586 Problem HTN (hypertension) I10 Active 19888300 Problem Pelvic pain R10.2 Active 83120651 Problem 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 Active 236826876 Problem Restless legs syndrome G25.81 Active 609812132 ALLERGIES No Information ENCOUNTERS Encounter Location Date Diagnosis [facility] [id number] [address] Jul, Medicare welcome exam Z00.00 [facility] [id number] [address] Jul, Other chronic pain G89.29 [facility] [id number] [place] [address] Jun, Other chronic pain G89.29 ; HTN (hypertension) I10 ; Neuropathy G62.9 and Irritable bowel syndrome with constipation K58.1 [facility] [id number] [place] [address]- [address] Jun, [facility] [address] [address] May, Neuropathy G62.9 [facility] [address] [address] May, Anal pain K62.89 [facility] [address] [address] Apr, [facility] [address] [address] Apr, Neuropathy G62.9 [facility] [address] [address] Mar, Neuropathy G62.9 [facility] [address] [address] Mar, HTN (hypertension) I10 ; Neuropathy G62.9 and Anal itch L29.0 [place] [address] [address] Feb, Restless legs syndrome G25.81 [facility] [id number] [place] [address]2345- 1312 Feb, Neuropathy G62.9 [facility] [id number] [place] [address] 08518- 1232 Jan, Neuropathy G62.9 [facility] [address] [address] 28 Dec, 2016 Grade I hemorrhoids K64.0 and Rectal bleeding K62.5 [facility] [address] [address] Dec, Neuropathy G62.9 [place] [address] [address] Nov, Neuropathy G62.9 [place] [id number] [place] [address] 64437- 0609 Nov, Neuropathy G62.9 [place] [id number] [place] [address] 7[address]36- [address]60 Nov, HTN (hypertension) I10 ; Neuropathy G62.9 ; Cavus deformity M21.6X9 ; Mitral valve prolapse I34.1 ; Restless legs syndrome G25.81 ; Gastroesophageal reflux disease without esophagitis K21.9 ; Primary insomnia F51.01 ; BPH (benign prostatic hyperplasia) N40.0 and Actinic keratosis L57.0 [place] [id number] [place] [address] 97[address]- 8387 Oct, Other chronic pain G89.29 [place] [id number] [place] [address]- [address] Oct, HTN (hypertension) I10 ; Neuropathy G62.9 ; BPH (benign prostatic hyperplasia) N40.0 ; Cavus deformity of right foot M21.6X1 ; Mitral valve prolapse I34.1 ; Gastroesophageal reflux disease without esophagitis K21.9 ; Other chronic pain G89.29 ; Primary insomnia F51.01 and Restless legs syndrome G25.81 [place] [address] [place] [address]15- 8035 Sep, Neuropathy G62.9 [place] [address] [address] Sep, HTN (hypertension) I10 ; BPH (benign prostatic hyperplasia) N40.0 ; Neuropathy G62.9 ; Mitral valve prolapse I34.1 ; Restless legs syndrome G25.81 and Gastroesophageal reflux disease without esophagitis K21.9 [place] [id number] [place] [address]291- 8[address] Sep, Cavus deformity of right foot M21.6X1 [place] [address] [address] August, Orthostatic hypotension I95.1 [place] [address] [address]- [address] August, HTN (hypertension) I10 ; BPH (benign prostatic hyperplasia) N40.0 ; Hydrocele in adult N43.3 ; Peptic ulcer disease K27.9 ; Restless legs syndrome G25.81 and Cavus deformity of right foot M21.6X1 [place] [address] [address]- [address]99 Jul, Peptic ulcer disease K27.9 ; Diarrhea, unspecified type R19.7 ; BPH (benign prostatic hyperplasia) N40.0 ; HTN (hypertension) I10 ; Neuropathy G62.9 ; Mitral valve prolapse I34.1 ; Gastroesophageal reflux disease without esophagitis K21.9 and Restless legs syndrome G25.81 [place] [address] [address]- [address] Jul, [place] [address] [address] Jul, Cavus deformity M21.6X9 [place] [address] [address]- [address] Jun, Cavus deformity M21.6X9 [place] [address] [address]- [address] May, Family history of diabetes mellitus Z83.3 ; BPH (benign prostatic hyperplasia) N40.0 ; Cavus deformity M21.6X9 ; Restless legs syndrome G25.81 ; Gastroesophageal reflux disease without esophagitis K21.9 ; HTN ( hypertension) I10 ; Neuropathy G62.9 and Other chronic pain G89.29 [place] [address] [address]- [address] Apr, Mitral valve prolapse I34.1 [place] [address] [address] Apr, [facility] [id number] [place] [address] 82833- 270[address] Mar, Other chest pain R07.89 [facility] [address] [address] Mar, [facility] [id number] [place] [address] 03114- 9172 Feb, [facility] [id number] [place] [address] 89847- 5[address] Jan, [facility] [id number] [place] [address] 78085- 39[address] 07 Dec, 2015 [facility] [id number] [place] [address] 93072- 72[address] 07 Dec, 2015 BPH (benign prostatic hyperplasia) N40.0 and Wellness examination Z00.00 [facility] [id number] [place] [address] 16898- 9754 10 Nov, 2015 BPH (benign prostatic hyperplasia) N40.0 ; Neuropathy G62.9 ; Cavus deformity M21.6X9 ; 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 ; Mitral valve prolapse I34.1 ; Restless legs syndrome G25.81 ; Depressive disorder, not elsewhere classified F32.9 ; Gastroesophageal reflux disease without esophagitis K21.9 and Wellness examination Z00.00 [facility] [address] [address] Nov, [facility] [address] [address] Oct, [facility] [id number] [place] [address] 02805- 7652 Oct, Other chronic pain G89.29 [facility] [address] [address] Sep, Pelvic pain R10.2 [place] [id number] [place] [address] 91670- 98[address] August, Other chronic pain G89.29 [place] [address] [address]- [address] August, BPH (benign prostatic hyperplasia) N40.0 ; HTN (hypertension ) I10 ; Neuropathy G62.9 ; Gastroesophageal reflux disease without esophagitis K21.9 ; Restless legs syndrome G25.81 and Chronic tension-type headache, intractable G44.221 [place] [address] [address]- [address] Jul, Pelvic pain R10.2 [place] [address] [address]14- [address] Jun, [place] [address] [address]- [address] May, [place] [address] [address]- [address] May, Conjunctival hemorrhage of right eye H11.[address] [address] May, [place] [address] [address]- [address] May, BPH (benign prostatic hyperplasia) N40.0 ; Cavus deformity M21.6X9 ; HTN (hypertension) I10 ; Mitral valve prolapse I34.1 ; Pelvic pain R10.2 ; Restless legs syndrome G25.81 ; Varicocele I86.1 and GERD ( gastroesophageal reflux disease) K21.9 [place] [address] [address]- [address] Apr, [address] [address]- [address] Apr, Varicocele I86.1 [place] [address] 41742- 5140 Apr, Depressive disorder, not elsewhere classified F32.9 [facility] [id number] [place] [address] 88468- 3638 Apr, HTN (hypertension) I10 ; BPH (benign prostatic hyperplasia) N40.0 ; Restless legs syndrome G25.81 ; Neuropathy G62.9 ; Pelvic pain R10.2 and GERD (gastroesophageal reflux disease) K21.9 [facility] [id number] [place] [address] 04849- 3300 Mar, [facility] [id number] [place] [address] 95250- 1808 Mar, [facility] [id number] [place] [address] 66062- 6121 Mar, [place] [id number] [place] [address] 68460- 1940 Mar, HTN (hypertension) I10 ; Restless legs syndrome G25.81 ; BPH (benign prostatic hyperplasia) N40.0 ; Neuropathy G62.9 ; Cavus deformity of right foot M21.6X1 ; 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 ; Mitral valve prolapse I34.1 and Pelvic pain R10.2 [facility] [id number] [place] [address] 95191- 4874 Mar, [facility] [id number] [place] [address] 86469- 7014 Mar, [facility] [id number] [place] [address] 30686- 6962 Mar, [facility] [id number] [place] [address] 65949- 8515 Feb, [facility] [id number] [place] [address] 26318- 1739 Feb, [facility] [id number] [place] [address] 31952- 7656 Feb, [facility] [id number] [place] [address] 53190- 2238 Jan, BPH (benign prostatic hyperplasia) N40.0 ; HTN (hypertension ) I10 ; Neuropathy G62.9 ; Cavus deformity of right foot M21.6X1 ; 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 and Mitral valve prolapse I34.[address] [address]- [address] Jan, BPH (benign prostatic hyperplasia) N40.0 ; Cavus deformity of left foot 736.73 ; Cavus deformity of right foot 736.73 ; Essential hypertension 401.9 ; Restless leg syndrome 333.94 and Chronic pain 338.[address] [address]- [address]9 Jan, [address] [address]- [address] Jan, [address] 13[address]- 0149 Dec, Essential hypertension 401.9 ; Mitral valve prolapse 424.0 ; Restless leg syndrome 333.94 and Chronic pain 338.[address] [address]- [address]861 Dec, [address] 6[address]- [address]156 Dec, Essential hypertension 401.9 ; Restless leg syndrome 333.94 ; Cavus deformity of left foot 736.73 ; Cavus deformity of right foot 736.73 ; Mitral valve prolapse 424.0 ; Chronic hydrocele 603.9 ; BPH (benign prostatic hyperplasia) 600.00 and Routine medical exam V70.[address] [address]- [address]3 Nov, [address] 44[address]- 7863 Oct, Essential hypertension 401.9 ; Restless leg syndrome 333.94 ; Cavus deformity of left foot 736.73 ; Cavus deformity of right foot 736.73 and Mitral valve prolapse 424.0 IMMUNIZATIONS No Known Immunizations SOCIAL HISTORY Never Assessed REASON FOR VISIT [facility]- 12/12 PLAN OF CARE VITAL SIGNS MEDICATIONS Medication Instructions Dosage Frequency Start Date End Date Duration Status Hydrocodone-Acetaminophen 7.5-325 MG Orally 3 times a day 1 tablet as needed 8h Oct, Dec, 28 days Active RESULTS No Results [...] History Fissuer repair 01/2017 Hospitalization History possible [place] and heart cath 2016 Hospitalization History ER visit for chest pain 2016 Hospitalization History heart problems July 2016
--- OUTSIDE RECORDS SUMMARY | 2018-01-27 15:09 | XMS REPORT | Continuity of Care Document ---
Author Author [facility] Organization [facility] Address Unknown Phone Unavailable Allergies Active Description Code Type Severity Reaction Onset Reported/Identified Relationship to Patient Clinical Status Yes NO KNOWN DRUG ALLERGIES UNKNOWN NO KNOWN DRUG ALLERG Yes NKANo Known Allergies NKA Miscellaneous Allergy Mild N/A 06/15/2009 Yes No Known Drug Allergies [id number] Drug Allergy Unknown N/A 01/23/2017 Medications Medication Packaging Start Date Stop Date Route Dosage Sig LACTATED RINGERS 1000CC IV BAG INJ ml 08/04/2017 08/11/2017 CONTINUOUSEVERY 0 Hour Problems Date Dx Coded Attending Type Code Diagnosis Diagnosed By 08/29/2010 Ot 922.1 08/29/2010 Ot 959.11 08/29/2010 Ot E000.8 08/29/2010 Ot E849.8 08/29/2010 Ot E888.1 08/31/2010 Ot 786.50 08/31/2010 Ot 786.52 01/24/2011 Ot 574.20 CHOLELITHIASIS NOS 01/24/2011 Ot 789.01 ABDOMINAL PAIN, RIGHT UPPER QUADRANT 01/30/2011 Ot 574.10 CHOLELITH W CHOLECYS NEC 06/11/2011 Ot 401.9 HYPERTENSION NOS 02/22/2013 KATIA SALDANA DO Ot 401.9 HYPERTENSION NOS 02/22/2013 KATIA SALDANA DO Ot 784.0 HEADACHE 02/23/2013 HÉCTOR FLORES OPERATING ROOM NURSE Ot 592.1 CALCULUS OF URETER 02/23/2013 HÉCTOR FLORES OPERATING ROOM NURSE Ot 608.9 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 08/26/2013 YONY LAM FACC, JUDITH ALAMO CCDS Ot 276.8 HYPOPOTASSEMIA 08/26/2013 YONY LAM FACC, JUDITH PAYANP CCDS Ot 305.1 TOBACCO USE DISORDER 08/26/2013 YONY LAM FACC, JUDITH ALAMO CCDS Ot 401.9 HYPERTENSION NOS 08/26/2013 YONY LAM FACC, JUDITH ALAMO CCDS Ot 414.01 CORONARY ATHEROSCLEROSIS OF [place] CORON 08/26/2013 YONY LAM FAC, JUDITH [facility] CCDS Ot 786.59 CHEST PAIN NEC 08/26/2013 YONY LAM FACC, JUDITH FACP CCDS Ot V45.89 POSTSURGICAL STATES NEC 08/26/2013 Y[facility] LAM [facility]ACC, [facility] Ot V58.69 OTH MED,LT,CURRENT USE 06/01/2014 YUSUFLUNA LI DO Ot 721.3 06/01/2014 Ot 574.20 06/01/2014 Ot V72.83 06/01/2014 Ot V74.8 06/01/2014 YUSUFLUNA LI DO Ot 592.1 06/01/2014 YUSUFLUNA LI DO Ot 719.45 06/01/2014 LUNA YUSUF DO Ot 724.2 06/01/2014 LUNA YUSUF DO Ot 721.3 06/13/2014 YUSUFLUNA LI DO Ot 721.3 12/15/2014 Ot 574.20 12/15/2014 Ot V72.83 12/15/2014 Ot V74.8 12/15/2014 LUNA YUSUF DO Ot 592.1 12/15/2014 LUNA YUSUF DO Ot 719.45 12/15/2014 LUNA YUSUF DO Ot 724.2 12/15/2014 YUSUFLUNA LI DO Ot 721.3 12/15/2014 HÉCTOR FLORES OPERATING ROOM NURSE Ot 603.9 HYDROCELE NOS 12/15/2014 HÉCTOR FLORES OPERATING ROOM NURSE Ot 608.9 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 12/15/2014 Ot 574.20 12/15/2014 Ot V72.83 12/15/2014 Ot V74.8 12/15/2014 YUSUFLUNA LI DO Ot 592.1 12/15/2014 LUNA YUSUF DO Ot 719.45 12/15/2014 LUNA YUSUF DO Ot 724.2 12/15/2014 LUNA YUSUF DO Ot 721.3 08/16/2015 CORA GONZALES WORKFORCE MANAGEMENT MANAGER Ot R10.2 PELVIC AND PERINEAL PAIN 08/30/2015 CORA GONZALES WORKFORCE MANAGEMENT MANAGER Ot R10.2 PELVIC AND PERINEAL PAIN 09/27/2015 MRAI LAM, EDWIGE Gallegos Ot R10.31 RIGHT LOWER QUADRANT PAIN 09/27/2015 MARI LAM, EDWIGE Gallegos Ot Z53.21 PROC/TRTMT NOT CRD OUT D/T PT LV BEF SEE 10/01/2015 EDWIGE GUERRA MD Ot R10.31 RIGHT LOWER QUADRANT PAIN 10/01/2015 EDWIGE GUERRA MD Ot Z53.21 PROC/TRTMT NOT CRD OUT D/T PT LV BEF SEE 03/22/2016 Ot 574.20 CHOLELITHIASIS NOS 03/22/2016 Ot V72.83 EXAM PRE- OPERATIVE NEC 03/22/2016 Ot V74.8 SCREEN- BACTERIAL DIS NEC 03/22/2016 LUNA YUSUF DO Ot 592.1 CALCULUS OF URETER 03/22/2016 LUNA YUSUF DO Ot 719.45 JOINT PAIN-PELVIS 03/22/2016 LUNA YUSUF DO Ot 724.2 LUMBAGO 03/22/2016 LUNA YUSUF DO Ot 721.3 LUMBOSACRAL SPONDYLOSIS 03/22/2016 LON SMITH MD ([facility]) Ot V68.01 DISABILITY EXAMINATION 03/22/2016 LON SMITH MD ([facility]) Ot V82.89 SCREEN FOR OTH SPECIF CONDITIONS 03/22/2016 CORA GONZALES WORKFORCE MANAGEMENT MANAGER Ot R10.2 PELVIC AND PERINEAL PAIN 03/22/2016 MARISSA CHENG MD Ot F17.210 NICOTINE DEPENDENCE, CIGARETTES, UNCOMPL 03/22/2016 MARISSA CHENG MD Ot G89.29 OTHER CHRONIC PAIN 03/22/2016 MARISSA CHENG MD Ot M54.5 LOW BACK PAIN 03/22/2016 MARISSA CHENG MD Ot R07.9 CHEST PAIN, UNSPECIFIED 03/22/2016 MARISSA CHENG MD Ot Z79.82 STOCK TRADER (CURRENT) USE OF ASPIRIN 03/22/2016 MARISSA CHENG MD Ot Z79.899 OTHER INTERMEDIATE (CURRENT) DRUG THERAPY 03/22/2016 Ot 574.20 CHOLELITHIASIS NOS 03/22/2016 Ot V72.83 EXAM PRE- OPERATIVE NEC 03/22/2016 Ot V74.8 SCREEN- BACTERIAL DIS NEC 03/22/2016 LUNA YUSUF DO Ot 592.1 CALCULUS OF URETER 03/22/2016 LUNA YUSUF DO Ot 719.45 JOINT PAIN-PELVIS 03/22/2016 LUNA YUSUF DO Ot 724.2 LUMBAGO 03/22/2016 LUNA YUSUF DO Ot 721.3 LUMBOSACRAL SPONDYLOSIS 03/22/2016 LON SMITH MD ([facility]) Ot V68.01 DISABILITY EXAMINATION 03/22/2016 LON SMITH MD ([facility]) Ot V82.89 SCREEN FOR OTH SPECIF CONDITIONS 03/22/2016 CORA GONZALES WORKFORCE MANAGEMENT MANAGER Ot R10.2 PELVIC AND PERINEAL PAIN 03/25/2016 MARISSA CHENG MD Ot F17.210 NICOTINE DEPENDENCE, CIGARETTES, UNCOMPL 03/25/2016 MARISSA CHENG MD Ot G89.29 OTHER CHRONIC PAIN 03/25/2016 MARISSA CHENG MD Ot M54.5 LOW BACK PAIN 03/25/2016 MARISSA CHENG MD Ot R07.9 CHEST PAIN, UNSPECIFIED 03/25/2016 MARISSA CHENG MD Ot Z79.82 STOCK TRADER (CURRENT) USE OF ASPIRIN 03/25/2016 MARISSA CHENG MD Ot Z79.899 OTHER STOCK TRADER (CURRENT) DRUG THERAPY 07/26/2016 JULIANNA FLYNN MD Ot F17.210 NICOTINE DEPENDENCE, CIGARETTES, UNCOMPL 07/26/2016 JULIANNA FLYNN MD Ot I10 ESSENTIAL (PRIMARY) HYPERTENSION 07/26/2016 JULIANNA FLYNN MD Ot I25.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[place] CORONARY 07/26/2016 JULIANNA FLYNN MD Ot I49.3 [...] MD Ot I25.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[place] CORONARY 07/26/2016 JULIANNA FLYNN MD Ot I49.3 [...] 721.3 LUMBOSACRAL SPONDYLOSIS 07/28/2016 LON SMITH MD ([facility]) Ot V68.01 DISABILITY EXAMINATION 07/28/2016 LON SMITH MD ([facility]) Ot V82.89 SCREEN FOR OTH SPECIF CONDITIONS 07/28/2016 CORA GONZALES WORKFORCE MANAGEMENT MANAGER Ot R10.2 PELVIC AND PERINEAL PAIN 08/01/2016 SADA PANDEY MD Ot I10 ESSENTIAL (PRIMARY) HYPERTENSION 08/01/2016 SADA PANDEY MD, Ot I49.3 VENTRICULAR PREMATURE DEPOLARIZATION 08/01/2016 SADA PANDEY MD Ot R07.9 CHEST PAIN, UNSPECIFIED 08/01/2016 SADA PANDEY MD Ot Z72.0 TOBACCO USE 08/13/2016 SADA PANDEY MD Ot E78.5 HYPERLIPIDEMIA, UNSPECIFIED 08/13/2016 DANNIE MD, BASHAR J Ot I10 ESSENTIAL (PRIMARY) HYPERTENSION 08/13/2016 SADA PANDEY MD Ot I25.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[place] CORONARY 08/13/2016 SADA PANDEY MD Ot K21.9 GASTRO-ESOPHAGEAL REFLUX DISEASE WITHOUT 08/13/2016 SADA PANDEY MD Ot R07.89 OTHER CHEST PAIN 08/13/2016 SADA PANDEY MD Ot R94.39 ABNORMAL RESULT OF OTHER CARDIOVASCULAR 08/13/2016 SADA PANDEY MD Ot Z72.0 TOBACCO USE 08/13/2016 SADA PANDEY MD Ot Z79.899 OTHER STOCK TRADER (CURRENT) DRUG THERAPY 08/14/2016 SADA PANDEY MD, Ot I10 ESSENTIAL (PRIMARY) HYPERTENSION 08/14/2016 SADA PANDEY MD Ot I49.3 VENTRICULAR PREMATURE DEPOLARIZATION 08/14/2016 SADA PANDEY MD Ot R07.9 CHEST PAIN, UNSPECIFIED 08/14/2016 SADA PANDEY MD Ot Z72.0 TOBACCO USE 09/22/2016 HODAN LEDESMA MD Ot R31.9 HEMATURIA, UNSPECIFIED 09/22/2016 EDWIGE GUERRA MD, Ot I10 ESSENTIAL (PRIMARY) HYPERTENSION 09/22/2016 EDWIGE GUERRA MD Ot Z53.21 PROC/TRTMT NOT CRD OUT D/T PT LV BEF SEE 09/25/2016 HODAN LEDESMA MD Ot N50.811 RIGHT TESTICULAR PAIN 09/25/2016 HODAN LEDESMA MD Ot N50.812 LEFT TESTICULAR PAIN 10/07/2016 HODAN LEDESMA MD Ot R31.9 HEMATURIA, UNSPECIFIED 01/27/2017 MARCY ERNST DO Ot E66.9 OBESITY, UNSPECIFIED 01/27/2017 MARCY ERNST DO Ot F17.200 NICOTINE DEPENDENCE, UNSPECIFIED, UNCOMP 01/27/2017 MARCY ERNST DO Ot I10 ESSENTIAL (PRIMARY) HYPERTENSION 01/27/2017 MARCY ERNST DO Ot I25.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[place] CORONARY 01/27/2017 MARCY ERNST DO Ot I34.1 NONRHEUMATIC MITRAL (VALVE) PROLAPSE 01/27/2017 DELMAN DO, MARCY B Ot K60.2 ANAL FISSURE, UNSPECIFIED 01/27/2017 SUJATA DO, MARCY B Ot K63.5 POLYP OF COLON 01/27/2017 SUJATA DO, MARCY B Ot K64.8 OTHER HEMORRHOIDS 01/27/2017 DELHERLINDA DO, MARCY B Ot Z68.31 BODY MASS INDEX (BMI) 31.0-31.9, ADULT 01/29/2017 SUJATA DO, MARCY B Ot E66.9 OBESITY, UNSPECIFIED 01/29/2017 SUJATA DO, MARCY B Ot F17.200 NICOTINE DEPENDENCE, UNSPECIFIED, UNCOMP 01/29/2017 SUJATA DO, MARCY B Ot I10 ESSENTIAL (PRIMARY) HYPERTENSION 01/29/2017 SUJATA DO, MARCY B Ot I25.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[place] CORONARY 01/29/2017 SUJATA DO, MARCY B Ot I34.1 NONRHEUMATIC MITRAL (VALVE) PROLAPSE 01/29/2017 SUJATA DO, MARCY B Ot K60.2 ANAL FISSURE, UNSPECIFIED 01/29/2017 SUJATA DO, MARCY B Ot K63.5 POLYP OF COLON 01/29/2017 SUJATA DO, MARCY B Ot K64.8 OTHER HEMORRHOIDS 01/29/2017 SUJATA DO, MARCY B Ot Z68.31 BODY MASS INDEX (BMI) 31.0-31.9, ADULT 02/02/2017 SUJATA DO, MRACY B Ot E66.9 OBESITY, UNSPECIFIED 02/02/2017 SUJATA DO, MARCY B Ot F17.200 NICOTINE DEPENDENCE, UNSPECIFIED, UNCOMP 02/02/2017 SUJATA DO, MARCY B Ot I10 ESSENTIAL (PRIMARY) HYPERTENSION 02/02/2017 SUJATA DO, MARCY B Ot I25.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[place] CORONARY 02/02/2017 SUJATA DO, MARCY B Ot I34.1 NONRHEUMATIC MITRAL (VALVE) PROLAPSE 02/02/2017 SUJATA DO, MARCY B Ot K60.2 ANAL FISSURE, UNSPECIFIED 02/02/2017 RAVIMAN DO, MARCY B Ot K63.5 POLYP OF COLON 02/02/2017 DELHERLINDA DO, MARCY B Ot K64.8 OTHER HEMORRHOIDS 02/02/2017 SUJATA DO, MARCY B Ot Z68.31 BODY MASS INDEX (BMI) 31.0-31.9, ADULT 02/03/2017 MARCY ERNST DO Ot E66.9 OBESITY, UNSPECIFIED 02/03/2017 MARCY ERNST DO Ot F17.200 NICOTINE DEPENDENCE, UNSPECIFIED, UNCOMP 02/03/2017 ISABELLA ERNST DOIC B Ot I10 ESSENTIAL (PRIMARY) HYPERTENSION 02/03/2017 ISABELLA ERNST DOIC B Ot I25.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[place] CORONARY 02/03/2017 MARCY ERNST DO Ot I34.1 NONRHEUMATIC MITRAL (VALVE) PROLAPSE 02/03/2017 MARCY ERNST DO Ot K60.2 ANAL FISSURE, UNSPECIFIED 02/03/2017 MARCY ERNST DO Ot K63.5 POLYP OF COLON 02/03/2017 MARCY ERNST DO Ot K64.8 OTHER HEMORRHOIDS 02/03/2017 MARCY ERNST DO Ot Z68.31 BODY MASS INDEX (BMI) 31.0-31.9, ADULT 02/12/2017 MARCY ERNST DO Ot K60.2 ANAL FISSURE, UNSPECIFIED 02/12/2017 MARCY ERNST DO Ot Z01.818 ENCOUNTER FOR OTHER PREPROCEDURAL EXAMIN 02/16/2017 MARCY ERNST DO Ot E78.1 PURE HYPERGLYCERIDEMIA 02/16/2017 MARCY ERNST DO Ot F17.200 NICOTINE DEPENDENCE, UNSPECIFIED, UNCOMP 02/16/2017 MARCY ERNST DO B Ot I10 ESSENTIAL (PRIMARY) HYPERTENSION 02/16/2017 MARCY ERNST DO Ot I25.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[place] CORONARY 02/16/2017 MARCY ERNST DO B Ot K60.2 ANAL FISSURE, UNSPECIFIED 02/16/2017 MARCY ERNST DO B Ot K62.89 OTHER SPECIFIED DISEASES OF ANUS AND REC 02/16/2017 MARCY ERNST DO Ot Z11.2 ENCOUNTER FOR SCREENING FOR OTHER BACTER 02/16/2017 MARCY ERNST DO B Ot Z79.899 OTHER STOCK TRADER (CURRENT) DRUG THERAPY 02/17/2017 MARCY ERNST DO Ot E78.1 PURE HYPERGLYCERIDEMIA 02/17/2017 MARCY ERNST DO Ot F17.200 NICOTINE DEPENDENCE, UNSPECIFIED, UNCOMP 02/17/2017 MARCY ERNST DO Ot I10 ESSENTIAL (PRIMARY) HYPERTENSION 02/17/2017 MARCY ERNST DO Ot I25.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[place] CORONARY 02/17/2017 MARCY ERSNT DO Ot K60.2 ANAL FISSURE, UNSPECIFIED 02/17/2017 MARCY ERNST DO Ot K62.89 OTHER SPECIFIED DISEASES OF ANUS AND REC 02/17/2017 MARCY ERNST DO Ot Z11.2 ENCOUNTER FOR SCREENING FOR OTHER BACTER 02/17/2017 MARCY ERNST DO Ot Z79.899 OTHER INTERMEDIATE (CURRENT) DRUG THERAPY Procedures There is no data. Results Test Result Range Complete blood count (CBC) with automated white blood cell (WBC) differential - 03/22/16 18:47 Blood leukocytes automated count (number/volume) 9.6 10*3/uL 4.3-11.0 Blood erythrocytes automated count (number/volume) 5.06 10*6/uL 4.35-5.85 Venous blood hemoglobin measurement (mass/volume) 16.5 [...] Automated blood platelet mean volume measurement 10.3 [foz_us] 7.4-10.4 Automated blood neutrophils/100 leukocytes 55 % [...] Serum or plasma sodium measurement (moles/volume) 141 mmol/L 135-145 Serum or plasma potassium measurement (moles/volume) 3.9 mmol/L 3.6-5.0 Serum or plasma chloride measurement (moles/volume) 110 mmol/L 98-107 Carbon dioxide 23 mmol/L 21-32 Serum or plasma anion gap determination (moles/volume) 8 mmol/L 5-14 Serum or plasma urea nitrogen measurement (mass/volume) 14 mg/dL 7-18 Serum or plasma creatinine measurement (mass/volume) 1.04 mg/dL 0.60-1.30 Serum or plasma urea nitrogen/creatinine mass [...] or plasma troponin i.cardiac measurement (mass/volume) < ng/ mL <0.30 Myoglobin, serum - 03/22/16 18:47 Myoglobin, serum 29.3 ng/mL 10.0-92.0 Serum or plasma troponin i.cardiac measurement (mass/volume) - 03/22/16 20:28 Serum or plasma troponin i.cardiac measurement (mass/volume) < ng/ mL <0.30 PT panel in platelet poor plasma [...] Serum or plasma sodium measurement (moles/volume) 142 mmol/L 135-145 Serum or plasma potassium measurement (moles/volume) 3.6 mmol/L 3.6-5.0 Serum or plasma chloride measurement (moles/volume) 111 mmol/L 98-107 Carbon dioxide 22 mmol/L 21-32 Serum or plasma anion gap determination (moles/volume) 9 mmol/L 5-14 Serum or plasma urea nitrogen measurement (mass/volume) 11 mg/dL 7-18 Serum or plasma creatinine measurement (mass/volume) 1.03 mg/dL 0.60-1.30 Serum or plasma urea nitrogen/creatinine mass [...] or plasma troponin i.cardiac measurement (mass/volume) < ng/ mL <0.30 Serum or plasma amylase measurement (enzymatic activity/volume) - 07/25/16 21: 05 Serum or plasma amylase measurement (enzymatic activity/volume) 43 U /L 25-125 Lipase - 07/25/16 21:05 Lipase 27 U/L 8-78 Serum or plasma lithium measurement (moles/volume) - 07/25/16 21:05 BNP level 46.2 pg/mL <100.0 Complete blood count (CBC) with automated white blood cell (WBC) differential - 07/25/16 21:14 Blood leukocytes automated count (number/volume) 8.5 10*3/uL 4.3-11.0 Blood erythrocytes automated count (number/volume) 4.81 10*6/uL 4.35-5.85 Venous blood hemoglobin measurement (mass/volume) 15.4 [...] Automated blood platelet mean volume measurement 9.5 [foz_us] 7.4-10.4 Automated blood neutrophils/100 leukocytes 67 % [...] 03:10 Blood leukocytes automated count (number/volume) 7.6 10*3/uL 4.3-11.0 Blood erythrocytes automated count (number/volume) 4.60 10*6/uL 4.35-5.85 Venous blood hemoglobin measurement (mass/volume) 14.9 [...] Automated blood platelet mean volume measurement 9.8 [foz_us] 7.4-10.4 Automated blood neutrophils/100 leukocytes 60 % [...] Serum or plasma sodium measurement (moles/volume) 140 mmol/L 135-145 Serum or plasma potassium measurement (moles/volume) 3.4 mmol/L 3.6-5.0 Serum or plasma chloride measurement (moles/volume) 111 mmol/L 98-107 Carbon dioxide 20 mmol/L 21-32 Serum or plasma anion gap determination (moles/volume) 9 mmol/L 5-14 Serum or plasma urea nitrogen measurement (mass/volume) 14 mg/dL 7-18 Serum or plasma creatinine measurement (mass/volume) 0.86 mg/dL 0.60-1.30 Serum or plasma urea nitrogen/creatinine mass [...] or plasma troponin i.cardiac measurement (mass/volume) < ng/ mL <0.30 Lipid 1996 panel - 07/26/16 03:10 Serum or plasma triglyceride measurement (mass/volume) 275 mg/dL <150 Serum or plasma cholesterol measurement (mass/volume) 156 mg/dL < 200 Serum or plasma cholesterol in HDL measurement (mass/volume) 21 mg/ dL 40-60 Cholesterol in LDL [mass/volume] in serum or plasma by direct assay 104 mg/dL 1-129 Serum or plasma cholesterol in VLDL measurement (mass/volume) 55 mg/ dL 5-40 Complete urinalysis with reflex to culture - 08/13/16 07:11 Urine color determination YELLOW NRG Urine clarity determination CLEAR NRG Urine pH measurement by test strip 5 5-9 Specific gravity of urine by test strip 1.025 1.016- 1.022 Urine protein assay by test strip, semi-quantitative [...] 07:18 Blood leukocytes automated count (number/volume) 7.9 10*3/uL 4.3-11.0 Blood erythrocytes automated count (number/volume) 5.44 10*6/uL 4.35-5.85 Venous blood hemoglobin measurement (mass/volume) 17.3 [...] Automated blood platelet mean volume measurement 9.7 [foz_us] 7.4-10.4 PT panel in platelet poor plasma [...] Serum or plasma sodium measurement (moles/volume) 140 mmol/L 135-145 Serum or plasma potassium measurement (moles/volume) 3.8 mmol/L 3.6-5.0 Serum or plasma chloride measurement (moles/volume) 109 mmol/L 98-107 Carbon dioxide 20 mmol/L 21-32 Serum or plasma anion gap determination (moles/volume) 11 mmol/L 5-14 Serum or plasma urea nitrogen measurement (mass/volume) 13 mg/dL 7-18 Serum or plasma creatinine measurement (mass/volume) 0.94 mg/dL 0.60-1.30 Serum or plasma urea nitrogen/creatinine mass [...] Staphylococcus aureus (MRSA) screening culture NEG NRG CBC With Differential/Platelet - 08/22/16 16:19 WBC 7.7 x10E3/uL 3.4-10.8 RBC 5.25 x10E6/uL 4.14-5.80 Hemoglobin 16.7 g/dL 12.6-17.7 Hematocrit 48.4 % 37.5-51.0 MCV 92 fL 79-97 MCH 31.8 pg 26.6-33.0 MCHC 34.5 g/dL 31.5-35.7 RDW 14.2 % 12.3-15.4 Platelets 244 x10E3/uL 150-379 Neutrophils 60 % Lymphs 24 % Monocytes 13 % Eos 3 % Basos 0 % Neutrophils (Absolute) 4.6 x10E3/uL 1.4-7.0 Lymphs (Absolute) 1.9 x10E3/uL 0.7-3.1 Monocytes(Absolute) 1.0 x10E3/uL 0.1-0.9 Eos (Absolute) 0.2 x10E3/uL 0.0-0.4 Baso (Absolute) 0.0 x10E3/uL 0.0-0.2 Immature Granulocytes 0 % Immature Grans (Abs) 0.0 x10E3/uL 0.0-0.1 Basic Metabolic Panel (8) - 08/22/16 16:19 Glucose, Serum 96 mg/dL 65-99 BUN 15 mg/dL 6-24 Creatinine, Serum 1.03 mg/dL 0.76-1.27 eGFR If NonAfricn Am 80 mL/min/1.73 >59 eGFR If Africn Am 93 mL/min/1.73 >59 BUN/Creatinine Ratio 15 9-20 Sodium, Serum 140 mmol/L 134-144 Potassium, Serum 4.0 mmol/L 3.5-5.2 Chloride, Serum 103 mmol/L 96-106 Carbon Dioxide, Total 20 mmol/L 18-29 Calcium, Serum 9.2 mg/dL 8.7-10.2 Methicillin resistant Staphylococcus aureus (MRSA) screening culture - 07:30 Methicillin resistant Staphylococcus aureus (MRSA) screening culture NEG NRG Comprehensive Metabolic Panel - 07/31/17 12:04 Albumin 3.9 g/dL 3.6-5.1 ALP 68 U/L 35-130 ALT 19 U/L 6-45 Anion Gap 15 6-14 AST 14 U/L 2-40 BUN 14 mg/dL 5-25 Calcium 8.9 mg/dL 8.3-10.4 Chloride 109 mmol/L 95-114 CO2 21 mEq/L 22-33 Creat 0.89 mg/dL 0.50-1.50 eGFR 88 mL/min/1.73m2 >59 Globulin 2.9 g/dL 2.3-3.5 Glucose 119 mg/dL 70-110 Osmo 293 280-295 Potassium 3.5 mmol/L 3.5-5.3 Sodium 141 mmol/L 134-148 TBil 0.6 mg/dL 0.2-1.2 TP 6.8 g/dL 6.0-8.3 LIPID PANEL - 09/15/17 08:08 CHOLESTEROL, TOTAL 225 mg/dL <200 HDL CHOLESTEROL 24 mg/dL >40 TRIGLYCERIDES 345 mg/dL <150 LDL-CHOLESTEROL 148 mg/dL (calc) NRG CHOL/HDLC RATIO 9.4 (calc) <5.0 NON HDL CHOLESTEROL 201 mg/dL (calc) <130 CBC - 01/06/18 09:04 WHITE BLOOD CELL COUNT 6.1 Thousand/uL 3.8-10.8 RED BLOOD CELL COUNT 4.96 Million/uL 4.20-5.80 HEMOGLOBIN 16.2 g/dL 13.2-17.1 HEMATOCRIT 47.3 % 38.5-50.0 MCV 95.4 fL 80.0-100.0 MCH 32.7 pg 27.0-33.0 MCHC 34.2 g/dL 32.0-36.0 RDW 12.9 % 11.0-15.0 PLATELET COUNT 189 Thousand/uL 140-400 MPV 10.0 fL 7.5-12.5 ABSOLUTE NEUTROPHILS 3587 cells/uL 6541-6292 ABSOLUTE LYMPHOCYTES 1531 cells/uL 850-3900 ABSOLUTE MONOCYTES 653 cells/uL 200-950 ABSOLUTE EOSINOPHILS 311 cells/uL 15-500 ABSOLUTE BASOPHILS 18 cells/uL 0-200 NEUTROPHILS 58.8 % NRG LYMPHOCYTES 25.1 % NRG MONOCYTES 10.7 % NRG EOSINOPHILS 5.1 % NRG BASOPHILS 0.3 % NRG PSA - 01/06/18 09:04 PSA, TOTAL 0.5 ng/mL < OR=4.0 TSH - 01/06/18 09:04 TSH 3.01 mIU/L 0.40-4.50 Encounters ACCT No. Visit Date/Time Discharge Status Pt. Type Provider Facility Loc./Unit Complaint [id number] 02/16/2017 07:13:00 02/16/2017 11:10:00 DIS Outpatient MARCY ERNST DO [facility] SDC ANAL FISSURE [id number] 02/11/2017 05:29:00 02/11/2017 11:11:00 DIS Outpatient MARCY ERNST DO [facility] PREOP ANAL FISSURE [id number] 01/27/2017 07:03:00 01/27/2017 10:00:00 DIS Outpatient MARCY ERNST DO [facility] ENDO BLOOD IN STOOLS [id number] 01/23/2017 05:24:00 01/23/2017 11:38:00 DIS Outpatient MARCY ERNST DO B [facility] PREOP BLOOD IN STOOLS [id number] 09/22/2016 17:49:00 09/22/2016 19:00:00 DIS Emergency EDWIGE GUERRA MD [facility] ER HIGH BLOOD PRESSURE [id number] 09/16/2016 13:47:00 09/16/2016 23:59:59 CLS Outpatient HODAN LEDESMA MD [facility] RAD HEMATURIA [id number] 09/01/2016 10:50:00 09/01/2016 23:59:59 CLS Outpatient HODAN LEDESMA MD [facility] RAD BILATERAL ORCHITIS [id number] 08/13/2016 06:40:00 08/13/2016 12:55:00 DIS Outpatient SADA PANDEY MD [facility] CATH ABN STRESS TEST,CP [id number] 07/30/2016 08:12:00 07/30/2016 23:59:59 CLS Outpatient SADA PANDEY MD [facility] CARD CHEST PAIN SYNDROME,HTN, PVC [id number] 07/25/2016 22:31:00 07/26/2016 12:01:00 DIS Inpatient RINA LAM, JULIANNA Wang [facility] ICU CP,HTN [id number] 03/22/2016 18:45:00 03/22/2016 21:32:00 DIS Emergency MARISSA CHENG MD [facility] ER CP/ELEV BP [id number] 09/27/2015 08:58:00 09/27/2015 09:15:00 DIS Emergency MARI LAM, EDWIGE Gallegos [facility] ER RIGHT FLANK/BACK PAIN [id number] 04/16/2015 12:12:00 04/16/2015 23:59:59 CLS Outpatient CORA GONZALES WORKFORCE MANAGEMENT MANAGER [facility] RAD PELVIC PAIN [id number] 12/15/2014 12:06:00 12/15/2014 23:59:59 CLS Outpatient LUIS LAM, LON Martinez (DDU) [facility] RAD DDU [id number] 12/15/2014 12:59:00 12/15/2014 15:04:00 DIS Emergency HÉCTOR FLORES OPERATING ROOM NURSE [facility] ER TESTICLE PAIN [id number] 03/03/2014 10:01:00 03/03/2014 23:59:59 CLS Outpatient LUNA YUSUF DO [facility] RAD DJD OF L-5-S-1, RADICULOPATHY [id number] 08/26/2013 03:35:00 08/26/2013 13:15:00 DIS Outpatient YONY LAM FACC, JUDITH ALAMO CCDS [facility] CATH CHEST PAIN [id number] 08/24/2013 14:57:00 08/24/2013 23:59:59 CLS Outpatient LUNA YUSUF DO [facility] RAD LOW BACK PAIN, R HIP PAIN [id number] 02/24/2013 15:11:00 02/24/2013 23:59:59 CLS Outpatient LUNA YUSUF DO [facility] RAD L URETEROLITHIASIS [id number] 02/23/2013 18:55:00 02/23/2013 20:54:00 DIS Emergency HÉCTOR FLORES Reid TURNER [facility] ER SCROTUM PAINFUL [id number] 02/22/2013 00:17:00 02/22/2013 01:23:00 DIS Emergency KATIA SALDANA DO [facility] ER HG BLOOD PRESSURE,BURNS [id number] 01/27/2018 14:50:00 ACT Emergency MARI LAM, EDWIGE Gallegos [facility] ER FINGER CUT OFF [id number] 06/11/2011 21:10:00 Document Registration [id number] 01/30/2011 05:42:00 Document Registration [id number] 01/28/2011 10:17:00 Document Registration [id number] 01/24/2011 07:24:00 Document Registration [id number] 08/31/2010 00:10:00 Document Registration [id number] 08/29/2010 09:56:00 Document Registration [id number] 09/15/2017 08:00:00 09/15/2017 23:59:59 CLS Outpatient LUNA GARCIA APRN [facility] [id number] 01/06/2018 09:00:00 Document Registration [id number] 09/15/2017 08:00:00 Document Registration [id number] 08/04/2017 09:56:00 08/04/2017 12:25:00 DIS Outpatient MARCY ERNST [id number] 07/31/2017 11:57:00 07/31/2017 23:59:00 DIS Outpatient Ramy Garcia [id number] 2017 12:12:00 2017 12:12:00 CAN Outpatient MARCY ERNST [id number] 08/03/2017 15:04:44 Document Registration [id number] 08/23/2016 08:07:00 Document Registration
[2018-01-27] MEDS ORDERED: ceFAZolin 2 GM IV Premixed 50 ML IV ONE (15:15)
[2018-01-27] MEDS ORDERED: TETANUS,DIPTH,PERTUSS P/F (BOOSTRIX) 0.5 ML VIAL IM ONE (15:15)
[2018-01-27] MEDS ORDERED: morphine INJ 10 MG/ML 1ML (SYR OR VIAL) IVP ONE (15:45)
[2018-01-27] MEDS ORDERED: LIDOCAINE 1% INJ 20 ML 20 ML VIAL ONE (15:50)
--- NOTE | 2018-01-27 15:52 | Diagnostic Imaging Report ---
INDICATION: Finger amputation on saw. TECHNIQUE: Three views of the right hand. CORRELATION STUDY: None. FINDINGS: There is soft tissue and bony amputation of the ring finger. This is located just below the distal aspect of the middle phalanx below the proximal interphalangeal joint. There is an apparent additional soft tissue defect at the base of the index finger. No definitive foreign body or bony abnormality; however, the soft tissues are obscured by overlying dressing material. The remaining osseous structures are unremarkable. IMPRESSION: 1. Soft tissue and bony amputation just proximal to the distal interphalangeal joint of the ring finger. 2. Soft tissue defect at the proximal aspect of the index finger without definitive underlying bony abnormality. Dictated by: Dictated on workstation # [id number]
[2018-01-27] MEDS ORDERED: LORazepam INJ 2 MG/ML (ATIVAN) VIAL ONE (15:54)
[2018-01-27] MEDS ORDERED: LORazepam INJ 2 MG/ML (ATIVAN) VIAL IVP ONE (16:00)
[2018-01-27] MEDS ORDERED: HYDROmorphone 2 MG/ML VIAL (DILAUDID) ONE (16:06)
[2018-01-27] MEDS ORDERED: HYDROmorphone 2 MG/ML VIAL (DILAUDID) IV STA (16:07)
[2018-01-27] MEDS ORDERED: HYDR-3816 PO (16:24)
--- NOTE | 2018-01-27 16:24 | ED Upper Extremity ---
General Chief Complaint: Upper Extremity Stated Complaint: FINGER CUT OFF Nursing Triage Note: pt reports he was getting ready to put up his mitor saw and accidentily turned the blade on and amputated his l ring finger right below the nail bed. pt also has lac to l index finger. pt denies any other injury. pt went home to try to retieve tip of finger. Nursing Sepsis Screen: No Definite Risk Source: patient Exam Limitations: no limitations History of Present Illness Date Seen by Provider: Jan 27, 2018 Time Seen by Provider: 14:50 Initial Comments This 57-year-old gentleman presents to the emergency room immediately after severing his left ring finger with a miter saw. He has a complete amputation of the distal phalanx. There is also a laceration at the base of the second finger. Sensation, capillary refill, and range of motion is intact in the second finger. He denies any other injury. He is in distress. Onset: just prior to arrival Allergies and Home Medications Allergies Coded Allergies: No Known Drug Allergies (Unverified , 01/23/17) Home Medications Dexlansoprazole 30 Mg Gallo., 30 MG PO DAILY, (Reported) Hydrocodone Bit/Acetaminophen 1 Each Tablet, 1 EACH PO TID PRN for PAIN-MILD TO MODERATE, (Reported) Hydrocodone/Acetaminophen 1 Each Tablet, 1-2 EACH PO Q6H PRN for PAIN-MODERATE TO SEVERE Prescribed by: EDWIGE RYDER on 01/27/18 1624 Losartan Potassium 50 Mg Tablet, 50 MG PO DAILY, (Reported) Ropinirole HCl 5 Mg Tab, 5 MG PO HS, (Reported) Tamsulosin HCl 0.4 Mg Cap, 0.4 MG PO DAILY, (Reported) Patient Home Medication List Home Medication List Reviewed: Yes Review of Systems Constitutional: no symptoms reported EENTM: no symptoms reported Respiratory: no symptoms reported Cardiovascular: no symptoms reported Gastrointestinal: no symptoms reported Genitourinary: no symptoms reported Musculoskeletal: see HPI Skin: see HPI Psychiatric/Neurological: See HPI Past Nnmgujl-Ohgiiu-Ybuwdh Hx Past Med/Social Hx: Reviewed Nursing Past Med/Soc Hx Patient Social History Alcohol Use: Rarely Uses Number of Drinks Today: AA Alcohol Beverage of Choice: Beer Recreational Drug Use: No Smoking Status: Current Everyday Smoker Type Used: Cigarettes 2nd Hand Smoke Exposure: No Recent Foreign Travel: No Contact w/Someone Who Travel: No Recent Infectious Disease Expo: No Recent Hopitalizations: No Physical Abuse: No Sexual Abuse: No Mistreated: No Fear: No Immunizations Up To Date Tetanus Booster (TDap): Unknown PED Vaccines UTD: No Seasonal Allergies Seasonal Allergies: No Past Medical History Surgeries: Yes (CARDIAC CATH 2013 AND 2016--NO INTERVENTION, fissure reair, hemroidectomy) Cardiac, Gallbladder, Vasectomy Respiratory: No Currently Using CPAP: No Currently Using BIPAP: No Cardiac: Yes (HX OF MITRAL VALVE PROLAPSE) Coronary Artery Disease, High Cholesterol, Hypertension Neurological: Yes Headaches /Migraines, Neuropathy Reproductive Disorders: No Sexually Transmitted Disease: No HIV/AIDS: No Genitourinary: Yes Kidney Stones Gastrointestinal: Yes (TAKES DEXILANT-FOR ABD CRAMPS) Irritable Bowel Musculoskeletal: Yes (CHRONIC FOOT PAIN, "CAVUS FOOT" (HIGH ARCH)) Degenerate Disk Disease, Chronic Back Pain Endocrine: No HEENT: Yes Cataract Loss of Vision: Bilateral Hearing Impairment: Denies Cancer: No Psychosocial: No Integumentary: No Blood Disorders: No Adverse Reaction/Blood Tranf: No (N/A) Family Medical History Reviewed Nursing Family Hx Family history: Hypertension Hearing loss G8 BROTHER, Onset:Unknown (HEARING AIDE X1) No Family History of: Abdominal aortic aneurysm Winchester's disease Alcoholism Aphasia Cancer Cancer of colon Cataract Chest pain Congenital heart disease Congestive heart failure Cystic fibrosis Dementia Dysphagia Family history: Allergy Family history: Alzheimer's disease Family history: Arthritis Family history: Asthma Family history: Breast disease Family history: Cardiovascular disease Family history: Coronary thrombosis Family history: Diabetes mellitus Family history: Gastrointestinal disease Family history: Glaucoma Family history: Osteoporosis Family history: Thyroid disorder Headache Heart disease Hereditary disease History of - anemia History of - disorder History of - respiratory disease History of drug abuse Human immunodeficiency virus (HIV) seropositivity Hypercholesterolemia Infertile Kidney disease Malignant neoplasm of lung Myocardial infarction Parkinson's disease Prostate cancer Psychotic disorder Seizure disorder Stroke Tuberculosis Visual impairment Physical Exam Vital Signs Vital Signs - First Documented 01/27/18 01/27/18 15:02 16:50 Temp 97.8 Pulse 88 Resp 20 B/P (MAP) 155/92 (113) Pulse Ox 98 O2 Delivery Room Air Capillary Refill : Less Than 3 Seconds Height, Weight, BMI Height: 5'10.00" Weight: 215lbs. 0.0oz. 97.125613nl; 31.3 BMI Method:Stated General Appearance: WD/WN, moderate distress HEENT: PERRL/EOMI, normal ENT inspection Neck: normal inspection Cardiovascular: regular rate, rhythm, no edema, no murmur Respiratory: lungs clear, normal breath sounds, no respiratory distress, no accessory muscle use Gastrointestinal: non tender, soft Shoulder: normal inspection, no evidence of injury, normal ROM Elbow/Forearm: normal inspection, no evidence of injury, normal ROM Wrist: Yes normal inspection, Yes non-tender, Yes no evidence of injury, Yes normal ROM Hand: deformity (There is a complete amputation of the left ring finger. Bleeding is controlled. The finger was transected in an oblique fashion. There is a laceration about 3 cm in length at the base of the index finger as well. 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, no motor/sensory deficits, alert, oriented x 3, other (Very anxious) Skin: normal color, warm/dry, other (Amputation as above) Progress/Results/Core Measures Results/Orders My Orders Orders - EDWIGE GUERRA MD Lidocaine 1% Inj 20 Ml (Xylocaine 1% Inj (01/27/18 14:49) Fentanyl Injection (Sublimaze Injection (01/27/18 14:51) Dipht,Pertuss(Acell),Tet Adult (Boostrix (01/27/18 15:15) Hand, Left, 3 Views (01/27/18 15:05) Cefazolin 2 Gm Iv Premixed (Ancef 2 Gm P (01/27/18 15:15) Morphine Injection (Morphine Injection (01/27/18 15:45) Lidocaine 1% Inj 20 Ml (Xylocaine 1% Inj (01/27/18 15:50) Lorazepam Injection (Ativan Injection) (01/27/18 16:00) Lorazepam Injection (Ativan Injection) (01/27/18 15:54) Hydromorphone Injection (Dilaudid Inject (01/27/18 16:07) Hydromorphone Injection (Dilaudid Inject (01/27/18 16:06) Medications Given in ED Vital Signs/I&O Blood Pressure Mean: 113 Progress Progress Note : Progress Note Patient was immediately seen and examined. Once it was determined he was hemodynamically stable, a digital block with approximately 8 mL of one percent lidocaine was administered. The laceration at the base of the index finger was also anesthetized with about 2 mL of lidocaine. Skin was cleaned with alcohol prior to injection. Dr. Camilo was consulted and recommended trimming of the phalanx and closure of the wound. Attempting reattachment of the finger was not recommended. Patient received multiple doses of narcotic pain medications as well as Ativan for anxiety. Gonzales Rodríguez APRN, presented to the ER on behalf of Dr. Camilo to perform the closure. He repaired the finger laceration as well as trim down the exposed phalanx and close the wound. Wound was dressed in a sterile fashion. See his note for procedure. A tetanus booster was administered as well as clindamycin 900 mg by IV route. Diagnostic Imaging Diagonstic Imaging: Xray Plain Films/CT/US/NM/MRI: hand Comments Hand x-ray viewed by me and report reviewed. See report below: NAME: SIMEON WATSON [facility] REC#: [id number] PT STATUS: DEP ER : 1960 PHYSICIAN: EDWIGE GUERRA MD ADMIT DATE: 01/27/18/ER Signed Date of Exam: 01/27/18 HAND, LEFT, 3 VIEWS INDICATION: Finger amputation on saw. TECHNIQUE: Three views of the right hand. CORRELATION STUDY: None. FINDINGS: There is soft tissue and bony amputation of the ring finger. This is located just below the distal aspect of the middle phalanx below the proximal interphalangeal joint. There is an apparent additional soft tissue defect at the base of the index finger. No definitive foreign body or bony abnormality; however, the soft tissues are obscured by overlying dressing material. The remaining osseous structures are unremarkable. IMPRESSION: 1. Soft tissue and bony amputation just proximal to the distal interphalangeal joint of the ring finger. 2. Soft tissue defect at the proximal aspect of the index finger without definitive underlying bony abnormality. Dictated by: Dictated on workstation # [id number] Dict: 01/27/18 1542 Trans: 01/28/18 1158 Interpreted by: JOSE L GONZÁLES DO Electronically signed by: JOSE L GONZÁLES DO 01/28/18 1158 Departure Impression Primary Impression: Finger amputation, traumatic Qualified Codes: S68.119A - Complete traumatic metacarpophalangeal amputation of unspecified finger, initial encounter Additional Impression: Laceration Disposition: HOME, SELF-CARE Condition: Improved Departure-Patient Inst. Decision time for Depature: 16:20 Referrals: JAEL HIGH DO (PCP) Primary Care Physician CORA GONZALES (Family) Primary Care Physician GONZALES RODRÍGUEZ MICHAEL P MD Patient Instructions: Amputation of the Finger or Fingertip Add. Discharge Instructions: Keep the current dressing on for 48 hours. Then keep the wound clean and dry except for normal bathing and handwashing. Do not submerge. Monitor the wound for signs of infection including increasing redness, increasing swelling, increasing pain, fever, or puslike drainage. Return to care promptly few notice any of these symptoms. Elevate to the level of your heart to reduce pain and swelling. You may take ibuprofen up to 600 mg every 6 hours as needed for pain. Add hydrocodone as prescribed for pain not controlled by ibuprofen. Follow-up with Dr. Camilo or Gonzales Rodríguez next , February 04. All discharge instructions reviewed with patient and/or family. Voiced understanding. Scripts Hydrocodone/Acetaminophen (Hydrocodone-Acetamin 7.5-325) 1 Each Tablet 1-2 EACH PO Q6H PRN for PAIN-MODERATE TO SEVERE MDD 6, #30 TAB Prov: EDWIGE GUERRA MD 01/27/18 EDWIGE GUERRA MD Jan 27, 2018 16:24
[2018-01-27 16:50] VITALS: BP 131/84
--- NOTE | 2018-01-28 08:35 | CONSULTATION REPORT ---
DATE OF SERVICE: EMERGENCY ROOM CONSULT CHIEF COMPLAINT: Left hand injury. SERVICE: Orthopedic surgery. HISTORY OF PRESENT ILLNESS: This 57-year-old male was utilizing his power miter saw at home last night when he suffered an injury to his left hand. He is right hand dominant. He reports that he was lifting the saw up off the ground and inadvertently hit the on switch with his right hand and the blade struck his left upper extremity amputating the distal portion of the left hand ring finger and causing a laceration along the base of the index finger. The patient was evaluated at the emergency room. The wounds were cleaned and irrigated and a digital block was performed and orthopedics was notified. PAST MEDICAL HISTORY: Includes mitral valve prolapse, coronary artery disease, hypercholesterolemia, hypertension, kidney stones and irritable bowel syndrome. PAST SURGICAL HISTORY: Includes cardiac catheterization, cholecystectomy and vasectomy. His BMI is 31.3. ALLERGIES: He has no known medication allergies. SOCIAL HISTORY: Includes a pack a day of cigarettes and rare alcohol consumption. CURRENT MEDICATIONS: Include dexlansoprazole, [place], losartan, ropinirole and tamsulosin. PHYSICAL EXAMINATION: Upon arriving to the ER, the left hand was noted to be missing the distal portion of the ring finger. Review of x-rays: Three views of the left hand from [facility] dated 01/27/2018 showed complete loss of the distal phalanx and amputation of just the most distal tip of the middle phalanx. Upon examination of the left hand, he was able to actively flex and extend all digits. The laceration along the index finger was probed and the patient did have full active flexion of the MCP, PIP and DIP joints and the laceration was noted to be just radial to the flexor sheath. Intact flexion and extension was noted at the ring finger as well. Capillary refill was otherwise brisk throughout the remaining intact four digits of the left upper extremity and no other significant wounds were noted. IMPRESSION: 1. Left hand partial amputation, distal ring finger. 2. Left hand index finger base laceration. PLAN: The hand was prepped with Betadine solution and the wounds were once again irrigated. A digital block was reapplied to the ring finger using 6 mL of 1% lidocaine. The patient tolerated this well. The laceration of the index finger base was closed with interrupted horizontal mattress 4-0 nylon and the ring finger was debrided removing approximately 5 mm of bone a favorable soft tissue envelope was created to close over the tip of the remaining middle phalanx. The extensor and flexor tendon sheaths were debrided back and care was taken to remove any digital nerve endings that were grossly noted. Once the bone was favorably removed, the soft tissue flap was then closed over the tip of the amputation site using interrupted 4-0 nylon. The wounds were once again cleansed and debrided with normal saline. The patient tolerated the procedure well. Sterile dressing was applied with Adaptic gauze, tube gauze and a 2-inch Jaylen bandage. Wound care and dressing changes were discussed with the patient and his . We will plan to recheck him on an outpatient clinic basis in one week with plans to remove stitches at approximately 2-week post-injury. Thank you for the consult. Dr. Camilo is informed as a consult. Job ID: [id number] DocumentID: [id number] Dictated Date: 01/28/2018 08:07:12 Telecommunications Analyst Date: 01/28/2018 08:35:07 Dictated By: GUDELIA PAEZ
== END 2018-01-27 16:55 | disposition home or self-care (01) ==
LOC: EDUNIT# 14:49 → ER 14:50
DX: S68.115A Complete traumatic metacarpophalangeal amputation of left ring finger, initial encounter (principal); S61.211A Laceration without foreign body of left index finger without damage to nail, initial encounter; I25.10 Atherosclerotic heart disease of native coronary artery without angina pectoris; E78.00 Pure hypercholesterolemia, unspecified; I10 Essential (primary) hypertension; G43.909 Migraine, unspecified, not intractable, without status migrainosus; F17.210 Nicotine dependence, cigarettes, uncomplicated; Z87.19 Personal history of other diseases of the digestive system; Z87.442 Personal history of urinary calculi; Z98.52 Vasectomy status; Z98.890 Other specified postprocedural states; Z23 Encounter for immunization; W29.8XXA Contact with other powered hand tools and household machinery, initial encounter
CPT/HCPCS: 11010; 12042; 64450; 73130; 90715

== ENCOUNTER 2018-11-03 10:41 | Emergency (ER) | payer MEDICARE, OTHER ==
[~2018-11-03] VITALS: Ht 177.8 cm; Wt 103.9 kg
[~2018-11-03 10:41] MED LIST changes: +HYDR-3816 PO; -LIDOCAINE 1% INJ 20 ML 20 ML VIAL ONE; +LOSA50TA63 PO; -LOSA50TA7 PO
--- OUTSIDE RECORDS SUMMARY | 2018-11-03 10:47 | XMS REPORT ---
Author Author LUNA CORRAL Organization [facility] Address [address] [place] [address] Care Team Providers Care Title Inspector Name Role Phone LUNA CORRAL Unavailable PROBLEMS Type Condition ICD9-CM Code ZCB17-RC Code Onset Dates Condition Status SNOMED Code Problem Varicocele I86.1 Active 62245046 Problem Chronic tension-type headache, intractable G44.221 Active 745298964 Problem Gastroesophageal reflux disease without esophagitis K21.9 Active 472312853 Problem Chronic major depressive disorder, recurrent episode F33.9 Active 01638265 Problem Irritable bowel syndrome with constipation K58.1 Active 809942247 Problem Peptic ulcer disease K27.9 Active 29029199 Problem Other chronic pain G89.29 Active 02323125 Problem Primary insomnia F51.01 Active 8109234 Problem Diarrhea, unspecified type R19.7 Active 75275673 Problem Neuropathy G62.9 Active 283796117 Problem HTN (hypertension) I10 Active 52594503 Problem BPH (benign prostatic hyperplasia) N40.0 Active 469046823 Problem Mitral valve prolapse I34.1 Active 705937889 Problem Cavus deformity M21.6X9 Active 249916081 Problem Pelvic pain R10.2 Active 97533601 Problem 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 Active 948161686 Problem Restless legs syndrome G25.81 Active 219258961 Problem Cavus deformity of right foot M21.6X1 Active 068003262 Problem Depressive disorder, not elsewhere classified F32.9 Active 31525580 ALLERGIES No Information ENCOUNTERS Encounter Location Date Diagnosis [facility] [address], [place] [address] Mar, Other chronic pain G89.29 [facility] [id number], [place] [address] Feb, Other chronic pain G89.29 [facility] [address], [place] [address] Jan, Other chronic pain G89.29 [facility] [id number] [place] [address] Jan, Traumatic amputation of fingertip, 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 [facility] [address], [place] [address] Jan, Other chronic pain G89.29 [facility] [id number] [place] [address] Dec, Chronic major depressive disorder, recurrent episode F33.9 and Neuropathy G62.9 [facility] [id number] [place] [address] Nov, Other chronic pain G89.29 [facility] [id number] [place] [address] Nov, Medicare welcome exam Z00.00 [facility] [id number] [place] [address] Nov, Other chronic pain G89.29 [facility] [id number] [place] [address] Oct, Other chronic pain G89.29 [facility] [address], [place] [address] Sep, Other chronic pain G89.29 [facility] [id number] [place] [address] August, [facility] [id number] [place] [address] August, HTN (hypertension) I10 ; BPH (benign prostatic hyperplasia) N40.0 and Gastroesophageal reflux disease without esophagitis K21.9 [facility] [address], [place] [address] August, Other chronic pain G89.29 [facility] [id number] [place] [address] Jul, Medicare welcome exam Z00.00 ; Depressive disorder, not elsewhere classified F32.9 ; Neuropathy G62.9 ; HTN (hypertension) I10 ; BPH (benign prostatic hyperplasia) N40.0 ; Mitral valve prolapse I34.1 ; Gastroesophageal reflux disease without esophagitis K21.9 and Primary insomnia F51.01 [address] [address] Jul, Other chronic pain G89.29 [place] [address] [address] Jun, Other chronic pain G89.29 ; HTN (hypertension) I10 ; Neuropathy G62.9 and Irritable bowel syndrome with constipation K58.1 [place] [address] [address] Jun, [place] [address] [address] May, Neuropathy G62.9 [place] [address] [address] May, Anal pain K62.89 [place] [id number] [place] [address] Apr, [place] [id number] [place] [address] Apr, Neuropathy G62.9 [place] [address] [address] Mar, Neuropathy G62.9 [place] [address] [address] Mar, HTN (hypertension) I10 ; Neuropathy G62.9 and Anal itch L29.0 [place] [id number] [place] [address] Feb, Restless legs syndrome G25.81 [place] [id number] [place] [address] Feb, Neuropathy G62.9 [place] [id number] [place] [address] Jan, Neuropathy G62.9 [place] [id number] [place] [address] Dec, Grade I hemorrhoids K64.0 and Rectal bleeding K62.5 [place] [id number] [place] [address] Dec, Neuropathy G62.9 [place] [address] [address] Nov, Neuropathy G62.9 [place] [id number] [place] [address] Nov, Neuropathy G62.9 [place] [id number] [place] [address] Nov, HTN (hypertension) I10 ; Neuropathy G62.9 ; Cavus deformity M21.6X9 ; Mitral valve prolapse I34.1 ; Restless legs syndrome G25.81 ; Gastroesophageal reflux disease without esophagitis K21.9 ; Primary insomnia F51.01 ; BPH (benign prostatic hyperplasia) N40.0 and Actinic keratosis L57.0 [place] [id number] [place] [address] Oct, Other chronic pain G89.29 [place] [id number] [place] [address] 05 Oct, 2016 HTN (hypertension) I10 ; Neuropathy G62.9 ; BPH (benign prostatic hyperplasia) N40.0 ; Cavus deformity of right foot M21.6X1 ; Mitral valve prolapse I34.1 ; Gastroesophageal reflux disease without esophagitis K21.9 ; Other chronic pain G89.29 ; Primary insomnia F51.01 and Restless legs syndrome G25.81 [place] [address] [place] [address] Sep, Neuropathy G62.9 [place] [address] [address] Sep, HTN (hypertension) I10 ; BPH (benign prostatic hyperplasia) N40.0 ; Neuropathy G62.9 ; Mitral valve prolapse I34.1 ; Restless legs syndrome G25.81 and Gastroesophageal reflux disease without esophagitis K21.9 [place] [address] [address] Sep, Cavus deformity of right foot M21.6X1 [place] [address] [address] August, Orthostatic hypotension I95.1 [place] [address] [address] August, HTN (hypertension) I10 ; BPH (benign prostatic hyperplasia) N40.0 ; Hydrocele in adult N43.3 ; Peptic ulcer disease K27.9 ; Restless legs syndrome G25.81 and Cavus deformity of right foot M21.6X1 [place] [address] [address] Jul, Peptic ulcer disease K27.9 ; Diarrhea, unspecified type R19.7 ; BPH (benign prostatic hyperplasia) N40.0 ; HTN (hypertension) I10 ; Neuropathy G62.9 ; Mitral valve prolapse I34.1 ; Gastroesophageal reflux disease without esophagitis K21.9 and Restless legs syndrome G25.81 [place] [id number] [place] [address] Jul, [place] [address] [address] Jul, Cavus deformity M21.6X9 [place] [id number] [place] [address] Jun, Cavus deformity M21.6X9 [place] [id number] [place] [address] 09 May, 2016 Family history of diabetes mellitus Z83.3 ; BPH (benign prostatic hyperplasia) N40.0 ; Cavus deformity M21.6X9 ; Restless legs syndrome G25.81 ; Gastroesophageal reflux disease without esophagitis K21.9 ; HTN (hypertension) I10 ; Neuropathy G62.9 and Other chronic pain G89.29 [place] [address] [address] Apr, Mitral valve prolapse I34.1 [place] [address] [address] Apr, [place] [address] [address] Mar, Other chest pain R07.89 [place] [address] [address] Mar, [place] [address] [address] Feb, [place] [address] [address] Jan, [place] [id number] [place] [address] Dec, [place] [id number] [place] [address] 07 Dec, 2015 BPH (benign prostatic hyperplasia) N40.0 and Wellness examination Z00.00 [place] [id number] [place] [address] 10 Nov, 2015 BPH (benign prostatic hyperplasia) N40.0 ; Neuropathy G62.9 ; Cavus deformity M21.6X9 ; 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 ; Mitral valve prolapse I34.1 ; Restless legs syndrome G25.81 ; Depressive disorder, not elsewhere classified F32.9 ; Gastroesophageal reflux disease without esophagitis K21.9 and Wellness examination Z00.00 [place] [address], [place] [address] Nov, [place] [id number] [place] [address] Oct, [facility] [id number] [place] [address] Oct, Other chronic pain G89.29 [place] [id number] [place] [address] Sep, Pelvic pain R10.2 [place] [id number] [place] [address] August, Other chronic pain G89.29 [place] [id number] [place] [address] August, BPH (benign prostatic hyperplasia) N40.0 ; HTN (hypertension) I10 ; Neuropathy G62.9 ; Gastroesophageal reflux disease without esophagitis K21.9 ; Restless legs syndrome G25.81 and Chronic tension-type headache, intractable G44.221 [place] [id number] [place] [address] Jul, Pelvic pain R10.2 [place] [id number] [place] [address] Jun, [place] [id number] [place] [address] May, [place] [id number] [place] [address] May, Conjunctival hemorrhage of right eye H11.31 [place] [id number] [place] [address] May, [place] [id number] [place] [address] May, BPH (benign prostatic hyperplasia) N40.0 ; Cavus deformity M21.6X9 ; HTN (hypertension) I10 ; Mitral valve prolapse I34.1 ; Pelvic pain R10.2 ; Restless legs syndrome G25.81 ; Varicocele I86.1 and GERD (gastroesophageal reflux disease) K21.9 [place] [address] [address] Apr, [place] [address] [address] Apr, Varicocele I86.1 [place] [address] [address] Apr, Depressive disorder, not elsewhere classified F32.9 [place] [address] [address] Apr, HTN (hypertension) I10 ; BPH (benign prostatic hyperplasia) N40.0 ; Restless legs syndrome G25.81 ; Neuropathy G62.9 ; Pelvic pain R10.2 and GERD (gastroesophageal reflux disease) K21.9 [place] [address] [address] Mar, [place] [address] [address] Mar, [place] [address] [address] Mar, [place] [address] [address] Mar, HTN (hypertension) I10 ; Restless legs syndrome G25.81 ; BPH (benign prostatic hyperplasia) N40.0 ; Neuropathy G62.9 ; Cavus deformity of right foot M21.6X1 ; 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 ; Mitral valve prolapse I34.1 and Pelvic pain R10.2 [place] [address] [address] Mar, [place] [address] [address] Mar, [facility] [address], [place] [address] Mar, [facility] [id number] [place] [address] Feb, [facility] [address], [place] [address] Feb, [facility] [id number] [place] [address] Feb, [facility] [address] [place] [address] Jan, BPH (benign prostatic hyperplasia) N40.0 ; HTN (hypertension) I10 ; Neuropathy G62.9 ; Cavus deformity of right foot M21.6X1 ; 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 and Mitral valve prolapse I34.1 [place] [id number] [place] [address] Jan, BPH (benign prostatic hyperplasia) N40.0 ; Cavus deformity of left foot 736.73 ; Cavus deformity of right foot 736.73 ; Essential hypertension 401.9 ; Restless leg syndrome 333.94 and Chronic pain 338.29 [facility] [address], [place] [address] Jan, [place] [id number] [place] [address] Jan, [facility] [address] [place] [address] Dec, Essential hypertension 401.9 ; Mitral valve prolapse 424.0 ; Restless leg syndrome 333.94 and Chronic pain 338.29 [facility] [address] [place] [address] Dec, [facility] [address], [place] [address] Dec, Essential hypertension 401.9 ; Restless leg syndrome 333.94 ; Cavus deformity of left foot 736.73 ; Cavus deformity of right foot 736.73 ; Mitral valve prolapse 424.0 ; Chronic hydrocele 603.9 ; BPH (benign prostatic hyperplasia) 600.00 and Routine medical exam V70.0 [facility] [address] [facility] [id number] [place] [address] Nov, [facility] [address] [facility] [id number] [address] Oct, Essential hypertension 401.9 ; Restless leg syndrome 333.94 ; Cavus deformity of left foot 736.73 ; Cavus deformity of right foot 736.73 and Mitral valve prolapse 424.0 IMMUNIZATIONS No Known Immunizations SOCIAL HISTORY Never Assessed REASON FOR VISIT Controlled Medication refill PLAN OF CARE VITAL SIGNS MEDICATIONS [...] 2016 Hospitalization History heart problems July 2016 Hospitalization History [facility] ER, due to chop saw/lost half ring finger. 01/2018
--- OUTSIDE RECORDS SUMMARY | 2018-11-03 10:48 | XMS REPORT ---
Author Author LUNA CORRAL Organization [facility] Address [address] [place] [address] Care Team Providers Care Extension Service Specialist In Charge Name Role Phone LUNA CORRAL Unavailable PROBLEMS Type Condition ICD9-CM Code UBN32-FI Code Onset Dates Condition Status SNOMED Code Problem Varicocele I86.1 Active 15124909 Problem Chronic tension-type headache, intractable G44.221 Active 043963736 Problem Gastroesophageal reflux disease without esophagitis K21.9 Active 372173050 Problem Chronic major depressive disorder, recurrent episode F33.9 Active 66380913 Problem Irritable bowel syndrome with constipation K58.1 Active 881253650 Problem Peptic ulcer disease K27.9 Active 65179299 Problem Other chronic pain G89.29 Active 14816733 Problem Primary insomnia F51.01 Active 6077877 Problem Diarrhea, unspecified type R19.7 Active 66002217 Problem Neuropathy G62.9 Active 133550437 Problem HTN (hypertension) I10 Active 58675377 Problem BPH (benign prostatic hyperplasia) N40.0 Active 016298788 Problem Mitral valve prolapse I34.1 Active 367151601 Problem Cavus deformity M21.6X9 Active 450894613 Problem Pelvic pain R10.2 Active 27262975 Problem 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 Active 074096262 Problem Restless legs syndrome G25.81 Active 781133071 Problem Cavus deformity of right foot M21.6X1 Active 613900808 Problem Depressive disorder, not elsewhere classified F32.9 Active 86138942 ALLERGIES No Information ENCOUNTERS Encounter Location Date Diagnosis [facility] [id number], [place] [address] Jan, Other chronic pain G89.29 [facility] [id number] [address] Jan, Traumatic amputation of fingertip, 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 [facility] [address] [address] Jan, Other chronic pain G89.29 [facility] [id number] [place] [address] Dec, Chronic major depressive disorder, recurrent episode F33.9 and Neuropathy G62.9 [facility] [id number] [place] [address] Nov, Other chronic pain G89.29 [facility] [address] [address] Nov, Medicare welcome exam Z00.00 [facility] [id number] [place] [address] Nov, Other chronic pain G89.29 [facility] [id number] [place] [address] Oct, Other chronic pain G89.29 [facility] [id number] [place] [address] Sep, Other chronic pain G89.29 [facility] [id number] [address] August, [facility] [address] [address] August, HTN (hypertension) I10 ; BPH (benign prostatic hyperplasia) N40.0 and Gastroesophageal reflux disease without esophagitis K21.9 [facility] [address] [address] August, Other chronic pain G89.29 [facility] [address] [address] Jul, Medicare welcome exam Z00.00 ; Depressive disorder, not elsewhere classified F32.9 ; Neuropathy G62.9 ; HTN (hypertension) I10 ; BPH (benign prostatic hyperplasia) N40.0 ; Mitral valve prolapse I34.1 ; Gastroesophageal reflux disease without esophagitis K21.9 and Primary insomnia F51.01 [facility] [id number] [place] [address] 11 Jul, 2017 Other chronic pain G89.29 [facility] [id number] [place] [address] 12 Jun, 2017 Other chronic pain G89.29 ; HTN (hypertension) I10 ; Neuropathy G62.9 and Irritable bowel syndrome with constipation K58.1 [facility] [address] [address] 09 Jun, 2017 [facility] [address] [address] May, Neuropathy G62.9 [facility] [id number] [place] [address] 08 May, 2017 Anal pain K62.89 [facility] [address] [address] Apr, [facility] [address] [address] Apr, Neuropathy G62.9 [facility] [address] [address] Mar, Neuropathy G62.9 [facility] [id number] [place] [address] Mar, HTN (hypertension) I10 ; Neuropathy G62.9 and Anal itch L29.0 [facility] [id number] [place] [address] Feb, Restless legs syndrome G25.81 [facility] [address] [address] Feb, Neuropathy G62.9 [facility] [id number] [place] [address] Jan, Neuropathy G62.9 [facility] [id number] [address] Dec, Grade I hemorrhoids K64.0 and Rectal bleeding K62.5 [facility] [id number] [place] [address] Dec, Neuropathy G62.9 [facility] [id number] [place] [address] Nov, Neuropathy G62.9 [facility] [id number] [place] [address] Nov, Neuropathy G62.9 [facility] [id number] [place] [address] Nov, HTN (hypertension) I10 ; Neuropathy G62.9 ; Cavus deformity M21.6X9 ; Mitral valve prolapse I34.1 ; Restless legs syndrome G25.81 ; Gastroesophageal reflux disease without esophagitis K21.9 ; Primary insomnia F51.01 ; BPH (benign prostatic hyperplasia) N40.0 and Actinic keratosis L57.0 [facility] [id number] [place] [address] Oct, Other chronic pain G89.29 [facility] [id number] [place] [address] Oct, HTN (hypertension) I10 ; Neuropathy G62.9 ; BPH (benign prostatic hyperplasia) N40.0 ; Cavus deformity of right foot M21.6X1 ; Mitral valve prolapse I34.1 ; Gastroesophageal reflux disease without esophagitis K21.9 ; Other chronic pain G89.29 ; Primary insomnia F51.01 and Restless legs syndrome G25.81 [facility] [id number] [place] [address] Sep, Neuropathy G62.9 [facility] [id number] [place] [address] Sep, HTN (hypertension) I10 ; BPH (benign prostatic hyperplasia) N40.0 ; Neuropathy G62.9 ; Mitral valve prolapse I34.1 ; Restless legs syndrome G25.81 and Gastroesophageal reflux disease without esophagitis K21.9 [facility] [id number] [place] [address] Sep, Cavus deformity of right foot M21.6X1 [facility] [address] [address] August, Orthostatic hypotension I95.1 [facility] [address] [address] August, HTN (hypertension) I10 ; BPH (benign prostatic hyperplasia) N40.0 ; Hydrocele in adult N43.3 ; Peptic ulcer disease K27.9 ; Restless legs syndrome G25.81 and Cavus deformity of right foot M21.6X1 [facility] [address] [address] Jul, Peptic ulcer disease K27.9 ; Diarrhea, unspecified type R19.7 ; BPH (benign prostatic hyperplasia) N40.0 ; HTN (hypertension) I10 ; Neuropathy G62.9 ; Mitral valve prolapse I34.1 ; Gastroesophageal reflux disease without esophagitis K21.9 and Restless legs syndrome G25.81 [facility] [id number] [place] [address] Jul, [facility] [id number] [place] [address] Jul, Cavus deformity M21.6X9 [facility] [address] [address] Jun, Cavus deformity M21.6X9 [facility] [address] [address] May, Family history of diabetes mellitus Z83.3 ; BPH (benign prostatic hyperplasia) N40.0 ; Cavus deformity M21.6X9 ; Restless legs syndrome G25.81 ; Gastroesophageal reflux disease without esophagitis K21.9 ; HTN (hypertension) I10 ; Neuropathy G62.9 and Other chronic pain G89.29 [facility] [id number] [place] [address] Apr, Mitral valve prolapse I34.1 [facility] [id number] [place] [address] Apr, [facility] [id number] [place] [address] Mar, Other chest pain R07.89 [facility] [id number] [place] [address] Mar, [facility] [id number] [place] [address] Feb, [facility] [id number] [place] [address] Jan, [facility] [id number] [place] [address] Dec, [facility] [id number] [place] [address] 07 Dec, 2015 BPH (benign prostatic hyperplasia) N40.0 and Wellness examination Z00.00 [facility] [id number] [place] [address] Nov, BPH (benign prostatic hyperplasia) N40.0 ; Neuropathy G62.9 ; Cavus deformity M21.6X9 ; 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 ; Mitral valve prolapse I34.1 ; Restless legs syndrome G25.81 ; Depressive disorder, not elsewhere classified F32.9 ; Gastroesophageal reflux disease without esophagitis K21.9 and Wellness examination Z00.00 [facility] [id number] [place] [address] Nov, [facility] [id number] [place] [address] Oct, [facility] [address] [place] [address] Oct, Other chronic pain G89.29 [facility] [place] [address] [address] Sep, Pelvic pain R10.2 [facility] [address] [address] August, Other chronic pain G89.29 [facility] [address] [address] August, BPH (benign prostatic hyperplasia) N40.0 ; HTN (hypertension) I10 ; Neuropathy G62.9 ; Gastroesophageal reflux disease without esophagitis K21.9 ; Restless legs syndrome G25.81 and Chronic tension-type headache, intractable G44.221 [facility] [address] [address] Jul, Pelvic pain R10.2 [facility] [address] [address] Jun, [facility] [address] [address] May, [facility] [address] [address] May, Conjunctival hemorrhage of right eye H11.31 [facility] [id number] [place] [address] May, [facility] [address] [address] May, BPH (benign prostatic hyperplasia) N40.0 ; Cavus deformity M21.6X9 ; HTN (hypertension) I10 ; Mitral valve prolapse I34.1 ; Pelvic pain R10.2 ; Restless legs syndrome G25.81 ; Varicocele I86.1 and GERD (gastroesophageal reflux disease) K21.9 [facility] [id number] [place] [address] Apr, [facility] [id number] [place] [address] Apr, Varicocele I86.1 [facility] [id number] [place] [address] Apr, Depressive disorder, not elsewhere classified F32.9 [facility] [id number] [place] [address] Apr, HTN (hypertension) I10 ; BPH (benign prostatic hyperplasia) N40.0 ; Restless legs syndrome G25.81 ; Neuropathy G62.9 ; Pelvic pain R10.2 and GERD (gastroesophageal reflux disease) K21.9 [facility] [id number] [place] [address] Mar, [facility] [id number] [place] [address] Mar, [facility] [address] [address] Mar, [facility] [id number] [place] [address] Mar, HTN (hypertension) I10 ; Restless legs syndrome G25.81 ; BPH (benign prostatic hyperplasia) N40.0 ; Neuropathy G62.9 ; Cavus deformity of right foot M21.6X1 ; 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 ; Mitral valve prolapse I34.1 and Pelvic pain R10.2 [facility] [id number] [place] [address] Mar, [facility] [id number] [place] [address] Mar, [facility] [id number] [place] [address] Mar, [facility] [id number] [place] [address] Feb, [facility] [id number] [place] [address] Feb, [facility] [id number] [place] [address] Feb, [facility] [id number] [place] [address] Jan, BPH (benign prostatic hyperplasia) N40.0 ; HTN (hypertension) I10 ; Neuropathy G62.9 ; Cavus deformity of right foot M21.6X1 ; 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 and Mitral valve prolapse I34.1 [facility] [address] [address] Jan, BPH (benign prostatic hyperplasia) N40.0 ; Cavus deformity of left foot 736.73 ; Cavus deformity of right foot 736.73 ; Essential hypertension 401.9 ; Restless leg syndrome 333.94 and Chronic pain 338.29 [place] [id number] [place] [address] Jan, [facility] [id number] [place] [address] Jan, [place] [id number] [place] [address] 17 Dec, 2014 Essential hypertension 401.9 ; Mitral valve prolapse 424.0 ; Restless leg syndrome 333.94 and Chronic pain 338.29 [place] [id number] [place] [address] Dec, [facility] [id number] [place] [address] Dec, Essential hypertension 401.9 ; Restless leg syndrome 333.94 ; Cavus deformity of left foot 736.73 ; Cavus deformity of right foot 736.73 ; Mitral valve prolapse 424.0 ; Chronic hydrocele 603.9 ; BPH (benign prostatic hyperplasia) 600.00 and Routine medical exam V70.[address] [address] Nov, [facility] [address] [facility] [id number] [place] [address] Oct, Essential hypertension 401.9 ; Restless leg syndrome 333.94 ; Cavus deformity of left foot 736.73 ; Cavus deformity of right foot 736.73 and Mitral valve prolapse 424.0 IMMUNIZATIONS No Known Immunizations SOCIAL HISTORY Never Assessed REASON FOR VISIT Controlled Med Refill 02/15/18 PLAN OF CARE VITAL SIGNS MEDICATIONS Medication [...] Coagulation for hemrrhoids 07/2017 Hospitalization History possible [place] and heart cath 2016 Hospitalization History ER visit for chest pain 2016 Hospitalization History heart problems July 2016 Hospitalization History [facility] ER, due to chop saw/lost half ring finger. 01/2018
--- OUTSIDE RECORDS SUMMARY | 2018-11-03 10:48 | XMS REPORT ---
Author Author LUNA CORRAL Organization [facility] Address [address] [place] [address] Care Team Providers Care Loan Inspector Name Role Phone LUNA CORRAL Unavailable PROBLEMS Type Condition ICD9-CM Code RIG42-CC Code Onset Dates Condition Status SNOMED Code Problem Varicocele I86.1 Active 70372425 Problem Chronic tension-type headache, intractable G44.221 Active 162642069 Problem Gastroesophageal reflux disease without esophagitis K21.9 Active 501390833 Problem Chronic major depressive disorder, recurrent episode F33.9 Active 98165518 Problem Irritable bowel syndrome with constipation K58.1 Active 071000699 Problem Peptic ulcer disease K27.9 Active 54952247 Problem Other chronic pain G89.29 Active 29768850 Problem Primary insomnia F51.01 Active 0546485 Problem Diarrhea, unspecified type R19.7 Active 93695649 Problem Neuropathy G62.9 Active 936687135 Problem HTN (hypertension) I10 Active 62505538 Problem BPH (benign prostatic hyperplasia) N40.0 Active 190680430 Problem Mitral valve prolapse I34.1 Active 737509852 Problem Cavus deformity M21.6X9 Active 818884754 Problem Pelvic pain R10.2 Active 38532033 Problem 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 Active 715008623 Problem Restless legs syndrome G25.81 Active 467118302 Problem Cavus deformity of right foot M21.6X1 Active 654311635 Problem Depressive disorder, not elsewhere classified F32.9 Active 66789727 ALLERGIES No Information ENCOUNTERS Encounter Location Date Diagnosis [facility] [address] [address] Feb, Other chronic pain G89.29 [facility] [id number], [place] [address] Jan, Other chronic pain G89.29 [facility] [address] [place] [address] Jan, Traumatic amputation of fingertip, 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 [place] [id number] [place] [address] Jan, Other chronic pain G89.29 [place] [id number] [place] [address] Dec, Chronic major depressive disorder, recurrent episode F33.9 and Neuropathy G62.9 [place] [id number] [place] [address] Nov, Other chronic pain G89.29 [place] [id number] [place] [address] Nov, Medicare welcome exam Z00.00 [place] [id number] [place] [address] Nov, Other chronic pain G89.29 [place] [id number] [place] [address] Oct, Other chronic pain G89.29 [place] [id number] [place] [address] Sep, Other chronic pain G89.29 [place] [address] [place] [address] August, [place] [id number] [place] [address] August, HTN (hypertension) I10 ; BPH (benign prostatic hyperplasia) N40.0 and Gastroesophageal reflux disease without esophagitis K21.9 [place] [id number] [place] [address] August, Other chronic pain G89.29 [place] [address] [place] [address] Jul, Medicare welcome exam Z00.00 ; Depressive disorder, not elsewhere classified F32.9 ; Neuropathy G62.9 ; HTN (hypertension) I10 ; BPH (benign prostatic hyperplasia) N40.0 ; Mitral valve prolapse I34.1 ; Gastroesophageal reflux disease without esophagitis K21.9 and Primary insomnia F51.01 [facility] [id number] [place] [address] Jul, Other chronic pain G89.29 [facility] [address] [address] Jun, Other chronic pain G89.29 ; HTN (hypertension) I10 ; Neuropathy G62.9 and Irritable bowel syndrome with constipation K58.1 [place] [address] [address] Jun, [place] [address] [address] 11 May, 2017 Neuropathy G62.9 [place] [address] [address] May, Anal pain K62.89 [facility] [address] [address] Apr, [place] [address] [address] Apr, Neuropathy G62.9 [place] [address] [address] Mar, Neuropathy G62.9 [place] [address] [address] Mar, HTN (hypertension) I10 ; Neuropathy G62.9 and Anal itch L29.0 [place] [address] [address] Feb, Restless legs syndrome G25.81 [facility] [address] [address] Feb, Neuropathy G62.9 [place] [id number] [place] [address] Jan, Neuropathy G62.9 [place] [id number] [place] [address] Dec, Grade I hemorrhoids K64.0 and Rectal bleeding K62.5 [place] [address] [place] [address] Dec, Neuropathy G62.9 [place] [address] [place] [address] Nov, Neuropathy G62.9 [place] [address] [address] Nov, Neuropathy G62.9 [place] [address] [place] [address] Nov, HTN (hypertension) I10 ; Neuropathy G62.9 ; Cavus deformity M21.6X9 ; Mitral valve prolapse I34.1 ; Restless legs syndrome G25.81 ; Gastroesophageal reflux disease without esophagitis K21.9 ; Primary insomnia F51.01 ; BPH (benign prostatic hyperplasia) N40.0 and Actinic keratosis L57.0 [place] [address] [place] [address] Oct, Other chronic pain G89.29 [place] [address] [place] [address] Oct, HTN (hypertension) I10 ; Neuropathy G62.9 ; BPH (benign prostatic hyperplasia) N40.0 ; Cavus deformity of right foot M21.6X1 ; Mitral valve prolapse I34.1 ; Gastroesophageal reflux disease without esophagitis K21.9 ; Other chronic pain G89.29 ; Primary insomnia F51.01 and Restless legs syndrome G25.81 [place] [address] [place] [address] Sep, Neuropathy G62.9 [place] [address] [place] [address] Sep, HTN (hypertension) I10 ; BPH (benign prostatic hyperplasia) N40.0 ; Neuropathy G62.9 ; Mitral valve prolapse I34.1 ; Restless legs syndrome G25.81 and Gastroesophageal reflux disease without esophagitis K21.9 [place] [address] [address] Sep, Cavus deformity of right foot M21.6X1 [place] [address] [address] August, Orthostatic hypotension I95.1 [place] [address] [address] August, HTN (hypertension) I10 ; BPH (benign prostatic hyperplasia) N40.0 ; Hydrocele in adult N43.3 ; Peptic ulcer disease K27.9 ; Restless legs syndrome G25.81 and Cavus deformity of right foot M21.6X1 [place] [address] [address] Jul, Peptic ulcer disease K27.9 ; Diarrhea, unspecified type R19.7 ; BPH (benign prostatic hyperplasia) N40.0 ; HTN (hypertension) I10 ; Neuropathy G62.9 ; Mitral valve prolapse I34.1 ; Gastroesophageal reflux disease without esophagitis K21.9 and Restless legs syndrome G25.81 [place] [address] [place] [address] Jul, [place] [address] [address] Jul, Cavus deformity M21.6X9 [place] [address] [address] Jun, Cavus deformity M21.6X9 [place] [address] [address] May, Family history of diabetes mellitus Z83.3 ; BPH (benign prostatic hyperplasia) N40.0 ; Cavus deformity M21.6X9 ; Restless legs syndrome G25.81 ; Gastroesophageal reflux disease without esophagitis K21.9 ; HTN (hypertension) I10 ; Neuropathy G62.9 and Other chronic pain G89.29 [place] [address] [place] [address] Apr, Mitral valve prolapse I34.1 [place] [address] [address] Apr, [place] [address] [address] Mar, Other chest pain R07.89 [place] [address] [address] Mar, [place] [address] [place] [address] Feb, [place] [address] [address] Jan, [place] [address] [place] [address] Dec, [place] [address] [place] [address] Dec, BPH (benign prostatic hyperplasia) N40.0 and Wellness examination Z00.00 [place] [address] [place] [address] Nov, BPH (benign prostatic hyperplasia) N40.0 ; Neuropathy G62.9 ; Cavus deformity M21.6X9 ; 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 ; Mitral valve prolapse I34.1 ; Restless legs syndrome G25.81 ; Depressive disorder, not elsewhere classified F32.9 ; Gastroesophageal reflux disease without esophagitis K21.9 and Wellness examination Z00.00 [place] [address] [place] [address] Nov, [place] [id number] [place] [address] Oct, [place] [address] [address] Oct, Other chronic pain G89.29 [place] [address] [address] Sep, Pelvic pain R10.2 [place] [address] [address] August, Other chronic pain G89.29 [place] [address] [place] [address] August, BPH (benign prostatic hyperplasia) N40.0 ; HTN (hypertension) I10 ; Neuropathy G62.9 ; Gastroesophageal reflux disease without esophagitis K21.9 ; Restless legs syndrome G25.81 and Chronic tension-type headache, intractable G44.221 [place] [address] [place] [address] Jul, Pelvic pain R10.2 [place] [address] [place] [address] Jun, [place] [address] [place] [address] May, [place] [address] [place] [address] May, Conjunctival hemorrhage of right eye H11.31 [place] [address] [place] [address] May, [place] [address] [address] May, BPH (benign prostatic hyperplasia) N40.0 ; Cavus deformity M21.6X9 ; HTN (hypertension) I10 ; Mitral valve prolapse I34.1 ; Pelvic pain R10.2 ; Restless legs syndrome G25.81 ; Varicocele I86.1 and GERD (gastroesophageal reflux disease) K21.9 [facility] [address] [place] [address] Apr, [facility] [address] [place] [address] Apr, Varicocele I86.1 [facility] [address] [place] [address] Apr, Depressive disorder, not elsewhere classified F32.9 [facility] [address] [address] Apr, HTN (hypertension) I10 ; BPH (benign prostatic hyperplasia) N40.0 ; Restless legs syndrome G25.81 ; Neuropathy G62.9 ; Pelvic pain R10.2 and GERD (gastroesophageal reflux disease) K21.9 [place] [address] [place] [address] Mar, [place] [address] [place] [address] Mar, [place] [address] [place] [address] Mar, [place] [address] [place] [address] Mar, HTN (hypertension) I10 ; Restless legs syndrome G25.81 ; BPH (benign prostatic hyperplasia) N40.0 ; Neuropathy G62.9 ; Cavus deformity of right foot M21.6X1 ; 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 ; Mitral valve prolapse I34.1 and Pelvic pain R10.2 [place] [address] [place] [address] Mar, [place] [address] [place] [address] Mar, [place] [address] [place] [address] Mar, [place] [address], [place] [address] Feb, [facility] [address] [place] [address] Feb, [facility] [address] [place] [address] Feb, [facility] [address] [place] [address] Jan, BPH (benign prostatic hyperplasia) N40.0 ; HTN (hypertension) I10 ; Neuropathy G62.9 ; Cavus deformity of right foot M21.6X1 ; 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 and Mitral valve prolapse I34.1 [place] [address] [place] [address] Jan, BPH (benign prostatic hyperplasia) N40.0 ; Cavus deformity of left foot 736.73 ; Cavus deformity of right foot 736.73 ; Essential hypertension 401.9 ; Restless leg syndrome 333.94 and Chronic pain 338.29 [place] [address] [place] [address] Jan, [facility] [address] [place] [address] Jan, [facility] [address] [place] [address] Dec, Essential hypertension 401.9 ; Mitral valve prolapse 424.0 ; Restless leg syndrome 333.94 and Chronic pain 338.29 [facility] [address], [place] [address] Dec, [facility] [id number] [place] [address] Dec, Essential hypertension 401.9 ; Restless leg syndrome 333.94 ; Cavus deformity of left foot 736.73 ; Cavus deformity of right foot 736.73 ; Mitral valve prolapse 424.0 ; Chronic hydrocele 603.9 ; BPH (benign prostatic hyperplasia) 600.00 and Routine medical exam V70.0 [facility] [address] [facility] [id number] [address] Nov, [facility] [address] [facility] [id number] [address] Oct, Essential hypertension 401.9 ; Restless leg syndrome 333.94 ; Cavus deformity of left foot 736.73 ; Cavus deformity of right foot 736.73 and Mitral valve prolapse 424.0 IMMUNIZATIONS No Known Immunizations SOCIAL HISTORY Never Assessed REASON FOR VISIT Controlled Med Refill 03/10/18 PLAN OF CARE VITAL SIGNS MEDICATIONS Medication Instructions Dosage Frequency Start Date End Date Duration Status Hydrocodone-Acetaminophen 7.5-325 MG Orally 3 times a day 1 tablet as needed 8h Feb, 28 days Active RESULTS No Results PROCEDURES [...] Coagulation for hemrrhoids 07/2017 Hospitalization History possible [facility] and heart cath 2016 Hospitalization History ER visit for chest pain 2016 Hospitalization History heart problems July 2016 Hospitalization History [facility] ER, due to chop saw/lost half ring finger. 01/2018
--- OUTSIDE RECORDS SUMMARY | 2018-11-03 10:58 | XMS REPORT | Continuity of Care Document ---
Author Organization Unknown Address Unknown Allergies Active Description Code Type Severity Reaction Onset Reported/Identified Relationship to Patient Clinical Status Yes NKANo Known Allergies NKA Miscellaneous Allergy Mild N/A 06/15/2009 Yes No Known Drug Allergies [id number] Drug Allergy Unknown N/A 01/23/2017 Medications There is no data. Problems Date Dx Coded Attending Type Code [...] NOS 02/22/2013 KATIA SALDANA DO K Ot 784.0 HEADACHE 02/23/2013 [facility]CTOR [facility]NER Ot 592.1 CALCULUS OF URETER 02/23/2013 HÉCTOR [facility] OWNER Ot 608.9 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 08/26/2013 YONY LAM FACC, JUDITH FACP CCDS Ot 276.8 HYPOPOTASSEMIA 08/26/2013 YONY LAM FACC, JUDITH FACP CCDS Ot 305.1 TOBACCO USE DISORDER 08/26/2013 YONY LAM FACC, JUDITH FACP CCDS Ot 401.9 HYPERTENSION NOS 08/26/2013 YONY LAM FACC, JUDITH FACP CCDS Ot 414.01 CORONARY ATHEROSCLEROSIS OF [place] CORON 08/26/2013 YONY LAM FACC, JUDITH FACP CCDS Ot 786.59 CHEST PAIN NEC 08/26/2013 YONY LAM FACC, JUDITH FACP CCDS Ot V45.89 POSTSURGICAL STATES NEC 08/26/2013 YONY LAM FACC, JUDITH FACP CCDS Ot V58.69 OT MED,LT,CURRENT USE 06/01/2014 YUSUF LUNA MCKEON Ot 721.3 06/01/2014 Ot 574.20 06/01/2014 Ot V72.83 06/01/2014 Ot V74.8 06/01/2014 YUSUFJEN MCKEON LUNA Mathews Ot 592.1 06/01/2014 YUSUF DO, LUNA Mathews Ot 719.45 06/01/2014 YUSUF DO, LUNA Mathews Ot 724.2 06/01/2014 YUSUF LUNA Mathews Ot 721.3 06/13/2014 YUSUF LUNA Mathews Ot 721.3 12/15/2014 Ot 574.20 12/15/2014 Ot V72.83 12/15/2014 Ot V74.8 12/15/2014 YUSUF DO, LUNA Mathews Ot 592.1 12/15/2014 YUSUFJEN MCKENO LUNA Mathews Ot 719.45 12/15/2014 YUSUFJEN MCKEON LUNA Mathews Ot 724.2 12/15/2014 YUSUFJEN MCKEON LUNA Mathews Ot 721.3 12/15/2014 [facility]NER Ot 603.9 HYDROCELE NOS 12/15/2014 [facility] OWNER Ot 608.9 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 12/15/2014 Ot 574.20 12/15/2014 Ot V72.83 12/15/2014 Ot V74.8 12/15/2014 YUSUFJEN MCKEON LUNA Mathews Ot 592.1 12/15/2014 YUSUFJNE MCKEON LUNA Mathews Ot 719.45 12/15/2014 YUSUFJEN MCKEON LUNA Mathews Ot 724.2 12/15/2014 YUSUF DO, LUNA Mathews Ot 721.3 08/16/2015 CORA GONZALES AUTOMATION QTP TESTER Ot R10.2 PELVIC AND PERINEAL PAIN 08/30/2015 CORA GONZALES AUTOMATION QTP TESTER Ot R10.2 PELVIC AND PERINEAL PAIN 09/27/2015 [...] FOR OTH SPECIF CONDITIONS 03/22/2016 CORA GONZALES AUTOMATION QTP TESTER Ot R10.2 PELVIC AND PERINEAL PAIN 03/22/2016 MARISSA CHENG MD Ot F17.210 NICOTINE DEPENDENCE, CIGARETTES, UNCOMPL 03/22/2016 MARISSA CHENG MD Ot G89.29 OTHER CHRONIC PAIN 03/22/2016 MARISSA CHENG MD Ot M54.5 LOW BACK PAIN 03/22/2016 MARISSA CHENG MD Ot R07.9 CHEST PAIN, UNSPECIFIED 03/22/2016 MARISSA CHENG MD Ot Z79.82 FAMILY INDEPENDENCE CASE MANAGER (CURRENT) USE OF ASPIRIN 03/22/2016 MARISSA CHENG MD Ot Z79.899 OTHER FAMILY INDEPENDENCE CASE MANAGER (CURRENT) DRUG THERAPY 03/22/2016 Ot 574.20 CHOLELITHIASIS NOS 03/22/2016 Ot V72.83 EXAM PRE-OPERATIVE NEC 03/22/2016 Ot V74.8 SCREEN-BACTERIAL DIS NEC 03/22/2016 LUNA YUSUF DO Ot 592.1 CALCULUS OF URETER 03/22/2016 LUNA YUSUF DO Ot 719.45 JOINT PAIN-PELVIS 03/22/2016 LUNA YUSUF DO Ot 724.2 LUMBAGO 03/22/2016 LUNA YUSUF DO Ot 721.3 LUMBOSACRAL SPONDYLOSIS 03/22/2016 LON SMITH MD ([facility]) Ot V68.01 DISABILITY EXAMINATION 03/22/2016 LON SMITH MD ([facility]) Ot V82.89 SCREEN FOR OTH SPECIF CONDITIONS 03/22/2016 JANET CORA Calloway AUTOMATION QTP TESTER Ot R10.2 PELVIC AND PERINEAL PAIN 03/25/2016 MARISSA CHENG MD Ot F17.210 NICOTINE DEPENDENCE, CIGARETTES, UNCOMPL 03/25/2016 MARISSA CHENG MD Ot G89.29 OTHER CHRONIC PAIN 03/25/2016 MARISSA CHENG MD Ot M54.5 LOW BACK PAIN 03/25/2016 MARISSA CHENG MD Ot R07.9 CHEST PAIN, UNSPECIFIED 03/25/2016 MARISSA CHENG MD Ot Z79.82 INTERMEDIATE (CURRENT) USE OF ASPIRIN 03/25/2016 MARISSA CHENG MD Ot Z79.899 OTHER INTERMEDIATE (CURRENT) DRUG THERAPY 07/26/2016 JULIANNA FLYNN MD Ot F17.210 NICOTINE DEPENDENCE, CIGARETTES, UNCOMPL 07/26/2016 JULIANNA FLYNN MD Ot I10 ESSENTIAL (PRIMARY) HYPERTENSION 07/26/2016 JULIANNA FLYNN MD Ot I25.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[place] CORONARY 07/26/2016 JULIANNA FLYNN MD Ot I49.3 [...] MD Ot I25.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[place] CORONARY 07/26/2016 JULIANNA FLYNN MD Ot I49.3 VENTRICULAR PREMATURE DEPOLARIZATION 07/26/2016 JULIANNA FLYNN MD, Ot K21.9 GASTRO-ESOPHAGEAL REFLUX DISEASE WITHOUT 07/26/2016 JULIANNA FLYNN MD Ot M54.9 DORSALGIA, UNSPECIFIED 07/26/2016 JULIANNA FLYNN MD Ot M79.673 PAIN IN UNSPECIFIED FOOT 07/26/2016 JULIANNA FLYNN MD, Ot N40.0 BENIGN PROSTATIC HYPERPLASIA WITHOUT LOW 07/26/2016 JULIANNA FLYNN MD Ot R07.89 OTHER CHEST PAIN 07/28/2016 LUNA YUSUF DO Ot 592.1 CALCULUS OF [place]RE[place] 07/28/2016 LUNA YUSUF DO Ot 719.45 JOINT PAIN-PELVIS 07/28/2016 LUNA YUSUF DO Ot 724.2 LUMBAGO 07/28/2016 LUNA YUSUF DO Ot 721.3 LUMBOSACRAL SPONDYLOSIS 07/28/2016 LON SMITH MD ([facility]) Ot V68.01 DISABILITY EXAMINATION 07/28/2016 LON SMITH MD ([facility]) Ot V82.89 SCREEN FOR OTH SPECIF CONDITIONS 07/28/2016 CORA GONZALES AUTOMATION QTP TESTER Ot R10.2 PELVIC AND PERINEAL PAIN 08/01/2016 SADA PNADEY MD Ot I10 ESSENTIAL (PRIMARY) HYPERTENSION 08/01/2016 SADA PANDEY MD Ot I49.3 VENTRICULAR PREMATURE DEPOLARIZATION 08/01/2016 SADA PANDEY MD Ot R07.9 CHEST PAIN, UNSPECIFIED 08/01/2016 SADA PANDEY MD Ot Z72.0 TOBACCO USE 08/13/2016 SADA PANDEY MD Ot E78.5 HYPERLIPIDEMIA, UNSPECIFIED 08/13/2016 SADA PANDEY MD Ot I10 ESSENTIAL (PRIMARY) HYPERTENSION 08/13/2016 SADA PANDEY MD Ot I25.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[place] CORONARY 08/13/2016 SADA PANDEY MD Ot K21.9 GASTRO-ESOPHAGEAL REFLUX DISEASE WITHOUT 08/13/2016 SADA PANDEY MD Ot R07.89 OTHER CHEST PAIN 08/13/2016 SADA PANDEY MD Ot R94.39 ABNORMAL RESULT OF OTHER CARDIOVASCULAR 08/13/2016 SADA PANDEY MD Ot Z72.0 TOBACCO USE 08/13/2016 SADA PANDEY MD Ot Z79.899 OTHER INTERMEDIATE (CURRENT) DRUG THERAPY 08/14/2016 SADA PANDEY MD Ot I10 ESSENTIAL (PRIMARY) HYPERTENSION 08/14/2016 SADA PANDEY MD Ot I49.3 VENTRICULAR PREMATURE DEPOLARIZATION 08/14/2016 SADA PANDEY MD Ot R07.9 CHEST PAIN, UNSPECIFIED 08/14/2016 SADA PANDEY MD, Ot Z72.0 TOBACCO USE 09/22/2016 CALLIE LAM, HODAN Calloway Ot R31.9 HEMATURIA, UNSPECIFIED 09/22/2016 EDWIGE GUERRA MD, Ot I10 ESSENTIAL (PRIMARY) HYPERTENSION 09/22/2016 MARI LAM, EDWIGE Gallegos Ot Z53.21 PROC/TRTMT NOT CRD OUT D/T PT LV BEF SEE 09/25/2016 HODAN LEDESMA MD Ot N50.811 RIGHT TESTICULAR PAIN 09/25/2016 HODAN LEDESMA MD, Ot N50.812 LEFT TESTICULAR PAIN 10/07/2016 HODAN LEDESMA MD Ot R31.9 HEMATURIA, UNSPECIFIED 01/27/2017 MARCY ERNST DO Ot E66.9 OBESITY, UNSPECIFIED 01/27/2017 MARCY ERNST DO Ot F17.200 NICOTINE DEPENDENCE, UNSPECIFIED, UNCOMP 01/27/2017 MARCY ERNST DO Ot I10 ESSENTIAL (PRIMARY) HYPERTENSION 01/27/2017 MARCY ERNST DO Ot I25.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[place] CORONARY 01/27/2017 MARCY ERNST DO Ot I34.1 NONRHEUMATIC MITRAL (VALVE) PROLAPSE 01/27/2017 MARCY ERNST DO Ot K60.2 ANAL FISSURE, UNSPECIFIED 01/27/2017 MARCY ERNST DO Ot K63.5 POLYP OF COLON 01/27/2017 MARCY ERNST DO Ot K64.8 OTHER HEMORRHOIDS 01/27/2017 SUJATA DO, MARCY B Ot Z68.31 BODY MASS INDEX (BMI) 31.0-31.9, ADULT 01/29/2017 SUJATA DO, MARCY B Ot E66.9 OBESITY, UNSPECIFIED 01/29/2017 DELMAN DO, MARCY B Ot F17.200 NICOTINE DEPENDENCE, UNSPECIFIED, UNCOMP 01/29/2017 RAVIMAN DO, MARCY B Ot I10 ESSENTIAL (PRIMARY) HYPERTENSION 01/29/2017 SUJATA DO, MARCY B Ot I25.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[place] CORONARY 01/29/2017 SUJATA DO, MARCY B Ot I34.1 NONRHEUMATIC MITRAL (VALVE) PROLAPSE 01/29/2017 SUJATA DO, MARCY B Ot K60.2 ANAL FISSURE, UNSPECIFIED 01/29/2017 SUJATA DO, MARCY B Ot K63.5 POLYP OF COLON 01/29/2017 SUJATA DO, MARCY B Ot K64.8 OTHER HEMORRHOIDS 01/29/2017 SUJATA DO, MARYC B Ot Z68.31 BODY MASS INDEX (BMI) 31.0-31.9, ADULT 02/02/2017 SUJATA DO, MARCY B Ot E66.9 OBESITY, UNSPECIFIED 02/02/2017 SUJATA DO, MARCY B Ot F17.200 NICOTINE DEPENDENCE, UNSPECIFIED, UNCOMP 02/02/2017 SUJATA DO, MARCY B Ot I10 ESSENTIAL (PRIMARY) HYPERTENSION 02/02/2017 SUJATA DO, MARCY B Ot I25.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[place] CORONARY 02/02/2017 SUJATA DO, MARCY B Ot I34.1 NONRHEUMATIC MITRAL (VALVE) PROLAPSE 02/02/2017 SUJATA DO, MARCY B Ot K60.2 ANAL FISSURE, UNSPECIFIED 02/02/2017 DELMAN DO, MARCY B Ot K63.5 POLYP OF COLON 02/02/2017 RAVIMAN DO, MARCY B Ot K64.8 OTHER HEMORRHOIDS 02/02/2017 SUJATA DO, MARCY B Ot Z68.31 BODY MASS INDEX (BMI) 31.0-31.9, ADULT 02/03/2017 SUJATA DO, MARCY B Ot E66.9 OBESITY, UNSPECIFIED 02/03/2017 DELMAN DO, MARCY B Ot F17.200 NICOTINE DEPENDENCE, UNSPECIFIED, UNCOMP 02/03/2017 ISABELLA ERNST DOIC William Ot I10 ESSENTIAL (PRIMARY) HYPERTENSION 02/03/2017 MARCY ERNST DO Ot I25.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[place] CORONARY 02/03/2017 MARCY ERNST DO Ot I34.1 NONRHEUMATIC MITRAL (VALVE) PROLAPSE 02/03/2017 MARCY ERNST DO Ot K60.2 ANAL FISSURE, UNSPECIFIED 02/03/2017 MARCY ERNST DO Ot K63.5 POLYP OF COLON 02/03/2017 MARCY ERNST DO B Ot K64.8 OTHER HEMORRHOIDS 02/03/2017 MARCY ERNST DO Ot Z68.31 BODY MASS INDEX (BMI) 31.0-31.9, ADULT 02/12/2017 MARCY ERNST DO Ot K60.2 ANAL FISSURE, UNSPECIFIED 02/12/2017 MARCY ERNST DO Ot Z01.818 ENCOUNTER FOR OTHER PREPROCEDURAL EXAMIN 02/16/2017 MARCY ERNST DO Ot E78.1 PURE HYPERGLYCERIDEMIA 02/16/2017 MARCY ERNST DO Ot F17.200 NICOTINE DEPENDENCE, UNSPECIFIED, UNCOMP 02/16/2017 MARCY ERNST DO Ot I10 ESSENTIAL (PRIMARY) HYPERTENSION 02/16/2017 MARCY ERNST DO Ot I25.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[place] CORONARY 02/16/2017 MARCY ERNST DO Ot K60.2 ANAL FISSURE, UNSPECIFIED 02/16/2017 MARCY ERNST DO Ot K62.89 OTHER SPECIFIED DISEASES OF ANUS AND REC 02/16/2017 MARCY ERNST DO Ot Z11.2 ENCOUNTER FOR SCREENING FOR OTHER BACTER 02/16/2017 MARCY ERNST DO Ot Z79.899 OTHER INTERMEDIATE (CURRENT) DRUG THERAPY 02/17/2017 MARCY ERNST DO Ot E78.1 PURE HYPERGLYCERIDEMIA 02/17/2017 ISABELLA ERNST DOIC B Ot F17.200 NICOTINE DEPENDENCE, UNSPECIFIED, UNCOMP 02/17/2017 ISABELLA ERNST DOIC B Ot I10 ESSENTIAL (PRIMARY) HYPERTENSION 02/17/2017 MARCY ERNST DO B Ot I25.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[place] CORONARY 02/17/2017 MARCY ERNST DO Ot K60.2 ANAL FISSURE, UNSPECIFIED 02/17/2017 MARCY ERNST DO Ot K62.89 OTHER SPECIFIED DISEASES OF ANUS AND REC 02/17/2017 MARCY ERNST DO Ot Z11.2 ENCOUNTER FOR SCREENING FOR OTHER BACTER 02/17/2017 MARCY ERNST DO Ot Z79.899 OTHER INTERMEDIATE (CURRENT) DRUG THERAPY 01/27/2018 EDWIGE GUERRA MD Ot E78.00 PURE HYPERCHOLESTEROLEMIA, UNSPECIFIED 01/27/2018 EDWIGE GUERRA MD, Ot F17.210 NICOTINE DEPENDENCE, CIGARETTES, UNCOMPL 01/27/2018 EDWIGE GUERRA MD Ot G43.909 MIGRAINE, UNSP, NOT INTRACTABLE, WITHOUT 01/27/2018 EDWIGE GUERRA MD Ot I10 ESSENTIAL (PRIMARY) HYPERTENSION 01/27/2018 EDWIGE GUERRA MD, Ot I25.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[place] CORONARY 01/27/2018 EDWIGE GUERRA MD Ot S61.211A LACERATION W/O FB OF L IDX FNGR W/O RAE 01/27/2018 EDWIGE GUERRA MD Ot S68.115A COMPLETE TRAUMATIC MCP AMPUTATION OF LEF 01/27/2018 EDWIGE GUERRA MD, Ot W29.8XXA CNTCT WITH OTHER POWERED HAND TOOLS AND 01/27/2018 EDWIGE GUERRA MD, Ot Z23 ENCOUNTER FOR IMMUNIZATION 01/27/2018 EDIWGE GUERRA MD, Ot Z87.19 PERSONAL HISTORY OF OTHER DISEASES OF TH 01/27/2018 EDWIGE GUERRA MD, Ot Z87.442 PERSONAL HISTORY OF URINARY CALCULI 01/27/2018 EDWIGE GUERRA MD, Ot Z98.52 VASECTOMY STATUS 01/27/2018 EDWIGE GUERRA MD, Ot Z98.890 OTHER SPECIFIED POSTPROCEDURAL STATES 02/18/2018 EDWIGE GUERRA MD Ot E78.00 PURE HYPERCHOLESTEROLEMIA, UNSPECIFIED 02/18/2018 EDWIGE GUERRA MD Ot F17.210 NICOTINE DEPENDENCE, CIGARETTES, UNCOMPL 02/18/2018 EDWIGE GUERRA MD, Ot G43.909 MIGRAINE, UNSP, NOT INTRACTABLE, WITHOUT 02/18/2018 EDWIGE GUERRA MD, Ot I10 ESSENTIAL (PRIMARY) HYPERTENSION 02/18/2018 EDWIGE GUERRA MD, Ot I25.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[place] CORONARY 02/18/2018 EDWIGE GUERRA MD, Ot S61.211A LACERATION W/O FB OF L IDX FNGR W/O RAE 02/18/2018 EDWIGE GUERRA MD, Ot S68.115A COMPLETE TRAUMATIC MCP AMPUTATION OF LEF 02/18/2018 EDWIGE GUERRA MD, Ot W29.8XXA CNTCT WITH OTHER POWERED HAND TOOLS AND 02/18/2018 EDWIGE GUERRA MD, Ot Z23 ENCOUNTER FOR IMMUNIZATION 02/18/2018 EDWIGE GUERRA MD, Ot Z87.19 PERSONAL HISTORY OF OTHER DISEASES OF TH 02/18/2018 EDWIGE GUERRA MD, Ot Z87.442 PERSONAL HISTORY OF URINARY CALCULI 02/18/2018 EDWIGE GUERRA MD, Ot Z98.52 VASECTOMY STATUS 02/18/2018 EDWIGE GUERRA MD, Ot Z98.890 OTHER SPECIFIED POSTPROCEDURAL STATES Procedures There is no data. Results Test [...] Automated erythrocyte mean corpuscular hemoglobin concentration measurement (mass/volume) 35 g/dL 32-36 Automated erythrocyte distribution width ratio 13.0 % 10.0- 14.5 Automated blood platelet count (count/volume) 175 10*3/uL [...] Blood monocytes automated count (number/volume) 1.2 10*3 0.0- 1.0 Automated eosinophil count 0.6 10*3/uL 0.0-0.3 Automated [...] measurement in platelet poor plasma (mass/volume) - 03/22/16 18:47 Fibrin D-dimer FEU measurement in platelet [...] Serum or plasma aspartate aminotransferase measurement (enzymatic activity/volume) 23 U/L 5-34 Serum or plasma alanine aminotransferase measurement (enzymatic activity/volume) 33 U/L 0-55 Serum or plasma protein [...] Serum or plasma aspartate aminotransferase measurement (enzymatic activity/volume) 22 U/L 5-34 Serum or plasma alanine aminotransferase measurement (enzymatic activity/volume) 22 U/L 0-55 Serum or plasma protein measurement (mass/volume) 6.6 g/dL 6.4-8.2 Serum or plasma albumin measurement (mass/volume) 3.8 g/dL 3.2-4.5 Serum or plasma creatine kinase measurement (enzymatic activity/volume) - 07/25/16 21:05 Serum or plasma creatine kinase measurement (enzymatic activity/volume) 126 U/L 30-200 Serum or plasma creatine kinase MB measurement (enzymatic activity/volume) - 07/25/16 21:05 Serum or plasma creatine kinase MB measurement (enzymatic activity/volume) 0.8 ng/mL <6.6 Serum or plasma troponin i.cardiac measurement (mass/volume) - 07/25/16 21:05 Serum or plasma troponin i.cardiac measurement (mass/volume) < ng/mL <0.30 Serum or plasma amylase measurement (enzymatic activity/volume) - 07/25/16 21:05 Serum or plasma amylase measurement (enzymatic activity/volume) [...] Automated erythrocyte mean corpuscular hemoglobin concentration measurement (mass/volume) 35 g/dL 32-36 Automated erythrocyte distribution width ratio 13.7 % 10.0- 14.5 Automated blood platelet count (count/volume) 223 10*3/uL [...] Blood monocytes automated count (number/volume) 0.9 10*3 0.0- 1.0 Automated eosinophil count 0.2 10*3/uL 0.0-0.3 Automated [...] Automated erythrocyte mean corpuscular hemoglobin concentration measurement (mass/volume) 35 g/dL 32-36 Automated erythrocyte distribution width ratio 13.6 % 10.0- 14.5 Automated blood platelet count (count/volume) 211 10*3/uL [...] Blood monocytes automated count (number/volume) 0.9 10*3 0.0- 1.0 Automated eosinophil count 0.2 10*3/uL 0.0-0.3 Automated [...] Serum or plasma aspartate aminotransferase measurement (enzymatic activity/volume) 17 U/L 5-34 Serum or plasma alanine aminotransferase measurement (enzymatic activity/volume) 19 U/L 0-55 Serum or plasma protein [...] sediment leukocyte count by microscopy (number/high power field) RARE NRG Bacteria detection in urine sediment [...] Automated erythrocyte mean corpuscular hemoglobin concentration measurement (mass/volume) 35 g/dL 32-36 Automated erythrocyte distribution width ratio 14.0 % 10.0- 14.5 Automated blood platelet count (count/volume) 209 10*3/uL [...] Serum or plasma aspartate aminotransferase measurement (enzymatic activity/volume) 19 U/L 5-34 Serum or plasma alanine aminotransferase measurement (enzymatic activity/volume) 20 U/L 0-55 Serum or plasma protein measurement (mass/volume) 7.2 g/dL 6.4-8.2 Serum or plasma albumin measurement (mass/volume) 4.2 g/dL 3.2-4.5 Methicillin resistant Staphylococcus aureus (MRSA) screening culture - 08/13/16 07:18 Methicillin resistant Staphylococcus aureus (MRSA) screening culture NEG [facility] Methicillin resistant Staphylococcus aureus (MRSA) screening culture - 02/16/17 07:30 Methicillin resistant Staphylococcus aureus (MRSA) screening culture NEG [facility] LIPID PANEL - 09/15/17 08:08 CHOLESTEROL, TOTAL [...] 10.0 fL 7.5-12.5 ABSOLUTE NEUTROPHILS 3587 cells/uL 0704-2106 ABSOLUTE LYMPHOCYTES 1531 cells/uL 850-3900 ABSOLUTE MONOCYTES 653 cells/uL 200-950 ABSOLUTE EOSINOPHILS 311 cells/uL 15-500 ABSOLUTE BASOPHILS 18 cells/uL 0-200 NEUTROPHILS 58.8 % NRG LYMPHOCYTES 25.1 % NRG MONOCYTES 10.7 % NRG EOSINOPHILS 5.1 % NRG BASOPHILS 0.3 % NRG PSA - 01/06/18 09:04 PSA, TOTAL 0.5 ng/mL < OR=4.0 TSH - 01/06/18 09:04 TSH 3.01 mIU/L 0.40-4.50 PSA - 07/27/18 08:11 PSA, TOTAL 0.3 ng/mL < OR=4.0 Encounters ACCT No. Visit Date/Time Discharge Status Pt. Type Provider Facility Loc./Unit Complaint [id number] 07/27/2018 08:00:00 07/27/2018 23:59:59 [facility] Outpatient LUNA CORRAL APRN [facility] [id number] 07/27/2018 08:00:00 Document Registration [id number] 01/06/2018 09:00:00 Document Registration [id number] 09/15/2017 08:00:00 Document Registration [id number] 01/27/2018 14:50:00 01/27/2018 16:55:00 DIS Emergency MARI LAM, EDWIGE Gallegos [facility] ER FINGER CUT OFF [id number] 02/16/2017 07:13:00 02/16/2017 11:10:00 DIS Outpatient MARCY ERNST DO [facility] SDC ANAL FISSURE [id number] 02/11/2017 05:29:00 02/11/2017 11:11:00 DIS Outpatient MARCY ERNST DO [facility] PREOP ANAL FISSURE [id number] 01/27/2017 07:03:00 01/27/2017 10:00:00 DIS Outpatient MARCY ERNST DO [facility] ENDO BLOOD IN STOOLS [id number] 01/23/2017 05:24:00 01/23/2017 11:38:00 DIS Outpatient MARCY ERNST DO [facility] PREOP BLOOD IN STOOLS [id number] 09/22/2016 17:49:00 09/22/2016 19:00:00 DIS Emergency EDWIGE GUERRA MD [facility] ER HIGH BLOOD PRESSURE [id number] 09/16/2016 13:47:00 09/16/2016 23:59:59 CLS Outpatient HODAN LEDESMA MD [facility] RAD HEMATURIA [id number] 09/01/2016 10:50:00 09/01/2016 23:59:59 CLS Outpatient HODAN LEDESMA MD [facility] RAD BILATERAL ORCHITIS [id number] 08/13/2016 06:40:00 08/13/2016 12:55:00 DIS Outpatient SADA PANDEY MD [facility] CATH ABN STRESS TEST,CP [id number] 07/30/2016 08:12:00 07/30/2016 23:59:59 CLS Outpatient SADA PANDEY MD [facility] CARD CHEST PAIN SYNDROME,HTN,PVC [id number] 07/25/2016 22:31:00 07/26/2016 12:01:00 DIS Inpatient RINA LAM, JULIANNA Wang [facility] ICU CP,HTN [id number] 03/22/2016 18:45:00 03/22/2016 21:32:00 DIS Emergency MARISSA CHENG MD [facility] ER CP/ELEV BP [id number] 09/27/2015 08:58:00 09/27/2015 09:15:00 DIS Emergency MARI LAM, EDWIGE Gallegos [facility] ER RIGHT FLANK/BACK PAIN [id number] 04/16/2015 12:12:00 04/16/2015 23:59:59 CLS Outpatient CORA GONZALES AUTOMATION QTP TESTER [facility] RAD PELVIC PAIN [id number] 12/15/2014 12:06:00 12/15/2014 23:59:59 CLS Outpatient LUIS LAM, LON Martinez (DDU) [facility] RAD DDU [id number] 12/15/2014 12:59:00 12/15/2014 15:04:00 DIS Emergency HÉCTOR FLORES [facility] ER TESTICLE PAIN [id number] 03/03/2014 10:01:00 03/03/2014 23:59:59 CLS Outpatient LUNA YUSUF DO [facility] RAD DJD OF L-5-S-1, RADICULOPATHY [id number] 08/26/2013 03:35:00 08/26/2013 13:15:00 DIS Outpatient YONY LAM FACC, JUDITH ALAMO CCDS [facility] CATH CHEST PAIN [id number] 08/24/2013 14:57:00 08/24/2013 23:59:59 CLS Outpatient LUNA YUSUF DO [facility] RAD LOW BACK PAIN, R HIP PAIN [id number] 02/24/2013 15:11:00 02/24/2013 23:59:59 CLS Outpatient LUNA YUSUF DO [facility] RAD L URETEROLITHIASIS [id number] 02/23/2013 18:55:00 02/23/2013 20:54:00 DIS Emergency HÉCTOR FLORES APRN [facility] ER SCROTUM PAINFUL [id number] 02/22/2013 00:17:00 02/22/2013 01:23:00 DIS Emergency KATIA SALDANA DO [facility] ER HG BLOOD PRESSURE,BURNS [id number] 06/11/2011 21:10:00 Document Registration [id number] 01/30/2011 05:42:00 Document Registration [id number] 01/28/2011 10:17:00 Document Registration [id number] 01/24/2011 07:24:00 Document Registration [id number] 08/31/2010 00:10:00 Document Registration [id number] 08/29/2010 09:56:00 Document Registration
[2018-11-03] MEDS ORDERED: KETOROLAC 30 MG/ML VIAL IVP ONE (11:00)
[2018-11-03] MEDS ORDERED: ONDANSETRON 4 MG/2 ML (SDV) Z0FRAN IVP ONE (11:00)
[2018-11-03 11:02] LABS: BASOPHILS % (AUTO) 0 % (0-10); EOSINOPHILS # (AUTO) 0.4 10^3/uL (0.0-0.3); EOSINOPHILS % (AUTO) 5 % (0-10); HEMATOCRIT 48 % (40-54); HEMOGLOBIN 16.7 G/DL (13.3-17.7); LYMPHOCYTES # (AUTO) 2.1 X 10^3 (1.0-4.0); LYMPHOCYTES % (AUTO) 30 % (12-44); MEAN CORPUSCULAR HEMOGLOBIN 32 PG (25-34); MEAN CORPUSCULAR HGB CONC 35 G/DL (32-36); MEAN CORPUSCULAR VOLUME 93 FL (80-99); MEAN PLATELET VOLUME 10.2 FL (7.4-10.4); MONOCYTES % (AUTO) 14 % (0-12); NEUTROPHILS # (AUTO) 3.7 X 10^3 (1.8-7.8); NEUTROPHILS % (AUTO) 51 % (42-75); PLATELET COUNT 192 10^3/uL (130-400); RED CELL DISTRIBUTION WIDTH 13.9 % (10.0-14.5); WHITE BLOOD COUNT 7.2 10^3/uL (4.3-11.0)
--- NOTE | 2018-11-03 11:03 | ED Abdominal Pain ---
General Chief Complaint: Abdominal/GI Problems Stated Complaint: SIDE PAIN Source of Information: Patient Exam Limitations: No Limitations History of Present Illness Date Seen by Provider: Nov 03, 2018 Time Seen by Provider: 10:35 Initial Comments Patient presents to ER by private conveyance with chief complaint of this morning and started experiencing some progressively worsening right lower quadrant abdominal pain radiating up to his right flank and back. He has a history of kidney stones and says this pain is much different. It radiates also down to his testicle. No dysuria or hematuria. He's had hesitancy of urine today. Poor fluid intake nausea without vomiting. No fevers or chills. He had his gallbladder out but not his appendix. Allergies and Home Medications Allergies Coded Allergies: No Known Drug Allergies (Unverified , 01/23/17) Home Medications Dexlansoprazole 30 Mg Gallo., 30 MG PO DAILY, (Reported) Hydrocodone Bit/Acetaminophen 1 Each Tablet, 1 EACH PO TID PRN for PAIN-MILD TO MODERATE, (Reported) Hydrocodone/Acetaminophen 1 Each Tablet, 1-2 EACH PO Q6H PRN for PAIN-MODERATE TO SEVERE Prescribed by: EDWIGE RYDER on 01/27/18 1624 Losartan Potassium 50 Mg Tablet, 50 MG PO DAILY, (Reported) Ropinirole HCl 5 Mg Tab, 5 MG PO HS, (Reported) Tamsulosin HCl 0.4 Mg Cap, 0.4 MG PO DAILY, (Reported) Patient Home Medication List Home Medication List Reviewed: Yes Review of Systems Review of Systems Constitutional: No chills, No fever EENTM: No Blurred Vision, No Double Vision Respiratory: Denies Cough, Denies Shortness of Air Cardiovascular: Denies Chest Pain, Denies Edema Gastrointestinal: See HPI, Abdominal Pain; Denies Blood Streaked Stools, Denies Constipated, Denies Diarrhea; Nausea, Poor Fluid Intake; Denies Vomiting Genitourinary: Denies Burning, Denies Discharge Musculoskeletal: No back pain, No joint pain Skin: No pruritus, No rash Psychiatric/Neurological: Denies Headache, Denies Numbness Past Jsnumki-Reprmu-Gldlps Hx Patient Social History Alcohol Use: Occasionally Uses Alcohol Beverage of Choice: Beer Recreational Drug Use: No Smoking Status: Current Everyday Smoker Type Used: Cigarettes 2nd Hand Smoke Exposure: No Recent Foreign Travel: No Contact w/Someone Who Travel: No Recent Hopitalizations: No Immunizations Up To Date Tetanus Booster (TDap): Unknown PED Vaccines UTD: No Seasonal Allergies Seasonal Allergies: No Past Medical History Surgeries: Yes (CARDIAC CATH 2013 AND 2016--NO INTERVENTION, fissure reair, hemroidectomy) Cardiac, Gallbladder, Vasectomy Respiratory: No Currently Using CPAP: No Currently Using BIPAP: No Cardiac: Yes (HX OF MITRAL VALVE PROLAPSE) Coronary Artery Disease, High Cholesterol, Hypertension Neurological: Yes Headaches /Migraines, Neuropathy Reproductive Disorders: No Sexually Transmitted Disease: No HIV/AIDS: No Genitourinary: Yes Kidney Stones Gastrointestinal: Yes (TAKES DEXILANT-FOR ABD CRAMPS) Irritable Bowel Musculoskeletal: Yes (CHRONIC FOOT PAIN, "CAVUS FOOT" (HIGH ARCH)) Degenerate Disk Disease, Chronic Back Pain Endocrine: No HEENT: Yes Cataract Loss of Vision: Bilateral Hearing Impairment: Denies Cancer: No Psychosocial: No Integumentary: No Blood Disorders: No Adverse Reaction/Blood Tranf: No (N/A) Family Medical History Family history: Hypertension Hearing loss G8 BROTHER, Onset:Unknown (HEARING AIDE X1) No Family History of: Abdominal aortic aneurysm [place]'s disease Alcoholism Aphasia Cancer Cancer of colon Cataract Chest pain Congenital heart disease Congestive heart failure Cystic fibrosis Dementia Dysphagia Family history: Allergy Family history: Alzheimer's disease Family history: Arthritis Family history: Asthma Family history: Breast disease Family history: Cardiovascular disease Family history: Coronary thrombosis Family history: Diabetes mellitus Family history: Gastrointestinal disease Family history: Glaucoma Family history: Osteoporosis Family history: Thyroid disorder Headache Heart disease Hereditary disease History of - anemia History of - disorder History of - respiratory disease History of drug abuse Human immunodeficiency virus (HIV) seropositivity Hypercholesterolemia Infertile Kidney disease Malignant neoplasm of lung Myocardial infarction Parkinson's disease Prostate cancer Psychotic disorder Seizure disorder Stroke Tuberculosis Visual impairment Physical Exam Vital Signs Vital Signs - First Documented 11/03/18 10:46 Temp 96.5 Pulse 70 Resp 20 B/P (MAP) 168/102 (124) Pulse Ox 97 O2 Delivery Room Air Capillary Refill : Height/Weight/BMI Height: 5'10.00" Weight: 215lbs. 0.0oz. [id number]; 31.3 BMI Method:Stated General Appearance: WD/WN, moderate distress HEENT: PERRL/EOMI, pharynx normal Neck: full range of motion, normal inspection Respiratory: lungs clear, normal breath sounds, no respiratory distress, no accessory muscle use Cardiovascular: normal peripheral pulses, regular rate, rhythm, no edema Gastrointestinal: normal bowel sounds; No rebound; tenderness (all 4 quadrants), other (negative for Rovsing or psoas signs) Extremities: normal range of motion, no pedal edema, normal capillary refill Neurologic/Psychiatric: alert, normal mood/affect, oriented x 3 Skin: normal color, warm/dry Progress/Results/Core Measures Results/Orders Lab Results Laboratory Tests Test 11/03/18 10:50 11/03/18 11:30 Range/Units White Blood Count 7.2 4.3-11.0 10^3/uL Red Blood Count 5.20 4.35-5.85 10^6/uL Hemoglobin 16.7 13.3-17.7 G/DL Hematocrit 48 40-54 % Mean Corpuscular Volume 93 80-99 FL Mean Corpuscular Hemoglobin 32 25-34 PG Mean Corpuscular Hemoglobin Concent 35 32-36 G/DL Red Cell Distribution Width 13.9 10.0-14.5 % Platelet Count 192 130-400 10^3/uL Mean Platelet Volume 10.2 7.4-10.4 FL Neutrophils (%) (Auto) 51 42-75 % Lymphocytes (%) (Auto) 30 12-44 % Monocytes (%) (Auto) 14 H 0-12 % Eosinophils (%) (Auto) 5 0-10 % Basophils (%) (Auto) 0 0-10 % Neutrophils # (Auto) 3.7 1.8-7.8 X 10^3 Lymphocytes # (Auto) 2.1 1.0-4.0 X 10^3 Monocytes # (Auto) 1.0 0.0-1.0 X 10^3 Eosinophils # (Auto) 0.4 H 0.0-0.3 10^3/uL Basophils # (Auto) 0.0 0.0-0.1 10^3/uL Sodium Level 140 135-145 MMOL/L Potassium Level 4.1 3.6-5.0 MMOL/L Chloride Level 111 H 98-107 MMOL/L Carbon Dioxide Level 21 21-32 MMOL/L Anion Gap 8 5-14 MMOL/L Blood Urea Nitrogen 18 7-18 MG/DL Creatinine 0.92 0.60-1.30 MG/DL Estimat Glomerular Filtration Rate > 60 BUN/Creatinine Ratio 20 Glucose Level 107 H 70-105 MG/DL Calcium Level 9.4 8.5-10.1 MG/DL Corrected Calcium 9.3 8.5-10.1 MG/DL Total Bilirubin 0.7 0.1-1.0 MG/DL Aspartate Amino Transf (AST/SGOT) 15 5-34 U/L Alanine Aminotransferase (ALT/SGPT) 18 0-55 U/L Alkaline Phosphatase 71 40-136 U/L C-Reactive Protein High Sensitivity 0.74 H 0.00-0.50 MG/DL Total Protein 6.9 6.4-8.2 GM/DL Albumin 4.1 3.2-4.5 GM/DL Urine Color SHILA H Urine Clarity CLEAR Urine pH 5 5-9 Urine Specific [place] 1.020 1.016-1.022 Urine Protein 2+ H NEGATIVE Urine Glucose (UA) NEGATIVE NEGATIVE Urine Ketones NEGATIVE NEGATIVE Urine Nitrite NEGATIVE NEGATIVE Urine Bilirubin NEGATIVE NEGATIVE Urine Urobilinogen 1 NORMAL MG/DL Urine Leukocyte Esterase 1+ H NEGATIVE Urine RBC (Auto) 5+ H NEGATIVE Urine RBC >100 H /HPF Urine WBC 0-2 /HPF Urine Squamous Epithelial Cells RARE /HPF Urine Crystals NONE /LPF Urine Bacteria FEW H /HPF Urine Casts NONE /LPF Urine Mucus SMALL H /LPF Urine Culture Indicated NO My Orders Orders - RICHARD WALLS Ketorolac Injection (Toradol Injection) (11/03/18 11:00) Ondansetron Injection (Zofran Injectio (11/03/18 11:00) Cbc With Automated Diff (11/03/18 10:49) Comprehensive Metabolic Panel (11/03/18 10:49) Hs C Reactive Protein (11/03/18 10:49) Ua Culture If Indicated (11/03/18 10:49) Ed Iv/Invasive Line Start (11/03/18 11:07) Lactated Ringers (Lr 1000 Ml Iv Solution (11/03/18 11:07) Ct Abd/Pelvis Wo(Kidney Stone) (11/03/18 11:24) Medications Given in ED Current Medications Medications Dose Ordered Sig/[place] Route Start Time Stop Time Status Last Admin Dose Admin Ketorolac Tromethamine 30 mg ONCE ONCE IVP 11/03/18 11:00 11/03/18 11:01 DC 11/03/18 11:00 30 MG Lactated Ringer's 1,000 ml @ 0 mls/hr Q0M ONCE IV 11/03/18 11:07 11/03/18 11:08 DC 11/03/18 11:19 1,000 MLS/HR Ondansetron HCl 8 mg ONCE ONCE IVP 11/03/18 11:00 11/03/18 11:01 DC 11/03/18 11:00 8 MG Vital Signs/I&O 11/03/18 10:46 Temp 96.5 Pulse 70 Resp 20 B/P (MAP) 168/102 (124) Pulse Ox 97 O2 Delivery Room Air Progress Progress Note : Time: 11:06 Progress Note Kidney stone versus appendix versus colitis versus other such as epididymitis/orchitis? Blood work and urinalysis. Toradol and Zofran and a bag of fluids. Diagnostic Imaging Diagonstic Imaging: CT (noncontrast kidney stone study) Plain Films/CT/US/NM/MRI: abdomen, pelvis Comments NAME: QUIN BERNSTEIN [facility] REC#: [id number] PT STATUS: REG ER : 11/19/1946 PHYSICIAN: RICHARD WALLS MD ADMIT DATE: 11/03/18/ER Draft Date of Exam:11/03/18 CHEST 1 VIEW, AP/PA ONLY Clinical indication: Patient with shortness of breath and weakness. Exam: Portable chest x-ray upright view. Comparisons: Chest x-ray dated 12/13/2017. Findings: Lungs/pleura: Lungs are clear. There is no pneumothorax. There is no pleural effusion. Mediastinum: Unremarkable. Pulmonary vasculature: Unremarkable. Heart: Heart size is mildly enlarged, stable. Loop recorder is again seen overlying left chest. Bones/extrathoracic soft tissue: There is right curvature of the thoracolumbar spine. Partially visualized pedicle screws involving the lumbar spine. Impression: 1: Stable chest x-ray exam with no interval radiographic evidence of acute cardiopulmonary process. 2: Mild cardiomegaly with no significant pulmonary vascular congestion. Dictated on workstation # [id number] Dict: 11/03/18 1010 Trans: 11/03/18 1019 RASHAWN [id number] Interpreted by: MIKE VARGAS MD Electronically signed by: Reviewed: Reviewed by Me Departure Impression Primary Impression: Ureteral calculus, right Disposition: 01 HOME, SELF-CARE Condition: Stable Departure-Patient Inst. Decision time for Depature: 12:50 Referrals: JAEL HIGH DO (PCP) Primary Care Physician CORA GONZALES (Family) Primary Care Physician Patient Instructions: Kidney Stones (DC) Add. Discharge Instructions: Strain your urine to try and catch the stone. Drink plenty of fluids, caffeine is okay. Ibuprofen 800 mg every 8 hours as necessary for pain. Hydrocodone one tablet every 4-6 hours as needed for breakthrough pain. Zofran 1 tablet every 6 hours as necessary for nausea or vomiting. Flomax 1 tablet at night to help pass the kidney stone. Cephalexin antibiotics 1 capsule twice daily to help prevent bladder infection for the next week. Call to follow-up with the urologist, Dr. Modi if you're not able to pass the stone on your own over the next 2-3 days. All discharge instructions reviewed with patient and/or family. Voiced understanding. Scripts Tamsulosin HCl (Flomax) 0.4 Mg Cap 0.4 MG PO HS for 7 Days, #7 CAP 0 Refills Prov: RICHARD WALLS 11/03/18 Hydrocodone Bit/Acetaminophen (Hydrocodone/Acetaminophen 5/325mg Tablet) 1 Tab Tab 1 EACH PO Q4-6HR PRN for PAIN-MODERATE MDD 10 for 3 Days, #12 TAB 0 Refills Prov: RICHARD WALLS 11/03/18 Cephalexin (Cephalexin) 500 Mg Tablet 500 MG PO BID for 7 Days, #14 TAB 0 Refills Prov: RICHARD WALLS 11/03/18 Ondansetron (Ondansetron Odt) 4 Mg Tab.rapdis 4 MG PO Q6H PRN for NAUSEA/VOMITING, #8 TAB 0 Refills Prov: RICHARD WALSL 11/03/18 Work/School Note: Work Release Form Date Seen in the Emergency Department: Nov 03, 2018 Return to Work: Nov 05, 2018 Restrictions: No Restrictions RICHARD WALLS Nov 03, 2018 11:03
[2018-11-03] MEDS ORDERED: LACTATED RINGERS 1,000 ML IV ONE (11:07)
[2018-11-03 11:23] LABS: ALANINE AMINOTRANSFERASE 18 U/L (0-55); ALBUMIN 4.1 GM/DL (3.2-4.5); ALKALINE PHOSPHATASE 71 U/L (40-136); BILIRUBIN,TOTAL 0.7 MG/DL (0.1-1.0); BUN/CREATININE RATIO 20; CALCIUM 9.4 MG/DL (8.5-10.1); CARBON DIOXIDE 21 MMOL/L (21-32); CHLORIDE 111 MMOL/L (98-107); CREATININE SERUM 0.92 MG/DL (0.60-1.30); GFR ESTIMATED > 60; GLUCOSE 107 MG/DL (70-105); POTASSIUM 4.1 MMOL/L (3.6-5.0); SODIUM 140 MMOL/L (135-145); TOTAL PROTEIN 6.9 GM/DL (6.4-8.2)
[2018-11-03 11:38] LABS: BILIRUBIN,URINE NEGATIVE (NEGATIVE); CLARITY,URINE CLEAR; COLOR,URINE AMBER; GLUCOSE, URINE (UA) NEGATIVE (NEGATIVE); KETONES,URINE NEGATIVE (NEGATIVE); LEUKOCYTE ESTERASE ,URINE 1+ (NEGATIVE); NITRITE,URINE NEGATIVE (NEGATIVE); PH,URINE 5 (5-9); PROTEIN,URINE 2+ (NEGATIVE); UROBILINOGEN,URINE 1 MG/DL (NORMAL)
[2018-11-03 11:54] LABS: BACTERIA,URINE FEW /HPF; RBC,URINE >100 /HPF; SQUAMOUS EPITHELIAL CELL,UR RARE /HPF; WBC,URINE 0-2 /HPF
--- NOTE | 2018-11-03 12:30 | Diagnostic Imaging Report ---
PROCEDURE: CT urinary tract, rule out kidney stone. TECHNIQUE: Multiple contiguous axial images were obtained through the abdomen and pelvis without the use of intravenous contrast. Auto Exposure Controls were utilized during the CT exam to meet ALARA standards for radiation dose reduction. INDICATION: Right flank pain. FINDINGS: Comparison is 09/16/2016. Limited views of the lower thorax reveal lipomatous hypertrophy of the interatrial septum, otherwise normal. Liver is normal. No surface nodularity. No focal lesions. Gallbladder is absent. No biliary ductal dilation. The pancreas, spleen, and adrenal glands are normal. Kidneys are normal without stones or focal lesion. No hydronephrosis. There is a 2 mm calculus in the distal right ureter without hydronephrosis or hydroureter. There are no dilated loops of large or small bowel. No abdominal or pelvic lymphadenopathy. Appendix is normal. No free fluid or air. Abdominal aorta is normal in caliber. No suspicious osseous lesions. IMPRESSION: 1. Distal right ureteral calculus measuring 2 mm without evidence for obstruction. Dictated by: Dictated on workstation # [id number]
[2018-11-03] MEDS ORDERED: ACHD5005 PO (12:56)
[2018-11-03] MEDS ORDERED: ONDA4TAB11 PO (12:56)
[2018-11-03] MEDS ORDERED: TAMS0.4C98 PO (12:56)
[2018-11-03] MEDS ORDERED: CEPH500T PO (12:56)
[2018-11-03 13:10] VITALS: BP 145/92
== END 2018-11-03 13:10 | disposition home or self-care (01) ==
LOC: EDUNIT# 10:41 → ER 10:42
DX: N20.1 Calculus of ureter (principal); I10 Essential (primary) hypertension; E78.00 Pure hypercholesterolemia, unspecified; I25.10 Atherosclerotic heart disease of native coronary artery without angina pectoris; G43.909 Migraine, unspecified, not intractable, without status migrainosus; G62.9 Polyneuropathy, unspecified; F17.210 Nicotine dependence, cigarettes, uncomplicated; Z87.442 Personal history of urinary calculi; Z82.49 Family history of ischemic heart disease and other diseases of the circulatory system
CPT/HCPCS: 36415; 74176; 80053; 81000; 85025; 86141; 96361; 96374; 96375

== ENCOUNTER 2018-11-06 14:28 | Emergency (ER) | payer MEDICARE, OTHER ==
[~2018-11-06] VITALS: Ht 177.8 cm; Wt 103.9 kg
[~2018-11-06 14:28] MED LIST changes: +ACHD5005 PO; +CEPH500T PO; +ONDA4TAB11 PO
--- OUTSIDE RECORDS SUMMARY | 2018-11-06 14:48 | XMS REPORT | Continuity of Care Document ---
Author Organization Unknown Address Unknown Allergies Active Description Code Type Severity Reaction Onset Reported/Identified Relationship to Patient Clinical Status Yes NKANo Known Allergies NKA Miscellaneous Allergy Mild N/A 06/15/2009 Yes No Known Drug Allergies [id number] Drug Allergy Unknown N/A 01/23/2017 Medications There [...] K Ot 784.0 HEADACHE 02/23/2013 HÉCTOR FLORES LITHOPONE CHARGER Ot 592.1 CALCULUS OF URETER 02/23/2013 HÉCTOR FLORES LITHOPONE CHARGER Ot 608.9 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 08/26/2013 YONY LAM FACC, JUDITH FACP CCDS Ot 276.8 HYPOPOTASSEMIA 08/26/2013 YONY LAM FACC, JUDITH FACP CCDS Ot 305.1 TOBACCO USE DISORDER 08/26/2013 YONY LAM FACC, JUDITH FACP CCDS Ot 401.9 HYPERTENSION NOS 08/26/2013 YONY LAM FACC, JUDITH FACP CCDS Ot 414.01 CORONARY ATHEROSCLEROSIS OF [place] CORON 08/26/2013 YONY LAM FACC, JUDITH FACP [...] DO, LUNA Mathews Ot 592.1 12/15/2014 YUSUFJEN MCKEON LUNA Mathews Ot 719.45 12/15/2014 YUSUFJEN MCKEON LUNA Mathews Ot 724.2 12/15/2014 YUSUFJEN MCKEON LUNA Mathews Ot 721.3 12/15/2014 HÉCTOR FLORES LITHOPONE CHARGER Ot 603.9 HYDROCELE NOS 12/15/2014 HÉCTOR FLORES LITHOPONE CHARGER Ot 608.9 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 12/15/2014 Ot 574.20 12/15/2014 Ot V72.83 12/15/2014 Ot V74.8 12/15/2014 YUSUFJEN MCKEON LUNA Mathews Ot 592.1 12/15/2014 YUSUFJEN MCKEON LUNA Mathews Ot 719.45 12/15/2014 YUSUFJEN MCKEON LUNA Mathews Ot 724.2 12/15/2014 YUSUF DO, LUNA Mathews Ot 721.3 08/16/2015 CORA GONZALES BENCH WORKER APPRENTICE Ot R10.2 PELVIC AND PERINEAL PAIN 08/30/2015 CORA GONZALES BENCH WORKER APPRENTICE Ot R10.2 PELVIC AND PERINEAL PAIN 09/27/2015 [...] FOR OTH SPECIF CONDITIONS 03/22/2016 CORA GONZALES BENCH WORKER APPRENTICE Ot R10.2 PELVIC AND PERINEAL PAIN 03/22/2016 MARISSA CHENG MD Ot F17.210 NICOTINE DEPENDENCE, CIGARETTES, UNCOMPL 03/22/2016 MARISSA CHENG MD Ot G89.29 OTHER CHRONIC PAIN 03/22/2016 MARISSA CHENG MD Ot M54.5 LOW BACK PAIN 03/22/2016 MARISSA CHENG MD Ot R07.9 CHEST PAIN, UNSPECIFIED 03/22/2016 MARISSA CHENG MD Ot Z79.82 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 OF 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 03/22/2016 MARISSA CHENG MD Ot Z79.899 OTHER SHELTERED WORKSHOP WORKER (CURRENT) DRUG THERAPY 03/22/2016 Ot 574.20 CHOLELITHIASIS NOS 03/22/2016 Ot V72.83 EXAM PRE-OPERATIVE NEC 03/22/2016 Ot V74.8 SCREEN-BACTERIAL DIS NEC 03/22/2016 LUNA YUSUF DO Ot 592.1 CALCULUS OF URETER 03/22/2016 LUNA YUSUF DO Ot 719.45 JOINT PAIN-PELVIS 03/22/2016 LUNA YUSUF DO Ot 724.2 LUMBAGO 03/22/2016 LUNA YUSUF DO Ot 721.3 LUMBOSACRAL SPONDYLOSIS 03/22/2016 LON SMITH MD ([facility]) Ot V68.01 DISABILITY EXAMINATION 03/22/2016 LON SMITH MD ([facility]) Ot V82.89 SCREEN FOR OTH SPECIF CONDITIONS 03/22/2016 JANET CORA Calloway BENCH WORKER APPRENTICE Ot R10.2 PELVIC AND PERINEAL PAIN 03/25/2016 MARISSA CHENG MD Ot F17.210 NICOTINE DEPENDENCE, CIGARETTES, UNCOMPL 03/25/2016 MARISSA CHENG MD Ot G89.29 OTHER CHRONIC PAIN 03/25/2016 MARISSA CHENG MD Ot M54.5 LOW BACK PAIN 03/25/2016 MARISSA CHENG MD Ot R07.9 CHEST PAIN, UNSPECIFIED 03/25/2016 MARISSA CHENG MD Ot Z79.82 [facility] (CURRENT) USE OF ASPIRIN 03/25/2016 MARISSA CHENG MD Ot Z79.899 OTHER [facility] (CURRENT) DRUG THERAPY 07/26/2016 JULIANNA FLYNN MD Ot F17.210 NICOTINE DEPENDENCE, CIGARETTES, UNCOMPL 07/26/2016 JULIANNA FLYNN MD Ot I10 ESSENTIAL (PRIMARY) HYPERTENSION 07/26/2016 JULIANNA FLYNN MD Ot I25.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[place] CORONARY 07/26/2016 JULIANNA FLYNN MD Ot I49.3 [...] MD Ot I25.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[place] CORONARY 07/26/2016 JULIANNA FLYNN MD Ot I49.3 [...] 721.3 LUMBOSACRAL SPONDYLOSIS 07/28/2016 LON SMITH MD ([facility]) Ot V68.01 DISABILITY EXAMINATION 07/28/2016 LON SMITH MD ([facility]) Ot V82.89 SCREEN FOR OTH SPECIF CONDITIONS 07/28/2016 CORA GONZALES BENCH WORKER APPRENTICE Ot R10.2 PELVIC AND PERINEAL PAIN 08/01/2016 [...] MD Ot I25.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[place] CORONARY 08/13/2016 SADA PANDEY MD Ot K21.9 GASTRO-ESOPHAGEAL REFLUX DISEASE WITHOUT 08/13/2016 SADA PANDEY MD Ot R07.89 OTHER CHEST PAIN 08/13/2016 SADA PANDEY MD Ot R94.39 ABNORMAL RESULT OF OTHER CARDIOVASCULAR 08/13/2016 SADA PANDEY MD Ot Z72.0 TOBACCO USE 08/13/2016 SADA PANDEY MD Ot Z79.899 OTHER [facility] (CURRENT) DRUG THERAPY 08/14/2016 SADA PANDEY MD Ot I10 ESSENTIAL (PRIMARY) HYPERTENSION 08/14/2016 SADA PANDEY MD Ot I49.3 VENTRICULAR PREMATURE DEPOLARIZATION 08/14/2016 SADA PANDEY MD Ot R07.9 CHEST PAIN, UNSPECIFIED 08/14/2016 SADA PANDEY MD, Ot Z72.0 TOBACCO USE 09/22/2016 HODAN LEDESMA MD, Ot R31.9 HEMATURIA, UNSPECIFIED 09/22/2016 EDWIGE GUERRA MD, Ot I10 ESSENTIAL (PRIMARY) HYPERTENSION 09/22/2016 MARI LAM, EDWIGE Gallegos Ot Z53.21 PROC/TRTMT NOT CRD OUT D/T PT LV BEF SEE 09/25/2016 HODAN LEDESMA MD Ot N50.811 RIGHT TESTICULAR PAIN 09/25/2016 HODAN LEDESMA MD, Ot N50.812 LEFT TESTICULAR PAIN 10/07/2016 HODAN LEDESMA MD, Ot R31.9 HEMATURIA, UNSPECIFIED 01/23/2017 MARCY ERNST DO Ot K92.1 MELENA 01/23/2017 MARCY ERNST DO Ot Z01.818 ENCOUNTER FOR OTHER PREPROCEDURAL EXAMIN 01/27/2017 MARCY ERNST DO Ot E66.9 OBESITY, UNSPECIFIED 01/27/2017 MARCY ERNST DO Ot F17.200 NICOTINE DEPENDENCE, UNSPECIFIED, UNCOMP 01/27/2017 MARCY ERNST DO Ot I10 ESSENTIAL (PRIMARY) HYPERTENSION 01/27/2017 MARCY ERNST DO Ot I25.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[place] CORONARY 01/27/2017 MARCY ERNST DO Ot I34.1 NONRHEUMATIC MITRAL (VALVE) PROLAPSE 01/27/2017 MARCY ERNST DO Ot K60.2 ANAL FISSURE, UNSPECIFIED 01/27/2017 SUJATA DO, MARCY B Ot K63.5 POLYP OF COLON 01/27/2017 DELMAN DO, MARCY B Ot K64.8 OTHER HEMORRHOIDS 01/27/2017 DELMAN DO, MARCY B Ot Z68.31 BODY MASS INDEX (BMI) 31.0-31.9, ADULT 01/29/2017 SUJATA DO, MARCY B Ot E66.9 OBESITY, UNSPECIFIED 01/29/2017 DELMAN DO, MARCY B Ot F17.200 NICOTINE DEPENDENCE, UNSPECIFIED, UNCOMP 01/29/2017 DELMAN DO, MARCY B Ot I10 ESSENTIAL (PRIMARY) HYPERTENSION 01/29/2017 DELMAN DO, MARCY B Ot I25.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[place] CORONARY 01/29/2017 SUJATA DO, MARCY B Ot [...] MARCY B Ot E66.9 OBESITY, UNSPECIFIED 02/02/2017 DELMAN DO, MARCY B Ot F17.200 NICOTINE DEPENDENCE, UNSPECIFIED, UNCOMP 02/02/2017 DELMAN DO, MARCY B Ot I10 ESSENTIAL (PRIMARY) HYPERTENSION 02/02/2017 SUJATA DO, MARCY B Ot I25.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[place] CORONARY 02/02/2017 DELMAN DO, MARCY B Ot I34.1 NONRHEUMATIC MITRAL (VALVE) PROLAPSE 02/02/2017 DELHERLINDA DO, MARCY B Ot K60.2 ANAL FISSURE, UNSPECIFIED 02/02/2017 DELMAN DO, MARCY B Ot K63.5 POLYP OF COLON 02/02/2017 DELMAN DO, MARCY B Ot K64.8 OTHER HEMORRHOIDS 02/02/2017 DELMAN DO, MARCY B Ot Z68.31 BODY MASS INDEX (BMI) 31.0-31.9, ADULT 02/03/2017 MARCY ERNST DO B Ot E66.9 OBESITY, UNSPECIFIED 02/03/2017 ISABELLA ERNST DOIC B Ot F17.200 NICOTINE DEPENDENCE, UNSPECIFIED, UNCOMP 02/03/2017 ISABELLA ERNST DOIC B Ot I10 ESSENTIAL (PRIMARY) HYPERTENSION 02/03/2017 ISABELLA ERNST DOIC B Ot I25.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[place] CORONARY 02/03/2017 MARCY ERNST DO B Ot I34.1 NONRHEUMATIC MITRAL (VALVE) PROLAPSE 02/03/2017 MARCY ERNST DO B Ot K60.2 ANAL FISSURE, UNSPECIFIED 02/03/2017 MARCY ERNST DO Ot K63.5 POLYP OF COLON 02/03/2017 MARCY ERNST DO B Ot K64.8 OTHER HEMORRHOIDS 02/03/2017 MARCY ERNST DO B Ot Z68.31 BODY MASS INDEX (BMI) 31.0-31.9, ADULT 02/11/2017 MARCY ERNST DO B Ot K60.2 ANAL FISSURE, UNSPECIFIED 02/11/2017 MARCY ERNST DO B Ot Z01.818 ENCOUNTER FOR OTHER PREPROCEDURAL EXAMIN 02/12/2017 MARCY ERNST DO Ot K60.2 ANAL FISSURE, UNSPECIFIED 02/12/2017 MARCY ERNST DO B Ot Z01.818 ENCOUNTER FOR OTHER PREPROCEDURAL EXAMIN 02/16/2017 MARCY ERNST DO B Ot E78.1 PURE HYPERGLYCERIDEMIA 02/16/2017 MARCY ERNST DO B Ot F17.200 NICOTINE DEPENDENCE, UNSPECIFIED, UNCOMP 02/16/2017 ISABELLA ERNST DOIC B Ot I10 ESSENTIAL (PRIMARY) HYPERTENSION 02/16/2017 ISABELLA ERNST DOIC B Ot I25.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[place] CORONARY 02/16/2017 MARCY ERNST DO B Ot K60.2 ANAL FISSURE, UNSPECIFIED 02/16/2017 MARCY ERNST DO B Ot K62.89 OTHER SPECIFIED DISEASES OF ANUS AND REC 02/16/2017 MARCY ERNST DO B Ot Z11.2 ENCOUNTER FOR SCREENING FOR OTHER BACTER 02/16/2017 MARCY ERNST DO B Ot Z79.899 OTHER SHELTERED WORKSHOP WORKER (CURRENT) DRUG THERAPY 02/17/2017 MARCY ERNST DO Ot E78.1 PURE HYPERGLYCERIDEMIA 02/17/2017 MARCY ERNST DO Ot F17.200 NICOTINE DEPENDENCE, UNSPECIFIED, UNCOMP 02/17/2017 MARCY ERNST DO Ot I10 ESSENTIAL (PRIMARY) HYPERTENSION 02/17/2017 MARCY ERNST DO Ot I25.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[place] CORONARY 02/17/2017 MARCY ERNST DO Ot K60.2 ANAL FISSURE, UNSPECIFIED 02/17/2017 MARCY ERNST DO Ot K62.89 OTHER SPECIFIED DISEASES OF ANUS AND REC 02/17/2017 MARCY ERNST DO Ot Z11.2 ENCOUNTER FOR SCREENING FOR OTHER BACTER 02/17/2017 MARCY ERNST DO Ot Z79.899 OTHER [facility] (CURRENT) DRUG THERAPY 01/27/2018 EDWIGE GUERRA MD Ot E78.00 PURE HYPERCHOLESTEROLEMIA, UNSPECIFIED 01/27/2018 EDWIGE GUERRA MD Ot F17.210 NICOTINE DEPENDENCE, CIGARETTES, UNCOMPL 01/27/2018 EDWIGE GUERRA MD Ot G43.909 MIGRAINE, UNSP, NOT INTRACTABLE, WITHOUT 01/27/2018 EDWIGE GUERRA MD Ot I10 ESSENTIAL (PRIMARY) HYPERTENSION 01/27/2018 EDWIGE GUERRA MD, Ot I25.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[place] CORONARY 01/27/2018 EDWIGE GUERRA MD Ot S61.211A LACERATION W/O FB OF L IDX FNGR W/O RAE 01/27/2018 EDWIGE GUERRA MD Ot S68.115A COMPLETE TRAUMATIC MCP AMPUTATION OF LEF 01/27/2018 EDWIGE GUERRA MD, Ot W29.8XXA CNTCT WITH OTHER POWERED HAND TOOLS AND 01/27/2018 EDWIGE GUERRA MD, Ot Z23 ENCOUNTER FOR IMMUNIZATION 01/27/2018 EDWIGE GUERRA MD, Ot Z87.19 PERSONAL HISTORY OF OTHER DISEASES OF TH 01/27/2018 EDWIGE GUERRA MD, Ot Z87.442 PERSONAL HISTORY OF URINARY CALCULI 01/27/2018 EDWIGE GUERRA MD, Ot Z98.52 VASECTOMY STATUS 01/27/2018 EDWIGE GUERRA MD, Ot Z98.890 OTHER SPECIFIED POSTPROCEDURAL STATES 02/18/2018 EDWIGE GUERRA MD, Ot E78.00 PURE HYPERCHOLESTEROLEMIA, UNSPECIFIED 02/18/2018 EDWIGE GUERRA MD, Ot F17.210 NICOTINE DEPENDENCE, CIGARETTES, UNCOMPL 02/18/2018 EDWIGE GUERRA MD, Ot G43.909 MIGRAINE, UNSP, NOT INTRACTABLE, WITHOUT 02/18/2018 EDWIGE GUERRA MD, Ot I10 ESSENTIAL (PRIMARY) HYPERTENSION 02/18/2018 EDWIGE GUERRA MD, Ot I25.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[place] CORONARY 02/18/2018 EDWIGE GUERRA MD, Ot S61.211A [...] MD, Ot Z98.890 OTHER SPECIFIED POSTPROCEDURAL STATES 11/03/2018 HODAN LEDESMA MD Ot N50.811 RIGHT TESTICULAR PAIN 11/03/2018 HODAN LEDESMA MD Ot N50.812 LEFT TESTICULAR PAIN 11/03/2018 HODAN LEDESMA MD Ot R31.9 HEMATURIA, UNSPECIFIED Procedures There is no data. Results Test [...] resistant Staphylococcus aureus (MRSA) screening culture NEG [facility] Methicillin resistant Staphylococcus aureus (MRSA) screening culture - 02/16/17 07:30 Methicillin resistant Staphylococcus aureus (MRSA) screening culture NEG [facility] LIPID PANEL - 09/15/17 08:08 [...] 10.0 fL 7.5-12.5 ABSOLUTE NEUTROPHILS 3587 cells/uL 3913-9033 ABSOLUTE LYMPHOCYTES 1531 cells/uL 850-3900 ABSOLUTE MONOCYTES [...] 08:11 PSA, TOTAL 0.3 ng/mL < OR=4.0 Complete blood count (CBC) with automated white blood cell (WBC) differential - 11/03/18 10:50 Blood leukocytes automated count (number/volume) 7.2 10*3/uL 4.3-11.0 Blood erythrocytes automated count (number/volume) 5.20 10*6/uL 4.35-5.85 Venous blood hemoglobin measurement (mass/volume) 16.7 g/dL 13.3-17.7 Blood hematocrit (volume fraction) 48 % 40-54 Automated erythrocyte mean corpuscular volume 93 [foz_us] 80-99 Automated erythrocyte mean corpuscular hemoglobin (mass per erythrocyte) 32 pg 25-34 Automated erythrocyte mean corpuscular hemoglobin concentration measurement (mass/volume) 35 g/dL 32-36 Automated erythrocyte distribution width ratio 13.9 % 10.0- 14.5 Automated blood platelet count (count/volume) 192 10*3/uL 130-400 Automated blood platelet mean volume measurement 10.2 [foz_us] 7.4-10.4 Automated blood neutrophils/100 leukocytes 51 % 42-75 Automated blood lymphocytes/100 leukocytes 30 % 12-44 Blood monocytes/100 leukocytes 14 % 0-12 Automated blood eosinophils/100 leukocytes 5 % 0-10 Automated blood basophils/100 leukocytes 0 % 0-10 Blood neutrophils automated count (number/volume) 3.7 10*3 1.8-7.8 Blood lymphocytes automated count (number/volume) 2.1 10*3 1.0-4.0 Blood monocytes automated count (number/volume) 1.0 10*3 0.0- 1.0 Automated eosinophil count 0.4 10*3/uL 0.0-0.3 Automated blood basophil count (count/volume) 0.0 10*3/uL 0.0-0.1 Comprehensive metabolic panel - 11/03/18 10:50 Serum or plasma sodium measurement (moles/volume) 140 mmol/L 135-145 Serum or plasma potassium measurement (moles/volume) 4.1 mmol/L 3.6-5.0 Serum or plasma chloride measurement (moles/volume) 111 mmol/L 98-107 Carbon dioxide 21 mmol/L 21-32 Serum or plasma anion gap determination (moles/volume) 8 mmol/L 5-14 Serum or plasma urea nitrogen measurement (mass/volume) 18 mg/dL 7-18 Serum or plasma creatinine measurement (mass/volume) 0.92 mg/dL 0.60-1.30 Serum or plasma urea nitrogen/creatinine mass ratio 20 NRG Serum or plasma creatinine measurement with calculation of estimated glomerular filtration rate > NRG Serum or plasma glucose measurement (mass/volume) 107 mg/dL 70-105 Serum or plasma calcium measurement (mass/volume) 9.4 mg/dL 8.5-10.1 Serum or plasma total bilirubin measurement (mass/volume) 0.7 mg/dL 0.1-1.0 Serum or plasma alkaline phosphatase measurement (enzymatic activity/volume) 71 U/L 40-136 Serum or plasma aspartate aminotransferase measurement (enzymatic activity/volume) 15 U/L 5-34 Serum or plasma alanine aminotransferase measurement (enzymatic activity/volume) 18 U/L 0-55 Serum or plasma protein measurement (mass/volume) 6.9 g/dL 6.4-8.2 Serum or plasma albumin measurement (mass/volume) 4.1 g/dL 3.2-4.5 CALCIUM CORRECTED 9.3 mg/dL 8.5-10.1 Serum or plasma C reactive protein measurement (mass/volume) - 11/03/18 10:50 Serum or plasma C reactive protein measurement (mass/volume) 0.74 mg/dL 0.00-0.50 Complete urinalysis with reflex to culture - 11/03/18 11:30 Urine color determination SHILA NRG Urine clarity determination CLEAR NRG Urine pH measurement by test strip 5 5-9 Specific gravity of urine by test strip 1.020 1.016-1.022 Urine protein assay by test strip, semi-quantitative 2+ NEGATIVE Urine glucose detection by automated test strip NEGATIVE NEGATIVE Erythrocytes detection in urine sediment by light microscopy 5+ NEGATIVE Urine ketones detection by automated test strip NEGATIVE NEGATIVE Urine nitrite detection by test strip NEGATIVE NEGATIVE Urine total bilirubin detection by test strip NEGATIVE NEGATIVE Urine urobilinogen measurement by automated test strip (mass/volume) 1 mg/dL NORMAL Urine leukocyte esterase detection by dipstick 1+ NEGATIVE Automated urine sediment erythrocyte count by microscopy (number/high power field) > [HPF] NRG Automated urine sediment leukocyte count by microscopy (number/high power field) [HPF] NRG Bacteria detection in urine sediment by light microscopy FEW NRG Squamous epithelial cells detection in urine sediment by light microscopy RARE NRG Crystals detection in urine sediment by light microscopy NONE NRG Casts detection in urine sediment by light microscopy NONE NRG Mucus detection in urine sediment by light microscopy SMALL NRG Complete urinalysis with reflex to culture NO NRG Encounters ACCT No. Visit Date/Time Discharge Status Pt. Type Provider Facility Loc./Unit Complaint [id number] 07/27/2018 08:00:00 07/27/2018 23:59:59 CLS Outpatient LUNA CORRAL APRN [facility] [id number] 07/27/2018 08:00:00 Document Registration [id number] 01/06/2018 09:00:00 Document Registration [id number] 09/15/2017 08:00:00 Document Registration [id number] 11/03/2018 10:42:00 11/03/2018 13:10:00 DIS Emergency RICHARD WALLS MD [facility] ER SIDE PAIN [id number] 01/27/2018 14:50:00 01/27/2018 16:55:00 DIS Emergency EDWIGE GUERRA MD [facility] ER FINGER CUT OFF [id number] 02/16/2017 07:13:00 02/16/2017 11:10:00 DIS Outpatient [facility] FISSURE [id number] 02/11/2017 05:29:00 02/11/2017 11:11:00 DIS Outpatient SUJATA MARCY MCKEON B [facility] PREOP ANAL FISSURE [id number] 01/27/2017 07:03:00 01/27/2017 10:00:00 DIS Outpatient RAVIHERLINDA MCKEON MARCY B [facility] ENDO BLOOD IN STOOLS [id number] 01/23/2017 05:24:00 01/23/2017 11:38:00 DIS Outpatient SUJATA MARCY MCKEON B [facility] PREOP BLOOD IN STOOLS [id number] 09/22/2016 17:49:00 09/22/2016 19:00:00 DIS Emergency EDWIGE GUERRA MD [facility] ER HIGH BLOOD PRESSURE [id number] 09/16/2016 13:47:00 09/16/2016 23:59:59 CLS Outpatient HODAN LEDESMA MD [facility] RAD HEMATURIA [id number] 09/01/2016 10:50:00 09/01/2016 23:59:59 CLS Outpatient HODAN LEDESMA MD [facility] RAD BILATERAL ORCHITIS [id number] 08/13/2016 06:40:00 08/13/2016 12:55:00 DIS Outpatient SADA PANDEY MD [facility] CATH ABN STRESS TEST,CP [id number] 07/30/2016 08:12:00 07/30/2016 23:59:59 CLS Outpatient SADA PANDEY MD [facility] CARD CHEST PAIN SYNDROME,HTN,PVC [id number] 07/25/2016 22:31:00 07/26/2016 12:01:00 DIS Inpatient JULIANNA FLYNN MD [facility] ICU CP,HTN [id number] 03/22/2016 18:45:00 03/22/2016 21:32:00 DIS Emergency PROSPER LAM, MARISSA Kelly [facility] ER CP/ELEV BP [id number] 09/27/2015 08:58:00 09/27/2015 09:15:00 DIS Emergency MARI LAM, EDWIGE Gallegos [facility] ER RIGHT FLANK/BACK PAIN [id number] 04/16/2015 12:12:00 04/16/2015 23:59:59 CLS Outpatient CORA GONZALES BENCH WORKER APPRENTICE [facility] RAD PELVIC PAIN [id number] 12/15/2014 12:06:00 12/15/2014 23:59:59 CLS Outpatient LUIS LAM, LON Martinez (DDU) [facility] RAD DDU [id number] 12/15/2014 12:59:00 12/15/2014 15:04:00 DIS Emergency HÉCTOR FLORES LITHOPONE CHARGER [facility] ER TESTICLE PAIN [id number] 03/03/2014 10:01:00 03/03/2014 23:59:59 CLS Outpatient LUNA YUSUF DO [facility] RAD DJD OF L-5-S-1, RADICULOPATHY [id number] 08/26/2013 03:35:00 08/26/2013 13:15:00 DIS Outpatient YONY LAM FACC, JUDITH ALAMO CCDS [facility] CATH CHEST PAIN [id number] 08/24/2013 14:57:00 08/24/2013 23:59:59 CLS Outpatient LUNA YUSUF DO [facility] RAD LOW BACK PAIN, R HIP PAIN [id number] 02/24/2013 15:11:00 02/24/2013 23:59:59 CLS Outpatient LUNA YUSUF DO [facility] RAD L URETEROLITHIASIS [id number] 02/23/2013 18:55:00 02/23/2013 20:54:00 DIS Emergency HÉCTOR FLORES LITHOPONE CHARGER [facility] ER SCROTUM PAINFUL [id number] 02/22/2013 00:17:00 02/22/2013 01:23:00 DIS Emergency KATIA SALDANA DO [facility] ER HG BLOOD PRESSURE,BURNS [id number] 06/11/2011 21:10:00 Document Registration [id number] 01/30/2011 05:42:00 Document Registration [id number] 01/28/2011 10:17:00 Document Registration [id number] 01/24/2011 07:24:00 Document Registration [id number] 08/31/2010 00:10:00 Document Registration [id number] 08/29/2010 09:56:00 Document Registration
[2018-11-06] MEDS ORDERED: KETOROLAC 30 MG/ML VIAL IVP ONE (15:00)
[2018-11-06] MEDS ORDERED: NS IV 1000 ML 1,000 ML IV SCH (15:00)
--- NOTE | 2018-11-06 15:10 | NUR ---
PT HERE WITH " YANIRA ". PT ALERT GCS 15. PT DX RIGHT KIDNEY STONES FEW DAYS AGO. PT HERE C/O INCREASED PAIN. PAIN RATING 10. ASSOCIATED WITH NAUSEA W/O V/D. C/O " DARK" UA AND PAIN WITH UA AND UA LESS THEN USUAL STARTED TODAY, DENIES DYSPNEA AND NO ACUTE SIGHNS OF DYSPNEA NOTED. LUNGS EQUAL CTA BILATERALLY. H/T WNL. PT ALSO C/O ABD PAIN AND BACK PAIN. PT DENIES CHEST PAIN AND FOR ABD PAIN POINTED TO EPIGASTRIC AREA AND SAYS PAIN GOES STRAIGHT DOWN. ABD FIRM AND APPEARS DISTENDED ALL QUADS. SAYS SHE THOUGH IT LOOKED " SWOLLEN". TENDER TO PALPATION LLA ABD AND BILATERAL QUADS ON RIGHT ONLY. . I DO SEE SLIGHT PULSATIONS IN ABD MATCHES WITH AUSC HR BUT FEEL NO MASSESS. SOMEONE ALREADY STARTED IV AND SENT THE LABS.
[2018-11-06 15:16] LABS: BASOPHILS % (AUTO) 0 % (0-10); EOSINOPHILS # (AUTO) 0.3 10^3/uL (0.0-0.3); EOSINOPHILS % (AUTO) 3 % (0-10); HEMATOCRIT 46 % (40-54); HEMOGLOBIN 16.3 G/DL (13.3-17.7); LYMPHOCYTES # (AUTO) 1.9 X 10^3 (1.0-4.0); LYMPHOCYTES % (AUTO) 18 % (12-44); MEAN CORPUSCULAR HEMOGLOBIN 33 PG (25-34); MEAN CORPUSCULAR HGB CONC 35 G/DL (32-36); MEAN CORPUSCULAR VOLUME 93 FL (80-99); MEAN PLATELET VOLUME 10.1 FL (7.4-10.4); MONOCYTES # (AUTO) 1.3 X 10^3 (0.0-1.0); MONOCYTES % (AUTO) 12 % (0-12); NEUTROPHILS # (AUTO) 7.3 X 10^3 (1.8-7.8); NEUTROPHILS % (AUTO) 67 % (42-75); PLATELET COUNT 194 10^3/uL (130-400); RED CELL DISTRIBUTION WIDTH 13.8 % (10.0-14.5); WHITE BLOOD COUNT 10.9 10^3/uL (4.3-11.0)
[2018-11-06] MEDS ORDERED: fentaNYL INJECTION 100 MCG/2 ML AMP IVP STA ×2 (15:26→16:18)
--- NOTE | 2018-11-06 15:27 | NUR ---
UA TO LAB BY
[2018-11-06 15:32] LABS: BILIRUBIN,URINE NEGATIVE (NEGATIVE); CLARITY,URINE CLEAR; COLOR,URINE YELLOW; GLUCOSE, URINE (UA) NEGATIVE (NEGATIVE); KETONES,URINE 1+ (NEGATIVE); LEUKOCYTE ESTERASE ,URINE 1+ (NEGATIVE); NITRITE,URINE NEGATIVE (NEGATIVE); PH,URINE 6.5 (5-9); PROTEIN,URINE 1+ (NEGATIVE); UROBILINOGEN,URINE 1 MG/DL (NORMAL)
[2018-11-06 15:44] LABS: BUN/CREATININE RATIO 14; CALCIUM 9.2 MG/DL (8.5-10.1); CARBON DIOXIDE 19 MMOL/L (21-32); CHLORIDE 105 MMOL/L (98-107); CREATININE SERUM 1.18 MG/DL (0.60-1.30); GFR ESTIMATED > 60; GLUCOSE 77 MG/DL (70-105); POTASSIUM 3.9 MMOL/L (3.6-5.0); SODIUM 137 MMOL/L (135-145)
[2018-11-06 15:45] LABS: RBC,URINE 25-50 /HPF
--- NOTE | 2018-11-06 15:45 | ED GU-Male ---
General Chief Complaint: Abdominal/GI Problems Stated Complaint: R SIDE / GROIN / BACK PAIN Nursing Triage Note: PT TO ED W/ C/O ABD PAIN. REPORTS WAS SEEN IN THIS FACILITY X2-3 DAYS AGO, DX W/ KIDNEY STONE. REPORTS HE THINKS HE'S PASSING IT. STATES HAS TAKEN IBUPROFEN, HYDROCODONE ET BEER BUT DENIES IMPROVEMENT Source: patient, family Exam Limitations: no limitations History of Present Illness Date Seen by Provider: Nov 06, 2018 Time Seen by Provider: 15:00 Initial Comments Here with acute onset of right-sided abdominal pain at about 11 AM today. He was out fishing when he started noticing the pain. The diagnosed with kidney stone a few days ago on the right side at the right UVJ. He has been taking pain medicine for that and thought he actually passed the stone because he saw black gabby. Denies nausea or vomiting. Did take ibuprofen a few hours ago and that has not helped with the pain. Timing/Duration: constant Severity/Quality: moderate, aching Location: right flank Radiation: groin (right) Activities at Onset: none Prior Genitourinary Problems: none Modifying Factors: Improves With Other (no aggravating or relieving factors) Associated Symptoms: abdominal pain; No fever/chills; nausea/vomiting, urinary frequency Allergies and Home Medications Allergies Coded Allergies: No Known Drug Allergies (Unverified , 01/23/17) Home Medications Cephalexin 500 Mg Tablet, 500 MG PO BID Prescribed by: RICHARD WALLS on 11/03/18 1256 Dexlansoprazole 30 Mg Gallo., 30 MG PO DAILY, (Reported) Hydrocodone Bit/Acetaminophen 1 Each Tablet, 1 EACH PO TID PRN for PAIN-MILD TO MODERATE, (Reported) Hydrocodone Bit/Acetaminophen 1 Tab Tab, 1 EACH PO Q4-6HR PRN for PAIN-MODERATE Prescribed by: RICHARD WALLS on 11/03/18 1256 Hydrocodone/Acetaminophen 1 Each Tablet, 1-2 EACH PO Q6H PRN for PAIN-MODERATE TO SEVERE Prescribed by: EDWIGE RYDER on 01/27/18 1624 Losartan Potassium 50 Mg Tablet, 50 MG PO DAILY, (Reported) Ondansetron 4 Mg Tab.rapdis, 4 MG PO Q6H PRN for NAUSEA/VOMITING Prescribed by: RICHARD WALLS on 11/03/18 1256 Ropinirole HCl 5 Mg Tab, 5 MG PO HS, (Reported) Tamsulosin HCl 0.4 Mg Cap, 0.4 MG PO DAILY, (Reported) Tamsulosin HCl 0.4 Mg Cap, 0.4 MG PO HS Prescribed by: RICHARD WALLS on 11/03/18 1256 Patient Home Medication List Home Medication List Reviewed: Yes Review of Systems Review of Systems Constitutional: see HPI; No chills, No fever EENTM: no symptoms reported Respiratory: no symptoms reported Cardiovascular: no symptoms reported Gastrointestinal: see HPI, abdominal pain, constipation; No nausea, No vomiting Genitourinary: frequency, flank pain, hematuria, pain Musculoskeletal: no symptoms reported All Other Systemes Reviewed Negative Unless Noted: Yes Past Fsbpbom-Chusfa-Brdtzj Hx Past Med/Social Hx: Reviewed Nursing Past Med/Soc Hx Patient Social History Alcohol Use: Occasionally Uses Alcohol Beverage of Choice: Beer Recreational Drug Use: No Smoking Status: Current Everyday Smoker Type Used: Cigarettes 2nd Hand Smoke Exposure: No Recent Foreign Travel: No Contact w/Someone Who Travel: No Recent Infectious Disease Expo: No Recent Hopitalizations: No Physical Abuse: No Sexual Abuse: No Mistreated: No Fear: No Immunizations Up To Date Tetanus Booster (TDap): Unknown PED Vaccines UTD: No Seasonal Allergies Seasonal Allergies: No Past Medical History Surgeries: Yes (CARDIAC CATH 2013 AND 2016--NO INTERVENTION, fissure reair, hemroidectomy) Cardiac, Gallbladder, Vasectomy Respiratory: No Currently Using CPAP: No Currently Using BIPAP: No Cardiac: Yes (HX OF MITRAL VALVE PROLAPSE) Coronary Artery Disease, High Cholesterol, Hypertension Neurological: Yes Neuropathy Reproductive Disorders: No Sexually Transmitted Disease: No HIV/AIDS: No Genitourinary: Yes Kidney Stones Gastrointestinal: Yes (TAKES DEXILANT-FOR ABD CRAMPS) Irritable Bowel Musculoskeletal: Yes (CHRONIC FOOT PAIN, "CAVUS FOOT" (HIGH ARCH)) Degenerate Disk Disease, Chronic Back Pain Endocrine: No HEENT: Yes Cataract Loss of Vision: Bilateral Hearing Impairment: Denies Cancer: No Psychosocial: No Integumentary: No Blood Disorders: No Adverse Reaction/Blood Tranf: No (N/A) Family Medical History Reviewed Nursing Family Hx Family history: Hypertension Hearing loss G8 BROTHER, Onset:Unknown (HEARING AIDE X1) No Family History of: Abdominal aortic aneurysm Collier's disease Alcoholism Aphasia Cancer Cancer of colon Cataract Chest pain Congenital heart disease Congestive heart failure Cystic fibrosis Dementia Dysphagia Family history: Allergy Family history: Alzheimer's disease Family history: Arthritis Family history: Asthma Family history: Breast disease Family history: Cardiovascular disease Family history: Coronary thrombosis Family history: Diabetes mellitus Family history: Gastrointestinal disease Family history: Glaucoma Family history: Osteoporosis Family history: Thyroid disorder Headache Heart disease Hereditary disease History of - anemia History of - disorder History of - respiratory disease History of drug abuse Human immunodeficiency virus (HIV) seropositivity Hypercholesterolemia Infertile Kidney disease Malignant neoplasm of lung Myocardial infarction Parkinson's disease Prostate cancer Psychotic disorder Seizure disorder Stroke Tuberculosis Visual impairment Physical Exam Vital Signs Vital Signs - First Documented 11/06/18 14:46 Temp 96.2 Pulse 69 Resp 20 B/P (MAP) 143/100 (114) Pulse Ox 98 O2 Delivery Room Air Capillary Refill : Less Than 3 Seconds Height, Weight, BMI Height: 5'10.00" Weight: 229lbs. 0.0oz. 103.381792jw; 31.3 BMI Method:Stated General Appearance: WD/WN, mild distress HEENT: PERRL/EOMI, pharynx normal Neck: full range of motion, supple Cardiovascular: regular rate, rhythm, no murmur Respiratory: lungs clear, normal breath sounds Gastrointestinal: soft, tenderness (right flank to right groin area) Back: normal inspection, no vertebral tenderness, CVA tenderness (R); No CVA tenderness (L) Extremities: non-tender, normal inspection Neurologic/Psychiatric: alert, oriented x 3 Skin: normal color, warm/dry Progress/Results/Core Measures Suspected Sepsis Recent Fever Within 48 Hours: No Infection Criteria Present: None New/Unexplained Altered Menta: No Sepsis Screen: No Definite Risk SIRS Temperature:96.2 Pulse: 69 Respiratory Rate: 20 Laboratory Tests 11/06/18 14:57: White Blood Count 10.9 Blood Pressure 143 /100 Mean: 114 Laboratory Tests 11/06/18 14:57: Creatinine 1.18, Platelet Count 194 Results/Orders Lab Results Laboratory Tests Test 11/06/18 14:57 11/06/18 15:25 Range/Units White Blood Count 10.9 4.3-11.0 10^3/uL Red Blood Count 4.97 4.35-5.85 10^6/uL Hemoglobin 16.3 13.3-17.7 G/DL Hematocrit 46 40-54 % Mean Corpuscular Volume 93 80-99 FL Mean Corpuscular Hemoglobin 33 25-34 PG Mean Corpuscular Hemoglobin Concent 35 32-36 G/DL Red Cell Distribution Width 13.8 10.0-14.5 % Platelet Count 194 130-400 10^3/uL Mean Platelet Volume 10.1 7.4-10.4 FL Neutrophils (%) (Auto) 67 42-75 % Lymphocytes (%) (Auto) 18 12-44 % Monocytes (%) (Auto) 12 0-12 % Eosinophils (%) (Auto) 3 0-10 % Basophils (%) (Auto) 0 0-10 % Neutrophils # (Auto) 7.3 1.8-7.8 X 10^3 Lymphocytes # (Auto) 1.9 1.0-4.0 X 10^3 Monocytes # (Auto) 1.3 H 0.0-1.0 X 10^3 Eosinophils # (Auto) 0.3 0.0-0.3 10^3/uL Basophils # (Auto) 0.0 0.0-0.1 10^3/uL Sodium Level 137 135-145 MMOL/L Potassium Level 3.9 3.6-5.0 MMOL/L Chloride Level 105 98-107 MMOL/L Carbon Dioxide Level 19 L 21-32 MMOL/L Anion Gap 13 5-14 MMOL/L Blood Urea Nitrogen 17 7-18 MG/DL Creatinine 1.18 0.60-1.30 MG/DL Estimat Glomerular Filtration Rate > 60 BUN/Creatinine Ratio 14 Glucose Level 77 70-105 MG/DL Calcium Level 9.2 8.5-10.1 MG/DL Urine Color YELLOW Urine Clarity CLEAR Urine pH 6.5 5-9 Urine Specific [place] 1.010 L 1.016-1.022 Urine Protein 1+ H NEGATIVE Urine Glucose (UA) NEGATIVE NEGATIVE Urine Ketones 1+ H NEGATIVE Urine Nitrite NEGATIVE NEGATIVE Urine Bilirubin NEGATIVE NEGATIVE Urine Urobilinogen 1 NORMAL MG/DL Urine Leukocyte Esterase 1+ H NEGATIVE Urine RBC (Auto) 5+ H NEGATIVE Urine RBC 25-50 H /HPF Urine WBC 0-2 /HPF Urine Squamous Epithelial Cells NONE /HPF Urine Crystals NONE /LPF Urine Bacteria FEW H /HPF Urine Casts NONE /LPF Urine Mucus SMALL H /LPF Urine Culture Indicated NO My Orders Orders - MARISSA CHENG MD Fentanyl Injection (Sublimaze Injection (11/06/18 15:26) Abdomen/Kub 1view (11/06/18 16:18) Fentanyl Injection (Sublimaze Injection (11/06/18 16:18) Medications Given in ED Current Medications Medications Dose Ordered Sig/[place] Route Start Time Stop Time Status Last Admin Dose Admin Ketorolac Tromethamine 30 mg ONCE ONCE IVP 11/06/18 15:00 11/06/18 15:01 DC 11/06/18 15:07 30 MG Vital Signs/I&O 11/06/18 14:46 Temp 96.2 Pulse 69 Resp 20 B/P (MAP) 143/100 (114) Pulse Ox 98 O2 Delivery Room Air Capillary Refill : Less Than 3 Seconds Blood Pressure Mean: 114 Progress Note : Progress Note Seen and evaluated. IV, labs, UA, normal saline 1 L bolus. Toradol 30 mg IV and 50 g of fentanyl IV ordered. Monitor patient. This did help his pain somewhat. Labs reviewed. Repeat fentanyl 50 g IV and KUB ordered. KUB does not note any stone. Monitor patient. 1715: I discussed with the patient and family regarding findings and concerns. They are okay with going home and continue home pain medication. Also will increase fluids. Pain is much better controlled currently. He has not picked up his antibiotic prescription but will do that now. Discharged home with return precautions. Patient verbalize understanding instructions and agreement with plan. Diagnostic Imaging Diagonstic Imaging: Xray Plain Films/CT/US/NM/MRI: abdomen Comments NAME: SIMEON WATSON [facility] REC#: [id number] PT STATUS: REG ER : 1960 PHYSICIAN: MARISSA CHENG MD ADMIT DATE: 11/06/18/ER Signed Date of Exam: 11/06/18 ABDOMEN/KUB 1VIEW INDICATION: Abdominal pain. COMPARISON: None. EXAMINATION: Two views of the abdomen were obtained. FINDINGS: Mild constipation without obstruction or ileus. No large pocket of free air is seen. Cholecystectomy clips are present. There are no abnormal calcifications seen. IMPRESSION: 1. Mild constipation without obstruction or ileus. 2. No obvious ureteral, renal or bladder calculi. Dictated by: Dictated on workstation # [id number] Dict: 11/06/181640 Trans: 11/06/181648 Interpreted by: MICHAEL BRUMFIELD Electronically signed by: MICHAEL BRUMFIELD 11/06/181648 Departure Impression Primary Impression: Right ureteral stone Additional Impression: Constipation Qualified Codes: K59.00 - Constipation, unspecified Disposition: HOME, SELF-CARE Condition: Improved Departure-Patient Inst. Referrals: [facility] (PCP/Family) Primary Care Physician Patient Instructions: Constipation, Adult (DC), Kidney Stones (DC) Add. Discharge Instructions: All discharge instructions reviewed with patient and/or family. Voiced understanding. Take medications as previously prescribed. Get your antibiotics and start taking those. Drink plenty of fluids. Take ibuprofen and 800 mg every 8 hours as needed for pain. You may use MiraLAX or the generic, one capful twice daily for 3 days and then one half capful twice daily thereafter to keep stools soft. You may increase or decrease the dose to keep stools in normal range. Return for worse pain, fever, vomiting, weakness, breathing problems or other concerns as needed. MARISSA CHENG MD Nov 06, 2018 15:45
[2018-11-06 15:46] LABS: BACTERIA,URINE FEW /HPF; WBC,URINE 0-2 /HPF
--- NOTE | 2018-11-06 16:05 | NUR ---
PT REMAINS ALERT GCS 15. REMAINS IN THE ROOM. ABD PAIN CONTINUES RATING 7-8 SAYS " TOOK THE EDGE OFF". PT DENIES CHEST PAIN. DENIES DYSPNEA AND NO ACUTE SIGHNS OF DYSPNEA NOTED. DENIES NAUSEA AND NO V/D NOTED IN ER VISIT THUS FAR. PT DENIES CONSTIPATION EARLIER AND I ALSO TOLD DR ABOUT ?AAA BUT CT COUPLE DAYS AGO AORTA WAS NORMAL. BOLUS COMPLETED. BP MACHINE IS 148/95 AUSC HR 68 REG AUSC RESP 20 NORMAL RECHECK TEMP 98.1 P OX R/A IS 95. PT PLAYING GAME ON CELL WITH .
--- NOTE | 2018-11-06 16:25 | NUR ---
using 2nd fentynyl 50 from 1st dose bottle.
--- NOTE | 2018-11-06 16:44 | Diagnostic Imaging Report ---
INDICATION: Abdominal pain. COMPARISON: None. EXAMINATION: Two views of the abdomen were obtained. FINDINGS: Mild constipation without obstruction or ileus. No large pocket of free air is seen. Cholecystectomy clips are present. There are no abnormal calcifications seen. IMPRESSION: 1. Mild constipation without obstruction or ileus. 2. No obvious ureteral, renal or bladder calculi. Dictated by: Dictated on workstation # [id number]
--- NOTE | 2018-11-06 17:01 | NUR ---
SAYS PT PAIN " MUCH BETTER". PT SAYS PAIN RATING 3.
[2018-11-06] MEDS ORDERED: CEPHALEXIN 250 MG (KEFLEX) CAP PO STA (17:46)
[2018-11-06 18:00] VITALS: BP 145/90
--- NOTE | 2018-11-06 18:00 | NUR ---
d/c instrcutions to pt. told to read all papers. no scripts given. pt left ambulatory with . pt knows f/u. i went over the handtyped by information on the chart. iv d/cd by me prior to d/c. 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
== END 2018-11-06 18:00 | disposition home or self-care (01) ==
LOC: EDUNIT# 14:28 → ER 14:31
DX: N20.1 Calculus of ureter (principal); K59.00 Constipation, unspecified; I10 Essential (primary) hypertension; E78.00 Pure hypercholesterolemia, unspecified; I25.10 Atherosclerotic heart disease of native coronary artery without angina pectoris; G62.9 Polyneuropathy, unspecified; F17.210 Nicotine dependence, cigarettes, uncomplicated; Z87.442 Personal history of urinary calculi; Z95.9 Presence of cardiac and vascular implant and graft, unspecified; Z82.49 Family history of ischemic heart disease and other diseases of the circulatory system
CPT/HCPCS: 36415; 74018; 80048; 81000; 85025; 96374; 96375; 96376

== ENCOUNTER → 2020-02-10 | Outpatient (CLI) | payer MEDICARE, OTHER ==
[~2020-02-10] MED LIST changes: -HYDR-3816 PO; -METO-370 PO; +METO50TA7 PO; -TAMS0.4C98 PO
== END ==
LOC: LABNPT 05:34
DX: Z01.812 Encounter for preprocedural laboratory examination (principal); Z20.828 Contact with and (suspected) exposure to other viral communicable diseases
CPT/HCPCS: 87635

== ENCOUNTER 2020-02-13 20:46 | Outpatient (CLI) | payer MEDICARE, OTHER ==
[~2020-02-13 20:46] MED LIST changes: +CLN.1T PO; -CLON0.1T PO
== END 2020-02-14 06:20 | disposition home or self-care (01) ==
LOC: SLEEP 20:46
PROVIDERS: ATTEND Nurse Practitioner Community Health
DX: Z01.812 Encounter for preprocedural laboratory examination (principal); G47.33 Obstructive sleep apnea (adult) (pediatric); G47.10 Hypersomnia, unspecified; F39 Unspecified mood [affective] disorder; Z20.828 Contact with and (suspected) exposure to other viral communicable diseases
CPT/HCPCS: 95811

== ENCOUNTER → 2020-07-17 | Outpatient (CLI) | payer MEDICARE, OTHER ==
[~2020-07-17] MED LIST changes: +RT-ALBUTEROL SULF 2.5 MG/3 ML PRE-MIX VIAL INH ONE
== END ==
LOC: RT 10:30
PROVIDERS: ATTEND Nurse Practitioner Family
DX: R06.02 Shortness of breath (principal); Z87.891 Personal history of nicotine dependence
CPT/HCPCS: 94060; 94726; 94729

== ENCOUNTER → 2020-10-09 | Outpatient (CLI) | payer MEDICARE, OTHER ==
[~2020-10-09] MED LIST changes: -RT-ALBUTEROL SULF 2.5 MG/3 ML PRE-MIX VIAL INH ONE
--- NOTE | 2020-10-09 13:14 | Diagnostic Imaging Report ---
CT CHEST SCREENING WO TECHNIQUE: Low-dose unenhanced CT of the chest was performed according to the screening protocol. Coronal MIP and sagittal MPR reformats are created. Automatic exposure controls were utilized to keep dose as low as reasonably achievable. INDICATION: 35 pack year history smoking. Quit smoking less than 1 year ago. COMPARISON: CTA chest from 09/05/2013 FINDINGS: Pulmonary findings: No endoluminal nodule within the trachea. No pulmonary mass or consolidation. A 4 mm nodule in the right lower lobe along the minor fissure is stable (image 125, series 2). No suspicious pulmonary nodules. Extrapulmonary findings: No mediastinal or axillary lymphadenopathy. No pericardial or pleural effusion. Stable borderline cardiomegaly. Normal caliber thoracic aorta. Cholecystectomy clips are noted. Otherwise, assessment of the upper abdomen is limited by low-dose technique. IMPRESSION: 1. Baseline screening CT is negative for features of clinically active lung cancer. Lung-RADS category: 1 - Negative Recommendations: Continued annual screening with low-dose CT in 12 months. Dictated by: Dictated on workstation # [id number]
== END ==
LOC: RAD 12:45
PROVIDERS: ATTEND Nurse Practitioner
DX: Z12.2 Encounter for screening for malignant neoplasm of respiratory organs (principal); Z87.891 Personal history of nicotine dependence
CPT/HCPCS: 71271

== ENCOUNTER → 2020-11-02 | Outpatient (CLI) | payer MEDICARE, OTHER | LOC: CARD 11:14 | PROVIDERS: ATTEND Internal Medicine Cardiovascular Disease | DX: I11.9 Hypertensive heart disease without heart failure (principal); I25.10 Atherosclerotic heart disease of native coronary artery without angina pectoris | CPT/HCPCS: 93306 ==

== ENCOUNTER 2021-02-21 18:00 | Emergency (ER) | payer OTHER, MEDICARE ==
[~2021-02-21] VITALS: Ht 177.8 cm; Wt 117.9 kg
[2021-02-21] MEDS ORDERED: METH-732 PO (18:29)
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
[2021-02-21 19:13] VITALS: BP 160/94
== END 2021-02-21 19:16 | disposition home or self-care (01) ==
LOC: EDUNIT# 18:00 → ER 18:02
DX: S16.1XXA Strain of muscle, fascia and tendon at neck level, initial encounter (principal); I10 Essential (primary) hypertension; G89.29 Other chronic pain; M54.9 Dorsalgia, unspecified; Z87.891 Personal history of nicotine dependence; Z79.891 Long term (current) use of opiate analgesic; V89.2XXA Person injured in unspecified motor-vehicle accident, traffic, initial encounter
CPT/HCPCS: 70450; 72125

== ENCOUNTER 2021-03-15 10:52 | Emergency (ER) | payer MEDICARE, OTHER ==
[~2021-03-15] VITALS: Ht 177.8 cm; Wt 122.0 kg
[~2021-03-15 10:52] MED LIST changes: +METH-732 PO
--- NOTE | 2021-03-15 11:18 | ED Neurological Problem ---
General Chief Complaint: Altered Mental Status Stated Complaint: AMS Source: patient Exam Limitations: no limitations (HÉCTOR DEY APRN) History of Present Illness Date Seen by Provider: Mar 15, 2021 Time Seen by Provider: 11:16 Initial Comments Tylenol to ER by private vehicle accompanied by his from [facility] where he presented with confusion. The states that he felt perfectly normal yesterday. He seemed normal yesterday as well. Today upon awakening at about 7 this morning he did not know what year it was, he did not know what month it was, he did not know what holiday was yesterday. He did know who she was. She told him that she was going to take him to the clinic to be evaluated for this. A few moments past and he asked her why she was going to take him to the fish store. No fever chills or recent illness. He has not fallen to her knowledge. He seems better at this time but states that he still feels a little "foggy" and not back to normal. He did not have any apparent motor deficit during this time. Timing/Duration: 4-6 hours Severity: moderate Associated Symptoms: No slurred speech, No vision changes (HÉCTOR DEY APRN) Allergies and Home Medications Allergies Coded Allergies: No Known Drug Allergies (Unverified , 01/23/17) Patient Home Medication List Home Medication List Reviewed: Yes (HÉCTOR DEY APRN) Cephalexin (Cephalexin) 500 Mg Tablet, 500 MG PO BID Prescribed by: RICHARD WALLS on 11/03/18 1256 Dexlansoprazole (Dexilant) 30 Mg Gallo., 30 MG PO DAILY, (Reported) Entered as Reported by: SAMANTHA MARIO on 01/23/17 1131 Hydrocodone Bit/Acetaminophen (Lortab 7.5 Mg Tablet) 1 Each Tablet, 1 EACH PO TID PRN for PAIN-MILD TO MODERATE, (Reported) Entered as Reported by: SAMANTHA MARIO on 01/23/17 1131 Hydrocodone Bit/Acetaminophen (HYDROcodone/APAP 7.5/325 TAB) 1 Each Tablet, 1-2 EACH PO Q6H PRN for PAIN-MODERATE TO SEVERE Prescribed by: EDWIGE RYDER on 01/27/18 1624 Hydrocodone Bit/Acetaminophen (Lortab 5 Mg Tablet) 1 Tab Tab, 1 EACH PO Q4-6HR PRN for PAIN-MODERATE Prescribed by: RICHARD WALLS on 11/03/18 1256 Losartan Potassium (Losartan Potassium) 50 Mg Tablet, 50 MG PO DAILY, (Reported) Entered as Reported by: SAMANTHA MARIO on 01/23/17 1131 Methocarbamol (Methocarbamol) 750 Mg Tablet, 750 MG PO Q6-8HR Prescribed by: HÉCTOR DEY on 02/21/21 1829 Ondansetron (Ondansetron Odt) 4 Mg Tab.rapdis, 4 MG PO Q6H PRN for NAUSEA/V OMITING Prescribed by: RICHARD WALLS on 11/03/18 1256 Ropinirole HCl (Requip) 5 Mg Tab, 5 MG PO HS, (Reported) Entered as Reported by: SEAMUS NUÑEZ on 08/13/16 0728 Tamsulosin HCl (Flomax) 0.4 Mg Cap, 0.4 MG PO DAILY, (Reported) Entered as Reported by: JACKLYN KIRK on 07/25/16 2231 Tamsulosin HCl (Flomax) 0.4 Mg Cap, 0.4 MG PO HS Prescribed by: RICHARD WALLS on 11/03/18 1256 Review of Systems Review of Systems Constitutional: see HPI Eyes: No Symptoms Reported Ears, Nose, Mouth, Throat: no symptoms reported Respiratory: no symptoms reported Cardiovascular: no symptoms reported Genitourinary: no symptoms reported Musculoskeletal: no symptoms reported Skin: no symptoms reported Psychiatric/Neurological: See HPI, Cognitive Dysfunction Endocrine: No Symptoms Reported Hematologic/Lymphatic: No Symptoms Reported (HÉCTOR DEY APRN) Past Nddcqda-Ufeorz-Sgkwvv Hx Immunizations Up To Date Tetanus Booster (TDap): Unknown PED Vaccines UTD: No First/Initial COVID19 Vaccinat: JUNE 2020 Second COVID19 Vaccination Rudolph: OCTOBER 2020 (HÉCTOR DEY APRN) Seasonal Allergies Seasonal Allergies: No (HÉCTOR DEY APRN) Past Medical History Surgeries: Yes (CARDIAC CATH 2013 AND 2017--NO INTERVENTION, fissure reair, hemroidectomy) Cardiac, Gallbladder, Vasectomy Respiratory: No Currently Using CPAP: No Currently Using BIPAP: No Cardiac: Yes (HX OF MITRAL VALVE PROLAPSE) Coronary Artery Disease, High Cholesterol, Hypertension Neurological: Yes Neuropathy Reproductive Disorders: No Sexually Transmitted Disease: No HIV/AIDS: No Genitourinary: Yes Kidney Stones Gastrointestinal: Yes (TAKES DEXILANT-FOR ABD CRAMPS) Irritable Bowel Musculoskeletal: Yes (CHRONIC FOOT PAIN, "CAVUS FOOT" (HIGH ARCH)) Degenerate Disk Disease, Chronic Back Pain Endocrine: No HEENT: Yes Cataract Loss of Vision: Bilateral Hearing Impairment: Denies Cancer: No Psychosocial: No Integumentary: No Blood Disorders: No Adverse Reaction/Blood Tranf: No (N/A) (HÉCTOR DEY APRN) Family Medical History Family history: Hypertension Hearing loss G8 BROTHER, Onset:Unknown (HEARING AIDE X1) No Family History of: Abdominal aortic aneurysm [place]'s disease Alcoholism Aphasia Cancer Cancer of colon Cataract Chest pain Congenital heart disease Congestive heart failure Cystic fibrosis Dementia Dysphagia Family history: Allergy Family history: Alzheimer's disease Family history: Arthritis Family history: Asthma Family history: Breast disease Family history: Cardiovascular disease Family history: Coronary thrombosis Family history: Diabetes mellitus Family history: Gastrointestinal disease Family history: Glaucoma Family history: Osteoporosis Family history: Thyroid disorder Headache Heart disease Hereditary disease History of - anemia History of - disorder History of - respiratory disease History of drug abuse Human immunodeficiency virus (HIV) seropositivity Hypercholesterolemia Infertile Kidney disease Malignant neoplasm of lung Myocardial infarction Parkinson's disease Prostate cancer Psychotic disorder Seizure disorder Stroke Tuberculosis Visual impairment Physical Exam Vital Signs Vital Signs - First Documented 03/15/21 11:03 Pulse 59 Resp 17 B/P (MAP) 165/93 (117) Pulse Ox 98 O2 Delivery Room Air (EDWIGE GUERRA MD) Vital Signs Capillary Refill : (HÉCTOR DEY APRN) Height, Weight, BMI Height: 5'10.00" Weight: 229lbs. 0.0oz. 103.805108go; 37.00 BMI Method:Stated General Appearance: WD/WN, no apparent distress HEENT: PERRL/EOMI, normal ENT inspection, other (At this time he is alert and oriented. He knows where he is at and why he is here. He knows the month and the day as well as which holiday yesterday was. His speech is clear and appropriate.) Respiratory: no respiratory distress, no accessory muscle use Cardiovascular: regular rate, rhythm Gastrointestinal: normal bowel sounds, non tender, soft Extremities: normal range of motion, non-tender Neurologic/Psychiatric: alert, normal mood/affect, oriented x 3 Crainal Nerves: normal hearing, normal speech, PERRL Skin: normal color, warm/dry (HÉCTOR DEY APRN) Stroke Onset of Symptoms Date of Onset of Symptoms: Mar 15, 2021 Time of Symptom Onset: 07:30 Onset of Symptoms: Yes Symptoms onset unknown: No (HÉCTOR DEY APRN) NIH Stroke Scale Assessment Select: Initial Level of Consciousness: 0=Alert (0), Level of Consciousness- Questions: 0=Answers both month/age (0), LOC Commands: 0=Performs both tasks (0), Gaze: Normal (0), Visual Marquez: 0=No visual loss (0), Facial Movement (Facial Paresis): 0=Normal symmetrical mnt (0), Motor Function-Arms Right: 0=No drift (0), Motor Function-Arms Left: 0=No drift (0), Motor Function-Legs Right: 0=No drift (0), Motor Function-Legs Left: 0=No drift (0), Limb Ataxia: 0=Absent (0), Sensory: 0=Normal:no loss (0), Best Language: 0=No aphasia (0), Dysarthria: 0=Normal (0), Extinction & Inattention: 0=No abnormality (0), Total: 0 Progress/Results/Core Measures Results/Orders Lab Results Laboratory Tests Test 03/15/21 11:24 03/15/21 13:03 Range/Units White Blood Count 7.7 4.3-11.0 10^3/uL Red Blood Count 4.96 4.30-5.52 10^6/uL Hemoglobin 15.5 13.3-17.7 g/dL Hematocrit 45 40-54 % Mean Corpuscular Volume 91 80-99 fL Mean Corpuscular Hemoglobin 31 25-34 pg Mean Corpuscular Hemoglobin Concent 34 32-36 g/dL Red Cell Distribution Width 13.1 10.0-14.5 % Platelet Count 206 130-400 10^3/uL Mean Platelet Volume 10.0 9.0-12.2 fL Immature Granulocyte % (Auto) 1 % Neutrophils (%) (Auto) 63 42-75 % Lymphocytes (%) (Auto) 21 12-44 % Monocytes (%) (Auto) 11 0-12 % Eosinophils (%) (Auto) 4 0-10 % Basophils (%) (Auto) 1 0-10 % Neutrophils # (Auto) 4.8 1.8-7.8 10^3/uL Lymphocytes # (Auto) 1.6 1.0-4.0 10^3/uL Monocytes # (Auto) 0.9 0.0-1.0 10^3/uL Eosinophils # (Auto) 0.3 0.0-0.3 10^3/uL Basophils # (Auto) 0.0 0.0-0.1 10^3/uL Immature Granulocyte # (Auto) 0.1 0.0-0.1 10^3/uL Prothrombin Time 13.2 12.2-14.7 SEC INR Comment 1.0 0.8-1.4 Sodium Level 140 135-145 MMOL/L Potassium Level 3.9 3.6-5.0 MMOL/L Chloride Level 109 H 98-107 MMOL/L Carbon Dioxide Level 20 L 21-32 MMOL/L Anion Gap 11 5-14 MMOL/L Blood Urea Nitrogen 13 7-18 MG/DL Creatinine 0.78 0.60-1.30 MG/DL Estimat Glomerular Filtration Rate 101 BUN/Creatinine Ratio 17 Glucose Level 97 70-105 MG/DL Calcium Level 8.9 8.5-10.1 MG/DL Corrected Calcium 8.9 8.5-10.1 MG/DL Total Bilirubin 0.8 0.1-1.0 MG/DL Aspartate Amino Transf (AST/SGOT) 18 5-34 U/L Alanine Aminotransferase (ALT/SGPT) 24 0-55 U/L Alkaline Phosphatase 71 40-136 U/L Total Protein 7.0 6.4-8.2 GM/DL Albumin 4.0 3.2-4.5 GM/DL Serum Alcohol < 10 <10 MG/DL Urine Color YELLOW Urine Clarity CLEAR Urine pH 6.0 5-9 Urine Specific [place] 1.025 H 1.016-1.022 Urine Protein NEGATIVE NEGATIVE Urine Glucose (UA) NEGATIVE NEGATIVE Urine Ketones NEGATIVE NEGATIVE Urine Nitrite NEGATIVE NEGATIVE Urine Bilirubin NEGATIVE NEGATIVE Urine Urobilinogen 0.2 < = 1.0 MG/DL Urine Leukocyte Esterase NEGATIVE NEGATIVE Urine RBC (Auto) 1+ H NEGATIVE Urine RBC 0-2 /HPF Urine WBC RARE /HPF Urine Crystals NONE /LPF Urine Bacteria NEGATIVE /HPF Urine Casts NONE /LPF Urine Mucus NEGATIVE /LPF Urine Culture Indicated NO Urine Opiates Screen NEGATIVE NEGATIVE Urine Oxycodone Screen NEGATIVE NEGATIVE Urine Methadone Screen NEGATIVE NEGATIVE Urine Propoxyphene Screen NEGATIVE NEGATIVE Urine Barbiturates Screen NEGATIVE NEGATIVE Ur Tricyclic Antidepressants Screen NEGATIVE NEGATIVE Urine Phencyclidine Screen NEGATIVE NEGATIVE Urine Amphetamines Screen NEGATIVE NEGATIVE Urine Methamphetamines Screen NEGATIVE NEGATIVE Urine Benzodiazepines Screen NEGATIVE NEGATIVE Urine Cocaine Screen NEGATIVE NEGATIVE Urine Cannabinoids Screen POSITIVE H NEGATIVE (EDWIGE GUERRA MD) Vital Signs/I&O 03/15/21 03/15/21 11:03 13:50 Pulse 59 64 Resp 17 17 B/P (MAP) 165/93 (117) 173/108 Pulse Ox 98 96 O2 Delivery Room Air Room Air (EDWIGE GUERRA MD) Departure Communication (Admissions) Family Conversation NAME: SIMEON WATSON [facility] REC#: [id number] PT STATUS: REG ER : 1960 PHYSICIAN: HÉCTOR DEY APRN ADMIT DATE: 03/15/21/ER Signed Date of Exam:03/15/21 CT ANGIO HEAD/NECK Clinical indication: Patient with confusion. Followup head CT. Exams: 1: Head CT with and without IV contrast. Auto Exposure Controls were utilized during the CT exam to meet ALARA standards for radiation dose reduction. 2: CT angiogram of the head and neck performed with 100 cc of Omnipaque 350 IV contrast. Sagittal and coronal MIP reformations were created for better visualization of vascular anatomy. CT angiogram was post-processed using RAPID LVO detection to include quantitative measurements of cerebral blood flow and automated results notification to the stroke and/or neurointerventional team. Comparison: Head CT without contrast dated 02/12/2021.. Findings: Head CT: Stable appearance of the head CT with no evidence of acute cerebral infarct, intracranial hemorrhage, brain herniation or midline shift. There is no abnormal IV contrast enhancement. There is no hydrocephalus. Basal cisterns are unremarkable. The extracranial soft tissue, skull, and orbits are unremarkable. There is mild mucosal thickening involving left maxillary sinus and sphenoid sinus, right maxillary sinus, frontal sinus. There is mild to moderate mucosal thickening involving ethmoid sinus. Mastoid air cells are clear. CT Angiogram: There is common origin of the brachiocephalic artery and left common carotid consistent with bovine arch. The brachiocephalic artery, bilateral subclavian arteries, bilateral common carotid arteries, bilateral ECA, bilateral cervical ICA are patent. The petrous, cavernous, and supraclinoid ICA are patent. The bilateral ACAs and distal branches and bilateral MCAs and distal branches are patent. The bilateral cervical vertebral arteries are patent. The bilateral PICA, intradural vertebral arteries, basilar artery, bilateral superior cerebellar arteries, and bilateral REDUCTION FURNACE OPERATOR HELPER are patent. Dural venous sinuses are patent. The neck soft tissue structures show no significant abnormality. Visualized upper lung marquez are clear. There are small degenerative spurs involving the cervical spine. IMPRESSION: 1: There is no CT evidence of acute intracranial process. There is no abnormal IV contrast enhancement. 2: CT angiogram of [place] and neck shows no large vessel occlusion, significant stenosis, vascular malformation, aneurysm, or dissection. Results of this report were discussed with Héctor Dey APRN via the telephone on 03/15/2021 at 1313 hours. Dictated by: Dictated on workstation # [id number] Dict: 03/15/21 1302 Trans: 03/15/21 1339 CVB [id number] Interpreted by: MIKE VARGAS MD Electronically signed by: MIKE VARGAS MD 03/15/21 2138 [id number]-continues to be alert and oriented with normal mental status. Afebrile hemodynamically stable. His exam has been unremarkable so far. He states that he is starting to feel a little bit better though from an objective standpoint he never had any objective findings on arrival and continues to be absent any objective neurologic finding. We will discharged home with outpatient follow- up. Strict return precautions. states that his daughters thought that he acted a little abnormal late last night and during the middle of the night she noticed he might be a little confused but she did not have enough interaction with him to make a good assessment of that at the time. Discussed with him that possibly this represents a transient global amnesia. I did recommend him starting a baby aspirin daily as he is not on any antiplatelet medication. He will follow up with primary care and to return promptly for any recurrent symptoms. Bedside telemetry during ER stay has revealed sinus rhythm without ectopy. (HÉCTOR DEY APRN) Impression Primary Impression: Transient confusion Disposition: 01 HOME, SELF-CARE Condition: Stable Departure-Patient Inst. Decision time for Depature: 13:26 (HÉCTOR DEY APRN) [facility]: [facility] [place]) Primary Care Physician SUE DUMONT APRN (Family) Primary Care Physician Patient Instructions: Delirium (Confusion) Add. Discharge Instructions: 1. Return promptly to the emergency room for any recurrent symptoms. Follow-up with your doctor first of next week. All discharge instructions reviewed with patient and/or family. Voiced understanding. ATTENDING PHYSICIAN NOTE: I was physically present as attending physician in the emergency department during the care of this patient, but I was not directly involved in the decision making or delivery of care for this patient. (EDWIGE GUERRA MD) HÉCTOR DEY APRN Mar 15, 2021 11:18 EDWIGE GUERRA MD Mar 16, 2021 20:01
[2021-03-15 11:34] LABS: BASOPHILS % (AUTO) 1 % (0-10); EOSINOPHILS # (AUTO) 0.3 10^3/uL (0.0-0.3); EOSINOPHILS % (AUTO) 4 % (0-10); HEMATOCRIT 45 % (40-54); HEMOGLOBIN 15.5 g/dL (13.3-17.7); LYMPHOCYTES # (AUTO) 1.6 10^3/uL (1.0-4.0); LYMPHOCYTES % (AUTO) 21 % (12-44); MEAN CORPUSCULAR HEMOGLOBIN 31 pg (25-34); MEAN CORPUSCULAR HGB CONC 34 g/dL (32-36); MEAN CORPUSCULAR VOLUME 91 fL (80-99); MONOCYTES # (AUTO) 0.9 10^3/uL (0.0-1.0); MONOCYTES % (AUTO) 11 % (0-12); NEUTROPHILS # (AUTO) 4.8 10^3/uL (1.8-7.8); NEUTROPHILS % (AUTO) 63 % (42-75); PLATELET COUNT 206 10^3/uL (130-400); WHITE BLOOD COUNT 7.7 10^3/uL (4.3-11.0)
[2021-03-15 11:48] LABS: CHLORIDE 109 MMOL/L (98-107); POTASSIUM 3.9 MMOL/L (3.6-5.0); SODIUM 140 MMOL/L (135-145)
[2021-03-15 11:50] LABS: CALCIUM 8.9 MG/DL (8.5-10.1); PROTHROMBIN TIME PATIENT 13.2 SEC (12.2-14.7)
[2021-03-15 11:51] LABS: GLUCOSE 97 MG/DL (70-105)
[2021-03-15 11:52] LABS: BILIRUBIN,TOTAL 0.8 MG/DL (0.1-1.0); CARBON DIOXIDE 20 MMOL/L (21-32)
[2021-03-15 11:54] LABS: ALKALINE PHOSPHATASE 71 U/L (40-136); CREATININE SERUM 0.78 MG/DL (0.60-1.30); GFR ESTIMATED 101
[2021-03-15 11:55] LABS: BUN/CREATININE RATIO 17
--- NOTE | 2021-03-15 11:56 | Diagnostic Imaging Report ---
PROCEDURE: CT head without contrast. TECHNIQUE: Multiple contiguous axial images were obtained through the brain without the use of intravenous contrast. Auto Exposure Controls were utilized during the CT exam to meet ALARA standards for radiation dose reduction. INDICATION: Confusion The ventricles are normal in size, shape and position. There is no acute parenchymal hemorrhage, edema or mass. There is no extra-axial mass or hemorrhage. There is no bony abnormality. IMPRESSION: No acute abnormality is seen with no change from 02/21/2021 Dictated by: Dictated on workstation # [id number]
[2021-03-15 11:57] LABS: ALANINE AMINOTRANSFERASE 24 U/L (0-55)
[2021-03-15] MEDS ORDERED: HOLD METFORMIN - RECEIVED CONTRAST 20 ML VIAL IV SCH (12:45)
[2021-03-15] MEDS ORDERED: IOHEXOL 350 MG/ML 100 ML (OMNIPAQUE 350) VIAL IV ONE (12:45)
[2021-03-15] MEDS ORDERED: NS 100 ML (IVPB) BAG IV ONE (12:45)
[2021-03-15] MEDS ORDERED: CATHETER FLUSH 10 ML SYR IV PRN (12:45)
[2021-03-15 13:10] LABS: BILIRUBIN,URINE NEGATIVE (NEGATIVE); CLARITY,URINE CLEAR; COLOR,URINE YELLOW; GLUCOSE, URINE (UA) NEGATIVE (NEGATIVE); KETONES,URINE NEGATIVE (NEGATIVE); LEUKOCYTE ESTERASE ,URINE NEGATIVE (NEGATIVE); NITRITE,URINE NEGATIVE (NEGATIVE); PROTEIN,URINE NEGATIVE (NEGATIVE)
[2021-03-15 13:17] LABS: BACTERIA,URINE NEGATIVE /HPF; RBC,URINE 0-2 /HPF; WBC,URINE RARE /HPF
--- NOTE | 2021-03-15 13:19 | Diagnostic Imaging Report ---
Clinical indication: Patient with confusion. Followup head CT. Exams: 1: Head CT with and without IV contrast. Auto Exposure Controls were utilized during the CT exam to meet ALARA standards for radiation dose reduction. 2: CT angiogram of the head and neck performed with 100 cc of Omnipaque 350 IV contrast. Sagittal and coronal MIP reformations were created for better visualization of vascular anatomy. CT angiogram was post-processed using RAPID LVO detection to include quantitative measurements of cerebral blood flow and automated results notification to the stroke and/or neurointerventional team. Comparison: Head CT without contrast dated 02/12/2021.. Findings: Head CT: Stable appearance of the head CT with no evidence of acute cerebral infarct, intracranial hemorrhage, brain herniation or midline shift. There is no abnormal IV contrast enhancement. There is no hydrocephalus. Basal cisterns are unremarkable. The extracranial soft tissue, skull, and orbits are unremarkable. There is mild mucosal thickening involving left maxillary sinus and sphenoid sinus, right maxillary sinus, frontal sinus. There is mild to moderate mucosal thickening involving ethmoid sinus. Mastoid air cells are clear. CT Angiogram: There is common origin of the brachiocephalic artery and left common carotid consistent with bovine arch. The brachiocephalic artery, bilateral subclavian arteries, bilateral common carotid arteries, bilateral ECA, bilateral cervical ICA are patent. The petrous, cavernous, and supraclinoid ICA are patent. The bilateral ACAs and distal branches and bilateral MCAs and distal branches are patent. The bilateral cervical vertebral arteries are patent. The bilateral PICA, intradural vertebral arteries, basilar artery, bilateral superior cerebellar arteries, and bilateral REMOTE INPATIENT CODER are patent. Dural venous sinuses are patent. The neck soft tissue structures show no significant abnormality. Visualized upper lung lassiter are clear. There are small degenerative spurs involving the cervical spine. IMPRESSION: 1: There is no CT evidence of acute intracranial process. There is no abnormal IV contrast enhancement. 2: CT angiogram of [place] and neck shows no large vessel occlusion, significant stenosis, vascular malformation, aneurysm, or dissection. Results of this report were discussed with Handy Dey APRN via the telephone on 03/15/2021 at 1313 hours. Dictated by: Dictated on workstation # [id number]
[2021-03-15 13:21] LABS: AMPHETAMINE SCREEN, URINE NEGATIVE (NEGATIVE); BARBITURATE SCREEN URINE NEGATIVE (NEGATIVE); BENZODIAZEPINES SCREEN URINE NEGATIVE (NEGATIVE); CANNABINOID SCREEN, URINE POSITIVE (NEGATIVE); COCAINE SCREEN URINE NEGATIVE (NEGATIVE); METHADONE STAT NEGATIVE (NEGATIVE); METHAMPHETAMINE SCREEN URINE S NEGATIVE (NEGATIVE); OPIATE SCREEN URINE NEGATIVE (NEGATIVE); OXYCODONE STAT NEGATIVE (NEGATIVE); PROPOXYPHENE STAT NEGATIVE (NEGATIVE); TRICYCLIC ANTIDEPRESSANTS SCRE NEGATIVE (NEGATIVE)
[2021-03-15 13:50] VITALS: BP 173/108
== END 2021-03-15 13:50 | disposition home or self-care (01) ==
LOC: EDUNIT# 10:52 → ER 10:54
DX: R41.0 Disorientation, unspecified (principal); I10 Essential (primary) hypertension; G89.29 Other chronic pain; M54.9 Dorsalgia, unspecified; Z79.891 Long term (current) use of opiate analgesic
CPT/HCPCS: 70450; 70496; 70498; 80053; 80306; 81000; 85025; 85610; 99284; G0480; 36415; 80320

== ENCOUNTER → 2021-03-18 | Outpatient (CLI) | payer MEDICARE, OTHER ==
--- NOTE | 2021-03-18 13:21 | Diagnostic Imaging Report ---
EXAMINATION: Magnetic resonance imaging of the right knee without intravenous contrast. DATE: March 18, 2021. COMPARISON: None. INDICATION: 60-year-old male, knee injury playing golf a couple of months ago. Knee pain. TECHNIQUE: Multiplanar, multisequence non contrast enhanced MR imaging was accomplished. FINDINGS: MENISCI: There is an oblique tear involving the body and posterior horn of the medial meniscus. There is a small free edge tear of the body of the lateral meniscus, best demonstrated on coronal PD sequence image 15. LIGAMENTS AND TENDONS: The anterior and posterior cruciate ligaments are intact. The medial collateral ligament is intact. The iliotibial band, mid third lateral capsular ligament, fibular collateral ligament, biceps femoris tendon, and conjoined tendon are intact. The quadriceps tendon and patella ligament are intact. JOINT: There is a full-thickness cartilage fissure involving the lateral aspect of the medial patellar facet on axial T2 fat saturation sequence image 8. There is a central osteophyte adjacent to this location. There is underlying mild degenerative related subchondral edema. There is mild generalized thinning of the cartilage of the medial patellar facet. There is abnormal signal in the cartilage of the lateral patellar facet without clear surface defect on axial T2 fat saturation sequence image 8. There is minimal underlying subchondral edema. The medial and lateral compartment cartilage is grossly intact. There is no knee joint effusion, prominent synovitis, or intra-articular body. BONE: The additional bone marrow signal is unremarkable. There is no acute fracture, bone contusion, or evidence of osteonecrosis. BURSAE AND SOFT TISSUES: There is no Samuels's cyst. There is mild nonspecific prepatellar subcutaneous edema. IMPRESSION: 1. Oblique tear involving the body and posterior horn of the medial meniscus. 2. Small free edge tear of the body of the lateral meniscus. 3. Intact anterior and posterior cruciate ligaments. Additional ligaments and tendons are intact. 4. No acute fracture or bone contusion. 5. Mild patellofemoral compartment osteoarthritis. No knee joint effusion. Dictated by: Dictated on workstation # [id number]
== END ==
LOC: RAD 09:30
PROVIDERS: ATTEND Nurse Practitioner
DX: S83.241A Other tear of medial meniscus, current injury, right knee, initial encounter (principal); M17.11 Unilateral primary osteoarthritis, right knee; Y93.53 Activity, golf
CPT/HCPCS: 73721

== ENCOUNTER → 2021-03-22 | Outpatient (CLI) | payer MEDICARE, OTHER ==
[~2021-03-22] MED LIST changes: +GADOTERATE 0.5 MMOL/ML (CLARISCAN) 20 ML VIAL IV ONE
--- NOTE | 2021-03-22 11:27 | Diagnostic Imaging Report ---
PROCEDURE: MR imaging of the brain with and without contrast. TECHNIQUE: Multiplanar, multisequence MR imaging of the brain was performed with and without contrast. INDICATION: Memory loss. Amnesia. COMPARISON: 03/15/2021. FINDINGS: No acute ischemia, mass, or hemorrhage. No abnormal enhancement. The ventricles, cortical sulci, and basilar cisterns are symmetric and unremarkable. The sellar and suprasellar regions have a normal appearance. The brainstem and posterior fossa are unremarkable. The paranasal sinuses and mastoid air cells demonstrate normal signal characteristics. The globes and orbits are symmetric and unremarkable. The scalp and calvarium have a normal appearance. IMPRESSION: 1. No acute ischemia, mass, or hemorrhage. No abnormal enhancement. No focal signal abnormalities are visualized in the brain. Dictated by: Dictated on workstation # [id number]
== END ==
LOC: RAD 10:15
PROVIDERS: ATTEND Nurse Practitioner
DX: G45.4 Transient global amnesia (principal)
CPT/HCPCS: 70553

== ENCOUNTER 2021-03-27 10:54 | Emergency (ER) | payer MEDICARE, OTHER ==
[~2021-03-27] VITALS: Ht 177.8 cm; Wt 122.0 kg
[~2021-03-27 10:54] MED LIST changes: -GADOTERATE 0.5 MMOL/ML (CLARISCAN) 20 ML VIAL IV ONE
--- NOTE | 2021-03-27 11:22 | ED Cardiac General ---
History of Present Illness General Chief Complaint: Chest Pain Stated Complaint: CP,SOB Source: patient Exam Limitations: no limitations History of Present Illness Date Seen by Provider: Mar 27, 2021 Time Seen by Provider: 10:58 Initial Comments 60yoM with PMH of HTN and HLD coming in for R sided sharp chest pain to his back started just under 2 hours ago. 9/10 pain with some associated SOB. 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 Allergies and Home Medications Allergies Coded Allergies: No Known Drug Allergies (Unverified , 01/23/17) Patient Home Medication List Home Medication List Reviewed: Yes Cephalexin (Cephalexin) 500 Mg Tablet, 500 MG PO BID Prescribed by: RICHARD WALLS on 11/03/18 1256 Dexlansoprazole (Dexilant) 30 Mg Gallo., 30 MG PO DAILY, (Reported) Entered as Reported by: SAMANTHA MARIO on 01/23/17 1131 Hydrocodone Bit/Acetaminophen (Lortab 7.5 Mg Tablet) 1 Each Tablet, 1 EACH PO TID PRN for PAIN-MILD TO MODERATE, (Reported) Entered as Reported by: SAMANTHA MARIO on 01/23/17 1131 Hydrocodone Bit/Acetaminophen (HYDROcodone/APAP 7.5/325 TAB) 1 Each Tablet, 1-2 EACH PO Q6H PRN for PAIN-MODERATE TO SEVERE Prescribed by: EDIWGE RYDER on 01/27/18 1624 Hydrocodone Bit/Acetaminophen (Lortab 5 Mg Tablet) 1 Tab Tab, 1 EACH PO Q4-6HR PRN for PAIN-MODERATE Prescribed by: RICHARD WALLS on 11/03/18 1256 Losartan Potassium (Losartan Potassium) 50 Mg Tablet, 50 MG PO DAILY, (Reported) Entered as Reported by: SAMANTHA MARIO on 01/23/17 1131 Methocarbamol (Methocarbamol) 750 Mg Tablet, 750 MG PO Q6-8HR Prescribed by: HÉCTOR FLORES on 02/21/21 1829 Ondansetron (Ondansetron Odt) 4 Mg Tab.rapdis, 4 MG PO Q6H PRN for NAUSEA/VOMITING Prescribed by: RICHARD WALLS on 11/03/18 1256 Ropinirole HCl (Requip) 5 Mg Tab, 5 MG PO HS, (Reported) Entered as Reported by: SEAMUS NUÑEZ on 08/13/16 0728 Tamsulosin HCl (Flomax) 0.4 Mg Cap, 0.4 MG PO DAILY, (Reported) Entered as Reported by: JACKLYN KIRK on 07/25/16 2231 Tamsulosin HCl (Flomax) 0.4 Mg Cap, 0.4 MG PO HS Prescribed by: RICHARD WALLS on 11/03/18 1256 Review of Systems Review of Systems Constitutional: No chills, No fever EENTM: No Blurred Vision Respiratory: Denies Cough; Shortness of Air Cardiovascular: Chest Pain Gastrointestinal: Denies Abdominal Pain, Denies Diarrhea, Denies Nausea Genitourinary: Denies Burning Musculoskeletal: no symptoms reported Skin: no symptoms reported Psychiatric/Neurological: No Symptoms Reported Endocrine: No Symptoms Reported Hematologic/Lymphatic: No Symptoms Reported All Other Systems Reviewed Negative Unless Noted: Yes Past Dbwecmo-Ssbsvn-Rjvpjj Hx Patient Social History Tobacco Use?: No Use of E-Cig and/or Vaping dev: No Substance use?: No Alcohol Use?: No Pt feels they are or have been: No Immunizations Up To Date Tetanus Booster (TDap): Unknown PED Vaccines UTD: No First/Initial COVID19 Vaccinat: JUNE 2020 Second COVID19 Vaccination Rudolph: OCTOBER 2020 Third COVID19 Vaccination Date: JUNE 2020 Seasonal Allergies Seasonal Allergies: No Past Medical History Surgeries: Yes (CARDIAC CATH 2013 AND 2017--NO INTERVENTION, fissure reair, hemroidectomy) Cardiac, Gallbladder, Vasectomy Respiratory: No Currently Using CPAP: No Currently Using BIPAP: No Cardiac: Yes (HX OF MITRAL VALVE PROLAPSE) Coronary Artery Disease, High Cholesterol, Hypertension Neurological: Yes Neuropathy Reproductive Disorders: No Sexually Transmitted Disease: No HIV/AIDS: No Genitourinary: Yes Kidney Stones Gastrointestinal: Yes (TAKES DEXILANT-FOR ABD CRAMPS) Irritable Bowel Musculoskeletal: Yes (CHRONIC FOOT PAIN, "CAVUS FOOT" (HIGH ARCH)) Degenerate Disk Disease, Chronic Back Pain Endocrine: No HEENT: Yes Cataract Loss of Vision: Bilateral Hearing Impairment: Denies Cancer: No Psychosocial: No Integumentary: No Blood Disorders: No Adverse Reaction/Blood Tranf: No (N/A) Family Medical History Family history: Hypertension Hearing loss G8 BROTHER, Onset:Unknown (HEARING AIDE X1) No Family History of: Abdominal aortic aneurysm Abdelrahman's disease Alcoholism Aphasia Cancer Cancer of colon Cataract Chest pain Congenital heart disease Congestive heart failure Cystic fibrosis Dementia Dysphagia Family history: Allergy Family history: Alzheimer's disease Family history: Arthritis Family history: Asthma Family history: Breast disease Family history: Cardiovascular disease Family history: Coronary thrombosis Family history: Diabetes mellitus Family history: Gastrointestinal disease Family history: Glaucoma Family history: Osteoporosis Family history: Thyroid disorder Headache Heart disease Hereditary disease History of - anemia History of - disorder History of - respiratory disease History of drug abuse Human immunodeficiency virus (HIV) seropositivity Hypercholesterolemia Infertile Kidney disease Malignant neoplasm of lung Myocardial infarction Parkinson's disease Prostate cancer Psychotic disorder Seizure disorder Stroke Tuberculosis Visual impairment Physical Exam Vital Signs Vital Signs - First Documented 03/27/21 11:00 Temp 36.7 Pulse 62 Resp 20 B/P (MAP) 172/85 (114) Pulse Ox 98 O2 Delivery Room Air Capillary Refill : Less Than 3 Seconds Height, Weight, BMI Height: 5'10.00" Weight: 229lbs. 0.0oz. [id number]; 38.00 BMI Method:Stated General Appearance: No Apparent Distress, WD/WN HEENT: PERRL/EOMI, Normal ENT Inspection, Pharynx Normal Neck: Full Range of Motion, Normal Inspection, Non Tender, Supple Respiratory: Chest Non Tender, Lungs Clear, Normal Breath Sounds, No Accessory Muscle Use, No Respiratory Distress Cardiovascular: Regular Rate, Rhythm, No Edema, Normal Peripheral Pulses Gastrointestinal: Normal Bowel Sounds, Non Tender, Soft; No Guarding Extremity: Normal Capillary Refill, Normal Inspection, Normal Range of Motion, Non Tender, No Calf Tenderness, No Pedal Edema Neurologic/Psychiatric: Alert, No Motor/Sensory Deficits, Normal Mood/Affect Skin: Normal Color, Warm/Dry Lymphatic: No Adenopathy Progress/Results/Core Measures Results/Orders Lab Results Laboratory Tests Test 03/27/21 11:05 03/27/21 13:32 Range/Units White Blood Count 8.9 4.3-11.0 10^3/uL Red Blood Count 5.05 4.30-5.52 10^6/uL Hemoglobin 15.8 13.3-17.7 g/dL Hematocrit 46 40-54 % Mean Corpuscular Volume 91 80-99 fL Mean Corpuscular Hemoglobin 31 25-34 pg Mean Corpuscular Hemoglobin Concent 34 32-36 g/dL Red Cell Distribution Width 13.0 10.0-14.5 % Platelet Count 223 130-400 10^3/uL Mean Platelet Volume 10.0 9.0-12.2 fL Immature Granulocyte % (Auto) 1 % Neutrophils (%) (Auto) 59 42-75 % Lymphocytes (%) (Auto) 26 12-44 % Monocytes (%) (Auto) 10 0-12 % Eosinophils (%) (Auto) 4 0-10 % Basophils (%) (Auto) 0 0-10 % Neutrophils # (Auto) 5.2 1.8-7.8 10^3/uL Lymphocytes # (Auto) 2.3 1.0-4.0 10^3/uL Monocytes # (Auto) 0.9 0.0-1.0 10^3/uL Eosinophils # (Auto) 0.4 H 0.0-0.3 10^3/uL Basophils # (Auto) 0.0 0.0-0.1 10^3/uL Immature Granulocyte # (Auto) 0.1 0.0-0.1 10^3/uL Prothrombin Time 12.7 12.2-14.7 SEC INR Comment 0.9 0.8-1.4 Activated Partial Thromboplast Time 32 24-35 SEC D-Dimer < 0.27 0.00-0.49 UG/ML Sodium Level 139 135-145 MMOL/L Potassium Level 4.1 3.6-5.0 MMOL/L Chloride Level 106 98-107 MMOL/L Carbon Dioxide Level 22 21-32 MMOL/L Anion Gap 11 5-14 MMOL/L Blood Urea Nitrogen 14 7-18 MG/DL Creatinine 0.90 0.60-1.30 MG/DL Estimat Glomerular Filtration Rate 86 BUN/Creatinine Ratio 16 Glucose Level 106 H 70-105 MG/DL Calcium Level 9.2 8.5-10.1 MG/DL Corrected Calcium 9.1 8.5-10.1 MG/DL Magnesium Level 1.8 1.6-2.4 MG/DL Total Bilirubin 0.8 0.1-1.0 MG/DL Aspartate Amino Transf (AST/SGOT) 18 5-34 U/L Alanine Aminotransferase (ALT/SGPT) 31 0-55 U/L Alkaline Phosphatase 83 40-136 U/L Troponin I < 0.028 < 0.028 <0.028 NG/ML B-Type Natriuretic Peptide < 10.0 <100.0 PG/ML Total Protein 7.3 6.4-8.2 GM/DL Albumin 4.1 3.2-4.5 GM/DL Lipase 22 8-78 U/L My Orders Orders - OLEG MOTT MD Cbc With Automated Diff (03/27/21 11:27) Magnesium (03/27/21 11:27) Chest 1 View, Ap/Pa Only (03/27/21 11:27) Ekg Tracing (03/27/21 11:27) Comprehensive Metabolic Panel (03/27/21 11:) Protime With Inr (03/27/21 11:) Partial Thromboplastin Time (03/27/21 11:) O2 (03/27/21 11:) Monitor-Rhythm Ecg Trace Only (03/27/21 11:) Ed Iv/Invasive Line Start (03/27/21 11:27) Lipase (03/27/21 11:27) Bnp Ruma (03/27/21 11:27) Troponin I Ruma (03/27/21 11:27) Nitroglycerin Ointment (Nitrobid Ointme (03/27/21 11:27) Aspirin Chewable Tablet (Baby Aspirin Ch (03/27/21 11:30) Fibrin Degradation Products (03/27/21 11:27) Troponin I Ruma (03/27/21 13:30) Ketorolac Injection (Toradol Injection) (03/27/21 12:45) Famotidine Injection (Pepcid Injection) (03/27/21 12:45) Ketorolac Injection (Toradol Injection) (03/27/21 13:25) Medications Given in ED Current Medications Medications Dose Ordered Sig/[place] Route Start Time Stop Time Status Last Admin Dose Admin Aspirin 243 mg ONCE ONCE PO 03/27/21 11:30 03/27/21 11:31 DC 03/27/21 11:37 243 MG Famotidine 20 mg ONCE ONCE IVP 03/27/21 12:45 03/27/21 12:46 DC 03/27/21 13:27 20 MG Ketorolac Tromethamine 15 mg ONCE ONCE IVP 03/27/21 12:45 03/27/21 12:46 DC 03/27/21 13:29 15 MG Vital Signs/I&O 03/27/21 11:00 Temp 36.7 Pulse 62 Resp 20 B/P (MAP) 172/85 (114) Pulse Ox 98 O2 Delivery Room Air Progress Progress Note : Progress Note 60-year-old male with above history coming in due to chest pain. ABCs were intact vitals are stable on presentation. EKG without any acute ischemic changes. Chest x-ray without any acute normalities on my interpretation in cluding no pneumothorax and normal cardiac silhouette. An IV was placed and basic labs were obtained including cardiac biomarkers. Troponin was negative x2 and D-dimer is undetectable. He is otherwise low risk for a PE so this is effectively been ruled out. He was given aspirin, Nitropaste, and later on Toradol. His pain significantly improved after that. I believe he is stable for discharge with outpatient follow-up. I recommend he call Dr. Torres's office in the morning see if they want to do a stress test. He was then discharged home in stable condition with strict return precautions Initial ECG Impression Date: Mar 27, 2021 Initial ECG Impression Time: 10:57 Initial ECG Rate: 63 Initial ECG Rhythm: Normal Sinus Comment Narrow QRS, normal axis, no significant ST changes, T wave inversion in lead III and V1 which is nonspecific Diagnostic Imaging Diagonstic Imaging: Xray Plain Films/CT/US/NM/MRI: chest Comments [facility]. [place], [place] NAME: SIMEON WATSON [facility] REC#: [id number] PT STATUS: REG ER : 1960 PHYSICIAN: OLEG MOTT MD ADMIT DATE: 03/27/21/ER Draft Date of Exam:03/27/21 CHEST 1 VIEW, AP/PA ONLY Clinical Indication: Patient with right side chest pain, making it difficult to take deep breath. Exam: Portable chest x-ray upright view. Comparisons: Chest x-ray dated 08/13/2016. Findings: Lungs/pleura: There is slight progression of low lung volumes with mild bibasilar atelectasis. There is no definite lung infiltrate. The remainder of the lungs are clear. There is no pneumothorax. There is no pleural effusion. Mediastinum: Unremarkable. Pulmonary vasculature: Unremarkable. Heart: Unremarkable. Bones/extrathoracic soft tissue: Unremarkable. Impression: There is no radiographic evidence of acute cardiopulmonary process. There is interval progression of mild bibasilar atelectasis. Dictated on workstation # [id number] Dict: 03/27/21 1226 Trans: 03/27/21 1230 CVB [id number] Interpreted by: MIKE VARGAS MD Electronically signed by: Departure Impression Primary Impression: Chest pain Qualified Codes: R07.9 - Chest pain, unspecified Disposition: HOME, SELF-CARE Condition: Stable Departure-Patient Inst. Decision time for Depature: 14:19 Referrals: [facility] [place] ([place]) Primary Care Physician SUE DUMONT APRN (Family) Primary Care Physician Patient Instructions: Chest Pain Add. Discharge Instructions: You are seen in the emergency department for chest pain. Your EKG, labs, chest x-ray all point against you having a heart attack or having any serious lung problem right now. I do recommend you call Dr. Torres's office tomorrow to schedule an appointment, as he may want to do a stress test or some other type of testing. If things worsen or you are concerned you can call 911, call Dr. Torres's office, or come back to the ER. Work/School Note: Work Release Form Date Seen in the Emergency Department: Mar 27, 2021 Return to Work: Mar 29, 2021 Restrictions: No Restrictions OLEG MOTT MD Mar 27, 2021 11:21
[2021-03-27] MEDS ORDERED: NITROGLYCERIN 2% OINT 1 GM UNIT DOSE PACKET TOP STA (11:27)
[2021-03-27] MEDS ORDERED: ASPIRIN 81 MG CHEW (CHILDREN'S ASA) PO ONE (11:30)
[2021-03-27 11:39] LABS: BASOPHILS % (AUTO) 0 % (0-10); EOSINOPHILS # (AUTO) 0.4 10^3/uL (0.0-0.3); EOSINOPHILS % (AUTO) 4 % (0-10); HEMATOCRIT 46 % (40-54); HEMOGLOBIN 15.8 g/dL (13.3-17.7); LYMPHOCYTES # (AUTO) 2.3 10^3/uL (1.0-4.0); LYMPHOCYTES % (AUTO) 26 % (12-44); MEAN CORPUSCULAR HEMOGLOBIN 31 pg (25-34); MEAN CORPUSCULAR HGB CONC 34 g/dL (32-36); MEAN CORPUSCULAR VOLUME 91 fL (80-99); MONOCYTES # (AUTO) 0.9 10^3/uL (0.0-1.0); MONOCYTES % (AUTO) 10 % (0-12); NEUTROPHILS # (AUTO) 5.2 10^3/uL (1.8-7.8); NEUTROPHILS % (AUTO) 59 % (42-75); PLATELET COUNT 223 10^3/uL (130-400); WHITE BLOOD COUNT 8.9 10^3/uL (4.3-11.0)
[2021-03-27 11:45] LABS: ALBUMIN 4.1 GM/DL (3.2-4.5); POTASSIUM 4.1 MMOL/L (3.6-5.0)
[2021-03-27 11:46] LABS: INR 0.9 (0.8-1.4); PROTHROMBIN TIME PATIENT 12.7 SEC (12.2-14.7)
[2021-03-27 11:47] LABS: CALCIUM 9.2 MG/DL (8.5-10.1)
[2021-03-27 11:48] LABS: TOTAL PROTEIN 7.3 GM/DL (6.4-8.2)
[2021-03-27 11:50] LABS: BILIRUBIN,TOTAL 0.8 MG/DL (0.1-1.0)
[2021-03-27 11:52] LABS: CREATININE SERUM 0.9 MG/DL (0.60-1.30)
[2021-03-27 11:54] LABS: MAGNESIUM 1.8 MG/DL (1.6-2.4)
--- NOTE | 2021-03-27 12:30 | Diagnostic Imaging Report ---
Clinical Indication: Patient with right side chest pain, making it difficult to take deep breath. Exam: Portable chest x-ray upright view. Comparisons: Chest x-ray dated 08/13/2016. Findings: Lungs/pleura: There is slight progression of low lung volumes with mild bibasilar atelectasis. There is no definite lung infiltrate. The remainder of the lungs are clear. There is no pneumothorax. There is no pleural effusion. Mediastinum: Unremarkable. Pulmonary vasculature: Unremarkable. Heart: Unremarkable. Bones/extrathoracic soft tissue: Unremarkable. Impression: There is no radiographic evidence of acute cardiopulmonary process. There is interval progression of mild bibasilar atelectasis. Dictated by: Dictated on workstation # [id number]
[2021-03-27] MEDS ORDERED: FAMOTIDINE 20MG/2ML IV (PEPCID) IVP ONE (12:45)
[2021-03-27] MEDS ORDERED: KETOROLAC 15 MG/ML VIAL IVP ONE (12:45)
[2021-03-27] MEDS ORDERED: KETOROLAC 30 MG/ML VIAL ONE (13:25)
[2021-03-27 14:28] VITALS: BP 144/86
== END 2021-03-27 14:27 | disposition home or self-care (01) ==
LOC: EDUNIT# 10:54 → ER 10:55
DX: R07.9 Chest pain, unspecified (principal); I10 Essential (primary) hypertension; G89.29 Other chronic pain; M54.9 Dorsalgia, unspecified; Z79.891 Long term (current) use of opiate analgesic
CPT/HCPCS: 36415; 71045; 80053; 83690; 83735; 83880; 84484; 85025; 85379; 85610; 85730; 93005; 93041; 96374; 96375

== ENCOUNTER → 2021-04-02 | Outpatient (CLI) | payer MEDICARE, OTHER | LOC: CARD 12:00 | PROVIDERS: ATTEND Nurse Practitioner | DX: G45.4 Transient global amnesia (principal) | CPT/HCPCS: 93225; 93226 ==

== ENCOUNTER → 2021-04-24 | Outpatient (CLI) | payer MEDICARE, OTHER ==
[~2021-04-24] MED LIST changes: +REGADENOSON 0.4 MG/5 ML SYR (LEXISCAN) IV ONE
[2021-04-24] MEDS: CATHETER FLUSH 10 ML SYR IV PRN ×2 (08:36→10:08)
[2021-04-24 10:07] VITALS: BP 143/84
--- NOTE | 2021-04-24 14:25 | Cardiology Stress Test Report ---
Stress Test Report Date of Procedure/Referring: Date of Procedure: Apr 24, 2021 Najma Stone Admitting [facility] Indications: CP Baseline Heart Rate: 56 Baseline Blood Pressure: Blood Pressure Systolic: 143 Blood Pressure Diastolic: 84 Baseline Vitals Vital Signs Date Time Temp Pulse Resp B/P (MAP) Pulse Ox O2 Delivery O2 Flow Rate FiO2 04/24/21 10:07 56 16 143/84 (103) 97 Room Air Baseline EKG: Baseline EKG: NSR Summary After explaining the procedure to the patient, he signed a consent and then brought to the stress nuclear laboratory. Patient received 0.4 mg Lexiscan for stress test, ECG, heart rate and blood pressure were monitored continuously. Resting and stress dose of radio tracer were injected, imaging was acquired and reviewed in short axis, horizontal long axis and vertical long axis views. TID: 1.15 SSS: 8 SDS: 1 EF: 66 1. Patient tolerated Lexiscan well 2. Diaphragmatic attenuation with fixed defect involving the mid to apical inferior wall and inferior lateral wall, no significant reversibility was noted 3. Normal left ventricular size with normal contractility, inferior wall glenna normally, EF 66% SADA PANDEY MD Apr 24, 2021 14:25
== END ==
LOC: CARD 08:45
PROVIDERS: ATTEND Physician Assistant
DX: R07.9 Chest pain, unspecified (principal)
CPT/HCPCS: 78452; 93017; A9502

== ENCOUNTER 2022-09-16 07:03 | Observation (INO) | payer MEDICARE, OTHER ==
[~2022-09-16] VITALS: Ht 177 cm; Wt 117.0 kg
[~2022-09-16 07:03] MED LIST changes: -REGADENOSON 0.4 MG/5 ML SYR (LEXISCAN) IV ONE
[2022-09-16 07:27] LABS: BASOPHILS # (AUTO) 0.1 10^3/uL (0.0-0.1); BASOPHILS % (AUTO) 1 % (0-10); EOSINOPHILS # (AUTO) 0.3 10^3/uL (0.0-0.3); EOSINOPHILS % (AUTO) 4 % (0-10); HEMATOCRIT 44 % (40-54); HEMOGLOBIN 15.1 g/dL (13.3-17.7); LYMPHOCYTES # (AUTO) 1.9 10^3/uL (1.0-4.0); LYMPHOCYTES % (AUTO) 24 % (12-44); MEAN CORPUSCULAR HEMOGLOBIN 31 pg (25-34); MEAN CORPUSCULAR HGB CONC 34 g/dL (32-36); MEAN CORPUSCULAR VOLUME 91 fL (80-99); MEAN PLATELET VOLUME 9.6 fL (9.0-12.2); MONOCYTES # (AUTO) 0.9 10^3/uL (0.0-1.0); MONOCYTES % (AUTO) 11 % (0-12); NEUTROPHILS # (AUTO) 4.9 10^3/uL (1.8-7.8); NEUTROPHILS % (AUTO) 60 % (42-75); PLATELET COUNT 221 10^3/uL (130-400); WHITE BLOOD COUNT 8.1 10^3/uL (4.3-11.0)
[2022-09-16] MEDS ORDERED: IOHEXOL 350 MG/ML 100 ML (OMNIPAQUE 350) VIAL IV ONE (07:30)
[2022-09-16] MEDS ORDERED: HOLD METFORMIN - RECEIVED CONTRAST 20 ML VIAL IV SCH (07:30)
[2022-09-16] MEDS ORDERED: NS 100 ML (IVPB) BAG IV ONE (07:30)
[2022-09-16 07:39] LABS: CHLORIDE 109 MMOL/L (98-107); INR 0.9 (0.8-1.4); POTASSIUM 3.8 MMOL/L (3.6-5.0); PROTHROMBIN TIME PATIENT 12.7 SEC (12.2-14.7); SODIUM 141 MMOL/L (135-145)
[2022-09-16 07:41] LABS: CALCIUM 9.2 MG/DL (8.5-10.1)
--- NOTE | 2022-09-16 07:41 | Diagnostic Imaging Report ---
EXAMINATION: CT head without contrast. TECHNIQUE: Multiple contiguous axial images were obtained through the brain without the use of intravenous contrast. All CT scans use one or more of the following dose optimizing techniques: automated exposure control, MA and/or KvP adjustment based on patient size and exam type or iterative reconstruction. HISTORY: Confusion. Memory issues. COMPARISON: 03/15/2021. FINDINGS: No large acute territorial ischemia, mass, or hemorrhage. No midline shift or mass effect. The ventricles, cortical sulci, and basilar cisterns are patent and unremarkable. The orbits are normal. Mucosal thickening is seen in the ethmoid sinuses. Mastoid air cells are clear. No soft tissue abnormality is seen. No osseus lesions or fractures are seen. IMPRESSION: 1. No large acute territorial ischemia, mass, or hemorrhage. Dictated by: Dictated on workstation # [id number]
[2022-09-16 07:42] LABS: GLUCOSE 116 MG/DL (70-105)
[2022-09-16 07:43] LABS: CARBON DIOXIDE 22 MMOL/L (21-32)
[2022-09-16 07:44] LABS: BILIRUBIN,TOTAL 0.5 MG/DL (0.1-1.0)
[2022-09-16 07:45] LABS: ALKALINE PHOSPHATASE 94 U/L (40-136); CREATININE SERUM 0.94 MG/DL (0.60-1.30); GFR ESTIMATED 91
[2022-09-16 07:46] LABS: BUN/CREATININE RATIO 16
[2022-09-16 07:48] LABS: ALANINE AMINOTRANSFERASE 22 U/L (0-55)
--- NOTE | 2022-09-16 07:53 | Diagnostic Imaging Report ---
PROCEDURE: CT angiography of the head and CT angiography of the neck with and without contrast. TECHNIQUE: Contiguous noncontrast images were obtained from the skull base through the vertex. After intravenous contrast administration, helical CT angiography of the neck was performed. Source data was reformatted into 3D MIP projections. Delayed post contrast acquisition was also obtained. Auto Exposure Controls were utilized during the CT exam to meet ALARA standards for radiation dose reduction. INDICATION: Confusion. Memory issues. Concern for stroke. Comparison: CT head performed earlier the same date. MRI brain on 03/22/2021. FINDINGS: CTA Neck: The visualized portions of the aortic arch demonstrate no evidence of aneurysm or dissection. There is common origin of the carotid arteries consistent with bovine arch. The brachiocephalic artery is normal in course and caliber. The right and left common carotid origins are unremarkable. The origin of the left subclavian artery is patent. The common carotid arteries and internal carotid arteries demonstrate a tortuous course. There is calcified atherosclerotic plaque in the bilateral carotid bulbs and proximal internal carotid arteries without flow-limiting stenosis. No evidence of dissection in the carotid systems. The external carotid arteries are patent and unremarkable. The vertebral arteries are codominant. The origin of the right vertebral artery is seen and is unremarkable. The origin of the left vertebral artery is seen and is unremarkable. There is no focal stenosis seen within the neck. There is no dissection. The vertebral arteries are well visualized to up to the level of the basilar artery. The osseous structures of the cervical spine are unremarkable. Included views through the lung apices demonstrate no focal consolidation. CTA brain: Atherosclerotic plaque is seen in the turner of the bilateral terminal internal carotid arteries without significant stenosis. No stenosis is seen in the bilateral anterior, middle, and posterior cerebral arteries. No evidence of aneurysm the [place]. In the posterior circulation, both of the vertebral arteries demonstrate normal opacification. Both the right and left PICA arteries are identified. The basilar artery is normal in course and caliber. The terminal branch vessels including the superior cerebellar arteries unremarkable. IMPRESSION: 1. No stenosis or aneurysm in the [place]. No large vessel occlusion. 2. No stenosis or dissection the bilateral carotid and vertebral arteries. Dictated by: Dictated on workstation # [id number]
--- NOTE | 2022-09-16 08:07 | ED Neurological Problem ---
General Chief Complaint: Neuro-Stroke Like Symptoms Stated Complaint: TIA Nursing Triage Note: PT PRESENTS TO ED VIA POV FROM HOME WITH COMPLAINTS OF CONFUSION, MEMORY ISSUES SINCE HE WOKE UP THIS AM AROUIND 0600. PT REPORTS HE WAS NORMAL WHEN HE WENT TO BED. PT DENIES ANY WEAKNESS OR BURNS, OR VISOIN ISSUES. Source: patient, family () Exam Limitations: no limitations History of Present Illness Date Seen by Provider: September 16, 2022 Time Seen by Provider: 07:05 Initial Comments 62-year-old male presents emergency department today for altered mentation, confusion. His states he went to bed normally and woke up confused. He does remember major life events such as he is grandson being in the hospital. He also does not remember which medications he takes which is highly abnormal for him. His states that in 2020 just after Thanksgi he had a TIA with similar symptoms. He is on aspirin, hypertension meds and medication for hyperlipidemia. No upper or lower extremity weakness numbness or tingling. No difficulty speaking. No visual changes. All other systems reviewed and negative except documented per HPI. Voice recognition software was used to help create this chart Allergies and Home Medications Allergies Coded Allergies: No Known Drug Allergies (Unverified , 01/23/17) Patient Home Medication List Home Medication List Reviewed: Yes Dexlansoprazole (Dexilant) 30 Mg Gallo., 30 MG PO DAILY, (Reported) Entered as Reported by: SAMANTHA MARIO on 01/23/17 1131 Losartan Potassium (Losartan Potassium) 50 Mg Tablet, 50 MG PO DAILY, (Reported) Entered as Reported by: SAMANTHA MARIO on 01/23/17 1131 Ropinirole HCl (Requip) 5 Mg Tab, 5 MG PO HS, (Reported) Entered as Reported by: SEAMUS NUÑEZ on 08/13/16 0728 Tamsulosin HCl (Flomax) 0.4 Mg Cap, 0.4 MG PO DAILY, (Reported) Entered as Reported by: JACKLYN KIRK on 07/25/16 2231 Discontinued Medications Cephalexin (Cephalexin) 500 Mg Tablet, 500 MG PO BID Prescribed by: RICHARD WALLS on 11/03/18 1256 Last Action: Discontinued Hydrocodone Bit/Acetaminophen (Lortab 7.5 Mg Tablet) 1 Each Tablet, 1 EACH PO TID PRN for PAIN-MILD TO MODERATE, (Reported) Entered as Reported by: SAMANTHA MARIO on 01/23/17 1131 Last Action: Discontinued Hydrocodone Bit/Acetaminophen (HYDROcodone/APAP 7.5/325 TAB) 1 Each Tablet, 1-2 EACH PO Q6H PRN for PAIN-MODERATE TO SEVERE Prescribed by: EDWIGE RYDER on 01/27/18 1624 Last Action: Discontinued Hydrocodone Bit/Acetaminophen (Lortab 5 Mg Tablet) 1 Tab Tab, 1 EACH PO Q4-6HR PRN for PAIN-MODERATE Prescribed by: RICHARD WALLS on 11/03/18 1256 Last Action: Discontinued Methocarbamol (Methocarbamol) 750 Mg Tablet, 750 MG PO Q6-8HR Prescribed by: HÉCTOR FLORES on 02/21/21 1829 Last Action: Discontinued Ondansetron (Ondansetron Odt) 4 Mg Tab.rapdis, 4 MG PO Q6H PRN for NAUS EA/VOMITING Prescribed by: RICHARD WALLS on 11/03/18 1256 Last Action: Discontinued Tamsulosin HCl (Flomax) 0.4 Mg Cap, 0.4 MG PO HS Prescribed by: RICHARD WALLS on 11/03/18 1256 Last Action: Discontinued Review of Systems Review of Systems Constitutional: see HPI Past Tnrsids-Amldll-Ilazea Hx Patient Social History Tobacco Use?: No Substance use?: Yes Substance type: Marijuana Alcohol Use?: No Pt feels they are or have been: No Immunizations Up To Date Tetanus Booster (TDap): Unknown PED Vaccines UTD: No First/Initial COVID19 Vaccinat: JUNE 2020 Second COVID19 Vaccination Rudolph: OCTOBER 2020 Third COVID19 Vaccination Date: JUNE 2020 Seasonal Allergies Seasonal Allergies: No Past Medical History Surgery/Hospitalization HX: KNEE SCOPE, GALLBLADDER, HEART CATH Surgeries: Yes (CARDIAC CATH 2013 AND 2016--NO INTERVENTION, fissure reair, hemroidectomy) Cardiac, Gallbladder, Vasectomy Respiratory: No Currently Using CPAP: No Currently Using BIPAP: No Cardiac: Yes (HX OF MITRAL VALVE PROLAPSE) Coronary Artery Disease, High Cholesterol, Hypertension Neurological: Yes Neuropathy Reproductive Disorders: No Sexually Transmitted Disease: No HIV/AIDS: No Genitourinary: Yes Kidney Stones Gastrointestinal: Yes (TAKES DEXILANT-FOR ABD CRAMPS) Irritable Bowel Musculoskeletal: Yes (CHRONIC FOOT PAIN, "CAVUS FOOT" (HIGH ARCH)) Degenerate Disk Disease, Chronic Back Pain Endocrine: No HEENT: Yes Cataract Loss of Vision: Bilateral Hearing Impairment: Denies Cancer: No Psychosocial: No Integumentary: No Blood Disorders: No Adverse Reaction/Blood Tranf: No (N/A) Family Medical History Family history: Hypertension Hearing loss G8 BROTHER, Onset:Unknown (HEARING AIDE X1) No Family History of: Abdominal aortic aneurysm Putnam's disease Alcoholism Aphasia Cancer Cancer of colon Cataract Chest pain Congenital heart disease Congestive heart failure Cystic fibrosis Dementia Dysphagia Family history: Allergy Family history: Alzheimer's disease Family history: Arthritis Family history: Asthma Family history: Breast disease Family history: Cardiovascular disease Family history: Coronary thrombosis Family history: Diabetes mellitus Family history: Gastrointestinal disease Family history: Glaucoma Family history: Osteoporosis Family history: Thyroid disorder Headache Heart disease Hereditary disease History of - anemia History of - disorder History of - respiratory disease History of drug abuse Human immunodeficiency virus (HIV) seropositivity Hypercholesterolemia Infertile Kidney disease Malignant neoplasm of lung Myocardial infarction Parkinson's disease Prostate cancer Psychotic disorder Seizure disorder Stroke Tuberculosis Visual impairment Physical Exam Vital Signs Vital Signs - First Documented 09/16/22 07:16 Temp 36.2 Pulse 64 Resp 16 B/P (MAP) 174/105 (128) Pulse Ox 97 Capillary Refill : Less Than 3 Seconds Height, Weight, BMI Height: 5'10.00" Weight: 229lbs. 0.0oz. 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, no motor/sensory deficits, alert, normal mood/affect, oriented x 3 Skin: normal color, warm/dry Stroke NIH Stroke Scale Assessment Level of Consciousness: 0=Alert (0), Level of Consciousness-Questions: 0=Answers both month/age (0), LOC Commands: 0=Performs both tasks (0), Gaze: Normal (0), Visual Marquez: 0=No visual loss (0), Facial Movement (Facial Paresis): 0=Normal symmetrical mnt (0), Motor Function-Arms Right: 0=No drift (0), Motor Function-Arms Left: 0=No drift (0), Motor Function-Legs Right: 0=No drift (0), Motor Function-Legs Left: 0=No drift (0), Limb Ataxia: 0=Absent (0), Sensory: 0=Normal:no loss (0), Best Language: 0=No aphasia (0), Dysarthria: 0=Normal (0), Extinction & Inattention: 0=No abnormality (0), Total: Progress/Results/Core Measures Results/Orders Lab Results Laboratory Tests Test 09/16/22 07:10 09/16/22 07:19 09/16/22 08:38 Range/Units Glucometer 118 H 70-110 MG/DL White Blood Count 8.1 4.3-11.0 10^3/uL Red Blood Count 4.82 4.30-5.52 10^6/uL Hemoglobin 15.1 13.3-17.7 g/dL Hematocrit 44 40-54 % Mean Corpuscular Volume 91 80-99 fL Mean Corpuscular Hemoglobin 31 25-34 pg Mean Corpuscular Hemoglobin Concent 34 32-36 g/dL Red Cell Distribution Width 13.4 10.0-14.5 % Platelet Count 221 130-400 10^3/uL Mean Platelet Volume 9.6 9.0-12.2 fL Immature Granulocyte % (Auto) 1 % Neutrophils (%) (Auto) 60 42-75 % Lymphocytes (%) (Auto) 24 12-44 % Monocytes (%) (Auto) 11 0-12 % Eosinophils (%) (Auto) 4 0-10 % Basophils (%) (Auto) 1 0-10 % Neutrophils # (Auto) 4.9 1.8-7.8 10^3/uL Lymphocytes # (Auto) 1.9 1.0-4.0 10^3/uL Monocytes # (Auto) 0.9 0.0-1.0 10^3/uL Eosinophils # (Auto) 0.3 0.0-0.3 10^3/uL Basophils # (Auto) 0.1 0.0-0.1 10^3/uL Immature Granulocyte # (Auto) 0.1 0.0-0.1 10^3/uL Prothrombin Time 12.7 12.2-14.7 SEC INR Comment 0.9 0.8-1.4 Activated Partial Thromboplast Time 34 24-35 SEC Sodium Level 141 135-145 MMOL/L Potassium Level 3.8 3.6-5.0 MMOL/L Chloride Level 109 H 98-107 MMOL/L Carbon Dioxide Level 22 21-32 MMOL/L Anion Gap 10 5-14 MMOL/L Blood Urea Nitrogen 15 7-18 MG/DL Creatinine 0.94 0.60-1.30 MG/DL Estimat Glomerular Filtration Rate 91 BUN/Creatinine Ratio 16 Glucose Level 116 H 70-105 MG/DL Calcium Level 9.2 8.5-10.1 MG/DL Corrected Calcium 9.2 8.5-10.1 MG/DL Total Bilirubin 0.5 0.1-1.0 MG/DL Aspartate Amino Transf (AST/SGOT) 16 5-34 U/L Alanine Aminotransferase (ALT/SGPT) 22 0-55 U/L Alkaline Phosphatase 94 40-136 U/L Troponin I < 0.028 <0.028 NG/ML Total Protein 7.0 6.4-8.2 GM/DL Albumin 4.0 3.2-4.5 GM/DL Urine Color YELLOW Urine Clarity CLEAR Urine pH 7.5 5-9 Urine Specific Coin <=1.005 1.016-1.022 Urine Protein NEGATIVE NEGATIVE Urine Glucose (UA) NEGATIVE NEGATIVE Urine Ketones NEGATIVE NEGATIVE Urine Nitrite NEGATIVE NEGATIVE Urine Bilirubin NEGATIVE NEGATIVE Urine Urobilinogen 0.2 < = 1.0 MG/DL Urine Leukocyte Esterase NEGATIVE NEGATIVE Urine RBC (Auto) TRACE-I H NEGATIVE Urine RBC NONE /HPF Urine WBC NONE /HPF Urine Crystals NONE /LPF Urine Bacteria NEGATIVE /HPF Urine Casts NONE /LPF Urine Mucus NEGATIVE /LPF Urine Culture Indicated NO My Orders Orders - LUIGI BARNHART DO Cbc With Automated Diff (09/16/22 07:16) Protime With Inr (09/16/22 07:16) Partial Thromboplastin Time (09/16/22 07:16) Comprehensive Metabolic Panel (09/16/22 07:16) Troponin I Ruma (09/16/22 07:16) Ua Culture If Indicated (09/16/22 07:16) Chest 1 View, Ap/Pa Only (09/16/22 07:16) Ekg Tracing (09/16/22 07:16) Accucheck Stat ONCE (09/16/22 07:16) Vital Signs Stroke Patient Q15M (09/16/22 07:16) Ct Head Wo-R/O Stroke (09/16/22 07:16) Ct Angio Head/Neck (09/16/22 07:16) Iohexol Injection (Omnipaque 350 Mg/Ml 1 (09/16/22 07:30) Received Contrast (Hold Metformin- Contr (09/16/22 07:30) Ns (Ivpb) (Sodium Chloride 0.9% Ivpb Bag (09/16/22 07:30) Ed Admission (Communication) (09/16/22 08:46) Losartan Tablet (Cozaar Tablet) (09/16/22 09:00) Medications Given in ED Vital Signs/I&O 09/16/22 07:16 Temp 36.2 Pulse 64 Resp 16 B/P (MAP) 174/105 (128) Pulse Ox 97 Blood Pressure Mean: 128 FSBG Bedside Testing Finger Stick Blood Glucose: 118 Critical Care Note Critical Care Total Time (minutes) 60 Departure Communication (Admissions) Patient had symptoms upon awakening this morning at about 630. Was normal when he went to bed last night. Unfortunately not a candidate for tPA. CT initially is negative. CT angiography negative for any large vessel occlusion. Labs were unremarkable, blood sugar normal. He is slightly improved on my secondary evaluation but is still quite confused. Still does not remember that his grandson has been in the hospital and he came to see him tomorrow. 0805:Spoke to Dr Corley, requests i speak to Dr Torres. She will write acute orders. 0811: Spoke to Dr Torres, agrees to consult. No further orders for now. 0849: Spoke to Dr Thomson, stroke neurology. No further orders or recs. No indication for transfer. Impression Primary Impression: Confusion Disposition: ADMITTED INPATIENT Condition: Stable Admissions Decision to Admit Reason: Admit from ER (General) Departure-Patient Inst. Referrals: PAT CARRASCO APRN (PCP/Family) Primary Care Physician LUIGI BARNHART DO September 16, 2022 08:07
--- NOTE | 2022-09-16 08:09 | Diagnostic Imaging Report ---
EXAMINATION: Chest 1 view HISTORY: stroke protocol COMPARISON: 03/27/2021 FINDINGS: The lungs are clear without edema or pneumonia. No pleural effusion or pneumothorax. Heart size is normal. IMPRESSION: 1. Clear lungs. Dictated by: Dictated on workstation # [id number]
[2022-09-16 08:43] LABS: BILIRUBIN,URINE NEGATIVE (NEGATIVE); CLARITY,URINE CLEAR; COLOR,URINE YELLOW; GLUCOSE, URINE (UA) NEGATIVE (NEGATIVE); KETONES,URINE NEGATIVE (NEGATIVE); LEUKOCYTE ESTERASE ,URINE NEGATIVE (NEGATIVE); NITRITE,URINE NEGATIVE (NEGATIVE); PH,URINE 7.5 (5-9); PROTEIN,URINE NEGATIVE (NEGATIVE)
--- NOTE | 2022-09-16 08:44 | Consultation-Cardiology ---
HPI-Cardiology Cardiology Consultation Date of Consultation 09/16/22 Date of Admission Time Seen by Provider: 09:00 Indication: Confusion, questionable TIA HPI Patient is a 62 y/o male with history of nonobstructive CAD, HTN, HLP, severe LINO maintained on CPAP. Presented to the ER by private vehicle with his with complaints of memory loss. Patient went to bed last night, woke up this morning with confusion and memory loss. Was unable to recall recent major life event of his grandson being in the hospital. Unable to remember names of his medications, which reports is very unusual him. Currently oriented to person and place. Denies any chest pain, dyspnea, dizziness or syncope. Denies headache. Patient had similar episode in February 2021 with negative workup. Home Medications & Allergies Allergies: Coded Allergies: No Known Drug Allergies (Unverified , 01/23/17) Home Medication List Reviewed: Yes TEM-Fuyxbo-Jqkhll Hx Patient Social History Marital Status: Recreational Drug Use: No Smoking Status: Former Smoker Type Used: Cigarettes 2nd Hand Smoke Exposure: No Recent Hopitalizations: No Alcohol Use?: No Substance type: Marijuana Immunizations Up To Date Tetanus Booster (TDap): Unknown Family Medical History Family History: Family history: Hypertension Hearing loss G8 BROTHER, Onset:Unknown (HEARING AIDE X1) No Family History of: Abdominal aortic aneurysm Abdelrahman's disease Alcoholism Aphasia Cancer Cancer of colon Cataract Chest pain Congenital heart disease Congestive heart failure Cystic fibrosis Dementia Dysphagia Family history: Allergy Family history: Alzheimer's disease Family history: Arthritis Family history: Asthma Family history: Breast disease Family history: Cardiovascular disease Family history: Coronary thrombosis Family history: Diabetes mellitus Family history: Gastrointestinal disease Family history: Glaucoma Family history: Osteoporosis Family history: Thyroid disorder Headache Heart disease Hereditary disease History of - anemia History of - disorder History of - respiratory disease History of drug abuse Human immunodeficiency virus (HIV) seropositivity Hypercholesterolemia Infertile Kidney disease Malignant neoplasm of lung Myocardial infarction Parkinson's disease Prostate cancer Psychotic disorder Seizure disorder Stroke Tuberculosis Visual impairment Review of Systems-General Review of Systems Constitutional: see HPI; No fever, No malaise EENTM: see HPI; No blurred vision, No double vision Respiratory: see HPI; No dyspnea on exertion, No short of breath Cardiovascular: see HPI; No chest pain, No Hx of Intervention, No palpitations, No syncope, No vascular heart diseas Gastrointestinal: No abdominal pain, No constipation Genitourinary: No dysuria, No frequency Musculoskeletal: No back pain Psychiatric/Neurological: See HPI; Denies Headache, Denies Numbness, Denies Tingling, Denies Weakness; Other (memory loss) Reviewed Test Results Reviewed Test Results Lab Laboratory Tests 09/16/22 07:10: Glucometer 118H 09/16/22 07:19: White Blood Count 8.1, Red Blood Count 4.82, Hemoglobin 15.1, Hematocrit 44, Mean Corpuscular Volume 91, Mean Corpuscular Hemoglobin 31, Mean Corpuscular H emoglobin Concent 34, Red Cell Distribution Width 13.4, Platelet Count 221, Mean Platelet Volume 9.6, Immature Granulocyte % (Auto) 1, Neutrophils (%) (Auto) 60, Lymphocytes (%) (Auto) 24, Monocytes (%) (Auto) 11, Eosinophils (%) (Auto) 4, Basophils (%) (Auto) 1, Neutrophils # (Auto) 4.9, Lymphocytes # (Auto) 1.9, Monocytes # (Auto) 0.9, Eosinophils # (Auto) 0.3, Basophils # (Auto) 0.1, Immature Granulocyte # (Auto) 0.1, Prothrombin Time 12.7, INR Comment 0.9, Activated Partial Thromboplast Time 34, Sodium Level 141, Potassium Level 3.8, Chloride Level 109H, Carbon Dioxide Level 22, Anion Gap 10, Blood Urea Nitrogen 15, Creatinine 0.94, Estimat Glomerular Filtration Rate 91, BUN/Creatinine Ratio 16, Glucose Level 116H, Calcium Level 9.2, Corrected Calcium 9.2, Total Bilirubin 0.5, Aspartate Amino Transf (AST/SGOT) 16, Alanine Aminotransferase (ALT/SGPT) 22, Alkaline Phosphatase 94, Troponin I < 0.028, Total Protein 7.0, Albumin 4.0 09/16/22 08:38: Physical Exam Physical Exam Vital Signs Vital Signs - First Documented 09/16/22 09/16/22 07:16 09:16 Temp 36.2 Pulse 64 Resp 16 B/P (MAP) 174/105 (128) Pulse Ox 97 O2 Delivery Room Air Capillary Refill : Less Than 3 Seconds Height, Weight, BMI Height: 5'10.00" Weight: 229lbs. 0.0oz. 103.448909un; 37.00 BMI Method:Stated General Appearance: No Apparent Distress, WD/WN HEENT: PERRL/EOMI, Normal ENT Inspection Neck: Full Range of Motion, Non Tender, Supple; No Carotid Bruit Respiratory: Chest Non Tender Cardiovascular: Regular Rate, Rhythm, No Edema Gastrointestinal: Non Tender, Soft Rectal: Deferred Back: No CVA Tenderness Neurologic/Psychiatric: Alert, No Motor/Sensory Deficits, Normal Mood/Affect, Other (oriented to person and place) Skin: Normal Color, Warm/Dry A/P-Cardiology Admission Diagnosis Confusion and memory loss HTN LINO HLP Assessment/Plan Acute change in mental status, Confusion, memory loss, questionable TIA Patients reports he woke up this morning appearing confused and unable to remember recent major life events, such as grandson who is currently hospitalized. Had similar episode in February 2021, work up was negative in the past. CT head negative. Teletry showing SR. Will continue to monitor. Planning for MRI head later today. Coronary artery disease, Cardiac catheterization [place] [address] Douglass which was reported as mild coronary disease Cardiac catheterization was done in July 2016 showing mild coronary artery disease nonobstructive disease. Stress test done on April 24, 2021 showing diaphragmatic attenuation with fixed defect involving the mid to apical inferior wall and inferolateral wall with no significant reversibility, Stress score is 8, SDS 1, 66%. Continue to monitor 2D echo was done on May 05, 2020 showing normal LV size, EF 65 to 70%, PA pressure 30 mmHg. I will reevaluate 2D Echo Holter monitor was done on April 02, 2021 showing baseline sinus rhythm no significant arrhythmia was noted. Severe sleep apnea, diagnosed by sleep study in January 2020. Patient is using CPAP ExTobaccoism, has stopped smoking in May 2020, encouraged to continue with smoking cessation. Hypertension, restart home blood pressure medications and continue to monitor. Hyperlipidemia maintained on Lipitor 20 mg daily. Lipid profile was done in October 2021 with total cholesterol 155, HDL 30, triglyceride 257, LDL 91. I will repeat lipid profile and metabolic profile Mild bilateral carotid stenosis, ultrasound done on October 23, 2020, I will repeat carotid ultrasound BPH, maintained on tamsulosin Thank you for allowing us to participate in the management of Mr. Chacon. This is Najma Lambert PA-C, as a scribe for Dr. Torres. Patient was seen and evaluated with Najma, I interviewed and examined the patient, he does not have any focal deficit. Has some memory loss. Blood pressure is labile, it could be secondary to his elevated blood pressure We will start him on losartan and monitor tolerance and response Has history of mild coronary artery disease nonobstructive disease, no active chest pain Had Holter done in the past that did not show any significant arrhythmia. NAJMA CASTILLO September 16, 2022 08:43 SADA TORRES MD September 16, 2022 10:23
--- NOTE | 2022-09-16 08:56 | History & Physical ---
History of Present Illness HPI/Chief Complaint Chief complaint: Confusion with amnesia suspicious for TIA HPI: This is a 62-year-old male who has a past medical history of hypertension and hyperlipidemia and TIA 2 years ago and into the ER with complaints of confusion and amnesia. Work-up ensued and stroke neurologist recommended the addition of Plavix to his aspirin regimen and MRI. He had no motor weakness or sensation loss just confusion and amnesia. MRI will be ordered. Source: patient, family Exam Limitations: clinical condition Date Seen 09/16/22 Time Seen by a Provider: 10:00 Attending Physician Amna Hernandez Aprn PCP Admitting Physician: Attending Physician: Referring Physician Date of Admission Home Medications & Allergies Home Medications Reviewed patient Home Medication Reconciliation performed by pharmacy medication reconciliations dairy technician and/or nursing. Patients Allergies have been reviewed. Allergies Allergies Coded Allergies No Known Drug Allergies (Xhhtepfjcn13/6/17) Past Sacsolp-Elpwhf-Xekkjc Hx Past Med/Social Hx: Reviewed Nursing Past Med/Soc Hx, Reviewed and Corrections made Patient Social History Marrital Status: Alcohol Beverage of Choice: Beer Recreational Drug Use: No Smoking Status: Former Smoker Type Used: Cigarettes 2nd Hand Smoke Exposure: No Recent Hopitalizations: No Immunizations Up To Date Tetanus Booster (TDap): Unknown Pediatric: No Seasonal Allergies Seasonal Allergies: No Past Medical History Surgeries: Cardiac, Gallbladder, Vasectomy Currently Using CPAP: No Currently Using BIPAP: No Cardiac: Coronary Artery Disease, High Cholesterol, Hypertension Neurological: Neuropathy, TIA Reproductive: No Sexually Transmitted Disease: No HIV/AIDS: No Genitourinary: Kidney Stones Gastrointestinal: Irritable Bowel Musculoskeletal: Degenerate Disk Disease, Chronic Back Pain HEENT: Cataract Loss of Vision: Bilateral Hearing Impairment: Denies History of Blood Disorders: No Adverse Reaction to Blood Ayoub: No (N/A) Family History Family history: Hypertension Hearing loss G8 BROTHER, Onset:Unknown (HEARING AIDE X1) No Family History of: Abdominal aortic aneurysm Ravalli's disease Alcoholism Aphasia Cancer Cancer of colon Cataract Chest pain Congenital heart disease Congestive heart failure Cystic fibrosis Dementia Dysphagia Family history: Allergy Family history: Alzheimer's disease Family history: Arthritis Family history: Asthma Family history: Breast disease Family history: Cardiovascular disease Family history: Coronary thrombosis Family history: Diabetes mellitus Family history: Gastrointestinal disease Family history: Glaucoma Family history: Osteoporosis Family history: Thyroid disorder Headache Heart disease Hereditary disease History of - anemia History of - disorder History of - respiratory disease History of drug abuse Human immunodeficiency virus (HIV) seropositivity Hypercholesterolemia Infertile Kidney disease Malignant neoplasm of lung Myocardial infarction Parkinson's disease Prostate cancer Psychotic disorder Seizure disorder Stroke Tuberculosis Visual impairment Review of Systems Constitutional: see HPI Physical Exam Physical Exam Vital Signs Vital Signs - First Documented 09/16/22 09/16/22 07:16 09:16 Temp 36.2 Pulse 64 Resp 16 B/P (MAP) 174/105 (128) Pulse Ox 97 O2 Delivery Room Air Capillary Refill : Less Than 3 Seconds Height, Weight, BMI Height: 5'10.00" Weight: 229lbs. 0.0oz. 103.051754ia; 37.00 BMI Method:Stated General Appearance: No Apparent Distress, WD/WN, Chronically ill, Obese HEENT: PERRL/EOMI, Normal ENT Inspection Neck: Full Range of Motion, Non Tender, Supple; No Carotid Bruit Respiratory: Chest Non Tender, Normal Breath Sounds, No Accessory Muscle Use, No Respiratory Distress Cardiovascular: Regular Rate, Rhythm, No Edema Gastrointestinal: Non Tender, Soft Rectal: Deferred Back: No CVA Tenderness Neurologic/Psychiatric: Alert, No Motor/Sensory Deficits, Normal Mood/Affect, Disoriented, Other (oriented to person and place) Skin: Normal Color, Warm/Dry Results Results/Procedures Labs Laboratory Tests 09/16/22 07:19 Patient resulted labs reviewed. Assessment/Plan Admission Diagnosis Assessment: Altered mental status suspicious for TIA Hypertension Hyperlipidemia Neuropathy Plan: Supportive care MRI Admission Status: Observation JEFE SILVA DO September 16, 2022 08:56
[2022-09-16 08:59] LABS: BACTERIA,URINE NEGATIVE /HPF
[2022-09-16] MEDS ORDERED: LOSARTAN 50 MG (COZAAR) TAB PO ONE (09:00)
[2022-09-16 09:16] VITALS: BP 188/118
[2022-09-16 09:45] VITALS: BP 179/109
[2022-09-16] MEDS ORDERED: MELATONIN 3 MG TABLET PO PRN (09:45)
[2022-09-16] MEDS ORDERED: ONDANSETRON 4 MG/2 ML (SDV) Z0FRAN IV PRN (09:45)
[2022-09-16] MEDS ORDERED: LACTULOSE SYRUP 10GM/15ML (ENULOSE) 30ML UDC PO PRN (09:45)
[2022-09-16] MEDS ORDERED: polyethylene glycoL POWDER 17 GM (MIRALAX) PACK PO PRN (09:45)
[2022-09-16] MEDS ORDERED: BISACODYL 10 MG SUPP (DULCOLAX) PR PRN (09:45)
[2022-09-16] MEDS ORDERED: HYDROmorphone 2 MG/ML VIAL (DILAUDID) IV PRN (09:45)
[2022-09-16] MEDS ORDERED: diphenhydrAMINE 50 MG/ML INJ (BENADRYL) IVP PRN (09:45)
[2022-09-16] MEDS ORDERED: ANTACID SUSP 30 ML UDC (MYLANTA) PO PRN (09:45)
[2022-09-16] MEDS ORDERED: cloNIDine 0.1 MG (CATAPRES) TAB PO PRN (09:45)
[2022-09-16] MEDS ORDERED: ENOXAPARIN 40 MG/0.4 ML (LOVENOX) SYR SC SCH (09:45)
[2022-09-16] MEDS ORDERED: diphenhydrAMINE 25 MG TAB (BENADRYL) PO PRN (09:45)
[2022-09-16] MEDS ORDERED: ONDANSETRON 4 MG (ZOFRAN) ORAL DISSOLVE TAB PO PRN (09:45)
[2022-09-16] MEDS ORDERED: ACETAMINOPHEN 325 MG TABLET PO PRN (09:45)
[2022-09-16] MEDS ORDERED: CALCIUM CARBONATE 500 MG (TUMS) TAB.CHEW PO PRN (09:45)
[2022-09-16] MEDS ORDERED: MILK OF MAGNESIA 400 MG/5 ML 30 ML UDC PO PRN (09:45)
[2022-09-16 09:57] VITALS: BP 188/118
[2022-09-16] MEDS ORDERED: RT-ALBUTEROL/IPRATROPIUM 3 ML (DUONEB) VIAL INH PRN (10:15)
--- NOTE | 2022-09-16 11:05 | Occ Therapy Progress Note ---
Therapy Progress Note OT order received, Patient up ambulating in halls, independent w/ ADLS, no evaluation needed, patientr voices no concerns w/ OT needs. Discontinue order. JOCELYNN LEW OT September 16, 2022 11:05
--- NOTE | 2022-09-16 11:06 | Physical Therapy Progress Note ---
Therapy Progress Note Patient observed ambulating in hallway independent >300' without AD. No skilled PT indicated. 1 visit PATEL DAY PT September 16, 2022 11:06
[2022-09-16 11:52] VITALS: BP 172/94
--- NOTE | 2022-09-16 11:55 | Diagnostic Imaging Report ---
PROCEDURE: MR imaging of the brain without contrast. TECHNIQUE: Multiplanar, multisequence MR imaging of the brain was performed without contrast. INDICATION: Memory problems. Concern for stroke. COMPARISON: 03/22/2021. CTA head and neck performed earlier the same date. FINDINGS: No acute ischemia, mass, or hemorrhage. The ventricles, cortical sulci, and basilar cisterns are symmetric and unremarkable. The sellar and suprasellar regions have a normal appearance. The brainstem and posterior fossa are unremarkable. Mucosal thickening is seen in the ethmoid sinuses. The mastoid air cells demonstrate normal signal characteristics. The globes and orbits are symmetric and unremarkable. The scalp and calvarium have a normal appearance. IMPRESSION: 1. No acute ischemia, mass, or hemorrhage. Dictated by: Dictated on workstation # [id number]
--- NOTE | 2022-09-16 13:55 | Speech Therapy Progress Note ---
Therapy Progress Note ST received consultation at 0936 and attempted the consultation at 1355. At this time, the patient has discharged from the hospital. Thank you for the consultation. SAMANTHA CUADRA September 16, 2022 13:55
--- NOTE | 2022-09-16 14:18 | Discharge Summary ---
Diagnosis/Chief Complaint Date of Admission September 16, 2022 at 09:06 Date of Discharge September 16, 2022 at 13:30 Discharge Date: September 16, 2022 Discharge Diagnosis TIA Discharge Summary Discharge Physical Examination Allergies: Coded Allergies: No Known Drug Allergies (Unverified , 01/23/17) Vitals & I&Os Vital Signs Date Time Temp Pulse Resp B/P (MAP) Pulse Ox O2 Delivery O2 Flow Rate FiO2 09/16/22 12:46 64 09/16/22 11:52 36.5 18 172/94 (120) 97 Room Air Hospital Course Was the Problem List Reviewed?: Yes Left AMA Labs (last 24 hrs) Laboratory Tests 09/16/22 07:10: Glucometer 118H 09/16/22 07:19: White Blood Count 8.1, Red Blood Count 4.82, Hemoglobin 15.1, Hematocrit 44, Mean Corpuscular Volume 91, Mean Corpuscular Hemoglobin 31, Mean Corpuscular Hemoglobin Concent 34, Red Cell Distribution Width 13.4, Platelet Count 221, Mean Platelet Volume 9.6, Immature Granulocyte % (Auto) 1, Neutrophils (%) (Auto) 60, Lymphocytes (%) (Auto) 24, Monocytes (%) (Auto) 11, Eosinophils (%) (Auto) 4, Basophils (%) (Auto) 1, Neutrophils # (Auto) 4.9, Lymphocytes # (Auto) 1.9, Monocytes # (Auto) 0.9, Eosinophils # (Auto) 0.3, Basophils # (Auto) 0.1, Immature Granulocyte # (Auto) 0.1, Prothrombin Time 12.7, INR Comment 0.9, Activated Partial Thromboplast Time 34, Sodium Level 141, Potassium Level 3.8, Chloride Level 109H, Carbon Dioxide Level 22, Anion Gap 10, Blood Urea Nitrogen 15, Creatinine 0.94, Estimat Glomerular Filtration Rate 91, BUN/Creatinine Ratio 16, Glucose Level 116H, Calcium Level 9.2, Corrected Calcium 9.2, Total Bilirubin 0.5, Aspartate Amino Transf (AST/SGOT) 16, Alanine Aminotransferase (ALT/SGPT) 22, Alkaline Phosphatase 94, Troponin I < 0.028, Total Protein 7.0, Albumin 4.0 09/16/22 08:38: Urine Color YELLOW, Urine Clarity CLEAR, Urine pH 7.5, Urine Specific [place] <=1.005, Urine Protein NEGATIVE, Urine Glucose (UA) NEGATIVE, Urine Ketones NEGATIVE, Urine Nitrite NEGATIVE, Urine Bilirubin NEGATIVE, Urine Urobilinogen 0.2, Urine Leukocyte Esterase NEGATIVE, Urine RBC (Auto) TRACE-IH, Urine RBC NONE, Urine WBC NONE, Urine Crystals NONE, Urine Bacteria NEGATIVE, Urine Casts NONE, Urine Mucus NEGATIVE, Urine Culture Indicated NO Pending Labs Laboratory Tests 09/16/22 07:10: Glucometer 118 09/16/22 07:19: White Blood Count 8.1, Red Blood Count 4.82, Hemoglobin 15.1, Hematocrit 44, Mean Corpuscular Volume 91, Mean Corpuscular Hemoglobin 31, Mean Corpuscular Hemoglobin Concent 34, Red Cell Distribution Width 13.4, Platelet Count 221, Mean Platelet Volume 9.6, Immature Granulocyte % (Auto) 1, Neutrophils (%) ( Auto) 60, Lymphocytes (%) (Auto) 24, Monocytes (%) (Auto) 11, Eosinophils (%) (Auto) 4, Basophils (%) (Auto) 1, Neutrophils # (Auto) 4.9, Lymphocytes # (Auto) 1.9, Monocytes # (Auto) 0.9, Eosinophils # (Auto) 0.3, Basophils # (Auto) 0.1, Immature Granulocyte # (Auto) 0.1, Prothrombin Time 12.7, INR Comment 0.9, Activated Partial Thromboplast Time 34, Sodium Level 141, Potassium Level 3.8, Chloride Level 109, Carbon Dioxide Level 22, Anion Gap 10, Blood Urea Nitrogen 15, Creatinine 0.94, Estimat Glomerular Filtration Rate 91, BUN/Creatinine Ratio 16, Glucose Level 116, Calcium Level 9.2, Corrected Calcium 9.2, Total Bilirubin 0.5, Aspartate Amino Transf (AST/SGOT) 16, Alanine Aminotransferase (ALT/SGPT) 22, Alkaline Phosphatase 94, Troponin I < 0.028, Total Protein 7.0, Albumin 4.0 09/16/22 08:38: Urine Color YELLOW, Urine Clarity CLEAR, Urine pH 7.5, Urine Specific [place] <=1.005, Urine Protein NEGATIVE, Urine Glucose (UA) NEGATIVE, Urine Ketones NEGATIVE, Urine Nitrite NEGATIVE, Urine Bilirubin NEGATIVE, Urine Urobilinogen 0.2, Urine Leukocyte Esterase NEGATIVE, Urine RBC (Auto) TRACE-I, Urine RBC NONE, Urine WBC NONE, Urine Crystals NONE, Urine Bacteria NEGATIVE, Urine Casts NONE, Urine Mucus NEGATIVE, Urine Culture Indicated NO Discharge Home Medications: Active Scripts Active Reported Dexilant (Dexlansoprazole) 30 Mg Gallo.bp 30 Mg PO DAILY Losartan Potassium 50 Mg Tablet 50 Mg PO DAILY Requip (Ropinirole HCl) 5 Mg Tab 5 Mg PO HS Flomax (Tamsulosin HCl) 0.4 Mg Cap 0.4 Mg PO DAILY Instructions to patient/family Please see electronic discharge instructions given to patient. JEFE SILVA DO September 16, 2022 14:18
[2022-09-16] MEDS ORDERED: SENNOSIDES 8.6 MG (SENOKOT) TAB PO SCH (21:00)
[2022-09-16] MEDS ORDERED: DOCUSATE SODIUM 100 MG (COLACE) CAP PO SCH (21:00)
[2022-09-17] MEDS ORDERED: LOSARTAN 50 MG (COZAAR) TAB PO SCH (09:00)
[2022-09-17] MEDS ORDERED: ASPIRIN 325 MG (5 GR) TABLET PO SCH (09:00)
[2022-09-17] MEDS ORDERED: CLOPIDOGREL 75 MG (PLAVIX) TABLET PO SCH (09:00)
== END 2022-09-16 13:30 | disposition left against medical advice (07) ==
LOC: EDUNIT# 07:03 → ER 07:05 → 4TH 09:06 → CSD 09:25
PROVIDERS: ADMIT Internal Medicine; ATTEND Internal Medicine
DX: G45.9 Transient cerebral ischemic attack, unspecified (principal); I10 Essential (primary) hypertension; I25.10 Atherosclerotic heart disease of native coronary artery without angina pectoris; R29.700 NIHSS score 0; E78.5 Hyperlipidemia, unspecified; G62.9 Polyneuropathy, unspecified; G47.33 Obstructive sleep apnea (adult) (pediatric); N40.0 Benign prostatic hyperplasia without lower urinary tract symptoms; Z87.891 Personal history of nicotine dependence; Z99.81 Dependence on supplemental oxygen; Z79.899 Other long term (current) drug therapy; Z79.82 Long term (current) use of aspirin
CPT/HCPCS: 36415; 70450; 70496; 70498; 70551; 71045; 80053; 81000; 82947; 84484; 85025; 85610; 85730; 93005; 93041; 96372